=== PATIENT | female | born 1975 | race Caucasian/White ===

== ENCOUNTER 2017-12-28 16:10 | Emergency (ER) | payer SELFPAY ==
[~2017-12-28] VITALS: Ht 162.6 cm; Wt 77.1 kg
--- OUTSIDE RECORDS SUMMARY | 2017-12-28 16:19 | XMS REPORT ---
Author ROSIO Lagos Organization [employer] Address Unknown Phone Unavailable Care Team Providers Care Wood Heel Flap Inserter Name Role Phone ROSIO ANDERSEN CP Unavailable Allergies, Adverse Reactions, Alerts Substance Reaction Event Type Sulfamethoxazole-Trimethoprim Info Not Available Drug Allergy Problems Problem Type Condition Code Onset Dates Condition Status Assessment Infection of skin of finger L08.9 Active Medications Medication Code System Code Instructions Start Date End Date Status Dosage Estrace [facility] [address]-66 1 MG Orally Once a day 1 tablet Celexa [facility] [address]-16 10 mg Orally Once a day 1 tablet Oxybutynin Chloride [facility] [address]-69 5 mg Orally Once a day 2 tablet Vitamin B12 [facility] [address]-03 500 MCG Orally Once a day 1 tablet Vitamin D [facility] [address]-02 35115 U Orally Once a day 1 tablet Clindamycin HCl [facility] [address]-43 150 MG Orally every 8 hrs Aug 05, 2016 Aug 12, 2016 1 capsule Excedrin Migraine [facility] [address]-83 250-250-65 MG Orally every 6 hrs 2 tablets as needed Procedures Procedure Coding System Code Date Office Visit, Est Pt., Level 3 CPT-4 67066 Aug 05, 2016 Vital Signs Date/Time: Aug 05, 2016 Cardiac Monitoring Heart Rate 76 bpm Weight 199.7 lbs Height 64 in BMI 34.27 Index Blood Pressure Diastolic 84 mmHg Blood Pressure Systolic 120 mmHg Results No Known Results Summary Purpose [employer] Submission
--- OUTSIDE RECORDS SUMMARY | 2017-12-28 16:19 | XMS REPORT ---
Author Author DARIUS PATEL Organization [facility] Address [address] [place] [address] Care Team Providers Care Rn Orthopaedics Name Role Phone DARIUS PATEL Unavailable PROBLEMS Type Condition ICD9-CM Code OBM12-CN Code Onset Dates Condition Status SNOMED Code Problem Secondary cataract of both eyes, unspecified secondary cataract type H26.40 Active 47541800 Problem Moderate episode of recurrent major depressive disorder F33.1 Active 588574932 Problem Overactive bladder N32.81 Active 831787900 Problem Encounter for dental examination Z01.20 Active 469350203 Problem Major depressive disorder, single episode, unspecified F32.9 Active 44410433 Problem Migraine with aura and without status migrainosus, not intractable G43.109 Active 7864373 Problem Non morbid obesity due to excess calories E66.09 Active 005021595 Problem Anxiety disorder, unspecified F41.9 Active 638660016 Problem Morbid obesity due to excess calories E66.01 Active 318709970 ALLERGIES No Information SOCIAL HISTORY Never Assessed PLAN OF CARE VITAL SIGNS MEDICATIONS Medication Instructions Dosage Frequency Start Date End Date Duration Status Oxybutynin Chloride ER 10 mg Orally Once a day 1 tablet 24h Sep, Active Celexa 10 MG Orally Once a day 4 tablets 24h Active RESULTS No Results PROCEDURES No Known procedures IMMUNIZATIONS No Known Immunizations MEDICAL (GENERAL) HISTORY Type Description Date Medical History Depression Medical History Migraines Medical History Anxiety Surgical History total hysterectomy Surgical History cholecystectomy Surgical History Appendectomy Surgical History Tonsillectomy Surgical History cystoscopy Hospitalization History past surgery
--- OUTSIDE RECORDS SUMMARY | 2017-12-28 16:19 | XMS REPORT ---
Author Author DARIUS PATEL Organization [facility] Address [address] [place] [address] Care Team Providers Care Textile Supervisor Name Role Phone DARIUS PATEL Unavailable PROBLEMS Type Condition ICD9-CM Code SSX43-PK Code Onset Dates Condition Status SNOMED Code Problem Secondary cataract of both eyes, unspecified secondary cataract type H26.40 Active 83920704 Problem Moderate episode of recurrent major depressive disorder F33.1 Active 638950885 Problem Overactive bladder N32.81 Active 940510099 Problem Encounter for dental examination Z01.20 Active 084093041 Problem Major depressive disorder, single episode, unspecified F32.9 Active 44589911 Problem Migraine with aura and without status migrainosus, not intractable G43.109 Active 7278973 Problem Non morbid obesity due to excess calories E66.09 Active 770404110 Problem Anxiety disorder, unspecified F41.9 Active 392001448 Problem Morbid obesity due to excess calories E66.01 Active 787571112 ALLERGIES Substance Reaction Event Type Date Status Sulfamethoxazole-Trimethoprim Unknown Drug Allergy February, Active SOCIAL HISTORY Never Assessed PLAN OF CARE Activity Details Follow Up 4 Weeks with Stacey f/juanita Mood and anxiety Reason: VITAL SIGNS Height 64 in 2017-03-03 Weight 184.0 lbs 2017-03-03 Temperature 97.1 degrees Fahrenheit 2017-03-03 Heart Rate 72 bpm 2017-03-03 Respiratory Rate 18 2017-03-03 BMI 31.58 kg/m2 2017-03-03 Blood pressure systolic 126 mmHg 2017-03-03 Blood pressure diastolic 76 mmHg 2017-03-03 MEDICATIONS Medication Instructions Dosage Frequency Start Date End Date Duration Status Relpax 20 MG Orally Once a day 1 tablet as needed one time 24h Active Vitamin D 1000 UNIT Orally Once a day 5 tablet 24h Active Celexa 40 MG Orally Once a day 1 tablet 24h Active Pepcid 20 MG Orally Once a day 1 tablet at bedtime 24h Active Excedrin Migraine 250-250-65 MG Orally Once a day 2 tablets 24h Active [employer] Vitamin B-12 1500 MCG Active Topamax 25 MG Orally Twice a day 2 tablets 12h 16 Aug, 2016 Active Oxybutynin Chloride ER 10 mg Orally Once a day 1 tablet 24h Sep, Active Klonopin 1 MG Orally Twice a day PRN, do not take more then 2 tabs per day 1 tablet 18 Oct, 2016 30 days Active Feverfew 380 MG Orally Once a day 1 tablet 24h Active Premarin 0.625 MG/GM Vaginal once a day as directed 24h Sep, month Active RESULTS No Results PROCEDURES No Known procedures IMMUNIZATIONS No Known Immunizations MEDICAL (GENERAL) HISTORY Type Description Date Medical History Depression Medical History Migraines Medical History Anxiety Surgical History total hysterectomy Surgical History cholecystectomy Surgical History Appendectomy Surgical History Tonsillectomy Surgical History cystoscopy Hospitalization History past surgery
--- OUTSIDE RECORDS SUMMARY | 2017-12-28 16:19 | XMS REPORT ---
Author Author DARIUS PATEL Organization [facility] Address [address] [place] [address] Care Team Providers Care Business Analyst Project Manager Name Role Phone DARIUS PATEL Unavailable PROBLEMS Type Condition ICD9-CM Code QBC37-VF Code Onset Dates Condition Status SNOMED Code Problem Secondary cataract of both eyes, unspecified secondary cataract type H26.40 Active 49791290 Problem Moderate episode of recurrent major depressive disorder F33.1 Active 887569816 Problem Overactive bladder N32.81 Active 071939078 Problem Encounter for dental examination Z01.20 Active 499240029 Problem Major depressive disorder, single episode, unspecified F32.9 Active 46683687 Problem Migraine with aura and without status migrainosus, not intractable G43.109 Active 6594494 Problem Non morbid obesity due to excess calories E66.09 Active 901524620 Problem Anxiety disorder, unspecified F41.9 Active 076609512 Problem Morbid obesity due to excess calories E66.01 Active 370733700 ALLERGIES Substance Reaction Event Type Date Status Sulfamethoxazole-Trimethoprim Unknown Drug Allergy Oct, Active SOCIAL HISTORY No smoking Hx information available PLAN OF CARE Activity Details Follow Up 4 Weeks with Stacey for med f/u Reason: VITAL SIGNS Height 64 in 2016-10-28 Weight 191.2 lbs 2016-10-28 Temperature 97.7 degrees Fahrenheit 2016-10-28 Heart Rate 80 bpm 2016-10-28 Respiratory Rate 18 2016-10-28 BMI 32.82 kg/m2 2016-10-28 Blood pressure systolic 128 mmHg 2016-10-28 Blood pressure diastolic 84 mmHg 2016-10-28 MEDICATIONS Medication Instructions Dosage Frequency Start Date End Date Duration Status Vitamin D 1000 UNIT Orally Once a day 5 tablet 24h Active Topamax 50 mg Orally Twice a day 1 tablet 12h 16 Aug, 2016 90 days Active Feverfew 380 MG Orally Once a day 1 tablet 24h Active Klonopin 1 MG Orally Twice a day PRN, do not take more then 2 tabs per day 1 tablet 18 Jitendra, 2017 30 days Active Excedrin Migraine 250-250-65 MG Orally Once a day 2 tablets 24h Active Pepcid 20 MG Orally Once a day 1 tablet at bedtime 24h Active Relpax 20 MG Orally Once a day 1 tablet as needed one time 24h Active Premarin 0.625 MG/GM Vaginal once a day as directed 24h Sep, month Active [employer] Vitamin B-12 1500 MCG Active Oxybutynin Chloride ER 10 mg Orally Once a day 1 tablet 24h Sep, Active Celexa 40 MG Orally Once a day 1 tablet 24h 30 days Active RESULTS No Results PROCEDURES Procedure Date Ordered Related Diagnosis Body Site Office Visit, Est Pt., Level 4 Oct 28, 2016 IMMUNIZATIONS No Known Immunizations
--- OUTSIDE RECORDS SUMMARY | 2017-12-28 16:19 | XMS REPORT ---
Author Author DARIUS PATEL Organization [facility] Address [address] [place] [address] Care Team Providers Care Oil Driller Name Role Phone DARISU PATEL Unavailable PROBLEMS Type Condition ICD9-CM Code ELL47-WQ Code Onset Dates Condition Status SNOMED Code Problem Secondary cataract of both eyes, unspecified secondary cataract type H26.40 Active 47013157 Problem Non morbid obesity due to excess calories E66.09 Active 045966427 Problem Moderate episode of recurrent major depressive disorder F33.1 Active 282903567 Problem Encounter for dental examination Z01.20 Active 757635824 Problem Anxiety disorder, unspecified F41.9 Active 875214468 Problem Overactive bladder N32.81 Active 934850788 Problem Migraine with aura and without status migrainosus, not intractable G43.109 Active 3280607 Problem Major depressive disorder, single episode, unspecified F32.9 Active 10632530 Problem Morbid obesity due to excess calories E66.01 Active 608433904 ALLERGIES Substance Reaction Event Type Date Status Sulfamethoxazole-Trimethoprim Unknown Drug Allergy Sep, Active SOCIAL HISTORY No smoking Hx information available PLAN OF CARE Activity Details Follow Up 3 Months with Stacey f/u weight loss Reason: VITAL SIGNS Height 64 in 2016-09-24 Weight 190.0 lbs 2016-09-24 Temperature 97.3 degrees Fahrenheit 2016-09-24 BMI 32.61 kg/m2 2016-09-24 Blood pressure systolic 126 mmHg 2016-09-24 Blood pressure diastolic 70 mmHg 2016-09-24 MEDICATIONS Medication Instructions Dosage Frequency Start Date End Date Duration Status [employer] Vitamin B-12 1500 MCG Active Oxybutynin Chloride ER 10 mg Orally Once a day 1 tablet 24h Sep, Active Vitamin D 1000 UNIT Orally Once a day 5 tablet 24h Active Estrace 1 MG Orally Once a day 1 tablet 24h Active Topamax 50 mg Orally Twice a day 1 tablet 12h Aug, 90 days Active Excedrin Migraine 250-250-65 MG Orally Once a day 2 tablets 24h Active Premarin 0.625 MG/GM Vaginal once a day as directed 24h Sep, month Active Relpax 20 MG Orally Once a day 1 tablet as needed one time 24h Active Feverfew 380 MG Orally Once a day 1 tablet 24h Active Oxybutynin Chloride 10 mg Orally Once a day 1 tablet 24h Active Pepcid 20 MG Orally Once a day 1 tablet at bedtime 24h Active Celexa 20 mg Orally Once a day 1 tablet 24h 90 days Active RESULTS No Results PROCEDURES Procedure Date Ordered Related Diagnosis Body Site Office Visit, Est Pt., Level 3 Sep 24, 2016 IMMUNIZATIONS No Known Immunizations
--- OUTSIDE RECORDS SUMMARY | 2017-12-28 16:19 | XMS REPORT ---
Author DARIUS [facility] [employer] Address Unknown Phone Unavailable Care Team Providers Care Acid Tester Name Role Phone DARIUS PATEL CP Unavailable Allergies, Adverse Reactions, Alerts Substance Reaction Event Type Sulfamethoxazole-Trimethoprim Info Not Available Drug Allergy Problems Problem Type Condition Code Onset Dates Condition Status Assessment Moderate episode of recurrent major depressive disorder F33.1 Active Problem Migraine with aura and without status migrainosus, not intractable G43.109 Active Problem Non morbid obesity due to excess calories E66.09 Active Problem Overactive bladder N32.81 Active Assessment Migraine with aura and without status migrainosus, not intractable G43.109 Active Assessment Non morbid obesity due to excess calories E66.09 Active Problem Moderate episode of recurrent major depressive disorder F33.1 Active Assessment Overactive bladder N32.81 Active Medications Medication Code System Code Instructions Start Date End Date Status Dosage Estrace [facility] [address]-64 1 MG Orally Once a day 1 tablet [employer] Vitamin B-12 [facility] [address] 1500 MCG Orally not defined Relpax [facility] [address]-77 20 MG Orally Once a day 1 tablet as needed one time Vitamin D [facility] [address]-29 1000 UNIT Orally Once a day 5 tablet Excedrin Migraine [facility] [address]-77 250-250-65 MG Orally Once a day 2 tablets Topamax [facility] [address]-98 50 mg Orally Twice a day Aug 26, 2016 1 tablet Pepcid [facility] [address]-47 20 MG Orally Once a day 1 tablet at bedtime Feverfew [facility] [address] 380 MG Orally Once a day 1 tablet Oxybutynin Chloride [facility] [address]-78 5 mg Orally Once a day Nov 24, 2016 2 tablet Celexa [facility] [address]-10 20 mg Orally Once a day 1 tablet Procedures Procedure Coding System Code Date GLYCATED HEMOGLOBIN TEST CPT-4 75092 Aug 25, 2016 COMPLETE CBC W/AUTO DIFF WBC CPT-4 83628 Aug 25, 2016 ASSAY THYROID STIM HORMONE CPT-4 26085 Aug 25, 2016 COMPREHEN METABOLIC PANEL CPT-4 87122 Aug 25, 2016 LIPID PANEL CPT-4 13536 Aug 25, 2016 Office Visit, New Pt., Level 3 CPT-4 23996 Aug 25, 2016 VENIPUNCT, ROUTINE* CPT-4 05587 Aug 25, 2016 Vital Signs Date/Time: Aug 25, 2016 Cardiac Monitoring Heart Rate 72 bpm Weight 199.9 lbs Height 64 in BMI 34.31 Index Blood Pressure Diastolic 78 mmHg Blood Pressure Systolic 110 mmHg Results Name Result Date Reference Range Unit Abnormality Flag A1C ----Hemoglobin A1c 5.2 62470925 4.8-5.6 % CBC ----Basos 0 67533595 % ----MCV 94 91399637 79-97 fL ----Hematocrit 40.1 00389822 34.0-46.6 % ----Eos 2 40865833 % ----MCHC 33.9 51535678 31.5-35.7 g/dL ----Monocytes 7 42137473 % ----MCH 31.9 88683261 26.6-33.0 pg ----Lymphs 39 17135951 % ----Eos (Absolute) 0.1 95636305 0.0-0.4 x10E3/uL ----WBC 6.5 [id number] 3.4-10.8 x10E3/uL ----Monocytes(Absolute) 0.5 60450623 0.1-0.9 x10E3/uL ----Lymphs (Absolute) 2.5 02461598 0.7-3.1 x10E3/uL ----Hemoglobin 13.6 49079892 11.1-15.9 g/dL ----Neutrophils (Absolute) 3.4 01560559 1.4-7.0 x10E3/uL ----RBC 4.26 77042513 3.77-5.28 x10E6/uL ----Immature Grans (Abs) 0.0 68313437 0.0-0.1 x10E3/uL ----Immature Granulocytes 0 15149256 % ----Neutrophils 52 70375471 % ----Baso (Absolute) 0.0 40734373 0.0-0.2 x10E3/uL ----RDW 12.8 97661366 12.3-15.4 % ----Platelets 246 [id number] 150-379 x10E3/uL ROUTINE VENIPUNCTURE THYROID ANALYZER ----TSH 1.590 [id number] 0.450-4.500 uIU/mL LIPID PANEL ----LDL Cholesterol Calc 129 63764508 0-99 mg/dL H ----VLDL Cholesterol Ernie 77 53334801 5-40 mg/dL H ----HDL Cholesterol 37 33516366 >39 mg/dL L ----Triglycerides 386 00035550 0-149 mg/dL H ----Cholesterol, Total 243 89537240 100-199 mg/dL H CMP ----Creatinine, Serum 0.63 83097033 0.57-1.00 mg/dL ----BUN 16 22124899 6-24 mg/dL ----eGFR If Africn Am 130 14724584 >59 mL/min/1.73 ----eGFR If NonAfricn Am 113 59136282 >59 mL/min/1.73 ----Sodium, Serum 143 32348234 136-144 mmol/L ----BUN/Creatinine Ratio 25 26857234 9-23 H ----Chloride, Serum 103 92394775 97-106 mmol/L ----Potassium, Serum 3.8 02197713 3.5-5.2 mmol/L ----Carbon Dioxide, Total 24 02869406 18-29 mmol/L ----Protein, Total, Serum 7.2 10758547 6.0-8.5 g/dL ----Calcium, Serum 9.5 19802650 8.7-10.2 mg/dL ----Globulin, Total 2.8 19229097 1.5-4.5 g/dL ----Albumin, Serum 4.4 74623356 3.5-5.5 g/dL ----Bilirubin, Total <0.2 21580765 0.0-1.2 mg/dL ----Glucose, Serum 92 41613302 65-99 mg/dL ----A/G Ratio 1.6 29398179 1.1-2.5 ----ALT (SGPT) 13 20160825 0-32 IU/L ----Alkaline Phosphatase, S 68 20160825 39-117 IU/L ----AST (SGOT) 16 20160825 0-40 IU/L Summary Purpose [employer]Works Submission
--- OUTSIDE RECORDS SUMMARY | 2017-12-28 16:19 | XMS REPORT ---
Author Author DARIUS PATEL Organization [facility] Address [address] [place] [address] Care Team Providers Care Supervisor Liquid Yeast Name Role Phone DARIUS PATEL Unavailable PROBLEMS Type Condition ICD9-CM Code EWC15-KT Code Onset Dates Condition Status SNOMED Code Problem Secondary cataract of both eyes, unspecified secondary cataract type H26.40 Active 23671911 Problem Moderate episode of recurrent major depressive disorder F33.1 Active 236887505 Problem Overactive bladder N32.81 Active 274511753 Problem Encounter for dental examination Z01.20 Active 146669870 Problem Major depressive disorder, single episode, unspecified F32.9 Active 43138243 Problem Migraine with aura and without status migrainosus, not intractable G43.109 Active 4639813 Problem Non morbid obesity due to excess calories E66.09 Active 465527188 Problem Anxiety disorder, unspecified F41.9 Active 674211787 Problem Morbid obesity due to excess calories E66.01 Active 618550666 ALLERGIES No Information SOCIAL HISTORY Never Assessed PLAN OF CARE VITAL SIGNS MEDICATIONS Unknown Medications RESULTS No Results PROCEDURES No Known procedures IMMUNIZATIONS No Known Immunizations MEDICAL (GENERAL) HISTORY Type Description Date Medical History Depression Medical History Migraines Medical History Anxiety Surgical History total hysterectomy Surgical History cholecystectomy Surgical History Appendectomy Surgical History Tonsillectomy Surgical History cystoscopy Hospitalization History past surgery
--- NOTE | 2017-12-28 16:25 | ED Chest Pain ---
General Chief Complaint: Chest Pain Stated Complaint: CP Source: patient Exam Limitations: no limitations History of Present Illness Date Seen by Provider: Dec 28, 2017 Time Seen by Provider: 16:23 Initial Comments To ER accompanied by her son per private vehicle with reports of left-sided chest pain. This chest pain has been intermittent since Tuesday 12/26 but this particular episode has been constant all day. The pain is worsened by deep breathing and the left side of her chest and breast is tender to palpation. She has not noticed any redness or skin changes to her breasts or discharge from the nipple. She has not had a cough fevers or chills. Timing/Duration: intermittent Severity/Quality: moderate Location: central Activities at Onset: none ASA po SHEET METAL DUCT INSTALLER HELPER: No NTG SL SHEET METAL DUCT INSTALLER HELPER: No Associated Symptoms: nausea/vomiting Allergies and Home Medications Allergies Uncoded Allergies: SULFA (Allergy, Unknown, 12/28/17) Patient Home Medication List Home Medication List Reviewed: Yes Review of Systems Constitutional: see HPI, No chills, No fever EENTM: No Symptoms Reported Respiratory: No Symptoms Reported Cardiovascular: No Symptoms Reported Gastrointestinal: See HPI, Abdominal Pain Genitourinary: See HPI Musculoskeletal: no symptoms reported Skin: no symptoms reported Psychiatric/Neurological: No Symptoms Reported Endocrine: No Symptoms Reported Hematologic/Lymphatic: No Symptoms Reported Past Lffdjdo-Obrfqm-Wkrrdm Hx Patient Social History Recent Foreign Travel: No Contact w/Someone Who Travel: No Physical Exam Vital Signs Vital Signs - First Documented 12/28/17 16:25 Temp 97.4 Pulse 61 Resp 12 B/P (MAP) 140/90 (107) Pulse Ox 98 Capillary Refill : General Appearance: No Apparent Distress, WD/WN HEENT: PERRL/EOMI, TMs Normal Neck: Full Range of Motion, Normal Inspection Respiratory: No Accessory Muscle Use, No Respiratory Distress, Other (left chest tender to palp) Cardiovascular: Regular Rate, Rhythm, Normal Peripheral Pulses Gastrointestinal: Non Tender, Soft Extremity: Normal Capillary Refill, Normal Inspection Neurologic/Psychiatric: Alert, Oriented x3 Skin: Normal Color, Warm/Dry Progress/Results/Core Measures Results/Orders Lab Results Laboratory Tests Test 12/28/17 16:30 Range/Units White Blood Count 6.0 4.3-11.0 10^3/uL Red Blood Count 4.24 L 4.35-5.85 10^6/uL Hemoglobin 13.9 11.5-16.0 G/DL Hematocrit 39 35-52 % Mean Corpuscular Volume 92 80-99 FL Mean Corpuscular Hemoglobin 33 25-34 PG Mean Corpuscular Hemoglobin Concent 36 32-36 G/DL Red Cell Distribution Width 11.9 10.0-14.5 % Platelet Count 201 130-400 10^3/uL Mean Platelet Volume 10.9 H 7.4-10.4 FL Neutrophils (%) (Auto) 55 42-75 % Lymphocytes (%) (Auto) 34 12-44 % Monocytes (%) (Auto) 9 0-12 % Eosinophils (%) (Auto) 2 0-10 % Basophils (%) (Auto) 0 0-10 % Neutrophils # (Auto) 3.3 1.8-7.8 X 10^3 Lymphocytes # (Auto) 2.1 1.0-4.0 X 10^3 Monocytes # (Auto) 0.6 0.0-1.0 X 10^3 Eosinophils # (Auto) 0.1 0.0-0.3 10^3/uL Basophils # (Auto) 0.0 0.0-0.1 10^3/uL Prothrombin Time 12.9 12.2-14.7 SEC INR Comment 1.0 0.8-1.4 Activated Partial Thromboplast Time 33 24-35 SEC D-Dimer < 0.27 0.00-0.49 UG/ML Sodium Level 141 135-145 MMOL/L Potassium Level 3.4 L 3.6-5.0 MMOL/L Chloride Level 112 H 98-107 MMOL/L Carbon Dioxide Level 22 21-32 MMOL/L Anion Gap 7 5-14 MMOL/L Blood Urea Nitrogen 13 7-18 MG/DL Creatinine 0.77 0.60-1.30 MG/DL Estimat Glomerular Filtration Rate > 60 BUN/Creatinine Ratio 17 Glucose Level 77 70-105 MG/DL Calcium Level 9.2 8.5-10.1 MG/DL Magnesium Level 2.0 1.8-2.4 MG/DL Total Bilirubin 0.3 0.1-1.0 MG/DL Aspartate Amino Transf (AST/SGOT) 46 H 5-34 U/L Alanine Aminotransferase (ALT/SGPT) 175 H 0-55 U/L Alkaline Phosphatase 98 40-136 U/L Myoglobin 37.6 10.0-92.0 NG/ML Troponin I < 0.30 <0.30 NG/ML B-Type Natriuretic Peptide 182.0 H <100.0 PG/ML Total Protein 7.2 6.4-8.2 GM/DL Albumin 4.3 3.2-4.5 GM/DL Amylase Level 44 25-125 U/L Lipase 19 8-78 U/L My Orders Orders - FARIHA MOSES SUPERVISOR BILLPOSTING Cbc With Automated Diff (12/28/17 16:16) Magnesium (12/28/17 16:16) Chest 1 View, Ap/Pa Only (12/28/17 16:16) Ekg Tracing (12/28/17 16:16) Cardiac Profile 1 (12/28/17 16:16) Comprehensive Metabolic Panel (12/28/17 16:16) Myoglobin Serum (12/28/17 16:16) Protime With Inr (12/28/17 16:16) Partial Thromboplastin Time (12/28/17 16:16) O2 (12/28/17 16:16) Monitor-Rhythm Ecg Trace Only (12/28/17 16:16) Lipid Panel (12/29/17 06:00) Saline Lock/Iv-Start (12/28/17 16:16) Lipase (12/28/17 16:16) Amylase (12/28/17 16:16) BNP (12/28/17 16:16) Fibrin Degradation Products (12/28/17 16:16) Ketorolac Injection (Toradol Injection) (12/28/17 17:15) Medications Given in ED Current Medications Medications Dose Ordered Sig/Carlos Route Start Time Stop Time Status Last Admin Dose Admin Ketorolac Tromethamine 15 mg ONCE ONCE IVP 12/28/17 17:15 12/28/17 17:16 DC 12/28/17 17:35 15 MG Vital Signs/I&O Vital Sign - Last 12Hours 12/28/17 16:25 Temp 97.4 Pulse 61 Resp 12 B/P (MAP) 140/90 (107) Pulse Ox 98 Departure Impression Impression: Primary Impression: Chest pain Additional Impression: Elevated liver function tests Disposition: 01 HOME, SELF-CARE Condition: Stable Departure-Patient Inst. Decision time for Depature: 17:16 Referrals: DARIUS IBARRA MD (PCP/Family) Primary Care Physician Patient Instructions: Chest Pain That Is Not Caused by the Heart (DC) Add. Discharge Instructions: 1. Follow-up with Dr. Ibarra to further evaluate the slightly elevated liver enzymes 2. Return to ER for any concerns 3. Motrin for any pain or discomfort. Return to ER for any worsening chest pain , shortness of breath or other concerns. All discharge instructions reviewed with patient and/or family. Voiced understanding. Copy Copies To 1: DARIUS IBARRA MD, PETER J APRN Dec 28, 2017 16:25
[2017-12-28 16:43] LABS: BASOPHILS % (AUTO) 0 % (0-10); EOSINOPHILS # (AUTO) 0.1 10^3/uL (0.0-0.3); EOSINOPHILS % (AUTO) 2 % (0-10); HEMATOCRIT 39 % (35-52); HEMOGLOBIN 13.9 G/DL (11.5-16.0); LYMPHOCYTES # (AUTO) 2.1 X 10^3 (1.0-4.0); LYMPHOCYTES % (AUTO) 34 % (12-44); MEAN CORPUSCULAR HEMOGLOBIN 33 PG (25-34); MEAN CORPUSCULAR HGB CONC 36 G/DL (32-36); MEAN CORPUSCULAR VOLUME 92 FL (80-99); MEAN PLATELET VOLUME 10.9 FL (7.4-10.4); MONOCYTES # (AUTO) 0.6 X 10^3 (0.0-1.0); MONOCYTES % (AUTO) 9 % (0-12); NEUTROPHILS # (AUTO) 3.3 X 10^3 (1.8-7.8); NEUTROPHILS % (AUTO) 55 % (42-75); PLATELET COUNT 201 10^3/uL (130-400); RED BLOOD COUNT 4.24 10^6/uL (4.35-5.85); RED CELL DISTRIBUTION WIDTH 11.9 % (10.0-14.5)
[2017-12-28 17:02] LABS: PROTHROMBIN TIME PATIENT 12.9 SEC (12.2-14.7)
[2017-12-28 17:07] LABS: ALANINE AMINOTRANSFERASE 175 U/L (0-55); ALBUMIN 4.3 GM/DL (3.2-4.5); ALKALINE PHOSPHATASE 98 U/L (40-136); AMYLASE 44 U/L (25-125); BILIRUBIN,TOTAL 0.3 MG/DL (0.1-1.0); BUN/CREATININE RATIO 17; CALCIUM 9.2 MG/DL (8.5-10.1); CARBON DIOXIDE 22 MMOL/L (21-32); CHLORIDE 112 MMOL/L (98-107); CREATININE SERUM 0.77 MG/DL (0.60-1.30); GFR ESTIMATED > 60; GLUCOSE 77 MG/DL (70-105); LIPASE 19 U/L (8-78); POTASSIUM 3.4 MMOL/L (3.6-5.0); SODIUM 141 MMOL/L (135-145); TOTAL PROTEIN 7.2 GM/DL (6.4-8.2)
--- NOTE | 2017-12-28 17:08 | Diagnostic Imaging Report ---
INDICATION: Chest pain. TIME OF EXAM: 500 PM COMPARISON: No prior studies are available for comparison. FINDINGS: There is right convexity thoracic scoliotic curvature. The heart size is normal. The lungs are clear. No infiltrate is detected. There is no effusion or pneumothorax. IMPRESSION: No acute cardiopulmonary process is detected. Dictated by: Dictated on workstation # [id number]
[2017-12-28 17:13] LABS: MYOGLOBIN SERUM 37.6 NG/ML (10.0-92.0)
[2017-12-28] MEDS ORDERED: KETOROLAC 30 MG/ML VIAL IVP ONE (17:15)
[2017-12-28 17:51] VITALS: BP 112/61
== END 2017-12-28 17:49 | disposition home or self-care (01) ==
LOC: ER 16:13
DX: R07.89 Other chest pain (principal); R94.5 Abnormal results of liver function studies; Z88.2 Allergy status to sulfonamides
CPT/HCPCS: 36415; 71045; 80053; 82150; 83690; 83735; 83874; 83880; 84484; 85025; 85379; 85610; 85730; 93005; 93041; 96374

== ENCOUNTER → 2018-01-12 | Outpatient (CLI) | payer SELFPAY | LOC: CARD 14:06 | PROVIDERS: ATTEND Family Medicine | DX: R07.9 Chest pain, unspecified (principal) | CPT/HCPCS: 93017 ==

== ENCOUNTER → 2018-02-16 | Outpatient (CLI) | payer OTHER ==
[~2018-02-16] VITALS: Ht 162.6 cm; Wt 73.9 kg
[~2018-02-16] MED LIST: ASPI-789 PO; ASPI-983 PO; CATHETER FLUSH 10 ML SYR IV PRN; CHOL5000 PO; CITA40TA11 PO; CYAN50008 PO; FAMO20TA3 PO; FEVERFEW PO; OXYB10TA PO; REGADENOSON 0.4 MG/5 ML SYR (LEXISCAN) IV ONE; TOPI200T25 PO
[2018-02-16 13:25] VITALS: BP 125/68
[2018-02-16 13:31] VITALS: BP 175/129
--- NOTE | 2018-02-17 09:56 | STRESS TEST ---
DATE OF SERVICE: 02/16/2018 [facility] MY[facility]IEW STRESS TEST REPORT REFERRING PHYSICIAN: Dr. Kenyetta Ibarra. Baseline heart is 61, baseline blood pressure 125/68. Baseline EKG is sinus rhythm with no ischemic changes. In summary, the patient was injected with 9.98 mCi of technetium-99 Myoview and the resting images were obtained. Then, the patient received 0.4 mg of Lexiscan followed by 30.5 mCi of technetium-99 Myoview. Prior to the test, the patient was having nausea and vomiting, continued to have nausea and vomiting after the test. There was motion artifact affecting the quality of the images. EKG did not show any changes. On the SPECT images, there was reversible ischemia involving the whole and anterolateral wall. SSS is 9, SDS 3, TID value 1.66. On the gated images, the left ventricle appeared to be normal size with normal contractility. Calculated ejection fraction is 66%. CONCLUSION: 1. The patient had significant nausea and vomiting and motion artifact during test. 2. Due to the motion artifact, considered nondiagnostic test, but there is questionable ischemia involving the whole anterior wall and anterolateral wall. 3. TID value is significantly increased of 1.66 due to the motion artifacts. 4. Gated images are normal with calculated ejection fraction 66%. Job ID: [id number] DocumentID: [id number] Dictated Date: 02/17/2018 09:02:39 Director Wholesale Date: 02/17/2018 09:55:15 Dictated By: EVER STOVER MD
== END ==
LOC: CARD 12:32
PROVIDERS: ATTEND Family Medicine
DX: R07.9 Chest pain, unspecified (principal)
CPT/HCPCS: 78452; 93017

== ENCOUNTER 2018-02-23 10:28 | Day surgery (SDC) | payer OTHER ==
[2018-02-23] VITALS (10 sets, daily range): BP systolic 109–142; BP diastolic 69–82
[~2018-02-23] VITALS: Ht 162.6 cm; Wt 76.7 kg
--- OUTSIDE RECORDS SUMMARY | 2018-02-23 10:32 | XMS REPORT ---
Author Author DARIUS PATEL Organization [facility] Address [address] [place] [address] Care Team Providers Care Explosive Operator Supervisor Name Role Phone DARIUS PATEL Unavailable PROBLEMS Type Condition ICD9-CM Code [id number] Code Onset Dates Condition Status SNOMED Code Problem Overactive bladder N32.81 Active 969616739 Problem Secondary cataract of both eyes, unspecified secondary cataract type H26.40 Active 36662196 Problem Major depressive disorder, single episode, unspecified F32.9 Active 76194413 Problem Anxiety disorder, unspecified F41.9 Active 512440549 Problem Non morbid obesity due to excess calories E66.09 Active 627259865 Problem Moderate episode of recurrent major depressive disorder F33.1 Active 617045180 Problem Morbid obesity due to excess calories E66.01 Active 266477091 Problem Migraine with aura and without status migrainosus, not intractable G43.109 Active 1540044 ALLERGIES No Information ENCOUNTERS Encounter Location Date Diagnosis [place] [address] [address] February, [place] [address] [address]23[address]189 Dec, [place] [address] 80[address] 2609 Dec, Moderate episode of recurrent major depressive disorder F33.1 and Migraine with aura and without status migrainosus, not intractable G43.109 [place] [address] 23615- [address] Oct, Migraine with aura and without status migrainosus, not intractable G43.109 [place] [address] [place] [id number] [place] [address] 75934- 9393 Oct, Non morbid obesity due to excess calories E66.09 [place] [address] [address] Oct, Morbid obesity due to excess calories E66.01 [place] [address] [place] [id number] [place] [address] 27909- 1027 Oct, Non morbid obesity due to excess calories E66.09 ; Moderate episode of recurrent major depressive disorder F33.1 ; Migraine with aura and without status migrainosus, not intractable G43.109 and Morbid obesity due to excess calories E66.01 [facility] [address] [place] [id number] [place] [address]67 -5687 Sep, Viral gastroenteritis A08.4 and Chills R68.83 [place] [address] [place] [id number] [place] [address] 04092- 5300 Aug, Migraine with aura and without status migrainosus, not intractable G43.109 ; Moderate episode of recurrent major depressive disorder F33.1 ; Anxiety disorder, unspecified F41.9 and Morbid obesity due to excess calories E66.01 [place] [address] [place] [id number] [place] [address] 64300- 2606 Jun, Major depressive disorder, single episode, unspecified F32.9 [facility] [address] [place] [address] 06992 -8718 Jun, Other viral agents as the cause of diseases classified elsewhere B97.89 and Acute upper respiratory infection, unspecified J06.9 [facility] [address] [place] [address] 47474- 6094 May, Major depressive disorder, single episode, unspecified F32.9 [facility] [address] [id number] [place] [address] [id number] May, Dental examination Z01.20 [facility] [address] [place] [address] [id number] [place] [address] [id number] May, Dental examination Z01.20 [facility] [address] [place] [id number] [place] [address] [id number] Apr, Encounter for dental examination Z01.20 [place] [address] [place] [address] 65081- 8743 Apr, Anxiety disorder, unspecified F41.9 and Migraine with aura and without status migrainosus, not intractable G43.109 [place] [address] [place] [id number] [place] [address] 41408- 3287 Mar, Migraine with aura and without status migrainosus, not intractable G43.109 and Morbid obesity due to excess calories E66.01 [place] [address] [place] [id number] [place] [address] 92555- 6644 Mar, [place] [address] [place] [id number] [place] [address] 42807- 6801 February, Major depressive disorder, single episode, unspecified F32.9 [place] [address] [place] [id number] [place] [address] 39860- 7392 Jan, Migraine with aura and without status migrainosus, not intractable G43.109 [place] [address] [place] [id number] [place] [address] 32999- 6558 Nov, Major depressive disorder, single episode, unspecified F32.9 and Morbid obesity due to excess calories E66.01 [place] [address] [address] Nov, [place] [address] [place] [id number] [place] [address] 12617- 8546 Nov, Major depressive disorder, single episode, unspecified F32.9 and Migraine with aura and without status migrainosus, not intractable G43.109 [place] [address] [place] [id number] [place] [address] 31819- 5769 Oct, Major depressive disorder, single episode, unspecified F32.9 and Anxiety disorder, unspecified F41.9 [place] [address] [place] [address] 02715- 6663 Sep, Morbid obesity due to excess calories E66.01 and Urinary frequency R35.0 [facility] [address] [facility] [id number] [address] Aug, Overactive bladder N32.81 ; Migraine with aura and without status migrainosus, not intractable G43.109 ; Non morbid obesity due to excess calories E66.09 and Moderate episode of recurrent major depressive disorder F33.1 [place] [address] [facility] [id number] [address] Jul, Infection of skin of finger L08.9 IMMUNIZATIONS No Known Immunizations SOCIAL HISTORY Never Assessed REASON FOR VISIT Repository Medication PLAN OF CARE VITAL SIGNS MEDICATIONS Medication Instructions Dosage Frequency Start Date End Date Duration Status Topamax 25 MG Orally Twice a day 2 tablets 12h Aug, 90 days Active Oxybutynin Chloride ER 10 mg Orally Once a day 1 tablet 24h Sep, 90 days Active RESULTS No Results PROCEDURES No Known procedures INSTRUCTIONS MEDICATIONS ADMINISTERED No Known Medications MEDICAL (GENERAL) HISTORY Type Description Date Medical History Depression Medical History Migraines Medical History Anxiety Surgical History total hysterectomy Surgical History cholecystectomy Surgical History Appendectomy Surgical History Tonsillectomy Surgical History cystoscopy Hospitalization History past surgery
--- OUTSIDE RECORDS SUMMARY | 2018-02-23 10:32 | XMS REPORT ---
Author Author DARIUS PATEL Organization [facility] [place] Address [address] [place] [address] Care Team Providers Care Primer Inserting Machine Adjuster Name Role Phone DARIUS PATEL Unavailable PROBLEMS Type Condition ICD9-CM Code [id number] Code Onset Dates Condition Status SNOMED Code Problem Secondary cataract of both eyes, unspecified secondary cataract type H26.40 Active 06800536 Problem Moderate episode of recurrent major depressive disorder F33.1 Active 831182967 Problem Overactive bladder N32.81 Active 020844304 Problem Chest pain, unspecified type R07.9 Active 01900453 Problem Anxiety F41.9 Active 77931316 Problem Migraine with aura and without status migrainosus, not intractable G43.109 Active 3663151 Problem Non morbid obesity due to excess calories E66.09 Active 572152902 Problem Major depressive disorder, single episode, unspecified F32.9 Active 30407875 Problem Morbid obesity due to excess calories E66.01 Active 263707023 ALLERGIES No Information ENCOUNTERS Encounter Location Date Diagnosis [place] [address] [place] [id number] [place] [address]609[address]59 February, [place] [address] [place] [id number] [place] [address] 37566- 5079 February, [facility] [place] [address] [place] [address] [id number] [place] [address] 25207- 3589 February, [facility] [place] [address] [place] [id number] [place] [address] 07739- 2205 Jan, Chest pain, unspecified type R07.9 [facility] [place] [address] [id number] [place] [address] 94389- 2892 Dec, Chest pain, unspecified type R07.9 and Anxiety F41.9 [place] [address] [place] [address] Dec, Moderate episode of recurrent major depressive disorder F33.1 and Migraine with aura and without status migrainosus, not intractable G43.109 [place] [address] [place] [id number] [place] [address] 10925- 9985 Oct, Migraine with aura and without status migrainosus, not intractable G43.109 [place] [address] [address]- 9353 Oct, Non morbid obesity due to excess calories E66.09 [place] [address] [place] [id number] [place] [address] 00361- 7341 Oct, Morbid obesity due to excess calories E66.01 [place] [address] [place] [id number] [place] [address] 23035- 8782 Oct, Non morbid obesity due to excess calories E66.09 ; Moderate episode of recurrent major depressive disorder F33.1 ; Migraine with aura and without status migrainosus, not intractable G43.109 and Morbid obesity due to excess calories E66.01 [facility] [address] [place] [id number] [place] [address] 36511 -[address]39 Sep, Viral gastroenteritis A08.4 and Chills R68.83 [place] [address] [place] [id number] [place] [address] 17784- 5368 Aug, Migraine with aura and without status migrainosus, not intractable G43.109 ; Moderate episode of recurrent major depressive disorder F33.1 ; Anxiety disorder, unspecified F41.9 and Morbid obesity due to excess calories E66.01 [place] [address] [place] [address] 68745- 8795 Jun, Major depressive disorder, single episode, unspecified F32.9 [facility] [address] [place] [id number] [place] [address] 08934 -9059 Jun, Other viral agents as the cause of diseases classified elsewhere B97.89 and Acute upper respiratory infection, unspecified J06.9 [place] [address] [address] May, Major depressive disorder, single episode, unspecified F32.9 [facility] [address] [id number] [place] [address] [id number] May, Dental examination Z01.20 [facility] [address] [place] [address] [id number] May, Dental examination Z01.20 [facility] [address] [place] [id number] [place] [address] [id number] Apr, Encounter for dental examination Z01.20 [facility] [place] [address] [place] [id number] [place] [address] 380768- 6418 Apr, Anxiety disorder, unspecified F41.9 and Migraine with aura and without status migrainosus, not intractable G43.109 [facility] [place] [address] [place] [id number] [place] [address] 27272- 2484 Mar, Migraine with aura and without status migrainosus, not intractable G43.109 and Morbid obesity due to excess calories E66.01 [facility] [place] [address] [place] [id number] [place] [address] 67430- 8234 Mar, [facility] [place] [address] [place] [id number] [place] [address] 51867- 5281 February, Major depressive disorder, single episode, unspecified F32.9 [facility] [place] [address] [id number] [place] [address] 62949- 7869 Jan, Migraine with aura and without status migrainosus, not intractable G43.109 [facility] [place] [address] [id number] [place] [address] 91104- 4388 Nov, Major depressive disorder, single episode, unspecified F32.9 and Morbid obesity due to excess calories E66.01 [facility] [place] [address] [place] [id number] [place] [address] 14400- 3682 Nov, [facility] [place] [address] [place] [address] 08 Nov, 2016 Major depressive disorder, single episode, unspecified F32.9 and Migraine with aura and without status migrainosus, not intractable G43.109 [place] [address] [place] [address] 07284- 0326 18 Oct, 2016 Major depressive disorder, single episode, unspecified F32.9 and Anxiety disorder, unspecified F41.9 [place] [address] [place] [id number] [place] [address] 84259- 8908 Sep, Morbid obesity due to excess calories E66.01 and Urinary frequency R35.0 [place] [address] [place] [id number] [place] [address] 38841- 1943 Aug, Overactive bladder N32.81 ; Migraine with aura and without status migrainosus, not intractable G43.109 ; Non morbid obesity due to excess calories E66.09 and Moderate episode of recurrent major depressive disorder F33.1 [place] [address] [place] [address] 79570- 2536 Jul, Infection of skin of finger L08.9 IMMUNIZATIONS No Known Immunizations SOCIAL HISTORY Never Assessed REASON FOR VISIT Repository Medication PLAN OF CARE VITAL SIGNS MEDICATIONS Medication Instructions Dosage Frequency Start Date End Date Duration Status Celexa 20 MG Orally Once a day 2 tablet 24h Active RESULTS No Results PROCEDURES No Known procedures INSTRUCTIONS MEDICATIONS ADMINISTERED No Known Medications MEDICAL (GENERAL) HISTORY Type Description Date Medical History Depression Medical History Migraines Medical History Anxiety Surgical History total hysterectomy Surgical History cholecystectomy Surgical History Appendectomy Surgical History Tonsillectomy Surgical History cystoscopy Hospitalization History past surgery
--- OUTSIDE RECORDS SUMMARY | 2018-02-23 10:33 | XMS REPORT ---
Author Author DARIUS PATEL Organization [facility] Address [address] [place] [address] Care Team Providers Care Damage Prevention Coordinator Name Role Phone DARIUS PATEL Unavailable PROBLEMS Type Condition ICD9-CM Code [id number] Code Onset Dates Condition Status SNOMED Code Problem Secondary cataract of both eyes, unspecified secondary cataract type H26.40 Active 99537035 Problem Moderate episode of recurrent major depressive disorder F33.1 Active 517308408 Problem Overactive bladder N32.81 Active 353195398 Problem Chest pain, unspecified type R07.9 Active 28980774 Problem Anxiety F41.9 Active 02059276 Problem Migraine with aura and without status migrainosus, not intractable G43.109 Active 2959682 Problem Non morbid obesity due to excess calories E66.09 Active 716931515 Problem Major depressive disorder, single episode, unspecified F32.9 Active 90476328 Problem Morbid obesity due to excess calories E66.01 Active 988034328 ALLERGIES No Information ENCOUNTERS Encounter Location Date Diagnosis [place] [address] [place] [address] 65860- 7565 February, [place] [address] [place] [id number] [place] [address] 94307- 4649 February, [place] [address] [place] [id number] [place] [address] 02019- 1061 Jan, Chest pain, unspecified type R07.9 [place] [address] [place] [id number] [place] [address] 19124- 4307 Dec, Chest pain, unspecified type R07.9 and Anxiety F41.9 [place] [address] [place] [address] 09156- 0576 Dec, Moderate episode of recurrent major depressive disorder F33.1 and Migraine with aura and without status migrainosus, not intractable G43.109 [place] [address] [place] [id number] [place] [address] 49115- 6409 Oct, Migraine with aura and without status migrainosus, not intractable G43.109 [place] [address] [place] [id number] [place] [address] 88347- 9577 Oct, Non morbid obesity due to excess calories E66.09 [place] [address] [place] [id number] [place] [address] 23421- 2154 Oct, Morbid obesity due to excess calories E66.01 [place] [address] [address]00- 1574 Oct, Non morbid obesity due to excess calories E66.09 ; Moderate episode of recurrent major depressive disorder F33.1 ; Migraine with aura and without status migrainosus, not intractable G43.109 and Morbid obesity due to excess calories E66.01 [facility] [address] [place] [id number] [place] [address] 69498 -6809 Sep, Viral gastroenteritis A08.4 and Chills R68.[address] 287[address]- 6949 Aug, Migraine with aura and without status migrainosus, not intractable G43.109 ; Moderate episode of recurrent major depressive disorder F33.1 ; Anxiety disorder, unspecified F41.9 and Morbid obesity due to excess calories E66.01 [place] [address] [place] [address] 61187- 0889 Jun, Major depressive disorder, single episode, unspecified F32.9 [facility] [address] [place] [id number] [place] [address] 86249 -3108 Jun, Other viral agents as the cause of diseases classified elsewhere B97.89 and Acute upper respiratory infection, unspecified J06.9 [place] [id number] [place] [address] 64371- 8083 May, Major depressive disorder, single episode, unspecified F32.9 [facility] [address] [place] [id number] [id number] May, Dental examination Z01.20 [facility] [address] [id number] May, Dental examination Z01.20 [facility] [address] [place] [id number] [id number] Apr, Encounter for dental examination Z01.20 [facility] [address] [place] [id number] [place] [address] 21676- 8572 Apr, Anxiety disorder, unspecified F41.9 and Migraine with aura and without status migrainosus, not intractable G43.109 [facility] [address] [place] [id number] [place] [address] 99374- 4379 Mar, Migraine with aura and without status migrainosus, not intractable G43.109 and Morbid obesity due to excess calories E66.01 [facility] [address] [place] [id number] [place] [address] 49544- 5487 Mar, [facility] [address] [place] [id number] [place] [address] 58265- 3520 February, Major depressive disorder, single episode, unspecified F32.9 [facility] [address] [place] [id number] [place] [address] 82864- 8890 Jan, Migraine with aura and without status migrainosus, not intractable G43.109 [facility] [address] [id number] [place] [address] 49567- 8182 Nov, Major depressive disorder, single episode, unspecified F32.9 and Morbid obesity due to excess calories E66.01 [facility] [address] [address] [id number] [place] [address] 61774- 2973 Nov, [facility] [address] [address] [id number] [place] [address] 49147- 7420 Nov, Major depressive disorder, single episode, unspecified F32.9 and Migraine with aura and without status migrainosus, not intractable G43.109 [place] [address], [place] [address]- 9544 Oct, Major depressive disorder, single episode, unspecified F32.9 and Anxiety disorder, unspecified F41.9 [place] [address] [address]- [address]15 Sep, Morbid obesity due to excess calories E66.01 and Urinary frequency R35.0 [place] [address] [place] [address] 41356- 5674 Aug, Overactive bladder N32.81 ; Migraine with aura and without status migrainosus, not intractable G43.109 ; Non morbid obesity due to excess calories E66.09 and Moderate episode of recurrent major depressive disorder F33.1 [place] [address] [place] [address] 98327- 6082 Jul, Infection of skin of finger L08.9 IMMUNIZATIONS No Known Immunizations SOCIAL HISTORY Never Assessed REASON FOR VISIT Repository Medication PLAN OF CARE VITAL SIGNS MEDICATIONS Medication Instructions Dosage Frequency Start Date End Date Duration Status Oxybutynin Chloride 10 mg Orally Once a day 1 tablet 24h Active Klonopin 1 MG Orally Twice a day PRN, do not take more then 2 tabs per day 1 tablet Oct, 30 days Active Celexa 40 mg Orally Once a day 1 tablet 24h Active RESULTS No Results PROCEDURES No Known procedures INSTRUCTIONS MEDICATIONS ADMINISTERED No Known Medications MEDICAL (GENERAL) HISTORY Type Description Date Medical History Depression Medical History Migraines Medical History Anxiety Surgical History total hysterectomy Surgical History cholecystectomy Surgical History Appendectomy Surgical History Tonsillectomy Surgical History cystoscopy Hospitalization History past surgery
--- OUTSIDE RECORDS SUMMARY | 2018-02-23 10:33 | XMS REPORT ---
Author Author DARIUS PATEL Organization [facility] Address [address] [place] [address] Care Team Providers Care Recovery Assistant Name Role Phone DARIUS PATEL Unavailable PROBLEMS Type Condition ICD9-CM Code [id number] Code Onset Dates Condition Status SNOMED Code Problem Overactive bladder N32.81 Active 140157231 Problem Secondary cataract of both eyes, unspecified secondary cataract type H26.40 Active 61348492 Problem Major depressive disorder, single episode, unspecified F32.9 Active 03102439 Problem Anxiety disorder, unspecified F41.9 Active 464804001 Problem Non morbid obesity due to excess calories E66.09 Active 566684162 Problem Moderate episode of recurrent major depressive disorder F33.1 Active 150875644 Problem Morbid obesity due to excess calories E66.01 Active 898568625 Problem Migraine with aura and without status migrainosus, not intractable G43.109 Active 5940198 ALLERGIES No Information ENCOUNTERS Encounter Location Date Diagnosis [place] [address] [address] February, [place] [address] [address] 4724 Dec, [place] [address] [address] Dec, Moderate episode of recurrent major depressive disorder F33.1 and Migraine with aura and without status migrainosus, not intractable G43.109 [place] [address] [address] Oct, Migraine with aura and without status migrainosus, not intractable G43.109 [place] [address] [place] [id number] [place] [address] 33419- 5738 Oct, Non morbid obesity due to excess calories E66.09 [place] [address] [address] Oct, Morbid obesity due to excess calories E66.01 [place] [address] [place] [id number] [place] [address] 46474- 2965 Oct, Non morbid obesity due to excess calories E66.09 ; Moderate episode of recurrent major depressive disorder F33.1 ; Migraine with aura and without status migrainosus, not intractable G43.109 and Morbid obesity due to excess calories E66.01 [facility] [address] [id number] [place] [address]258 -3749 Sep, Viral gastroenteritis A08.4 and Chills R68.83 [place] [address] [place] [id number] [place] [address] 36193- 6655 Aug, Migraine with aura and without status migrainosus, not intractable G43.109 ; Moderate episode of recurrent major depressive disorder F33.1 ; Anxiety disorder, unspecified F41.9 and Morbid obesity due to excess calories E66.01 [place] [address] [place] [id number] [place] [address] 57441- 1808 Jun, Major depressive disorder, single episode, unspecified F32.9 [facility] [address] [place] [address] 63892 -8599 Jun, Other viral agents as the cause of diseases classified elsewhere B97.89 and Acute upper respiratory infection, unspecified J06.9 [facility] [address] [place] [address] 70251- 5569 May, Major depressive disorder, single episode, unspecified F32.9 [facility] [address] [place] [id number] [place] [id number] May, Dental examination Z01.20 [facility] [address] [address] [id number] [place] [address] [id number] May, Dental examination Z01.20 [facility] [address] [address] [id number] [place] [address] [id number] Apr, Encounter for dental examination Z01.20 [place] [address] [place] [address] 78659- 1544 Apr, Anxiety disorder, unspecified F41.9 and Migraine with aura and without status migrainosus, not intractable G43.109 [place] [address] [id number] [place] [address] 76093- 3655 Mar, Migraine with aura and without status migrainosus, not intractable G43.109 and Morbid obesity due to excess calories E66.01 [place] [address] [id number] [place] [address] 26823- 7405 Mar, [place] [address] [place] [id number] [place] [address] 83539- 1174 February, Major depressive disorder, single episode, unspecified F32.9 [place] [address] [place] [id number] [place] [address] 74860- 9444 Jan, Migraine with aura and without status migrainosus, not intractable G43.109 [place] [address] [place] [id number] [place] [address] 24607- 0427 Nov, Major depressive disorder, single episode, unspecified F32.9 and Morbid obesity due to excess calories E66.01 [place] [address] [address] Nov, [place] [address] [place] [id number] [place] [address] 43479- 3756 Nov, Major depressive disorder, single episode, unspecified F32.9 and Migraine with aura and without status migrainosus, not intractable G43.109 [place] [address] [place] [id number] [place] [address] 77967- 4156 Oct, Major depressive disorder, single episode, unspecified F32.9 and Anxiety disorder, unspecified F41.9 [place] [address] [place] [address] 40432- 1772 Sep, Morbid obesity due to excess calories E66.01 and Urinary frequency R35.0 [facility] [address] [facility] [id number] [id number] [address] Aug, Overactive bladder N32.81 ; Migraine with aura and without status migrainosus, not intractable G43.109 ; Non morbid obesity due to excess calories E66.09 and Moderate episode of recurrent major depressive disorder F33.1 [place] [address] [place] [id number] [address] Jul, Infection of skin of finger L08.9 IMMUNIZATIONS No Known Immunizations SOCIAL HISTORY Never Assessed REASON FOR VISIT Eye Exam PLAN OF CARE VITAL SIGNS MEDICATIONS Unknown Medications RESULTS No Results PROCEDURES No Known procedures INSTRUCTIONS MEDICATIONS ADMINISTERED No Known Medications MEDICAL (GENERAL) HISTORY Type Description Date Medical History Depression Medical History Migraines Medical History Anxiety Surgical History total hysterectomy Surgical History cholecystectomy Surgical History Appendectomy Surgical History Tonsillectomy Surgical History cystoscopy Hospitalization History past surgery
--- OUTSIDE RECORDS SUMMARY | 2018-02-23 10:33 | XMS REPORT ---
Author Author GEORGE COLBY Organization [facility] Address [address] [place] [address] Care Team Providers Care Post Framer Name Role Phone LASHA GEORGE Unavailable PROBLEMS Type Condition ICD9-CM Code [id number] Code Onset Dates Condition Status SNOMED Code Problem Secondary cataract of both eyes, unspecified secondary cataract type H26.40 Active 36139208 Problem Moderate episode of recurrent major depressive disorder F33.1 Active 621548556 Problem Overactive bladder N32.81 Active 363758177 Problem Chest pain, unspecified type R07.9 Active 76196766 Problem Anxiety F41.9 Active 45793810 Problem Migraine with aura and without status migrainosus, not intractable G43.109 Active 7168892 Problem Non morbid obesity due to excess calories E66.09 Active 881858606 Problem Major depressive disorder, single episode, unspecified F32.9 Active 08059337 Problem Morbid obesity due to excess calories E66.01 Active 893412382 ALLERGIES Substance Reaction Event Type Date Status Sulfamethoxazole-Trimethoprim Unknown Drug Allergy Jun, Active ENCOUNTERS Encounter Location Date Diagnosis [place] [address] [place] [id number] [place] [address] 55195- 7585 February, [place] [address] [place] [id number] [place] [address] 60921- 3588 February, [facility] [address] [place] [id number] [place] [address] 49827- 4267 Jan, Chest pain, unspecified type R07.9 [place] [address] [place] [id number] [place] [address] 00273- 6274 Dec, Chest pain, unspecified type R07.9 and Anxiety F41.9 [facility] [address] [place] [id number] [place] [address] 89425- 4582 Dec, Moderate episode of recurrent major depressive disorder F33.1 and Migraine with aura and without status migrainosus, not intractable G43.109 [place] [address] [place] [id number] [place] [address] 00170- 6928 Oct, Migraine with aura and without status migrainosus, not intractable G43.109 [place] [address] [place] [id number] [place] [address] 24406- 6791 Oct, Non morbid obesity due to excess calories E66.09 [place] [address] [place] [id number] [place] [address] 71747- 1737 Oct, Morbid obesity due to excess calories E66.01 [place] [address] [place] [id number] [place] [address] 77227- 8754 Oct, Non morbid obesity due to excess calories E66.09 ; Moderate episode of recurrent major depressive disorder F33.1 ; Migraine with aura and without status migrainosus, not intractable G43.109 and Morbid obesity due to excess calories E66.01 [facility] IN [facility] [address] [place] [id number] [place] [address] 03886 -6084 Sep, Viral gastroenteritis A08.4 and Chills R68.83 [place] [address] [place] [id number] [place] [address] 21026- 2269 Aug, Migraine with aura and without status migrainosus, not intractable G43.109 ; Moderate episode of recurrent major depressive disorder F33.1 ; Anxiety disorder, unspecified F41.9 and Morbid obesity due to excess calories E66.01 [place] [address] [place] [address] 61943- 6169 Jun, Major depressive disorder, single episode, unspecified F32.9 [facility] IN [facility] [address] [place] [id number] [place] [address] 03751 -9653 Jun, Other viral agents as the cause of diseases classified elsewhere B97.89 and Acute upper respiratory infection, unspecified J06.9 [place] [address] 72483- [address] May, Major depressive disorder, single episode, unspecified F32.9 [facility] [address] [place] [id number] [id number] May, Dental examination Z01.20 [facility] [address] [place] [id number] [id number] May, Dental examination Z01.20 [facility] [address] [id number] Apr, Encounter for dental examination Z01.20 [facility] [address] [place] [address] 17041- 0572 Apr, Anxiety disorder, unspecified F41.9 and Migraine with aura and without status migrainosus, not intractable G43.109 [facility] [address], [place] [address] 4[address] Mar, Migraine with aura and without status migrainosus, not intractable G43.109 and Morbid obesity due to excess calories E66.01 [facility] [address] [place] [address] 94447- 3180 Mar, [facility] [address] [place] [id number] [place] [address] 59697- 6007 February, Major depressive disorder, single episode, unspecified F32.9 [facility] [address], [place] [address]- 4861 Jan, Migraine with aura and without status migrainosus, not intractable G43.109 [facility] [address], [place] [address]- 9708 Nov, Major depressive disorder, single episode, unspecified F32.9 and Morbid obesity due to excess calories E66.01 [facility] [address] [address]- 9861 Nov, [facility] [address] [place] [address] 99377- 9788 Nov, Major depressive disorder, single episode, unspecified F32.9 and Migraine with aura and without status migrainosus, not intractable G43.109 [place] [address] [place] [address] 67811- 7251 Oct, Major depressive disorder, single episode, unspecified F32.9 and Anxiety disorder, unspecified F41.9 [place] [address] [place] [id number] [place] [address] 44972- 6473 Sep, Morbid obesity due to excess calories E66.01 and Urinary frequency R35.0 [place] [address] [place] [id number] [place] [address] 11404- 1642 Aug, Overactive bladder N32.81 ; Migraine with aura and without status migrainosus, not intractable G43.109 ; Non morbid obesity due to excess calories E66.09 and Moderate episode of recurrent major depressive disorder F33.1 [place] [id number] [place] [address] 46240- 7330 Jul, Infection of skin of finger L08.9 IMMUNIZATIONS Vaccine Route Administration Date Status SOLUMEDROL (UP TO 125 MG) IM Intramuscular Jun 30, 2017 Administered SOCIAL HISTORY Never Assessed REASON FOR VISIT congestion/Right ear pain, nausea, headache, sneezing, eye pain started a couple days ago JStrasserRN PLAN OF CARE VITAL SIGNS Height 64 in 2017-06-30 Weight 176 lbs 2017-06-30 Temperature 97.9 degrees Fahrenheit 2017-06-30 Heart Rate 84 bpm 2017-06-30 Respiratory Rate 2017-06-30 BMI 30.21 kg/m2 2017-06-30 Blood pressure systolic 124 mmHg 2017-06-30 Blood pressure diastolic 82 mmHg 2017-06-30 MEDICATIONS Medication Instructions Dosage Frequency Start Date End Date Duration Status Excedrin Migraine 250-250-65 MG Orally Once a day 2 tablets 24h Active Zofran ODT 4 MG Orally every 8 hrs 1 tablet on the tongue and allow to dissolve 8h Jun, Active Oxybutynin Chloride 10 mg Orally Once a day 1 tablet 24h Active Oxybutynin Chloride ER 10 mg Orally Once a day 1 tablet 24h Sep, 90 days Active Celexa 40 mg Orally Once a day 1 tablet 24h Active Topamax 100 MG Orally Twice a day 1 12h 16 Aug, 2016 Active V[employer] Vitamin B-12 1500 MCG Active Vitamin D 1000 UNIT Orally Once a day 5 tablet 24h Active Klonopin 1 MG Orally Twice a day PRN, do not take more then 2 tabs per day 1 tablet 18 Oct, 2016 30 days Active Pepcid 20 MG Orally Once a day 1 tablet at bedtime 24h Active Feverfew 380 MG Orally Once a day 1 tablet 24h Active RESULTS No Results PROCEDURES Procedure Date Ordered Result Body Site SOLUMEDROL (UP TO 125 MG) Jun 30, 2017 THER/PROPH/DIAG INJ, SC/IM Jun 30, 2017 INSTRUCTIONS MEDICATIONS ADMINISTERED No Known Medications MEDICAL (GENERAL) HISTORY Type Description Date Medical History Depression Medical History Migraines Medical History Anxiety Surgical History total hysterectomy Surgical History cholecystectomy Surgical History Appendectomy Surgical History Tonsillectomy Surgical History cystoscopy Hospitalization History past surgery
--- OUTSIDE RECORDS SUMMARY | 2018-02-23 10:33 | XMS REPORT ---
Author Author DARIUS PATEL Organization [facility] Address [address] [place] [address] Care Team Providers Care University Professor Name Role Phone DARIUS PATEL Unavailable PROBLEMS Type Condition ICD9-CM Code [id number] Code Onset Dates Condition Status SNOMED Code Problem Overactive bladder N32.81 Active 745583531 Problem Secondary cataract of both eyes, unspecified secondary cataract type H26.40 Active 43864709 Problem Anxiety F41.9 Active 31355006 Problem Major depressive disorder, single episode, unspecified F32.9 Active 34352454 Problem Non morbid obesity due to excess calories E66.09 Active 346211205 Problem Moderate episode of recurrent major depressive disorder F33.1 Active 140635891 Problem Morbid obesity due to excess calories E66.01 Active 834262700 Problem Migraine with aura and without status migrainosus, not intractable G43.109 Active 3649140 ALLERGIES Substance Reaction Event Type Date Status Sulfamethoxazole-Trimethoprim Unknown Drug Allergy Apr, Active ENCOUNTERS Encounter Location Date Diagnosis [facility] [address] [place] [address] 50369- 8546 February, [place] [address] [place] [address] 88670- 1044 February, [facility] [address] [place] [id number] [place] [address] 90977- 0594 Dec, Chest pain, unspecified type R07.9 and Anxiety F41.9 [facility] [address] [place] [id number] [place] [address] 63069- 8871 Dec, Moderate episode of recurrent major depressive disorder F33.1 and Migraine with aura and without status migrainosus, not intractable G43.109 [facility] [address] [place] [id number] [place] [address] 05326- 4774 Oct, Migraine with aura and without status migrainosus, not intractable G43.109 [place] [address] [place] [id number] [place] [address] 56221- 1597 Oct, Non morbid obesity due to excess calories E66.09 [place] [address] [place] [id number] [place] [address] 37090- 3856 Oct, Morbid obesity due to excess calories E66.01 [place] [address] [place] [id number] [place] [address] 21719- 5023 Oct, Non morbid obesity due to excess calories E66.09 ; Moderate episode of recurrent major depressive disorder F33.1 ; Migraine with aura and without status migrainosus, not intractable G43.109 and Morbid obesity due to excess calories E66.01 [facility] [place] [id number] [place] [address] 23501 -6464 Sep, Viral gastroenteritis A08.4 and Chills R68.83 [place] [address] [place] [id number] [place] [address] 92895- 7047 Aug, Migraine with aura and without status migrainosus, not intractable G43.109 ; Moderate episode of recurrent major depressive disorder F33.1 ; Anxiety disorder, unspecified F41.9 and Morbid obesity due to excess calories E66.01 [place] [address] [place] [id number] [place] [address] 09758- 7950 Jun, Major depressive disorder, single episode, unspecified F32.9 [facility] [place] [address] [place] [id number] [place] [address] 65205 -9112 Jun, Other viral agents as the cause of diseases classified elsewhere B97.89 and Acute upper respiratory infection, unspecified J06.9 [place] [address] [place] [id number] [place] [address] 41290- 8293 May, Major depressive disorder, single episode, unspecified F32.9 [facility] [address] [place] [id number] [place] [address] [id number] May, Dental examination Z01.20 [facility] [address] [place] [id number] [id number] May, Dental examination Z01.20 [facility] [address] [id number] Apr, Encounter for dental examination Z01.20 [facility] [address] [place] [id number] [address]- [address]056 Apr, Anxiety disorder, unspecified F41.9 and Migraine with aura and without status migrainosus, not intractable G43.109 [facility] [address] [place] [id number] [place] [address] 11280- 9099 Mar, Migraine with aura and without status migrainosus, not intractable G43.109 and Morbid obesity due to excess calories E66.01 [place] [address] [place] [id number] [place] [address] 56160- 3286 Mar, [facility] [address] [place] [id number] [place] [address] 03993- 1054 February, Major depressive disorder, single episode, unspecified F32.9 [facility] [address] [place] [id number] [place] [address] 28357- 9746 Jan, Migraine with aura and without status migrainosus, not intractable G43.109 [facility] [address], [place] [address]- 3204 Nov, Major depressive disorder, single episode, unspecified F32.9 and Morbid obesity due to excess calories E66.01 [facility] [address], [place] [address]- 6450 Nov, [facility] [address] [place] [id number] [place] [address] 59299- 5088 Nov, Major depressive disorder, single episode, unspecified F32.9 and Migraine with aura and without status migrainosus, not intractable G43.109 [facility] [address] [place] [id number] [place] [address] 85055- 7233 Oct, Major depressive disorder, single episode, unspecified F32.9 and Anxiety disorder, unspecified F41.9 [place] [address] [place] [id number] [address]- 9899 Sep, Morbid obesity due to excess calories E66.01 and Urinary frequency R35.0 [place] [address], [place] [address]- 3263 Aug, Overactive bladder N32.81 ; Migraine with aura and without status migrainosus, not intractable G43.109 ; Non morbid obesity due to excess calories E66.09 and Moderate episode of recurrent major depressive disorder F33.1 [place] [address], [place] [address]- 9540 Jul, Infection of skin of finger L08.9 IMMUNIZATIONS No Known Immunizations SOCIAL HISTORY Never Assessed REASON FOR VISIT Anxiety F/U, PT says she is still having some anxiety problems- Juliocesar MOCK PLAN OF CARE Activity Details Follow Up 3 Months with Stacey for anxiety and OHARA Reason: VITAL SIGNS Height 64 in 2017-05-04 Weight 179.9 lbs 2017-05-04 Temperature 98.3 degrees Fahrenheit 2017-05-04 Heart Rate 64 bpm 2017-05-04 Respiratory Rate 18 2017-05-04 BMI 30.88 kg/m2 2017-05-04 Blood pressure systolic 106 mmHg 2017-05-04 Blood pressure diastolic 68 mmHg 2017-05-04 MEDICATIONS Medication Instructions Dosage Frequency Start Date End Date Duration Status Celexa 40 MG Orally Once a day 1 tablet 24h Active Klonopin 1 MG Orally Twice a day PRN, do not take more then 2 tabs per day 1 tablet Oct, 30 days Active Feverfew 380 MG Orally Once a day 1 tablet 24h Active Topamax 100 MG Orally Twice a day 1 12h Aug, Active Pepcid 20 MG Orally Once a day 1 tablet at bedtime 24h Active Oxybutynin Chloride ER 10 mg Orally Once a day 1 tablet 24h Sep, 90 days Active Excedrin Migraine 250-250-65 MG Orally Once a day 2 tablets 24h Active V[employer] Vitamin B-12 1500 MCG Active Vitamin D 1000 UNIT Orally Once a day 5 tablet 24h Active RESULTS No Results PROCEDURES No Known procedures INSTRUCTIONS MEDICATIONS ADMINISTERED No Known Medications MEDICAL (GENERAL) HISTORY Type Description Date Medical History Depression Medical History Migraines Medical History Anxiety Surgical History total hysterectomy Surgical History cholecystectomy Surgical History Appendectomy Surgical History Tonsillectomy Surgical History cystoscopy Hospitalization History past surgery
[2018-02-23] MEDS ORDERED: NS IV 1000 ML 3,000 ML ONE (10:34)
--- OUTSIDE RECORDS SUMMARY | 2018-02-23 10:34 | XMS REPORT ---
Author Author DEANDRA LIND [facility] Address Unknown Care Team Providers Care Storage Engineer Name Role Phone DEANDRA LIND Unavailable PROBLEMS Type Condition ICD9-CM Code [id number] Code Onset Dates Condition Status SNOMED Code Problem Secondary cataract of both eyes, unspecified secondary cataract type H26.40 Active 48504472 Problem Moderate episode of recurrent major depressive disorder F33.1 Active 063934793 Problem Overactive bladder N32.81 Active 161998738 Problem Chest pain, unspecified type R07.9 Active 36995620 Problem Anxiety F41.9 Active 34324804 Problem Migraine with aura and without status migrainosus, not intractable G43.109 Active 5423529 Problem Non morbid obesity due to excess calories E66.09 Active 151533255 Problem Major depressive disorder, single episode, unspecified F32.9 Active 25169583 Problem Morbid obesity due to excess calories E66.01 Active 054934761 ALLERGIES Substance Reaction Event Type Date Status Sulfamethoxazole-Trimethoprim Unknown Drug Allergy May, Active ENCOUNTERS Encounter Location Date Diagnosis [place] [id number] [place] [address]56[address] 18[address] February, [place] [id number] [place] [address] 11776- 8058 February, [facility] [id number] [place] [address] 53373- 4326 Jan, Chest pain, unspecified type R07.9 [facility] [address] [address] Dec, Chest pain, unspecified type R07.9 and Anxiety F41.9 [facility] [id number] [place] [address] 04975- 5326 Dec, Moderate episode of recurrent major depressive disorder F33.1 and Migraine with aura and without status migrainosus, not intractable G43.109 [place] [id number] [place] [address] 21343- 5391 Oct, Migraine with aura and without status migrainosus, not intractable G43.109 [place] [id number] [place] [address] 31185- 8542 Oct, Non morbid obesity due to excess calories E66.09 [place] [address] [address] 4791 Oct, Morbid obesity due to excess calories E66.01 [place] [address] [address]25- 8782 Oct, Non morbid obesity due to excess calories E66.09 ; Moderate episode of recurrent major depressive disorder F33.1 ; Migraine with aura and without status migrainosus, not intractable G43.109 and Morbid obesity due to excess calories E66.01 [facility] [id number] [place] [address] Sep, Viral gastroenteritis A08.4 and Chills R68.83 [place] [id number] [place] [address] 45143- 2981 Aug, Migraine with aura and without status migrainosus, not intractable G43.109 ; Moderate episode of recurrent major depressive disorder F33.1 ; Anxiety disorder, unspecified F41.9 and Morbid obesity due to excess calories E66.01 [place] [id number] [place] [address] 17189- 1413 Jun, Major depressive disorder, single episode, unspecified F32.9 [facility] [id number] [place] [address] 61746 -8478 Jun, Other viral agents as the cause of diseases classified elsewhere B97.89 and Acute upper respiratory infection, unspecified J06.[address] [address]- [address] May, Major depressive disorder, single episode, unspecified F32.9 [facility] [address] [id number] May, Dental examination Z01.20 [facility] [address] [id number] May, Dental examination Z01.20 [facility] [address] [id number] Apr, Encounter for dental examination Z01.20 [facility] [id number] [place] [address] 81771- 2697 Apr, Anxiety disorder, unspecified F41.9 and Migraine with aura and without status migrainosus, not intractable G43.109 [facility] [id number] [place] [address] 53973- 4005 Mar, Migraine with aura and without status migrainosus, not intractable G43.109 and Morbid obesity due to excess calories E66.01 [facility] [id number] [place] [address] 41466- 8063 Mar, [facility] [id number] [place] [address] 51617- 0175 February, Major depressive disorder, single episode, unspecified F32.9 [facility] [id number] [place] [address] 99428- 1646 Jan, Migraine with aura and without status migrainosus, not intractable G43.109 [facility] [address] [place] [address] 67749- 7703 Nov, Major depressive disorder, single episode, unspecified F32.9 and Morbid obesity due to excess calories E66.01 [facility] [id number] [place] [address] 63109- 8252 Nov, [facility] [address] [place] [address] 50907- 7688 Nov, Major depressive disorder, single episode, unspecified F32.9 and Migraine with aura and without status migrainosus, not intractable G43.109 [place] [address], [place] [address] Oct, Major depressive disorder, single episode, unspecified F32.9 and Anxiety disorder, unspecified F41.9 [place] [address], [place] [address] Sep, Morbid obesity due to excess calories E66.01 and Urinary frequency R35.0 [place] [address] [place] [address] 79533- 0388 Aug, Overactive bladder N32.81 ; Migraine with aura and without status migrainosus, not intractable G43.109 ; Non morbid obesity due to excess calories E66.09 and Moderate episode of recurrent major depressive disorder F33.1 [place] [address] [place] [address] 82469- 6932 Jul, Infection of skin of finger L08.9 IMMUNIZATIONS No Known Immunizations SOCIAL HISTORY Never Assessed REASON FOR VISIT denis PLAN OF CARE Activity Details Follow Up prn Reason:SRP fillings VITAL SIGNS MEDICATIONS Medication Instructions Dosage Frequency Start Date End Date Duration Status Pepcid 20 MG Orally Once a day 1 tablet at bedtime 24h Active [employer] Vitamin B-12 1500 MCG Active Vitamin D 1000 UNIT Orally Once a day 5 tablet 24h Active Klonopin 1 MG Orally Twice a day PRN, do not take more then 2 tabs per day 1 tablet Oct, 30 days Active Oxybutynin Chloride 10 mg Orally Once a day 1 tablet 24h Active Topamax 100 MG Orally Twice a day 1 12h 16 Aug, 2016 Active Oxybutynin Chloride ER 10 mg Orally Once a day 1 tablet 24h Sep, 90 days Active Excedrin Migraine 250-250-65 MG Orally Once a day 2 tablets 24h Active Celexa 40 MG Orally Once a day 1 tablet 24h Active Feverfew 380 MG Orally Once a day 1 tablet 24h Active RESULTS No Results PROCEDURES Procedure Date Ordered Result Body Site COMP ORAL EVALUATION - NEW/EST PT May 25, 2017 INSTRUCTIONS MEDICATIONS ADMINISTERED No Known Medications MEDICAL (GENERAL) HISTORY Type Description Date Medical History Depression Medical History Migraines Medical History Anxiety Surgical History total hysterectomy Surgical History cholecystectomy Surgical History Appendectomy Surgical History Tonsillectomy Surgical History cystoscopy Hospitalization History past surgery
--- OUTSIDE RECORDS SUMMARY | 2018-02-23 10:34 | XMS REPORT ---
Author Author MALIK DUENAS Organization [facility] Address [address] [place] [address] Care Team Providers Care Preschool Lead Teacher Name Role Phone HENRIQUEROMEOA Unavailable PROBLEMS Type Condition ICD9-CM Code [id number] Code Onset Dates Condition Status SNOMED Code Problem Overactive bladder N32.81 Active 861973043 Problem Secondary cataract of both eyes, unspecified secondary cataract type H26.40 Active 19273103 Problem Anxiety F41.9 Active 99718259 Problem Major depressive disorder, single episode, unspecified F32.9 Active 85466076 Problem Non morbid obesity due to excess calories E66.09 Active 259429795 Problem Moderate episode of recurrent major depressive disorder F33.1 Active 166516552 Problem Morbid obesity due to excess calories E66.01 Active 120340588 Problem Migraine with aura and without status migrainosus, not intractable G43.109 Active 8020317 ALLERGIES Substance Reaction Event Type Date Status Sulfamethoxazole-Trimethoprim Unknown Drug Allergy Apr, Active ENCOUNTERS Encounter Location Date Diagnosis [place] [address] [place] [address] 55864- 3837 February, [place] [address] [place] [address] [id number] [place] [address] 81648- 3438 February, [facility] [id number] [place] [address] 16287- 3164 Dec, Chest pain, unspecified type R07.9 and Anxiety F41.9 [facility] [id number] [place] [address] 42398- 9143 Dec, Moderate episode of recurrent major depressive disorder F33.1 and Migraine with aura and without status migrainosus, not intractable G43.109 [facility] [id number] [place] [address] 50287- 3291 Oct, Migraine with aura and without status migrainosus, not intractable G43.109 [place] [id number] [place] [address] 25450- 8897 Oct, Non morbid obesity due to excess calories E66.09 [place] [id number] [place] [address] 23367- 8650 Oct, Morbid obesity due to excess calories E66.01 [place] [address] [address]- 4440 Oct, Non morbid obesity due to excess calories E66.09 ; Moderate episode of recurrent major depressive disorder F33.1 ; Migraine with aura and without status migrainosus, not intractable G43.109 and Morbid obesity due to excess calories E66.[address] [facility] [place] [id number] [place] [address] 15148 -4608 Sep, Viral gastroenteritis A08.4 and Chills R68.83 [place] [id number] [place] [address] 73956- 2200 Aug, Migraine with aura and without status migrainosus, not intractable G43.109 ; Moderate episode of recurrent major depressive disorder F33.1 ; Anxiety disorder, unspecified F41.9 and Morbid obesity due to excess calories E66.01 [place] [id number] [place] [address] 81500- 6147 Jun, Major depressive disorder, single episode, unspecified F32.[address] [facility] [place] [id number] [place] [address] 91810 -3746 Jun, Other viral agents as the cause of diseases classified elsewhere B97.89 and Acute upper respiratory infection, unspecified J06.9 [place] [id number] [place] [address] 83506- 2997 May, Major depressive disorder, single episode, unspecified F32.9 [facility] [id number] [place] [id number] May, Dental examination Z01.20 [facility] [id number] [id number] May, Dental examination Z01.20 [facility] [address] [id number] Apr, Encounter for dental examination Z01.20 [facility] [address] [place] [address] 70494- 1983 Apr, Anxiety disorder, unspecified F41.9 and Migraine with aura and without status migrainosus, not intractable G43.109 [facility] [id number] [place] [address] 87281- 7051 Mar, Migraine with aura and without status migrainosus, not intractable G43.109 and Morbid obesity due to excess calories E66.01 [facility] [id number] [place] [address] 60599- 4500 Mar, [facility] [id number] [place] [address] 49822- 2934 February, Major depressive disorder, single episode, unspecified F32.9 [facility] [id number] [place] [address] 72857- 0561 Jan, Migraine with aura and without status migrainosus, not intractable G43.109 [facility] [address], [place] [address] Nov, Major depressive disorder, single episode, unspecified F32.9 and Morbid obesity due to excess calories E66.01 [facility] [address] [place] [address] 95897- 6532 Nov, [facility] [id number] [place] [address] 62789- 5841 08 Nov, 2016 Major depressive disorder, single episode, unspecified F32.9 and Migraine with aura and without status migrainosus, not intractable G43.109 [facility] [id number] [place] [address] 80942- 1807 Oct, Major depressive disorder, single episode, unspecified F32.9 and Anxiety disorder, unspecified F41.9 [place] [id number] [address] Sep, Morbid obesity due to excess calories E66.01 and Urinary frequency R35.0 [address] [place] [address] Aug, Overactive bladder N32.81 ; Migraine with aura and without status migrainosus, not intractable G43.109 ; Non morbid obesity due to excess calories E66.09 and Moderate episode of recurrent major depressive disorder F33.1 [address], [place] [address] Jul, Infection of skin of finger L08.9 IMMUNIZATIONS No Known Immunizations SOCIAL HISTORY Never Assessed REASON FOR VISIT PROPHY/SERGEI PLAN OF CARE Activity Details Follow Up First Available Reason:SERGEI/SRP VITAL SIGNS Heart Rate 56 bpm 2017-05-06 Blood pressure systolic 109 mmHg 2017-05-06 Blood pressure diastolic 64 mmHg 2017-05-06 MEDICATIONS Medication Instructions Dosage Frequency Start Date End Date Duration Status Feverfew 380 MG Orally Once a day 1 tablet 24h Active Vitamin D 1000 UNIT Orally Once a day 5 tablet 24h Active [employer] Vitamin B-12 1500 MCG Active Klonopin 1 MG Orally Twice a day PRN, do not take more then 2 tabs per day 1 tablet Oct, 30 days Active Excedrin Migraine 250-250-65 MG Orally Once a day 2 tablets 24h Active Pepcid 20 MG Orally Once a day 1 tablet at bedtime 24h Active Topamax 100 MG Orally Twice a day 1 12h 16 Aug, 2016 Active Oxybutynin Chloride 10 mg Orally Once a day 1 tablet 24h Active Oxybutynin Chloride ER 10 mg Orally Once a day 1 tablet 24h Sep, 90 days Active Celexa 40 MG Orally Once a day 1 tablet 24h Active RESULTS No Results PROCEDURES Procedure Date Ordered Result Body Site INTRAORL-PERIAPICAL 1 FILM 62054 May 06, 2017 INTRAORL-PERIAPICAL EA ADD FILM May 06, 2017 INTRAORL-PERIAPICAL EA ADD FILM May 06, 2017 INTRAORL-PERIAPICAL EA ADD FILM May 06, 2017 PANORAMIC FILM SEE ALSO CODE 69333 May 06, 2017 BITEWINGS - FOUR FILMS May 06, 2017 INSTRUCTIONS MEDICATIONS ADMINISTERED No Known Medications MEDICAL (GENERAL) HISTORY Type Description Date Medical History Depression Medical History Migraines Medical History Anxiety Surgical History total hysterectomy Surgical History cholecystectomy Surgical History Appendectomy Surgical History Tonsillectomy Surgical History cystoscopy Hospitalization History past surgery
[2018-02-23] MEDS ORDERED: NS IV 1000 ML 1,000 ML IV SCH ×2 (10:45→13:36)
[2018-02-23 11:04] LABS: MEAN PLATELET VOLUME 10.8 FL (7.4-10.4); RED BLOOD COUNT 4.35 10^6/uL (4.35-5.85); RED CELL DISTRIBUTION WIDTH 12.4 % (10.0-14.5); WHITE BLOOD COUNT 6.3 10^3/uL (4.3-11.0)
[2018-02-23 11:04] LABS: BILIRUBIN,URINE NEGATIVE (NEGATIVE); CLARITY,URINE CLEAR; COLOR,URINE YELLOW; GLUCOSE, URINE (UA) NEGATIVE (NEGATIVE); KETONES,URINE NEGATIVE (NEGATIVE); LEUKOCYTE ESTERASE ,URINE 3+ (NEGATIVE); NITRITE,URINE NEGATIVE (NEGATIVE); PH,URINE 5 (5-9); PROTEIN,URINE NEGATIVE (NEGATIVE); UROBILINOGEN,URINE NORMAL (NORMAL)
--- NOTE | 2018-02-23 11:15 | Diagnostic Imaging Report ---
INDICATION: Coronary artery disease Frontal chest obtained at 1035 AM and compared with 12/28/2017. Heart and mediastinal silhouette are normal in appearance. The lungs are clear. There is no pneumothorax or pleural fluid. IMPRESSION: Negative chest. Dictated by: Dictated on workstation # [id number]
[2018-02-23] MEDS ORDERED: CHOL5000 PO (11:18)
[2018-02-23] MEDS ORDERED: FEVERFEW PO (11:18)
[2018-02-23] MEDS ORDERED: TOPI200T25 PO ×2 (11:18)
[2018-02-23] MEDS ORDERED: ASPI-789 PO (11:18)
[2018-02-23] MEDS ORDERED: CYAN50008 PO (11:18)
[2018-02-23] MEDS ORDERED: FAMO20TA3 PO (11:18)
[2018-02-23] MEDS ORDERED: CITA40TA11 PO (11:18)
[2018-02-23] MEDS ORDERED: OXYB10TA PO (11:18)
[2018-02-23] MEDS ORDERED: ASPI-983 PO (11:18)
[2018-02-23 11:21] LABS: BACTERIA,URINE NEGATIVE /HPF; HYALINE CASTS, URINE RARE /LPF; RBC,URINE 0-2 /HPF; SQUAMOUS EPITHELIAL CELL,UR 0-2 /HPF
[2018-02-23 11:27] LABS: ALANINE AMINOTRANSFERASE 22 U/L (0-55); ALBUMIN 4.4 GM/DL (3.2-4.5); ALKALINE PHOSPHATASE 78 U/L (40-136); BILIRUBIN,TOTAL 0.4 MG/DL (0.1-1.0); BUN/CREATININE RATIO 23; CALCIUM 9.4 MG/DL (8.5-10.1); CARBON DIOXIDE 21 MMOL/L (21-32); CHLORIDE 111 MMOL/L (98-107); CHOLESTEROL 243 MG/DL (< 200); GFR ESTIMATED > 60; GLUCOSE 85 MG/DL (70-105); HDL CHOLESTEROL 51 MG/DL (40-60); POTASSIUM 3.9 MMOL/L (3.6-5.0); SODIUM 141 MMOL/L (135-145); TOTAL PROTEIN 7.5 GM/DL (6.4-8.2); TRIGLYCERIDES 121 MG/DL (<150); VLDL CHOLESTEROL 24 MG/DL (5-40)
[2018-02-23] MEDS ORDERED: HEParin 1000 UNIT/ML (10ML VIAL) FOR BOLUS ONE (12:00)
[2018-02-23] MEDS ORDERED: LIDOCAINE 1% INJ 20 ML 20 ML VIAL ONE (12:00)
[2018-02-23] MEDS ORDERED: VERAPAMIL 5 MG/2 ML (CALAN) VIAL IV ONE (12:42)
[2018-02-23] MEDS ORDERED: fentaNYL INJECTION 100 MCG/2 ML AMP ONE (12:42)
[2018-02-23] MEDS ORDERED: MIDAZOLAM 2 MG/2 ML (VERSED) VIAL ONE (12:42)
[2018-02-23] MEDS ORDERED: NITRO DRIP 25000 MCG/D5W 250 ML IV ONE (12:42)
--- NOTE | 2018-02-23 12:46 | Cardiac Procedure Note-CS/ASA ---
Pre-Procedure Note Pre-Op Procedure Note H&P Reviewed The H&P was reviewed, patient examined and no changes noted. Date H&P Reviewed: February 23, 2018 Time H&P Reviewed: 12:46 Conscious Sedation Pre-Proced Time Reviewed: 12:46 ASA Class: 3 Airway Mallampati Classification: (igiugig appropriate class) I. II. III, IV Lungs Heart ASA score ASA 1: a normal healthy patient ASA 2: a patient with a mild systemic disease (mid diabetes, controlled hypertension, obesity x ASA 3: a patient with a severe systemic disease that limits activity (angina , COPD, prior Myocardial infarction) ASA 4: a patient with an incapacitating disease that is a constant threat to life (CHF, renal failure) ASA 5: a moribund patient not expected to survive 24 hrs. (ruptured aneurysm) ASA 6: a declared brain patient whose organs are being harvested. For emergent operations, add the letter E after the classification Grade 3 Sedation Plan: Analgesia, Amnesia, Plan communicated to team members, Discussed options with patient/fam, Discussed risks with patient/fam Note The patient is an appropriate candidate to undergo the planned procedure, sedation, and anesthesia. The patient immediately re-assessed prior to indication. EVER STOVER MD February 23, 2018 12:46
[2018-02-23] MEDS ORDERED: MIDAZOLAM 5 MG/5 ML (VERSED) VIAL ONE (13:28)
--- NOTE | 2018-02-23 13:41 | Cardiac Cath Report ---
Cardiac Cath Report Physician (s)/Block Inspector (s) Physician EVER STOVER MD Pre-Procedure Diagnosis Pre-Procedure Diagnosis: Chest pain, abnormal stress test Post-Procedure Note Procedure Start Date: February 23, 2018 Name of Procedure: Coronary angiogram Findings/Procedure Note PROCEDURE NOTE: After explaining the procedure to the patient, all pros and cons were explained , all questions were answered. The patient signed the consent and then she was placed on the cardiac catheterization laboratory. Groin was prepped SL fashion local anesthesia was used. Sheath placed in the right radial artery. I had difficulties advancing the J-wire, did angiogram to the radial artery then advanced a store catheter without difficulties after reaching to the coronaries manipulating the catheter was causing some discomfort in her arm I did not cross the aortic valve used [place] catheter to evaluate the coronaries then the catheter was removed At the end of the procedure the sheath was removed. 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 No significant artery disease DISCUSSION AND RECOMMENDATION: Chest pain is unlikely cardiac, conservative management Anesthesia Type: Conscious Sedation Estimated blood loss (mL): 5 ml Contrast Amount: 31 ml Total Radiation Dose: 244 mGy Post-Procedure Diagnosis Post-operative diagnosis: Chest pain nonspecific etiology Coronary artery disease Hypertension Anxiety EVRE STOVER MD February 23, 2018 13:40
--- NOTE | 2018-02-23 13:42 | Discharge Inst-Post CATH ---
Discharge Inst-CATH Post Cardiac Cath D/C Inst Follow Up/Plan Appointment with Dr. Ivan's office in 2-4 weeks CARDIAC CATH DISCHARGE INSTRUCTIONS *Hold Metformin for 48 hours post heart cath. ACTIVITY * Go Home directly and rest. * Limit activity of the leg (or wrist if it was used) for 7 days including aerobics, swimming, jogging, bicycling, etc. * Restrict stair-climbing for 7 days if possible, if not, climb up with your non -cath leg, then bring together on the same step. * Avoid lifting, pushing, pulling or excessive movement of the affected extremity for 7 days. * Customary sexual activity may be resumed after 2 days-use caution not to use a position that strains or causes pain to the affected extremity. * No driving for 24 hours. * NO SMOKING. * Avoid straining for bowel movements for 7 days. * Gentle walking on level ground is allowed. * Returning to work will depend on the type of procedure and the results. Your doctor will discuss this with you. CALL YOUR DOCTOR FOR ANY OF THE FOLLOWING: *If bleeding from the puncture site occurs- Apply gentle pressure to site with clean cloth and call your doctor or EMS. * If a knot or lump forms under the skin, increases in size, or causes pain. * If bruising appears to be worsening or moving further down your leg instead of disappearing. * Temperature above 101 F. CARE OF YOUR GROIN INCISION; * Bruising or purple discoloration of the skin near the puncture site is common. * You may shower only, no bathtub bathing for 5 days. Be careful to avoid slipping as your leg may feel stiff. * If a closure device was used on your femoral artery, please see the attached guide regarding care of the device and your leg. * REMOVE the dressing from your groin the next day after your procedure in the shower. CARE OF YOUR WRIST INCISION; * Bruising or purple discoloration of the skin near the puncture site is common. * You may shower. * DO NOT submerge wrist. * Remove dressing in 24 hours. EVER IVAN MD February 23, 2018 13:42
== END 2018-02-23 16:55 | disposition home or self-care (01) ==
LOC: CATH 10:28 → SURG 13:54 → CATH 16:55
PROVIDERS: ATTEND Internal Medicine Cardiovascular Disease
DX: R07.9 Chest pain, unspecified (principal); I25.10 Atherosclerotic heart disease of native coronary artery without angina pectoris; I10 Essential (primary) hypertension; F41.9 Anxiety disorder, unspecified; K21.9 Gastro-esophageal reflux disease without esophagitis; Z82.49 Family history of ischemic heart disease and other diseases of the circulatory system; R00.2 Palpitations; Z88.2 Allergy status to sulfonamides; Z11.2 Encounter for screening for other bacterial diseases; R82.90 Unspecified abnormal findings in urine
CPT/HCPCS: 36415; 71045; 80053; 80061; 81000; 85027; 85610; 85730; 87081; 87088; 93454

== ENCOUNTER → 2018-03-01 | Outpatient (CLI) | payer OTHER ==
[~2018-03-01] MED LIST changes: -CATHETER FLUSH 10 ML SYR IV PRN; -REGADENOSON 0.4 MG/5 ML SYR (LEXISCAN) IV ONE
== END ==
LOC: CARD 08:32
PROVIDERS: ATTEND Internal Medicine Cardiovascular Disease
DX: I25.10 Atherosclerotic heart disease of native coronary artery without angina pectoris (principal); R94.39 Abnormal result of other cardiovascular function study; R07.89 Other chest pain; Z82.49 Family history of ischemic heart disease and other diseases of the circulatory system
CPT/HCPCS: 93225; 93226

== ENCOUNTER 2018-04-19 21:11 | Outpatient (CLI) | payer OTHER | END 2018-04-20 06:58 | disposition home or self-care (01) | LOC: SLEEP 21:11 | PROVIDERS: ATTEND Internal Medicine Cardiovascular Disease | DX: G47.33 Obstructive sleep apnea (adult) (pediatric) (principal) | CPT/HCPCS: 95810 ==

== ENCOUNTER 2018-08-19 19:36 | Emergency (ER) | payer SELFPAY ==
[~2018-08-19] VITALS: Ht 165.1 cm; Wt 75.7 kg
--- OUTSIDE RECORDS SUMMARY | 2018-08-19 19:39 | XMS REPORT ---
Author Author DARIUS PATEL Organization [facility] Address [address] [place] [address] Care Team Providers Care Senior Case Manager Name Role Phone DARIUS PATEL Unavailable PROBLEMS Type Condition ICD9-CM Code [id number] Code Onset Dates Condition Status SNOMED Code Problem Overactive bladder N32.81 Active 168445248 Problem Morbid obesity due to excess calories E66.01 Active 082045505 Problem Migraine with aura and without status migrainosus, not intractable G43.109 Active 0355067 Problem Secondary cataract of both eyes, unspecified secondary cataract type H26.40 Active 48750578 Problem Abnormal LFTs R94.5 Active 382968210 Problem Non morbid obesity due to excess calories E66.09 Active 575611402 Problem Moderate episode of recurrent major depressive disorder F33.1 Active 577160753 Problem Dyspareunia in female N94.10 Active 16051453 Problem Gastroesophageal reflux disease, esophagitis presence not specified K21.9 Active 286887214 Problem Abnormal stress test R94.39 Active 704926377 Problem Major depressive disorder, single episode, unspecified F32.9 Active 52406571 Problem Chest pain, unspecified type R07.9 Active 78310261 Problem Anxiety F41.9 Active 39769598 ALLERGIES No Information ENCOUNTERS Encounter Location Date Diagnosis [facility] [id number] [address] Aug, [facility] [address] [facility] [id number], [place] [address] Jul, Abnormal LFTs R94.5 [facility] [address], [place] [address] Jul, [facility] [address] [id number], [place] [address] Jul, [facility] [id number] [place] [address] 23379- 2307 Jul, Gastroesophageal reflux disease, esophagitis presence not specified K21.9 [place] [id number] [place] [address] 41022- 4636 Jul, Abnormal LFTs R94.5 [place] [address] [address] Jul, Abnormal LFTs R94.5 [place] [address] [address]- [address] Jul, [place] [address] [address] Jul, Urinary frequency R35.0 ; Screening for breast cancer Z12.31 ; Screening examination for sexually transmitted disease Z11.3 ; Dyspareunia in female N94.10 ; Mastalgia N64.4 and Elevated LFTs R94.5 [place] [id number] [place] [address] 48745- 6511 Jul, Gastroesophageal reflux disease, esophagitis presence not specified K21.9 [place] [address] [address]- [address] Jun, Abnormal stress test R94.39 and Chest pain, unspecified type R07.9 [place] [id number] [place] [address] 20813- 5543 May, Gastroesophageal reflux disease, esophagitis presence not specified K21.9 and Overactive bladder N32.81 [facility] [id number] [place] [address] 10185- 0501 May, Urinary urgency R39.15 and Overactive bladder N32.81 [facility] [id number] [place] [address]367 -1793 May, Urinary urgency R39.15 and Dyspareunia in female N94.10 [facility] [address] [address]- [address] May, [facility] [id number] [place] [address] 82199- 7092 Mar, Gastroesophageal reflux disease, esophagitis presence not specified K21.9 [place] [id number] [place] [address] 20398- 5619 February, Gastroesophageal reflux disease, esophagitis presence not specified K21.9 and Atypical chest pain R07.89 [place] [address] [address]- 79[address] February, Anxiety F41.9 and Abnormal stress test R94.39 [place] [address] [address]- 8433 February, [place] [address] [address]347- 7777 Jan, Chest pain, unspecified type R07.9 [place] [address] [address]60- 4988 Dec, Chest pain, unspecified type R07.9 and Anxiety F41.9 [place] [id number] [place] [address] 91553- 4790 Dec, Moderate episode of recurrent major depressive disorder F33.1 and Migraine with aura and without status migrainosus, not intractable G43.109 [facility] [id number] [place] [address] 06882- 9351 Oct, Migraine with aura and without status migrainosus, not intractable G43.109 [facility] [id number] [place] [address] 61388- 1134 Oct, Non morbid obesity due to excess calories E66.09 [facility] [facility] [id number] [place] [address] 38793- 6160 Oct, Morbid obesity due to excess calories E66.01 [place] [id number] [place] [address] 54553- 9348 Oct, Non morbid obesity due to excess calories E66.09 ; Moderate episode of recurrent major depressive disorder F33.1 ; Migraine with aura and without status migrainosus, not intractable G43.109 and Morbid obesity due to excess calories E66.01 [facility] IN [facility] [id number] [place] [address] Sep, Viral gastroenteritis A08.4 and Chills R68.83 [place] [address] [address]84- 7948 Aug, Migraine with aura and without status migrainosus, not intractable G43.109 ; Moderate episode of recurrent major depressive disorder F33.1 ; Anxiety disorder, unspecified F41.9 and Morbid obesity due to excess calories E66.01 [place] [address] 85756- [address] Jun, Major depressive disorder, single episode, unspecified F32.9 [facility] [address] [address] Jun, Other viral agents as the cause of diseases classified elsewhere B97.89 and Acute upper respiratory infection, unspecified J06.9 [place] [address] [address]31- [address]298 May, Major depressive disorder, single episode, unspecified F32.9 [facility] [id number] [place] [id number] May, Dental examination Z01.20 [facility] [address] [id number] May, Dental examination Z01.20 [facility] [address] [id number] Apr, Encounter for dental examination Z01.20 [facility] [address] [address] Apr, Anxiety disorder, unspecified F41.9 and Migraine with aura and without status migrainosus, not intractable G43.109 [place] [address], [place] [address] Mar, Migraine with aura and without status migrainosus, not intractable G43.109 and Morbid obesity due to excess calories E66.01 [place] [id number] [place] [address] 92460- 1372 14 Mar, 2017 [place] [id number] [place] [address] 40487- 8149 February, Major depressive disorder, single episode, unspecified F32.9 [facility] [id number] [place] [address] 13336- 2681 Jan, Migraine with aura and without status migrainosus, not intractable G43.109 [facility] [id number] [place] [address] 96580- 4181 27 Nov, 2016 Major depressive disorder, single episode, unspecified F32.9 and Morbid obesity due to excess calories E66.01 [place] [id number] [place] [address] 69291- 9559 14 Nov, 2016 [place] [id number] [place] [address] 99861- 7355 08 Nov, 2016 Major depressive disorder, single episode, unspecified F32.9 and Migraine with aura and without status migrainosus, not intractable G43.109 [facility] [id number] [place] [address] 75451- 1305 Oct, Major depressive disorder, single episode, unspecified F32.9 and Anxiety disorder, unspecified F41.9 [place] [id number] [place] [address] 98299- 5971 Sep, Morbid obesity due to excess calories E66.01 and Urinary frequency R35.0 [place] [address] [place] [address] 38427- 1167 15 Aug, 2016 Overactive bladder N32.81 ; Migraine with aura and without status migrainosus, not intractable G43.109 ; Non morbid obesity due to excess calories E66.09 and Moderate episode of recurrent major depressive disorder F33.1 [facility] [address] [facility] [id number] [place] [address] Jul, Infection of skin of finger L08.9 IMMUNIZATIONS No Known Immunizations SOCIAL HISTORY Never Assessed REASON FOR VISIT Rosemarie iglesias PLAN OF CARE VITAL SIGNS MEDICATIONS Unknown Medications RESULTS No Results PROCEDURES No Known procedures INSTRUCTIONS MEDICATIONS ADMINISTERED No Known Medications MEDICAL (GENERAL) HISTORY Type Description Date Medical History Depression Medical History Migraines Medical History Anxiety Surgical History total hysterectomy Surgical History cholecystectomy Surgical History Appendectomy Surgical History Tonsillectomy Surgical History cystoscopy Hospitalization History past surgery
--- OUTSIDE RECORDS SUMMARY | 2018-08-19 19:40 | XMS REPORT ---
Author Author DARIUS PATEL Organization [facility] [place] Address [address] [place] [address] Care Team Providers Care Shaper Machine Hand Name Role Phone DARIUS PATEL Unavailable PROBLEMS Type Condition ICD9-CM Code RSO66-LR Code Onset Dates Condition Status SNOMED Code Problem Overactive bladder N32.81 Active 940900566 Problem Morbid obesity due to excess calories E66.01 Active 420634929 Problem Migraine with aura and without status migrainosus, not intractable G43.109 Active 8809018 Problem Secondary cataract of both eyes, unspecified secondary cataract type H26.40 Active 95884256 Problem Abnormal LFTs R94.5 Active 845265861 Problem Non morbid obesity due to excess calories E66.09 Active 302167108 Problem Moderate episode of recurrent major depressive disorder F33.1 Active 893057940 Problem Dyspareunia in female N94.10 Active 52175046 Problem Gastroesophageal reflux disease, esophagitis presence not specified K21.9 Active 791432055 Problem Abnormal stress test R94.39 Active 866756831 Problem Major depressive disorder, single episode, unspecified F32.9 Active 48477776 Problem Chest pain, unspecified type R07.9 Active 92722445 Problem Anxiety F41.9 Active 21057984 ALLERGIES No Information ENCOUNTERS Encounter Location Date Diagnosis [facility] [place] [id number] [place] [address] Aug, [facility] [place] [address] [id number] [address] Jul, [facility] [place] [address] [place] [address] 10112- 1000 Jul, Gastroesophageal reflux disease, esophagitis presence not specified K21.9 [facility] [place] [id number] [place] [address] 04931- 5605 Jul, Abnormal LFTs R94.5 [facility] [place] [id number] [place] [address] 23800- 6490 Jul, Abnormal LFTs R94.5 [facility] [place] [id number] [place] [address] 66451- 9545 Jul, [facility] [place] [id number] [place] [address] 53899- 6794 Jul, Urinary frequency R35.0 ; Screening for breast cancer Z12.31 ; Screening examination for sexually transmitted disease Z11.3 ; Dyspareunia in female N94.10 ; Mastalgia N64.4 and Elevated LFTs R94.5 [place] [id number] [place] [address] 76793- 4436 Jul, Gastroesophageal reflux disease, esophagitis presence not specified K21.9 [facility] [id number] [place] [address] 91663- 4623 Jun, Abnormal stress test R94.39 and Chest pain, unspecified type R07.9 [facility] [id number] [place] [address] 51950- 4944 May, Gastroesophageal reflux disease, esophagitis presence not specified K21.9 and Overactive bladder N32.81 [place] [id number] [place] [address] 19290- 8073 May, Urinary urgency R39.15 and Overactive bladder N32.81 [facility] [id number] [place] [address] 37250 -4691 May, Urinary urgency R39.15 and Dyspareunia in female N94.10 [facility] [place] [address] [address]- [address] May, [facility] [place] [id number] [place] [address] 08666- 4201 Mar, Gastroesophageal reflux disease, esophagitis presence not specified K21.9 [place] [address] [place] [address]- 4350 February, Gastroesophageal reflux disease, esophagitis presence not specified K21.9 and Atypical chest pain R07.89 [place] [address] 88563- 4184 February, Anxiety F41.9 and Abnormal stress test R94.39 [place] [address] 82893- 3399 February, [place] [address] 78752- 5396 Jan, Chest pain, unspecified type R07.9 [place] [address] 30150- 6089 Dec, Chest pain, unspecified type R07.9 and Anxiety F41.9 [place] [address] 11439- 5684 Dec, Moderate episode of recurrent major depressive disorder F33.1 and Migraine with aura and without status migrainosus, not intractable G43.109 [place] [address] 25759- 4307 Oct, Migraine with aura and without status migrainosus, not intractable G43.109 [place] [address] 05668- 8065 Oct, Non morbid obesity due to excess calories E66.09 [place] [address] 05551- 1813 Oct, Morbid obesity due to excess calories E66.01 [place] [address] 90276- 6343 Oct, Non morbid obesity due to excess calories E66.09 ; Moderate episode of recurrent major depressive disorder F33.1 ; Migraine with aura and without status migrainosus, not intractable G43.109 and Morbid obesity due to excess calories E66.01 [facility] [address] [place] [address] Sep, Viral gastroenteritis A08.4 and Chills R68.83 [place] [id number] [place] [address] 90999- 7844 Aug, Migraine with aura and without status migrainosus, not intractable G43.109 ; Moderate episode of recurrent major depressive disorder F33.1 ; Anxiety disorder, unspecified F41.9 and Morbid obesity due to excess calories E66.01 [facility] [place] [id number] [place] [address] 19709- 4292 Jun, Major depressive disorder, single episode, unspecified F32.9 [facility] [address] [place] [id number] [place] [address] Jun, Other viral agents as the cause of diseases classified elsewhere B97.89 and Acute upper respiratory infection, unspecified J06.9 [id number] [place] [address] 66001- 6893 May, Major depressive disorder, single episode, unspecified F32.9 [facility] [id number] [place] [address] [id number] May, Dental examination Z01.20 [facility] [address] [id number] May, Dental examination Z01.20 [facility] [id number] [place] [address] [id number] Apr, Encounter for dental examination Z01.20 [facility] [place] [id number] [place] [address] 92180- 7795 Apr, Anxiety disorder, unspecified F41.9 and Migraine with aura and without status migrainosus, not intractable G43.109 [facility] [id number] [place] [address] 29591- 4773 Mar, Migraine with aura and without status migrainosus, not intractable G43.109 and Morbid obesity due to excess calories E66.01 [place] [address] [id number] [address] 14 Mar, 2017 [place] [id number] [place] [address] 67783- 3286 February, Major depressive disorder, single episode, unspecified F32.9 [place] [address] [place] [address] 83468- 4619 Jan, Migraine with aura and without status migrainosus, not intractable G43.109 [facility] [id number] [place] [address] 83456- 2579 27 Nov, 2016 Major depressive disorder, single episode, unspecified F32.9 and Morbid obesity due to excess calories E66.01 [facility] [id number] [place] [address] 18362- 5702 14 Nov, 2016 [place] [id number] [place] [address] 77739- 0772 08 Nov, 2016 Major depressive disorder, single episode, unspecified F32.9 and Migraine with aura and without status migrainosus, not intractable G43.109 [facility] [id number] [place] [address] 58078- 1740 Oct, Major depressive disorder, single episode, unspecified F32.9 and Anxiety disorder, unspecified F41.9 [place] [address] [place] [address] 77617- 6869 Sep, Morbid obesity due to excess calories E66.01 and Urinary frequency R35.0 [place] [address] [place] [address] 95025- 4888 15 Aug, 2016 Overactive bladder N32.81 ; Migraine with aura and without status migrainosus, not intractable G43.109 ; Non morbid obesity due to excess calories E66.09 and Moderate episode of recurrent major depressive disorder F33.1 [place] [address] [place] [address] 17664- 4669 Jul, Infection of skin of finger L08.9 IMMUNIZATIONS No Known Immunizations SOCIAL HISTORY Never Assessed REASON FOR VISIT New Refill Request PLAN OF CARE VITAL SIGNS MEDICATIONS Medication Instructions Dosage Frequency Start Date End Date Duration Status Topamax 100 mg 2 tablets every am and 1 tablet in the pm Aug, 30 days Active RESULTS No Results PROCEDURES No Known procedures INSTRUCTIONS MEDICATIONS ADMINISTERED No Known Medications MEDICAL (GENERAL) HISTORY Type Description Date Medical History Depression Medical History Migraines Medical History Anxiety Surgical History total hysterectomy Surgical History cholecystectomy Surgical History Appendectomy Surgical History Tonsillectomy Surgical History cystoscopy Hospitalization History past surgery
--- OUTSIDE RECORDS SUMMARY | 2018-08-19 19:40 | XMS REPORT ---
Author Author DALLIN OLIVA [facility] Address [address] [place] [address] Care Team Providers Care Stencil Sprayer Name Role Phone ADLLIN OLIVA Unavailable PROBLEMS Type Condition ICD9-CM Code [id number] Code Onset Dates Condition Status SNOMED Code Problem Overactive bladder N32.81 Active 943692880 Problem Morbid obesity due to excess calories E66.01 Active 819004645 Problem Migraine with aura and without status migrainosus, not intractable G43.109 Active 3094331 Problem Secondary cataract of both eyes, unspecified secondary cataract type H26.40 Active 24480700 Problem Abnormal LFTs R94.5 Active 979374790 Problem Non morbid obesity due to excess calories E66.09 Active 142694686 Problem Moderate episode of recurrent major depressive disorder F33.1 Active 517920769 Problem Dyspareunia in female N94.10 Active 89647855 Problem Gastroesophageal reflux disease, esophagitis presence not specified K21.9 Active 065428544 Problem Abnormal stress test R94.39 Active 034834049 Problem Major depressive disorder, single episode, unspecified F32.9 Active 69398610 Problem Chest pain, unspecified type R07.9 Active 68479930 Problem Anxiety F41.9 Active 15989661 ALLERGIES Substance Reaction Event Type Date Status Sulfamethoxazole-Trimethoprim Unknown Drug Allergy Jul, Active ENCOUNTERS Encounter Location Date Diagnosis [facility] [address] [facility] [id number] [address] Aug, [facility] [address] [address] Jul, Abnormal LFTs R94.5 [facility] [address] [place] [id number] [address] Jul, Abnormal LFTs R94.5 [facility] [id number] [place] [address] Jul, [facility] [address] [address] Jul, Urinary frequency R35.0 ; Screening for breast cancer Z12.31 ; Screening examination for sexually transmitted disease Z11.3 ; Dyspareunia in female N94.10 ; Mastalgia N64.4 and Elevated LFTs R94.5 [place] [address] [address] Jul, Gastroesophageal reflux disease, esophagitis presence not specified K21.9 [place] [address] [address] Jun, Abnormal stress test R94.39 and Chest pain, unspecified type R07.9 [place] [address] [address] May, Gastroesophageal reflux disease, esophagitis presence not specified K21.9 and Overactive bladder N32.81 [place] [address] [address] May, Urinary urgency R39.15 and Overactive bladder N32.81 [facility] [id number] [place] [address] May, Urinary urgency R39.15 and Dyspareunia in female N94.10 [place] [address] [place] [address] [id number] [place] [address]207 May, [place] [address] [place] [address] [id number] [place] [address] 65184[address] 0604 Mar, Gastroesophageal reflux disease, esophagitis presence not specified K21.9 [place] [address] [address] February, Gastroesophageal reflux disease, esophagitis presence not specified K21.9 and Atypical chest pain R07.89 [place] [address] [place] [id number] [place] [address] February, Anxiety F41.9 and Abnormal stress test R94.39 [place] [address] [address] February, [place] [address] [address] Jan, Chest pain, unspecified type R07.9 [place] [address] [address] Dec, Chest pain, unspecified type R07.9 and Anxiety F41.9 [place] [address] [address] Dec, Moderate episode of recurrent major depressive disorder F33.1 and Migraine with aura and without status migrainosus, not intractable G43.109 [place] [address] [address] Oct, Migraine with aura and without status migrainosus, not intractable G43.109 [place] [address] [address] Oct, Non morbid obesity due to excess calories E66.09 [place] [address] [address] Oct, Morbid obesity due to excess calories E66.01 [place] [address] [address] Oct, Non morbid obesity due to excess calories E66.09 ; Moderate episode of recurrent major depressive disorder F33.1 ; Migraine with aura and without status migrainosus, not intractable G43.109 and Morbid obesity due to excess calories E66.01 [facility] [place] [address] [address] Sep, Viral gastroenteritis A08.4 and Chills R68.83 [place] [address] [address] Aug, Migraine with aura and without status migrainosus, not intractable G43.109 ; Moderate episode of recurrent major depressive disorder F33.1 ; Anxiety disorder, unspecified F41.9 and Morbid obesity due to excess calories E66.01 [facility] [address], [place] [address] Jun, Major depressive disorder, single episode, unspecified F32.9 [facility] [address] [place] [address] Jun, Other viral agents as the cause of diseases classified elsewhere B97.89 and Acute upper respiratory infection, unspecified J06.9 [facility] [id number] [place] [address] May, Major depressive disorder, single episode, unspecified F32.9 [facility] [address] [id number] [place] [id number] May, Dental examination Z01.20 [facility] [address] [place] [address] [id number] [place] [id number] May, Dental examination Z01.20 [facility] [address] [place] [address] [id number] [place] [id number] Apr, Encounter for dental examination Z01.20 [facility] [address] [place] [address] Apr, Anxiety disorder, unspecified F41.9 and Migraine with aura and without status migrainosus, not intractable G43.109 [facility] [address] [address] Mar, Migraine with aura and without status migrainosus, not intractable G43.109 and Morbid obesity due to excess calories E66.01 [facility] [address], [place] [address] Mar, [facility] [address] [id number] [place] [address] 6[address] February, Major depressive disorder, single episode, unspecified F32.9 [place] [address] [place] [address] [id number] [place] [address]98 Jan, Migraine with aura and without status migrainosus, not intractable G43.109 [place] [address] [place] [id number] [place] [address]84- 8[address] Nov, Major depressive disorder, single episode, unspecified F32.9 and Morbid obesity due to excess calories E66.01 [place] [address] [place] [address] [id number] [place] [address]164- 6[address] Nov, [place] [address] [address] Nov, Major depressive disorder, single episode, unspecified F32.9 and Migraine with aura and without status migrainosus, not intractable G43.109 [place] [address] [address] Oct, Major depressive disorder, single episode, unspecified F32.9 and Anxiety disorder, unspecified F41.9 [place] [address] [place] [id number] [place] [address]24- [address] Sep, Morbid obesity due to excess calories E66.01 and Urinary frequency R35.0 [place] [address] [place] [id number] [place] [address] Aug, Overactive bladder N32.81 ; Migraine with aura and without status migrainosus, not intractable G43.109 ; Non morbid obesity due to excess calories E66.09 and Moderate episode of recurrent major depressive disorder F33.1 [place] [address] [place] [id number] [place] [address] Jul, Infection of skin of finger L08.9 IMMUNIZATIONS No Known Immunizations SOCIAL HISTORY Never Assessed REASON FOR VISIT Well Woman Exam- NISH Victoria PLAN OF CARE Activity Details Follow Up prn with PCP Reason: Pending Test GC/CHLAM PROBE (STATE) Pending Test PAP AND HPV Pending Test CULTURE, GENITAL Pending Test SUREPATH PAP Pending Test Mammogram Dx, Bilateral VITAL SIGNS Height 64 in 2018-08-02 Weight 167.9 lbs 2018-08-02 Temperature 97.0 degrees Fahrenheit 2018-08-02 Heart Rate 72 bpm 2018-08-02 Respiratory Rate 16 2018-08-02 BMI 28.82 kg/m2 2018-08-02 Blood pressure systolic 96 mmHg 2018-08-02 Blood pressure diastolic 58 mmHg 2018-08-02 MEDICATIONS Medication Instructions Dosage Frequency Start Date End Date Duration Status Zofran ODT 4 MG Orally every 8 hrs 1 tablet on the tongue and allow to dissolve 8h 20 Jun, 2017 Active [employer] Vitamin B-12 1500 MCG Active Feverfew 380 MG Orally Once a day 1 tablet 24h Active Klonopin 1 MG Orally Twice a day PRN, do not take more then 2 tabs per day 1 tablet Oct, 30 days Active Topamax 100 mg 2 tablets every am and 1 tablet in the pm Aug, 30 days Active Vitamin D 1000 UNIT Orally Once a day 5 tablet 24h Active Lipitor 20 mg Orally Once a day 1 tablet 24h Active Oxybutynin Chloride ER 15 mg Orally Once a day 1 tablet 24h Sep, 90 days Active Celexa 40 mg Orally Once a day 1 tablet 24h 30 days Active Aspirin 81 MG Orally Once a day 1 tablet 24h Dec, 30 day(s) Active Esomeprazole Magnesium 20 mg Orally Once a day 1 capsule 24h February, 90 days Active RESULTS No Results PROCEDURES Procedure Date Ordered Result Body Site URINALYSIS, AUTO W/SCOPE Aug 02, 2018 No Charge Aug 02, 2018 VENIPUNCT, ROUTINE* Aug 02, 2018 COMPREHEN METABOLIC PANEL Aug 02, 2018 Bacterial Vaginosis In House Aug 02, 2018 TRICHOMONAS ASSAY W/OPTIC Aug 02, 2018 CULTURE, BACTERIA, OTHER Aug 02, 2018 SPECIMEN HANDLING Aug 02, 2018 INSTRUCTIONS MEDICATIONS ADMINISTERED No Known Medications MEDICAL (GENERAL) HISTORY Type Description Date Medical History Depression Medical History Migraines Medical History Anxiety Surgical History total hysterectomy Surgical History cholecystectomy Surgical History Appendectomy Surgical History Tonsillectomy Surgical History cystoscopy Hospitalization History past surgery
--- OUTSIDE RECORDS SUMMARY | 2018-08-19 19:40 | XMS REPORT ---
Author Author DARIUS PATEL Organization [facility] Address [address] [place] [address] Care Team Providers Care Head Field Hockey Coach Name Role Phone DARIUS PATEL Unavailable PROBLEMS Type Condition ICD9-CM Code [id number] Code Onset Dates Condition Status SNOMED Code Problem Overactive bladder N32.81 Active 124419630 Problem Morbid obesity due to excess calories E66.01 Active 213207817 Problem Migraine with aura and without status migrainosus, not intractable G43.109 Active 6862969 Problem Secondary cataract of both eyes, unspecified secondary cataract type H26.40 Active 95931652 Problem Abnormal LFTs R94.5 Active 360322697 Problem Non morbid obesity due to excess calories E66.09 Active 624880146 Problem Moderate episode of recurrent major depressive disorder F33.1 Active 157209763 Problem Dyspareunia in female N94.10 Active 08985754 Problem Gastroesophageal reflux disease, esophagitis presence not specified K21.9 Active 732029124 Problem Abnormal stress test R94.39 Active 141965231 Problem Major depressive disorder, single episode, unspecified F32.9 Active 36034050 Problem Chest pain, unspecified type R07.9 Active 58841548 Problem Anxiety F41.9 Active 03687125 ALLERGIES No Information ENCOUNTERS Encounter Location Date Diagnosis [facility] [id number] [place] [address] Aug, [facility] [id number], [place] [address] Jul, [facility] [address] [place] [address]- [address] Jul, Gastroesophageal reflux disease, esophagitis presence not specified K21.9 [facility] [address] [place] [address] [id number] [place] [address] 56949- 6563 Jul, Abnormal LFTs R94.5 [facility] [address] [place] [address] [id number] [place] [address] 18356- 8154 Jul, Abnormal LFTs R94.5 [facility] [address] [place] [address] [id number] [place] [address] 27622- [address] Jul, [facility] [address] [place] [address] [id number] [place] [address] 58150- 0915 Jul, Urinary frequency R35.0 ; Screening for breast cancer Z12.31 ; Screening examination for sexually transmitted disease Z11.3 ; Dyspareunia in female N94.10 ; Mastalgia N64.4 and Elevated LFTs R94.5 [place] [address] [place] [address] [id number] [place] [address] 28455- 3953 Jul, Gastroesophageal reflux disease, esophagitis presence not specified K21.9 [place] [address] [place] [address] [id number] [place] [address] 31251- 3171 Jun, Abnormal stress test R94.39 and Chest pain, unspecified type R07.9 [place] [address] [place] [id number] [place] [address] 89858- 4238 May, Gastroesophageal reflux disease, esophagitis presence not specified K21.9 and Overactive bladder N32.81 [place] [address] [place] [id number] [place] [address] 94667- 6376 May, Urinary urgency R39.15 and Overactive bladder N32.81 [facility] [address] [id number] [place] [address]31 -[address]004 May, Urinary urgency R39.15 and Dyspareunia in female N94.10 [facility] [address] [address]- [address] May, [facility] [address] [place] [address] [id number] [place] [address] 32711- 7041 Mar, Gastroesophageal reflux disease, esophagitis presence not specified K21.9 [place] [address] [place] [address]- [address] February, Gastroesophageal reflux disease, esophagitis presence not specified K21.9 and Atypical chest pain R07.89 [place] [address] 6[address]- [address]18 February, Anxiety F41.9 and Abnormal stress test R94.39 [place] [address] 02656- 59[address] February, [place] [address] [address]- 0839 Jan, Chest pain, unspecified type R07.9 [place] [address] 25266- 3279 Dec, Chest pain, unspecified type R07.9 and Anxiety F41.9 [place] [address] 52348- 4290 Dec, Moderate episode of recurrent major depressive disorder F33.1 and Migraine with aura and without status migrainosus, not intractable G43.109 [place] [address] [address]- 28[address] Oct, Migraine with aura and without status migrainosus, not intractable G43.109 [place] [address] 26898- 9906 Oct, Non morbid obesity due to excess calories E66.09 [place] [address] 67625- 6823 Oct, Morbid obesity due to excess calories E66.01 [place] [address] 10355- 5430 Oct, Non morbid obesity due to excess calories E66.09 ; Moderate episode of recurrent major depressive disorder F33.1 ; Migraine with aura and without status migrainosus, not intractable G43.109 and Morbid obesity due to excess calories E66.01 [facility] [address] [place] [address] Sep, Viral gastroenteritis A08.4 and Chills R68.83 [place] [address] [place] [id number] [place] [address] 06868- 2916 Aug, Migraine with aura and without status migrainosus, not intractable G43.109 ; Moderate episode of recurrent major depressive disorder F33.1 ; Anxiety disorder, unspecified F41.9 and Morbid obesity due to excess calories E66.01 [facility] [address] [place] [id number] [place] [address] 71126- 4914 Jun, Major depressive disorder, single episode, unspecified F32.9 [facility] [address] [place], [place] [id number] [place] [address] 74020 -[address]678 Jun, Other viral agents as the cause of diseases classified elsewhere B97.89 and Acute upper respiratory infection, unspecified J06.9 [place] [id number] [place] [address] 09276- 3909 May, Major depressive disorder, single episode, unspecified F32.9 [facility] [address] [id number] [place] [id number] May, Dental examination Z01.20 [facility] [address] [id number] May, Dental examination Z01.20 [facility] [address] [place] [id number] [place] [id number] Apr, Encounter for dental examination Z01.20 [facility] [address] [place] [address] [id number] [place] [address] 38796- 9314 Apr, Anxiety disorder, unspecified F41.9 and Migraine with aura and without status migrainosus, not intractable G43.109 [place] [address] [place] [id number] [place] [address] 47844- 0518 Mar, Migraine with aura and without status migrainosus, not intractable G43.109 and Morbid obesity due to excess calories E66.01 [place] [address] [id number] [address] 14 Mar, 2017 [place] [address] [place] [id number] [place] [address] 11002- 2995 February, Major depressive disorder, single episode, unspecified F32.9 [place] [address] [place] [address] 53900- 4215 Jan, Migraine with aura and without status migrainosus, not intractable G43.109 [place] [address] [place] [id number] [place] [address] 85525- 3935 27 Nov, 2016 Major depressive disorder, single episode, unspecified F32.9 and Morbid obesity due to excess calories E66.01 [place] [address] [place] [id number] [place] [address] 39451- 7273 14 Nov, 2016 [place] [address] [place] [id number] [place] [address] 58086- 8169 08 Nov, 2016 Major depressive disorder, single episode, unspecified F32.9 and Migraine with aura and without status migrainosus, not intractable G43.109 [place] [address] [place] [id number] [place] [address] 48606- 2576 Oct, Major depressive disorder, single episode, unspecified F32.9 and Anxiety disorder, unspecified F41.9 [place] [address] [place] [address] 54114- 5749 Sep, Morbid obesity due to excess calories E66.01 and Urinary frequency R35.0 [place] [address] [place] [address] 30986- 2766 15 Aug, 2016 Overactive bladder N32.81 ; Migraine with aura and without status migrainosus, not intractable G43.109 ; Non morbid obesity due to excess calories E66.09 and Moderate episode of recurrent major depressive disorder F33.1 [place] [address] [place] [address] 57597- 7482 Jul, Infection of skin of finger L08.9 IMMUNIZATIONS No Known Immunizations SOCIAL HISTORY Never Assessed REASON FOR VISIT New Rx from lab PLAN OF CARE VITAL SIGNS MEDICATIONS Medication Instructions Dosage Frequency Start Date End Date Duration Status Doxycycline Hyclate 100 MG Orally 2 times a day 1 tablet 12h 29 Jul, 2018 Aug, 10 day(s) Active RESULTS No Results PROCEDURES No Known procedures INSTRUCTIONS MEDICATIONS ADMINISTERED No Known Medications MEDICAL (GENERAL) HISTORY Type Description Date Medical History Depression Medical History Migraines Medical History Anxiety Surgical History total hysterectomy Surgical History cholecystectomy Surgical History Appendectomy Surgical History Tonsillectomy Surgical History cystoscopy Hospitalization History past surgery
--- OUTSIDE RECORDS SUMMARY | 2018-08-19 19:40 | XMS REPORT ---
Author Author DARIUS PATEL Organization [facility] Address [address] [place] [address] Care Team Providers Care Yield Clerk Name Role Phone DARIUS PATEL Unavailable PROBLEMS Type Condition ICD9-CM Code HDR08-BA Code Onset Dates Condition Status SNOMED Code Problem Overactive bladder N32.81 Active 799644983 Problem Morbid obesity due to excess calories E66.01 Active 522434021 Problem Migraine with aura and without status migrainosus, not intractable G43.109 Active 6987986 Problem Secondary cataract of both eyes, unspecified secondary cataract type H26.40 Active 34405939 Problem Abnormal LFTs R94.5 Active 534186175 Problem Non morbid obesity due to excess calories E66.09 Active 307059713 Problem Moderate episode of recurrent major depressive disorder F33.1 Active 780152514 Problem Dyspareunia in female N94.10 Active 20145467 Problem Gastroesophageal reflux disease, esophagitis presence not specified K21.9 Active 183723407 Problem Abnormal stress test R94.39 Active 380361241 Problem Major depressive disorder, single episode, unspecified F32.9 Active 12630121 Problem Chest pain, unspecified type R07.9 Active 55839541 Problem Anxiety F41.9 Active 81716303 ALLERGIES No Information ENCOUNTERS Encounter Location Date Diagnosis [facility] [id number] [address] Aug, [facility] [id number], [place] [address] Jul, Abnormal LFTs R94.5 [facility] [address], [place] [address] Jul, Abnormal LFTs R94.5 [facility] [id number] [address] Jul, [facility] [id number] [place] [address] Jul, Urinary frequency R35.0 ; Screening for breast cancer Z12.31 ; Screening examination for sexually transmitted disease Z11.3 ; Dyspareunia in female N94.10 ; Mastalgia N64.4 and Elevated LFTs R94.5 [place] [address] [address] [address] Jul, Gastroesophageal reflux disease, esophagitis presence not specified K21.9 [place] [address] [address] Jun, Abnormal stress test R94.39 and Chest pain, unspecified type R07.9 [place] [id number] [place] [address] May, Gastroesophageal reflux disease, esophagitis presence not specified K21.9 and Overactive bladder N32.81 [place] [address] [address] May, Urinary urgency R39.15 and Overactive bladder N32.81 [facility] [address] [address] May, Urinary urgency R39.15 and Dyspareunia in female N94.10 [place] [id number] [place] [address]40[address] May, [facility] [address] [address] Mar, Gastroesophageal reflux disease, esophagitis presence not specified K21.9 [place] [address] [address] February, Gastroesophageal reflux disease, esophagitis presence not specified K21.9 and Atypical chest pain R07.89 [facility] [id number] [place] [address]14- 9461 February, Anxiety F41.9 and Abnormal stress test R94.39 [place] [id number] [place] [address]99- 1443 February, [place] [address] [id number] Jan, Chest pain, unspecified type R07.9 [place] [id number] [place] [address]82- 0[address] Dec, Chest pain, unspecified type R07.9 and Anxiety F41.9 [place] [address] [address] Dec, Moderate episode of recurrent major depressive disorder F33.1 and Migraine with aura and without status migrainosus, not intractable G43.109 [place] [id number] [place] [address]- 57[address] Oct, Migraine with aura and without status migrainosus, not intractable G43.109 [place] [address] [address]- [address] Oct, Non morbid obesity due to excess calories E66.09 [place] [address] [address] Oct, Morbid obesity due to excess calories E66.01 [place] [id number] [place] [address] 0[address]31- [address]60 Oct, Non morbid obesity due to excess calories E66.09 ; Moderate episode of recurrent major depressive disorder F33.1 ; Migraine with aura and without status migrainosus, not intractable G43.109 and Morbid obesity due to excess calories E66.01 [facility] [address] [address] Sep, Viral gastroenteritis A08.4 and Chills R68.83 [place] [id number] [place] [address] 0[address]24- [address] Aug, Migraine with aura and without status migrainosus, not intractable G43.109 ; Moderate episode of recurrent major depressive disorder F33.1 ; Anxiety disorder, unspecified F41.9 and Morbid obesity due to excess calories E66.01 [facility] [address] [place] [address]- [address] 29 Jun, 2017 Major depressive disorder, single episode, unspecified F32.9 [facility] [id number] [place] [address] Jun, Other viral agents as the cause of diseases classified elsewhere B97.89 and Acute upper respiratory infection, unspecified J06.9 [facility] [id number] [place] [address] 04523- 5820 May, Major depressive disorder, single episode, unspecified F32.9 [facility] [id number] [place] [id number] May, Dental examination Z01.20 [facility] [address] [id number] May, Dental examination Z01.20 [facility] [id number] [place] [id number] Apr, Encounter for dental examination Z01.20 [facility] [id number] [place] [address] Apr, Anxiety disorder, unspecified F41.9 and Migraine with aura and without status migrainosus, not intractable G43.109 [facility] [id number] [place] [address]69- [address] Mar, Migraine with aura and without status migrainosus, not intractable G43.109 and Morbid obesity due to excess calories E66.01 [facility] [id number] [place] [address] 7[address]24- 80[address] Mar, [place] [id number] [place] [address] 49[address]- [address]67 February, Major depressive disorder, single episode, unspecified F32.9 [facility] [id number] [place] [address] 10778- 2380 Jan, Migraine with aura and without status migrainosus, not intractable G43.109 [place] [id number] [place] [address]007- [address] 27 Nov, 2016 Major depressive disorder, single episode, unspecified F32.9 and Morbid obesity due to excess calories E66.01 [place] [id number] [place] [address] 23615- 5263 14 Nov, 2016 [place] [id number] [place] [address] 5[address]25- 3[address] 08 Nov, 2016 Major depressive disorder, single episode, unspecified F32.9 and Migraine with aura and without status migrainosus, not intractable G43.109 [place] [id number] [place] [address] 13612- 8153 Oct, Major depressive disorder, single episode, unspecified F32.9 and Anxiety disorder, unspecified F41.9 [place] [id number] [place] [address] 36[address]- 7869 Sep, Morbid obesity due to excess calories E66.01 and Urinary frequency R35.0 [place] [id number] [place] [address] 6[address]34- 1412 Aug, Overactive bladder N32.81 ; Migraine with aura and without status migrainosus, not intractable G43.109 ; Non morbid obesity due to excess calories E66.09 and Moderate episode of recurrent major depressive disorder F33.1 [place] [id number] [place] [address] 6[address]- 0643 Jul, Infection of skin of finger L08.9 IMMUNIZATIONS No Known Immunizations SOCIAL HISTORY Never Assessed REASON FOR VISIT Lab (walk-in) PLAN OF CARE Activity Details Pending Test HEPATITIS PROFILE Pending Test CBC VITAL SIGNS MEDICATIONS Unknown Medications RESULTS No Results PROCEDURES Procedure Date Ordered Result Body Site ACUTE HEPATITIS PANEL Aug 05, 2018 COMPLETE CBC W/AUTO DIFF WBC Aug 05, 2018 INSTRUCTIONS MEDICATIONS ADMINISTERED No Known Medications MEDICAL (GENERAL) HISTORY Type Description Date Medical History Depression Medical History Migraines Medical History Anxiety Surgical History total hysterectomy Surgical History cholecystectomy Surgical History Appendectomy Surgical History Tonsillectomy Surgical History cystoscopy Hospitalization History past surgery
--- OUTSIDE RECORDS SUMMARY | 2018-08-19 19:40 | XMS REPORT ---
Author Author DARIUS PATEL Organization [facility] [place] Address [address] [place] [address] Care Team Providers Care Steffen House Supervisor Name Role Phone DARIUS PATEL Unavailable PROBLEMS Type Condition ICD9-CM Code STT53-QG Code Onset Dates Condition Status SNOMED Code Problem Overactive bladder N32.81 Active 149568028 Problem Morbid obesity due to excess calories E66.01 Active 624290409 Problem Migraine with aura and without status migrainosus, not intractable G43.109 Active 6701875 Problem Secondary cataract of both eyes, unspecified secondary cataract type H26.40 Active 30289853 Problem Abnormal LFTs R94.5 Active 151606146 Problem Non morbid obesity due to excess calories E66.09 Active 108457486 Problem Moderate episode of recurrent major depressive disorder F33.1 Active 960259785 Problem Dyspareunia in female N94.10 Active 08876098 Problem Gastroesophageal reflux disease, esophagitis presence not specified K21.9 Active 690605099 Problem Abnormal stress test R94.39 Active 911662055 Problem Major depressive disorder, single episode, unspecified F32.9 Active 80081894 Problem Chest pain, unspecified type R07.9 Active 54116649 Problem Anxiety F41.9 Active 47269268 ALLERGIES No Information ENCOUNTERS Encounter Location Date Diagnosis [facility] [place] [id number] [address] Aug, [facility] [place] [id number] [address] Jul, [facility] [place] [address] [address] Jul, [facility] [place] [id number] [address] Jul, [facility] [id number] [place] [address]- [address]147 Jul, Gastroesophageal reflux disease, esophagitis presence not specified K21.9 [place] [address] [address]- [address] Jul, Abnormal LFTs R94.5 [place] [address] [address]- 2846 Jul, Abnormal LFTs R94.5 [place] [address] [address]- [address]19 Jul, [place] [address] [address]- [address] Jul, Urinary frequency R35.0 ; Screening for breast cancer Z12.31 ; Screening examination for sexually transmitted disease Z11.3 ; Dyspareunia in female N94.10 ; Mastalgia N64.4 and Elevated LFTs R94.5 [place] [address] [address]- [address] Jul, Gastroesophageal reflux disease, esophagitis presence not specified K21.9 [place] [address] [address]- [address] Jun, Abnormal stress test R94.39 and Chest pain, unspecified type R07.9 [place] [id number] [place] [address] 74265- 7989 May, Gastroesophageal reflux disease, esophagitis presence not specified K21.9 and Overactive bladder N32.81 [facility] [place] [id number] [place] [address] 48573- 3299 May, Urinary urgency R39.15 and Overactive bladder N32.81 [facility] [address] [address] May, Urinary urgency R39.15 and Dyspareunia in female N94.10 [place] [address] 46679- 8[address] May, [place] [id number] [place] [address] 29075- 3552 Mar, Gastroesophageal reflux disease, esophagitis presence not specified K21.9 [place] [id number] [place] [address] 86379- 9991 February, Gastroesophageal reflux disease, esophagitis presence not specified K21.9 and Atypical chest pain R07.89 [place] [address] [address]- [address]169 February, Anxiety F41.9 and Abnormal stress test R94.39 [place] [address] [address]11- 1305 February, [place] [address] [address]58- [address] Jan, Chest pain, unspecified type R07.9 [place] [address] 6[address]99- 5734 Dec, Chest pain, unspecified type R07.9 and Anxiety F41.9 [place] [address] 54590- 3336 Dec, Moderate episode of recurrent major depressive disorder F33.1 and Migraine with aura and without status migrainosus, not intractable G43.109 [place] [id number] [place] [address] 37754- 3177 Oct, Migraine with aura and without status migrainosus, not intractable G43.109 [place] [id number] [place] [address] 09321- 8029 Oct, Non morbid obesity due to excess calories E66.09 [place] [address] [address]- 8732 Oct, Morbid obesity due to excess calories E66.01 [place] [id number] [place] [address] 30597- 1601 Oct, Non morbid obesity due to excess calories E66.09 ; Moderate episode of recurrent major depressive disorder F33.1 ; Migraine with aura and without status migrainosus, not intractable G43.109 and Morbid obesity due to excess calories E66.01 [facility] [address] [address] Sep, Viral gastroenteritis A08.4 and Chills R68.[address] [address]- [address] Aug, Migraine with aura and without status migrainosus, not intractable G43.109 ; Moderate episode of recurrent major depressive disorder F33.1 ; Anxiety disorder, unspecified F41.9 and Morbid obesity due to excess calories E66.01 [place] [address] 42294- 3933 Jun, Major depressive disorder, single episode, unspecified F32.9 [facility] [address] [address] Jun, Other viral agents as the cause of diseases classified elsewhere B97.89 and Acute upper respiratory infection, unspecified J06.[address] [address]- [address] May, Major depressive disorder, single episode, unspecified F32.9 [facility] [address] [id number] May, Dental examination Z01.20 [facility] [address] [id number] May, Dental examination Z01.20 [facility] [address] [id number] Apr, Encounter for dental examination Z01.20 [place] [address] [address]85- 1768 Apr, Anxiety disorder, unspecified F41.9 and Migraine with aura and without status migrainosus, not intractable G43.109 [place] [address] [address] Mar, Migraine with aura and without status migrainosus, not intractable G43.109 and Morbid obesity due to excess calories E66.01 [place] [id number] [place] [address] 07184- 4165 14 Mar, 2017 [place] [id number] [place] [address] 96562- 7741 February, Major depressive disorder, single episode, unspecified F32.9 [place] [id number] [place] [address] 80919- 7694 Jan, Migraine with aura and without status migrainosus, not intractable G43.109 [place] [id number] [place] [address] 75208- 1978 27 Nov, 2016 Major depressive disorder, single episode, unspecified F32.9 and Morbid obesity due to excess calories E66.01 [place] [id number] [place] [address] 21941- 3987 Nov, [place] [id number] [place] [address] 61351- 5554 08 Nov, 2016 Major depressive disorder, single episode, unspecified F32.9 and Migraine with aura and without status migrainosus, not intractable G43.109 [place] [id number] [place] [address] 36008- 8212 Oct, Major depressive disorder, single episode, unspecified F32.9 and Anxiety disorder, unspecified F41.9 [place] [id number] [place] [address]87- 1981 Sep, Morbid obesity due to excess calories E66.01 and Urinary frequency R35.0 [place] [id number] [place] [address] 47491- 3818 15 Aug, 2016 Overactive bladder N32.81 ; Migraine with aura and without status migrainosus, not intractable G43.109 ; Non morbid obesity due to excess calories E66.09 and Moderate episode of recurrent major depressive disorder F33.1 [facility] [place] [address] [facility] [id number] [address] Jul, Infection of skin of finger L08.9 [...]
--- OUTSIDE RECORDS SUMMARY | 2018-08-19 19:41 | XMS REPORT ---
Author Author DARIUS PATEL Organization [facility] Address [address] [place] [address] Care Team Providers Care Pomologist Name Role Phone DARIUS PATEL Unavailable PROBLEMS Type Condition ICD9-CM Code [id number] Code Onset Dates Condition Status SNOMED Code Problem Non morbid obesity due to excess calories E66.09 Active 321822340 Problem Migraine with aura and without status migrainosus, not intractable G43.109 Active 0277256 Problem Overactive bladder N32.81 Active 185105302 Problem Secondary cataract of both eyes, unspecified secondary cataract type H26.40 Active 29980754 Problem Moderate episode of recurrent major depressive disorder F33.1 Active 894647198 Problem Gastroesophageal reflux disease, esophagitis presence not specified K21.9 Active 962529636 Problem Chest pain, unspecified type R07.9 Active 46547152 Problem Major depressive disorder, single episode, unspecified F32.9 Active 67468921 Problem Morbid obesity due to excess calories E66.01 Active 096043007 Problem Anxiety F41.9 Active 97797533 Problem Abnormal stress test R94.39 Active 505482551 ALLERGIES Substance Reaction Event Type Date Status Sulfamethoxazole-Trimethoprim Unknown Drug Allergy Dec, Active ENCOUNTERS Encounter Location Date Diagnosis [facility] [id number] [place] [address] 81372- 2470 Mar, Gastroesophageal reflux disease, esophagitis presence not specified K21.9 [facility] [address] [address] February, Gastroesophageal reflux disease, esophagitis presence not specified K21.9 and Atypical chest pain R07.89 [facility] [id number] [place] [address] 82098- 1544 February, Anxiety F41.9 and Abnormal stress test R94.39 [place] [id number] [place] [address] 28215- 6580 February, [place] [id number] [place] [address] 70852- 8175 Jan, Chest pain, unspecified type R07.9 [place] [id number] [place] [address] 51332- 3093 Dec, Chest pain, unspecified type R07.9 and Anxiety F41.9 [place] [id number] [place] [address] 30102- 4031 Dec, Moderate episode of recurrent major depressive disorder F33.1 and Migraine with aura and without status migrainosus, not intractable G43.109 [place] [id number] [place] [address] 73065- 4181 Oct, Migraine with aura and without status migrainosus, not intractable G43.109 [place] [address] [address]- 5863 Oct, Non morbid obesity due to excess calories E66.09 [place] [id number] [place] [address] 11967- 4931 Oct, Morbid obesity due to excess calories E66.01 [place] [id number] [place] [address] 52014- 3221 Oct, Non morbid obesity due to excess calories E66.09 ; Moderate episode of recurrent major depressive disorder F33.1 ; Migraine with aura and without status migrainosus, not intractable G43.109 and Morbid obesity due to excess calories E66.01 [facility] [id number] [place] [address] 98349 -7174 Sep, Viral gastroenteritis A08.4 and Chills R68.83 [place] [id number] [place] [address] 35989- 1723 Aug, Migraine with aura and without status migrainosus, not intractable G43.109 ; Moderate episode of recurrent major depressive disorder F33.1 ; Anxiety disorder, unspecified F41.9 and Morbid obesity due to excess calories E66.01 [facility] [address] [place] [address] 93588- 0480 Jun, Major depressive disorder, single episode, unspecified F32.9 [facility] [address] [place] [address] 35540 -7056 Jun, Other viral agents as the cause of diseases classified elsewhere B97.89 and Acute upper respiratory infection, unspecified J06.9 [facility] [address] [place] [address] 72595- 3041 May, Major depressive disorder, single episode, unspecified F32.9 [facility] [id number] [place] [address] [id number] May, Dental examination Z01.20 [facility] [id number] [place] [address] [id number] May, Dental examination Z01.20 [facility] [id number] [place] [address] [id number] Apr, Encounter for dental examination Z01.20 [facility] [id number] [place] [address] 62218- 6950 Apr, Anxiety disorder, unspecified F41.9 and Migraine with aura and without status migrainosus, not intractable G43.109 [facility] [id number] [place] [address] 73234- 2324 Mar, Migraine with aura and without status migrainosus, not intractable G43.109 and Morbid obesity due to excess calories E66.01 [facility] [id number] [place] [address] 75784- 6427 Mar, [facility] [id number] [place] [address] 25895- 5015 February, Major depressive disorder, single episode, unspecified F32.9 [facility] [id number] [place] [address] 31799- 5461 Jan, Migraine with aura and without status migrainosus, not intractable G43.109 [place] [id number] [place] [address] 72810- 1555 Nov, Major depressive disorder, single episode, unspecified F32.9 and Morbid obesity due to excess calories E66.01 [place] [id number] [place] [address] 82842- 3918 Nov, [place] [id number] [place] [address] Nov, Major depressive disorder, single episode, unspecified F32.9 and Migraine with aura and without status migrainosus, not intractable G43.109 [place] [id number] [place] [address] 62822- 8790 Oct, Major depressive disorder, single episode, unspecified F32.9 and Anxiety disorder, unspecified F41.9 [place] [id number] [place] [address] 57795- 8241 Sep, Morbid obesity due to excess calories E66.01 and Urinary frequency R35.0 [place] [id number] [place] [address] 06538- 7094 Aug, Overactive bladder N32.81 ; Migraine with aura and without status migrainosus, not intractable G43.109 ; Non morbid obesity due to excess calories E66.09 and Moderate episode of recurrent major depressive disorder F33.1 [place] [id number] [place] [address] 21783- 6373 Jul, Infection of skin of finger L08.9 IMMUNIZATIONS No Known Immunizations SOCIAL HISTORY Never Assessed REASON FOR VISIT ER VC/f/u, patient states she is feeling a little better -- lew butterfield PLAN OF CARE Activity Details Follow Up Will get your scheduled with cardiology Reason: VITAL SIGNS Height 64 in 2018-01-04 Weight 167.0 lbs 2018-01-04 Temperature 97.8 degrees Fahrenheit 2018-01-04 Heart Rate 72 bpm 2018-01-04 Respiratory Rate 20 2018-01-04 BMI 28.66 kg/m2 2018-01-04 Blood pressure systolic 122 mmHg 2018-01-04 Blood pressure diastolic 78 mmHg 2018-01-04 MEDICATIONS Medication Instructions Dosage Frequency Start Date End Date Duration Status Klonopin 1 MG Orally Twice a day PRN, do not take more then 2 tabs per day 1 tablet 18 Oct, 2016 30 days Active Zofran ODT 4 MG Orally every 8 hrs 1 tablet on the tongue and allow to dissolve 8h 20 Jun, 2017 Active Feverfew 380 MG Orally Once a day 1 tablet 24h Active Aspirin 81 MG Orally Once a day 1 tablet 24h Dec, 30 day(s) Active [employer] Vitamin B-12 1500 MCG Active Excedrin Migraine 250-250-65 MG Orally Once a day 2 tablets 24h Active Pepcid 20 mg Orally Once a day 1 tablet at bedtime 24h 30 days Active Oxybutynin Chloride ER 10 mg Orally Once a day 1 tablet 24h 15 Sep, 2016 30 days Active Vitamin D 1000 UNIT Orally Once a day 5 tablet 24h Active Celexa 40 mg Orally Once a day 1 tablet 24h 90 days Active Topamax 200 mg Orally Twice a day 1 tablet every am and 1/2 tablet in the pm to equal 300mg daily 12h 16 Aug, 2016 90 days Active RESULTS Name Result Date Reference Range Exercise Treadmill Stress Test (TMST) 2018-01-12 PROCEDURES No Known procedures INSTRUCTIONS MEDICATIONS ADMINISTERED No Known Medications MEDICAL (GENERAL) HISTORY Type Description Date Medical History Depression Medical History Migraines Medical History Anxiety Surgical History total hysterectomy Surgical History cholecystectomy Surgical History Appendectomy Surgical History Tonsillectomy Surgical History cystoscopy Hospitalization History past surgery
--- OUTSIDE RECORDS SUMMARY | 2018-08-19 19:41 | XMS REPORT ---
Author Author DALLIN OLIVA [facility] Address [address] [place] [address] Care Team Providers Care [employer] Information [employer] Officer Name Role Phone DALLIN OLIVA Unavailable PROBLEMS Type Condition ICD9-CM Code PJP18-ZD Code Onset Dates Condition Status SNOMED Code Problem Overactive bladder N32.81 Active 009501843 Problem Morbid obesity due to excess calories E66.01 Active 287397689 Problem Migraine with aura and without status migrainosus, not intractable G43.109 Active 7310359 Problem Secondary cataract of both eyes, unspecified secondary cataract type H26.40 Active 55149354 Problem Abnormal LFTs R94.5 Active 637762088 Problem Non morbid obesity due to excess calories E66.09 Active 348519797 Problem Moderate episode of recurrent major depressive disorder F33.1 Active 025691991 Problem Dyspareunia in female N94.10 Active 78798865 Problem Gastroesophageal reflux disease, esophagitis presence not specified K21.9 Active 171990716 Problem Abnormal stress test R94.39 Active 586694082 Problem Major depressive disorder, single episode, unspecified F32.9 Active 87857626 Problem Chest pain, unspecified type R07.9 Active 87629794 Problem Anxiety F41.9 Active 52524116 ALLERGIES No Information ENCOUNTERS Encounter Location Date Diagnosis [facility] [id number] [address] Aug, [facility] [address] [address] Jul, Abnormal LFTs R94.5 [facility] [address] [address] 3007 Jul, Abnormal LFTs R94.5 [facility] [address] [address] 3[address] Jul, [facility] [id number] [place] [address] 44518- 5967 Jul, Urinary frequency R35.0 ; Screening for breast cancer Z12.31 ; Screening examination for sexually transmitted disease Z11.3 ; Dyspareunia in female N94.10 ; Mastalgia N64.4 and Elevated LFTs R94.5 [place] [address] [address]- 6269 Jul, Gastroesophageal reflux disease, esophagitis presence not specified K21.9 [place] [address] 86193- 8725 Jun, Abnormal stress test R94.39 and Chest pain, unspecified type R07.9 [place] [id number] [place] [address] 89904- 9029 May, Gastroesophageal reflux disease, esophagitis presence not specified K21.9 and Overactive bladder N32.81 [place] [id number] [place] [address] 21693- 6546 May, Urinary urgency R39.15 and Overactive bladder N32.81 [facility] [id number] [place] [address] 41986 -6882 May, Urinary urgency R39.15 and Dyspareunia in female N94.10 [place] [id number] [place] [address] 49532- 6550 May, [facility] [id number] [place] [address] 50521- 4363 Mar, Gastroesophageal reflux disease, esophagitis presence not specified K21.9 [place] [address] 84680- 4692 February, Gastroesophageal reflux disease, esophagitis presence not specified K21.9 and Atypical chest pain R07.89 [facility] [id number] [place] [address] 53881- 4934 February, Anxiety F41.9 and Abnormal stress test R94.39 [place] [id number] [place] [address] 60674- 1252 February, [place] [address] 984972- 735 Jan, Chest pain, unspecified type R07.9 [place] [address] 76162- 9448 Dec, Chest pain, unspecified type R07.9 and Anxiety F41.9 [place] [id number] [place] [address] 40124- 0650 Dec, Moderate episode of recurrent major depressive disorder F33.1 and Migraine with aura and without status migrainosus, not intractable G43.109 [place] [id number] [place] [address] 74689- 1606 Oct, Migraine with aura and without status migrainosus, not intractable G43.109 [place] [id number] [place] [address] 39050- 1470 Oct, Non morbid obesity due to excess calories E66.09 [place] [address] 65243- 6331 Oct, Morbid obesity due to excess calories E66.01 [place] [id number] [place] [address] 92938- 8715 Oct, Non morbid obesity due to excess calories E66.09 ; Moderate episode of recurrent major depressive disorder F33.1 ; Migraine with aura and without status migrainosus, not intractable G43.109 and Morbid obesity due to excess calories E66.01 [facility] [place] [id number] [place] [address] 70057 -4261 Sep, Viral gastroenteritis A08.4 and Chills R68.83 [place] [id number] [place] [address] 30992- 0334 Aug, Migraine with aura and without status migrainosus, not intractable G43.109 ; Moderate episode of recurrent major depressive disorder F33.1 ; Anxiety disorder, unspecified F41.9 and Morbid obesity due to excess calories E66.01 [facility] [id number] [place] [address] 18909- 5787 Jun, Major depressive disorder, single episode, unspecified F32.9 [facility]ALK IN [facility] [id number] [place] [address] 69016 -5477 Jun, Other viral agents as the cause of diseases classified elsewhere B97.89 and Acute upper respiratory infection, unspecified J06.9 [facility] [id number] [place] [address] 58403- 0126 May, Major depressive disorder, single episode, unspecified F32.9 [facility] [address] [id number] May, Dental examination Z01.20 [facility] [address] [id number] May, Dental examination Z01.20 [facility] [address] [id number] Apr, Encounter for dental examination Z01.20 [facility] [id number] [place] [address] 57473- 7868 Apr, Anxiety disorder, unspecified F41.9 and Migraine with aura and without status migrainosus, not intractable G43.109 [facility] [id number] [place] [address] 37827- 5036 Mar, Migraine with aura and without status migrainosus, not intractable G43.109 and Morbid obesity due to excess calories E66.01 [facility] [id number] [place] [address] 35230- 6890 Mar, [place] [id number] [place] [address] 43409- 5028 February, Major depressive disorder, single episode, unspecified F32.9 [place] [address], [place] [address]- 5553 Jan, Migraine with aura and without status migrainosus, not intractable G43.109 [place] [id number] [place] [address] 27 Nov, 2016 Major depressive disorder, single episode, unspecified F32.9 and Morbid obesity due to excess calories E66.01 [place] [id number] [place] [address] 84690- 4611 14 Nov, 2016 [place] [id number] [place] [address] 45780- 0321 Nov, Major depressive disorder, single episode, unspecified F32.9 and Migraine with aura and without status migrainosus, not intractable G43.109 [place] [id number] [place] [address] 07763- 4581 Oct, Major depressive disorder, single episode, unspecified F32.9 and Anxiety disorder, unspecified F41.9 [place] [id number] [place] [address] 93346- 1599 Sep, Morbid obesity due to excess calories E66.01 and Urinary frequency R35.0 [place] [id number] [place] [address] 12100- 6069 Aug, Overactive bladder N32.81 ; Migraine with aura and without status migrainosus, not intractable G43.109 ; Non morbid obesity due to excess calories E66.09 and Moderate episode of recurrent major depressive disorder F33.1 [place] [address] [place] [address] 42410- 4763 Jul, Infection of skin of finger L08.9 IMMUNIZATIONS No Known Immunizations SOCIAL HISTORY Never Assessed REASON FOR VISIT Deferred Labs PLAN OF CARE VITAL SIGNS MEDICATIONS Unknown Medications RESULTS No Results PROCEDURES No Known procedures INSTRUCTIONS MEDICATIONS ADMINISTERED No Known Medications MEDICAL (GENERAL) HISTORY Type Description Date Medical History Depression Medical History Migraines Medical History Anxiety Surgical History total hysterectomy Surgical History cholecystectomy Surgical History Appendectomy Surgical History Tonsillectomy Surgical History cystoscopy Hospitalization History past surgery
--- OUTSIDE RECORDS SUMMARY | 2018-08-19 19:41 | XMS REPORT ---
Author Author DALLIN OLIVA [facility] Address [address] [place] [address] Care Team Providers Care Chemical Production Technician Name Role Phone DALLIN OLIVA Unavailable PROBLEMS Type Condition ICD9-CM Code IPI28-NI Code Onset Dates Condition Status SNOMED Code Problem Overactive bladder N32.81 Active 251407389 Problem Morbid obesity due to excess calories E66.01 Active 633468750 Problem Migraine with aura and without status migrainosus, not intractable G43.109 Active 1860054 Problem Secondary cataract of both eyes, unspecified secondary cataract type H26.40 Active 26517490 Problem Abnormal LFTs R94.5 Active 364810957 Problem Non morbid obesity due to excess calories E66.09 Active 432983506 Problem Moderate episode of recurrent major depressive disorder F33.1 Active 583336377 Problem Dyspareunia in female N94.10 Active 13834634 Problem Gastroesophageal reflux disease, esophagitis presence not specified K21.9 Active 907300577 Problem Abnormal stress test R94.39 Active 860228778 Problem Major depressive disorder, single episode, unspecified F32.9 Active 71670360 Problem Chest pain, unspecified type R07.9 Active 41880102 Problem Anxiety F41.9 Active 10885394 ALLERGIES No Information ENCOUNTERS Encounter Location Date Diagnosis [facility] [id number] [address] Aug, [facility] [address] [address] Jul, Abnormal LFTs R94.5 [facility] [address] [address] Jul, Abnormal LFTs R94.5 [facility] [address] [address] Jul, [facility] [id number] [place] [address] Jul, Urinary frequency R35.0 ; Screening for breast cancer Z12.31 ; Screening examination for sexually transmitted disease Z11.3 ; Dyspareunia in female N94.10 ; Mastalgia N64.4 and Elevated LFTs R94.5 [place] [address] [address] Jul, Gastroesophageal reflux disease, esophagitis presence not specified K21.9 [place] [address] [address] Jun, Abnormal stress test R94.39 and Chest pain, unspecified type R07.9 [place] [id number] [place] [address] 17201- 1839 May, Gastroesophageal reflux disease, esophagitis presence not specified K21.9 and Overactive bladder N32.81 [place] [id number] [place] [address] 81228- 48[address] May, Urinary urgency R39.15 and Overactive bladder N32.81 [facility] [id number] [place] [address]10 [address] May, Urinary urgency R39.15 and Dyspareunia in female N94.10 [place] [id number] [place] [address] 37925- 0797 May, [facility] [id number] [place] [address] 65461- 8627 Mar, Gastroesophageal reflux disease, esophagitis presence not specified K21.9 [place] [address] [address] February, Gastroesophageal reflux disease, esophagitis presence not specified K21.9 and Atypical chest pain R07.89 [facility] [id number] [place] [address]97- 75[address] February, Anxiety F41.9 and Abnormal stress test R94.39 [place] [id number] [place] [address] 08480- 9938 February, [place] [address] 094501- [address] Jan, Chest pain, unspecified type R07.9 [place] [address] [address] Dec, Chest pain, unspecified type R07.9 and Anxiety F41.9 [place] [id number] [place] [address] 47021- 8712 Dec, Moderate episode of recurrent major depressive disorder F33.1 and Migraine with aura and without status migrainosus, not intractable G43.109 [place] [id number] [place] [address] 80820- 9995 Oct, Migraine with aura and without status migrainosus, not intractable G43.109 [place] [id number] [place] [address] 14517- 4462 Oct, Non morbid obesity due to excess calories E66.09 [place] [address] [address] Oct, Morbid obesity due to excess calories E66.01 [place] [id number] [place] [address] 03058- 8959 Oct, Non morbid obesity due to excess calories E66.09 ; Moderate episode of recurrent major depressive disorder F33.1 ; Migraine with aura and without status migrainosus, not intractable G43.109 and Morbid obesity due to excess calories E66.01 [facility] [place] [id number] [place] [address] Sep, Viral gastroenteritis A08.4 and Chills R68.83 [place] [id number] [place] [address] 99880- 2802 Aug, Migraine with aura and without status migrainosus, not intractable G43.109 ; Moderate episode of recurrent major depressive disorder F33.1 ; Anxiety disorder, unspecified F41.9 and Morbid obesity due to excess calories E66.01 [facility] [id number] [place] [address] 13928- 9652 Jun, Major depressive disorder, single episode, unspecified F32.9 [facility] [id number] [place] [address] 98040 [address] Jun, Other viral agents as the cause of diseases classified elsewhere B97.89 and Acute upper respiratory infection, unspecified J06.9 [facility] [id number] [place] [address] 73539- 3093 May, Major depressive disorder, single episode, unspecified F32.9 [facility] [address] [id number] May, Dental examination Z01.20 [facility] [address] [id number] May, Dental examination Z01.20 [facility] [address] [id number] Apr, Encounter for dental examination Z01.20 [facility] [id number] [place] [address] 33702- 8882 Apr, Anxiety disorder, unspecified F41.9 and Migraine with aura and without status migrainosus, not intractable G43.109 [facility] [id number] [place] [address] 61677- 2818 Mar, Migraine with aura and without status migrainosus, not intractable G43.109 and Morbid obesity due to excess calories E66.01 [facility] [id number] [place] [address] 94932- 4174 Mar, [place] [id number] [place] [address] 74276- 1426 February, Major depressive disorder, single episode, unspecified F32.9 [place] [address], [place] [address] Jan, Migraine with aura and without status migrainosus, not intractable G43.109 [place] [id number] [place] [address] 27 Nov, 2016 Major depressive disorder, single episode, unspecified F32.9 and Morbid obesity due to excess calories E66.01 [place] [id number] [place] [address] 55124- 9050 14 Nov, 2016 [place] [id number] [place] [address] 57982- 6139 Nov, Major depressive disorder, single episode, unspecified F32.9 and Migraine with aura and without status migrainosus, not intractable G43.109 [place] [id number] [place] [address] 03278- 1681 Oct, Major depressive disorder, single episode, unspecified F32.9 and Anxiety disorder, unspecified F41.9 [place] [id number] [place] [address] 67914- 0794 Sep, Morbid obesity due to excess calories E66.01 and Urinary frequency R35.0 [place] [id number] [place] [address] 12614- 49[address] Aug, Overactive bladder N32.81 ; Migraine with aura and without status migrainosus, not intractable G43.109 ; Non morbid obesity due to excess calories E66.09 and Moderate episode of recurrent major depressive disorder F33.1 [place] [address] [place] [address] 6[address]21- 8716 Jul, Infection of skin of finger L08.9 IMMUNIZATIONS No Known Immunizations SOCIAL HISTORY Never Assessed REASON FOR VISIT Requests return call PLAN OF CARE VITAL SIGNS MEDICATIONS Unknown Medications RESULTS No Results PROCEDURES No Known procedures INSTRUCTIONS MEDICATIONS ADMINISTERED No Known Medications MEDICAL (GENERAL) HISTORY Type Description Date Medical History Depression Medical History Migraines Medical History Anxiety Surgical History total hysterectomy Surgical History cholecystectomy Surgical History Appendectomy Surgical History Tonsillectomy Surgical History cystoscopy Hospitalization History past surgery
--- OUTSIDE RECORDS SUMMARY | 2018-08-19 19:42 | XMS REPORT ---
Author Author ELAYNE FORD [facility] Address [address] [place] [address] Care Team Providers Care Cell Support Operator Name Role Phone ELAYNE FORD Unavailable PROBLEMS Type Condition ICD9-CM Code [id number] Code Onset Dates Condition Status SNOMED Code Problem Non morbid obesity due to excess calories E66.09 Active 375433545 Problem Migraine with aura and without status migrainosus, not intractable G43.109 Active 0401584 Problem Overactive bladder N32.81 Active 672971450 Problem Secondary cataract of both eyes, unspecified secondary cataract type H26.40 Active 66197884 Problem Moderate episode of recurrent major depressive disorder F33.1 Active 552835938 Problem Gastroesophageal reflux disease, esophagitis presence not specified K21.9 Active 865664770 Problem Chest pain, unspecified type R07.9 Active 43498291 Problem Major depressive disorder, single episode, unspecified F32.9 Active 37161306 Problem Morbid obesity due to excess calories E66.01 Active 078365916 Problem Anxiety F41.9 Active 53050908 Problem Abnormal stress test R94.39 Active 995197418 ALLERGIES Substance Reaction Event Type Date Status Sulfamethoxazole-Trimethoprim Unknown Drug Allergy Sep, Active ENCOUNTERS Encounter Location Date Diagnosis [facility] [address] [place] [address]65[address] February, Gastroesophageal reflux disease, esophagitis presence not specified K21.9 and Atypical chest pain R07.89 [facility] [address] [place] [address] 35806- 5563 February, Anxiety F41.9 and Abnormal stress test R94.39 [facility] [address] [place] [address] 81695- 7245 February, [facility] [id number] [place] [address] 55940- 5368 Jan, Chest pain, unspecified type R07.9 [place] [id number] [place] [address] 25727- 0056 Dec, Chest pain, unspecified type R07.9 and Anxiety F41.9 [place] [address] [address]- [address]649 Dec, Moderate episode of recurrent major depressive disorder F33.1 and Migraine with aura and without status migrainosus, not intractable G43.109 [place] [id number] [place] [address] 31564- 6733 Oct, Migraine with aura and without status migrainosus, not intractable G43.109 [place] [address] 27637- 7151 Oct, Non morbid obesity due to excess calories E66.09 [place] [address] 99814- 6695 Oct, Morbid obesity due to excess calories E66.01 [place] [address] 154[address]- 6991 Oct, Non morbid obesity due to excess calories E66.09 ; Moderate episode of recurrent major depressive disorder F33.1 ; Migraine with aura and without status migrainosus, not intractable G43.109 and Morbid obesity due to excess calories E66.01 [facility] [id number] [place] [address] 89640 -2397 Sep, Viral gastroenteritis A08.4 and Chills R68.83 [place] [address] [address]- [address] Aug, Migraine with aura and without status migrainosus, not intractable G43.109 ; Moderate episode of recurrent major depressive disorder F33.1 ; Anxiety disorder, unspecified F41.9 and Morbid obesity due to excess calories E66.01 [place] [address] [address]- [address] Jun, Major depressive disorder, single episode, unspecified F32.9 [facility] [address] [place] [address] 89814 -9504 Jun, Other viral agents as the cause of diseases classified elsewhere B97.89 and Acute upper respiratory infection, unspecified J06.9 [facility] [address] [place] [address] 72691- 6722 May, Major depressive disorder, single episode, unspecified F32.9 [facility] [id number] [place] [id number] May, Dental examination Z01.20 [facility] [address] [id number] May, Dental examination Z01.20 [facility] [id number] [place] [address] [id number] Apr, Encounter for dental examination Z01.20 [facility] [id number] [place] [address] 76780- 4694 Apr, Anxiety disorder, unspecified F41.9 and Migraine with aura and without status migrainosus, not intractable G43.109 [facility] [id number] [place] [address] 93242- 5684 Mar, Migraine with aura and without status migrainosus, not intractable G43.109 and Morbid obesity due to excess calories E66.01 [facility] [id number] [place] [address] 25206- 2981 Mar, [facility] [id number] [place] [address] 64238- 3392 February, Major depressive disorder, single episode, unspecified F32.9 [facility] [id number] [place] [address] 60506- 0358 Jan, Migraine with aura and without status migrainosus, not intractable G43.109 [facility] [id number] [place] [address] 32429- 1681 27 Nov, 2016 Major depressive disorder, single episode, unspecified F32.9 and Morbid obesity due to excess calories E66.01 [place] [address] [place] [address] 09433- 4078 14 Nov, 2016 [place] [id number] [place] [address] 19730- 3419 08 Nov, 2016 Major depressive disorder, single episode, unspecified F32.9 and Migraine with aura and without status migrainosus, not intractable G43.109 [place] [id number] [place] [address] 66276- 7644 18 Oct, 2016 Major depressive disorder, single episode, unspecified F32.9 and Anxiety disorder, unspecified F41.9 [place] [id number] [place] [address] 08049- 8765 Sep, Morbid obesity due to excess calories E66.01 and Urinary frequency R35.0 [place] [id number] [place] [address] 52152- 8295 15 Aug, 2016 Overactive bladder N32.81 ; Migraine with aura and without status migrainosus, not intractable G43.109 ; Non morbid obesity due to excess calories E66.09 and Moderate episode of recurrent major depressive disorder F33.1 [place] [id number] [place] [address] 22407- 6928 Jul, Infection of skin of finger L08.9 IMMUNIZATIONS No Known Immunizations SOCIAL HISTORY Never Assessed REASON FOR VISIT vomiting/diarrhea chills, back pain and dizziness started Sun JStrasserRN PLAN OF CARE Activity Details Follow Up prn Reason: VITAL SIGNS Height 64 in 2017-10-05 Weight 169.6 lbs 2017-10-05 Temperature 97.3 degrees Fahrenheit 2017-10-05 Heart Rate 64 bpm 2017-10-05 Respiratory Rate 18 2017-10-05 BMI 29.11 kg/m2 2017-10-05 Blood pressure systolic 110 mmHg 2017-10-05 Blood pressure diastolic 72 mmHg 2017-10-05 MEDICATIONS Medication Instructions Dosage Frequency Start Date End Date Duration Status [employer] Vitamin B-12 1500 MCG Active Celexa 40 mg Orally Once a day 1 tablet 24h Active Excedrin Migraine 250-250-65 MG Orally Once a day 2 tablets 24h Active Vitamin D 1000 UNIT Orally Once a day 5 tablet 24h Active Pepcid 20 mg Orally Once a day 1 tablet at bedtime 24h 30 days Active Oxybutynin Chloride 10 mg Orally Once a day 1 tablet 24h Not- Taking Relpax 20 MG Orally Once a day 1 tablet as needed one time 24h Not -Taking Topamax 200 MG Orally Twice a day 1/2 tablet 12h 16 Aug, 2016 Active Oxybutynin Chloride ER 10 mg Orally Once a day 1 tablet 24h Sep, 90 days Active Klonopin 1 MG Orally Twice a day PRN, do not take more then 2 tabs per day 1 tablet Oct, 30 days Active Promethazine HCl 12.5 MG Orally every 6 hrs 1 tablet as needed 6h Sep, Sep, 3 days Active Zofran ODT 4 MG Orally every 8 hrs 1 tablet on the tongue and allow to dissolve 8h Jun, Active Feverfew 380 MG Orally Once a day 1 tablet 24h Active Premarin 0.625 MG/GM Vaginal once a day as directed 24h Sep, month Not-Taking Estrace 1 MG Orally Once a day 1 tablet 24h Not-Taking RESULTS Name Result Date Reference Range INFLUENZA A & B (IN HOUSE) 2017-10-05 INFLUENZA A negative INFLUENZA B negative Control + Lot # [id number] Exp date 2020-01-08 PROCEDURES Procedure Date Ordered Result Body Site INFLUENZA ASSAY W/OPTIC Oct 05, 2017 INSTRUCTIONS MEDICATIONS ADMINISTERED No Known Medications MEDICAL (GENERAL) HISTORY Type Description Date Medical History Depression Medical History Migraines Medical History Anxiety Surgical History total hysterectomy Surgical History cholecystectomy Surgical History Appendectomy Surgical History Tonsillectomy Surgical History cystoscopy Hospitalization History past surgery
--- OUTSIDE RECORDS SUMMARY | 2018-08-19 19:42 | XMS REPORT ---
Author Author DARIUS PATEL Organization [facility] Address [address] [place] [address] Care Team Providers Care Information Technology Intern Name Role Phone DARIUS PATEL Unavailable PROBLEMS Type Condition ICD9-CM Code [id number] Code Onset Dates Condition Status SNOMED Code Problem Non morbid obesity due to excess calories E66.09 Active 885636138 Problem Migraine with aura and without status migrainosus, not intractable G43.109 Active 1275237 Problem Overactive bladder N32.81 Active 333422793 Problem Secondary cataract of both eyes, unspecified secondary cataract type H26.40 Active 02044079 Problem Moderate episode of recurrent major depressive disorder F33.1 Active 746860149 Problem Gastroesophageal reflux disease, esophagitis presence not specified K21.9 Active 772289483 Problem Chest pain, unspecified type R07.9 Active 65962006 Problem Major depressive disorder, single episode, unspecified F32.9 Active 47598297 Problem Morbid obesity due to excess calories E66.01 Active 989299371 Problem Anxiety F41.9 Active 25463746 Problem Abnormal stress test R94.39 Active 072534889 ALLERGIES No Information ENCOUNTERS Encounter Location Date Diagnosis [facility] [id number] [place] [address] 12116- 3219 Mar, Gastroesophageal reflux disease, esophagitis presence not specified K21.9 [facility] [address] [place] [address] 10805- 0382 February, Gastroesophageal reflux disease, esophagitis presence not specified K21.9 and Atypical chest pain R07.89 [facility] [address] [place] [address] 50125- 4736 February, Anxiety F41.9 and Abnormal stress test R94.39 [facility] [address] [place] [address] 10345- 4855 February, [place] [id number] [place] [address] 93281- 2907 Jan, Chest pain, unspecified type R07.9 [place] [address] 6[address]24- 6695 Dec, Chest pain, unspecified type R07.9 and Anxiety F41.9 [place] [address] 89001- 5984 Dec, Moderate episode of recurrent major depressive disorder F33.1 and Migraine with aura and without status migrainosus, not intractable G43.109 [place] [address] 6[address]00- 2059 Oct, Migraine with aura and without status migrainosus, not intractable G43.[address] [address]33- 2060 Oct, Non morbid obesity due to excess calories E66.09 [place] [address] 74876- 1227 Oct, Morbid obesity due to excess calories E66.01 [place] [id number] [place] [address] 72029- 3639 Oct, Non morbid obesity due to excess calories E66.09 ; Moderate episode of recurrent major depressive disorder F33.1 ; Migraine with aura and without status migrainosus, not intractable G43.109 and Morbid obesity due to excess calories E66.01 [facility] [address] [place] [address] 08342 -2145 Sep, Viral gastroenteritis A08.4 and Chills R68.[address] 76225- 1257 Aug, Migraine with aura and without status migrainosus, not intractable G43.109 ; Moderate episode of recurrent major depressive disorder F33.1 ; Anxiety disorder, unspecified F41.9 and Morbid obesity due to excess calories E66.01 [facility] [address] [address] 29 Jun, 2017 Major depressive disorder, single episode, unspecified F32.9 [facility] [address] [address] Jun, Other viral agents as the cause of diseases classified elsewhere B97.89 and Acute upper respiratory infection, unspecified J06.9 [facility] [address] [place] [address] 24175- 1498 May, Major depressive disorder, single episode, unspecified F32.9 [facility] [id number] [place] [address] [id number] May, Dental examination Z01.20 [facility] [id number] [place] [address] [id number] May, Dental examination Z01.20 [facility] [id number] [place] [address] [id number] Apr, Encounter for dental examination Z01.20 [facility] [id number] [place] [address] 76095- 4281 Apr, Anxiety disorder, unspecified F41.9 and Migraine with aura and without status migrainosus, not intractable G43.109 [facility] [address] [address] Mar, Migraine with aura and without status migrainosus, not intractable G43.109 and Morbid obesity due to excess calories E66.01 [facility] [address] [address] Mar, [facility] [id number] [place] [address] 56437- 4271 February, Major depressive disorder, single episode, unspecified F32.9 [facility] [address] [address] Jan, Migraine with aura and without status migrainosus, not intractable G43.109 [place] [address] [place] [address] 18023- 3694 27 Nov, 2016 Major depressive disorder, single episode, unspecified F32.9 and Morbid obesity due to excess calories E66.01 [place] [address] [place] [address] 17366- 0982 14 Nov, 2016 [place] [id number] [place] [address] 08 Nov, 2016 Major depressive disorder, single episode, unspecified F32.9 and Migraine with aura and without status migrainosus, not intractable G43.109 [place] [id number] [place] [address] 18761- 4062 Oct, Major depressive disorder, single episode, unspecified F32.9 and Anxiety disorder, unspecified F41.9 [place] [id number] [place] [address] 30852- 4799 Sep, Morbid obesity due to excess calories E66.01 and Urinary frequency R35.0 [place] [id number] [place] [address] 05150- 9018 Aug, Overactive bladder N32.81 ; Migraine with aura and without status migrainosus, not intractable G43.109 ; Non morbid obesity due to excess calories E66.09 and Moderate episode of recurrent major depressive disorder F33.1 [place] [id number] [place] [address] 41964- 7541 Jul, Infection of skin of finger L08.9 IMMUNIZATIONS No Known Immunizations SOCIAL HISTORY Never Assessed REASON FOR VISIT Lab (walk-in)--[facility] PLAN OF CARE VITAL SIGNS MEDICATIONS Unknown Medications RESULTS No Results PROCEDURES Procedure Date Ordered Result Body Site LIPID PANEL Nov 09, 2017 COMPREHEN METABOLIC PANEL Nov 09, 2017 VENIPUNCT, ROUTINE* Nov 09, 2017 INSTRUCTIONS MEDICATIONS ADMINISTERED No Known Medications MEDICAL (GENERAL) HISTORY Type Description Date Medical History Depression Medical History Migraines Medical History Anxiety Surgical History total hysterectomy Surgical History cholecystectomy Surgical History Appendectomy Surgical History Tonsillectomy Surgical History cystoscopy Hospitalization History past surgery
--- OUTSIDE RECORDS SUMMARY | 2018-08-19 19:42 | XMS REPORT ---
Author Author DARIUS PATEL Organization [facility] Address [address] [place] [address] Care Team Providers Care Software Firmware Engineer Name Role Phone DARIUS PATEL Unavailable PROBLEMS Type Condition ICD9-CM Code NRA45-EK Code Onset Dates Condition Status SNOMED Code Problem Non morbid obesity due to excess calories E66.09 Active 210091007 Problem Migraine with aura and without status migrainosus, not intractable G43.109 Active 2437934 Problem Overactive bladder N32.81 Active 808038687 Problem Secondary cataract of both eyes, unspecified secondary cataract type H26.40 Active 69356103 Problem Moderate episode of recurrent major depressive disorder F33.1 Active 402971126 Problem Gastroesophageal reflux disease, esophagitis presence not specified K21.9 Active 260810819 Problem Chest pain, unspecified type R07.9 Active 52306740 Problem Major depressive disorder, single episode, unspecified F32.9 Active 76871103 Problem Morbid obesity due to excess calories E66.01 Active 447179809 Problem Anxiety F41.9 Active 04206975 Problem Abnormal stress test R94.39 Active 298626173 ALLERGIES No Information ENCOUNTERS Encounter Location Date Diagnosis [facility] [id number] [place] [address] 15125- 1691 February, Gastroesophageal reflux disease, esophagitis presence not specified K21.9 and Atypical chest pain R07.89 [facility] [id number] [address] 6[address] February, Anxiety F41.9 and Abnormal stress test R94.39 [facility] [address] [place] [address] 29725- 2561 February, [facility] [id number] [address] Jan, Chest pain, unspecified type R07.9 [place] [id number] [place] [address] 97175- 5582 Dec, Chest pain, unspecified type R07.9 and Anxiety F41.9 [place] [id number] [place] [address] 36043- 1727 Dec, Moderate episode of recurrent major depressive disorder F33.1 and Migraine with aura and without status migrainosus, not intractable G43.109 [place] [id number] [place] [address] 08491- 2326 Oct, Migraine with aura and without status migrainosus, not intractable G43.109 [place] [address] 555564- 5531 Oct, Non morbid obesity due to excess calories E66.09 [place] [id number] [place] [address] 34644- 7363 Oct, Morbid obesity due to excess calories E66.01 [place] [address] 87483- 5177 Oct, Non morbid obesity due to excess calories E66.09 ; Moderate episode of recurrent major depressive disorder F33.1 ; Migraine with aura and without status migrainosus, not intractable G43.109 and Morbid obesity due to excess calories E66.01 [facility] [address] [place] [address] 96726 -4010 Sep, Viral gastroenteritis A08.4 and Chills R68.83 [place] [id number] [place] [address] 94372- 7730 Aug, Migraine with aura and without status migrainosus, not intractable G43.109 ; Moderate episode of recurrent major depressive disorder F33.1 ; Anxiety disorder, unspecified F41.9 and Morbid obesity due to excess calories E66.01 [place] [address] [place] [address] 81996- 0906 Jun, Major depressive disorder, single episode, unspecified F32.9 [facility] [address] [place] [address] 19338 -2331 Jun, Other viral agents as the cause of diseases classified elsewhere B97.89 and Acute upper respiratory infection, unspecified J06.9 [facility] [address] [place] [address] 387675- 7226 May, Major depressive disorder, single episode, unspecified F32.9 [facility] [id number] [place] [address] [id number] May, Dental examination Z01.20 [facility] [id number] [place] [address] [id number] May, Dental examination Z01.20 [facility] [id number] [place] [address] [id number] Apr, Encounter for dental examination Z01.20 [facility] [id number] [place] [address] 40608- 5646 Apr, Anxiety disorder, unspecified F41.9 and Migraine with aura and without status migrainosus, not intractable G43.109 [facility] [id number] [place] [address] 29068- 8179 Mar, Migraine with aura and without status migrainosus, not intractable G43.109 and Morbid obesity due to excess calories E66.01 [facility] [id number] [place] [address] 85011- 5189 Mar, [facility] [id number] [place] [address] 97342- 4724 February, Major depressive disorder, single episode, unspecified F32.9 [facility] [id number] [place] [address] 46823- 8479 Jan, Migraine with aura and without status migrainosus, not intractable G43.109 [facility] [id number] [place] [address] 35652- 6339 Nov, Major depressive disorder, single episode, unspecified F32.9 and Morbid obesity due to excess calories E66.01 [place] [address] [address]- [address]30 14 Nov, 2016 [place] [address] [place] [address] 08 Nov, 2016 Major depressive disorder, single episode, unspecified F32.9 and Migraine with aura and without status migrainosus, not intractable G43.109 [place] [address] [place] [address] 36846- 7352 18 Oct, 2016 Major depressive disorder, single episode, unspecified F32.9 and Anxiety disorder, unspecified F41.9 [place] [address] [place] [address] 14058- 7814 15 Sep, 2016 Morbid obesity due to excess calories E66.01 and Urinary frequency R35.0 [place] [id number] [place] [address] 71855- 0456 Aug, Overactive bladder N32.81 ; Migraine with aura and without status migrainosus, not intractable G43.109 ; Non morbid obesity due to excess calories E66.09 and Moderate episode of recurrent major depressive disorder F33.1 [place] [address] [place] [address] 24936- 0503 26 Jul, 2016 Infection of skin of finger L08.9 IMMUNIZATIONS No Known Immunizations SOCIAL HISTORY Never Assessed REASON FOR VISIT med refill PLAN OF CARE VITAL SIGNS MEDICATIONS Medication Instructions Dosage Frequency Start Date End Date Duration Status Celexa 40 mg Orally Once a day 1 tablet 24h 30 days Active Oxybutynin Chloride ER 10 mg Orally Once a day 1 tablet 24h 15 Sep, 2016 30 days Active Topamax 200 mg Orally Twice a day 1/2 tablet 12h 16 Aug, 2016 30 days Active RESULTS No Results PROCEDURES No Known procedures INSTRUCTIONS MEDICATIONS ADMINISTERED No Known Medications MEDICAL (GENERAL) HISTORY Type Description Date Medical History Depression Medical History Migraines Medical History Anxiety Surgical History total hysterectomy Surgical History cholecystectomy Surgical History Appendectomy Surgical History Tonsillectomy Surgical History cystoscopy Hospitalization History past surgery
--- OUTSIDE RECORDS SUMMARY | 2018-08-19 19:42 | XMS REPORT ---
Author Author DARIUS PATEL Organization [facility] Address [address] [place] [address] Care Team Providers Care Quality Control Head Name Role Phone DARIUS PATEL Unavailable PROBLEMS Type Condition ICD9-CM Code HUS90-IC Code Onset Dates Condition Status SNOMED Code Problem Non morbid obesity due to excess calories E66.09 Active 533541456 Problem Migraine with aura and without status migrainosus, not intractable G43.109 Active 4850306 Problem Overactive bladder N32.81 Active 494711980 Problem Secondary cataract of both eyes, unspecified secondary cataract type H26.40 Active 81271614 Problem Moderate episode of recurrent major depressive disorder F33.1 Active 357317255 Problem Gastroesophageal reflux disease, esophagitis presence not specified K21.9 Active 569044228 Problem Chest pain, unspecified type R07.9 Active 78764650 Problem Major depressive disorder, single episode, unspecified F32.9 Active 17748539 Problem Morbid obesity due to excess calories E66.01 Active 283652641 Problem Anxiety F41.9 Active 34546109 Problem Abnormal stress test R94.39 Active 965346700 ALLERGIES No Information ENCOUNTERS Encounter Location Date Diagnosis [facility] [address] [place] [address] 14114- 9200 Mar, Gastroesophageal reflux disease, esophagitis presence not specified K21.9 [facility] [address] [place] [address] 37943- 6028 February, Gastroesophageal reflux disease, esophagitis presence not specified K21.9 and Atypical chest pain R07.89 [facility] [address] [place] [address] 20490- 1125 February, Anxiety F41.9 and Abnormal stress test R94.39 [facility] [address] [place] [address] 52825- 9940 February, [place] [id number] [place] [address] 60086- 4090 Jan, Chest pain, unspecified type R07.9 [place] [address] 83643- 6765 Dec, Chest pain, unspecified type R07.9 and Anxiety F41.9 [place] [address] 33476- 8679 Dec, Moderate episode of recurrent major depressive disorder F33.1 and Migraine with aura and without status migrainosus, not intractable G43.109 [place] [address] 17772- 9715 Oct, Migraine with aura and without status migrainosus, not intractable G43.[address] 74902- 5301 Oct, Non morbid obesity due to excess calories E66.09 [place] [address] 56744- 5739 Oct, Morbid obesity due to excess calories E66.01 [place] [id number] [place] [address] 96475- 6444 Oct, Non morbid obesity due to excess calories E66.09 ; Moderate episode of recurrent major depressive disorder F33.1 ; Migraine with aura and without status migrainosus, not intractable G43.109 and Morbid obesity due to excess calories E66.01 [facility] [address] [place] [address] 18706 -0750 Sep, Viral gastroenteritis A08.4 and Chills R68.[address] 56395- 6230 Aug, Migraine with aura and without status migrainosus, not intractable G43.109 ; Moderate episode of recurrent major depressive disorder F33.1 ; Anxiety disorder, unspecified F41.9 and Morbid obesity due to excess calories E66.01 [facility] [address] [address]- 5261 29 Jun, 2017 Major depressive disorder, single episode, unspecified F32.9 [facility] [address] [address] Jun, Other viral agents as the cause of diseases classified elsewhere B97.89 and Acute upper respiratory infection, unspecified J06.9 [facility] [address] [place] [address] 15540- 1013 May, Major depressive disorder, single episode, unspecified F32.[address] [facility] [id number] [place] [address] [id number] May, Dental examination Z01.[address] [facility] [id number] [place] [address] [id number] May, Dental examination Z01.[address] [facility] [id number] [place] [address] [id number] Apr, Encounter for dental examination Z01.20 [facility] [id number] [place] [address] 66319- 0922 Apr, Anxiety disorder, unspecified F41.9 and Migraine with aura and without status migrainosus, not intractable G43.109 [facility] [address] [address]- 7494 Mar, Migraine with aura and without status migrainosus, not intractable G43.109 and Morbid obesity due to excess calories E66.01 [facility] [address] [address]- 3985 Mar, [facility] [id number] [place] [address] 35990- 3006 February, Major depressive disorder, single episode, unspecified F32.9 [facility] [address] [address]- 8583 Jan, Migraine with aura and without status migrainosus, not intractable G43.109 [place] [address] [place] [address] 19800- 6769 27 Nov, 2016 Major depressive disorder, single episode, unspecified F32.9 and Morbid obesity due to excess calories E66.01 [place] [address] [place] [address] 09628- 2513 14 Nov, 2016 [place] [id number] [place] [address]35 Nov, Major depressive disorder, single episode, unspecified F32.9 and Migraine with aura and without status migrainosus, not intractable G43.109 [place] [id number] [place] [address] 63823- 4102 Oct, Major depressive disorder, single episode, unspecified F32.9 and Anxiety disorder, unspecified F41.9 [place] [id number] [place] [address] 61407- 1693 Sep, Morbid obesity due to excess calories E66.01 and Urinary frequency R35.0 [place] [id number] [place] [address] 28395- 7159 Aug, Overactive bladder N32.81 ; Migraine with aura and without status migrainosus, not intractable G43.109 ; Non morbid obesity due to excess calories E66.09 and Moderate episode of recurrent major depressive disorder F33.1 [place] [id number] [place] [address] 68749- 4221 Jul, Infection of skin of finger L08.9 IMMUNIZATIONS No Known Immunizations SOCIAL HISTORY Never Assessed REASON FOR VISIT Requests return call PLAN OF CARE VITAL SIGNS MEDICATIONS Medication Instructions Dosage Frequency Start Date End Date Duration Status Oxybutynin Chloride ER 10 mg Orally Once a day 1 tablet 24h Sep, 30 days Active RESULTS No Results PROCEDURES No Known procedures INSTRUCTIONS MEDICATIONS ADMINISTERED No Known Medications MEDICAL (GENERAL) HISTORY Type Description Date Medical History Depression Medical History Migraines Medical History Anxiety Surgical History total hysterectomy Surgical History cholecystectomy Surgical History Appendectomy Surgical History Tonsillectomy Surgical History cystoscopy Hospitalization History past surgery
--- OUTSIDE RECORDS SUMMARY | 2018-08-19 19:43 | XMS REPORT ---
Author Author DARIUS PATEL Organization [facility] Address [address] [place] [address] Care Team Providers Care Concaver Name Role Phone DARIUS PATEL Unavailable PROBLEMS Type Condition ICD9-CM Code [id number] Code Onset Dates Condition Status SNOMED Code Problem Overactive bladder N32.81 Active 886277089 Problem Morbid obesity due to excess calories E66.01 Active 639874698 Problem Migraine with aura and without status migrainosus, not intractable G43.109 Active 4818093 Problem Secondary cataract of both eyes, unspecified secondary cataract type H26.40 Active 91137267 Problem Moderate episode of recurrent major depressive disorder F33.1 Active 726305277 Problem Non morbid obesity due to excess calories E66.09 Active 935614152 Problem Dyspareunia in female N94.10 Active 64983552 Problem Gastroesophageal reflux disease, esophagitis presence not specified K21.9 Active 221571978 Problem Abnormal stress test R94.39 Active 082206562 Problem Major depressive disorder, single episode, unspecified F32.9 Active 05084348 Problem Chest pain, unspecified type R07.9 Active 81224710 Problem Anxiety F41.9 Active 60351802 ALLERGIES Substance Reaction Event Type Date Status Sulfamethoxazole-Trimethoprim Unknown Drug Allergy Jun, Active ENCOUNTERS Encounter Location Date Diagnosis [facility] [address] [facility] [id number] [address] Jul, [facility] [address] [id number] [address] Jun, Abnormal stress test R94.39 and Chest pain, unspecified type R07.9 [facility] [address] [facility] [id number], [place] [address] May, Gastroesophageal reflux disease, esophagitis presence not specified K21.9 and Overactive bladder N32.81 [facility] [address] [id number] [place] [address] May, Urinary urgency R39.15 and Overactive bladder N32.81 [facility] [id number] [place] [address] May, Urinary urgency R39.15 and Dyspareunia in female N94.10 [place] [address] [address] May, [place] [address] [address] Mar, Gastroesophageal reflux disease, esophagitis presence not specified K21.9 [place] [address] [place] [address] February, Gastroesophageal reflux disease, esophagitis presence not specified K21.9 and Atypical chest pain R07.89 [place] [address] [address] February, Anxiety F41.9 and Abnormal stress test R94.39 [place] [address] [address] February, [place] [address] [address] Jan, Chest pain, unspecified type R07.9 [place] [address] [address] Dec, Chest pain, unspecified type R07.9 and Anxiety F41.9 [place] [address] [address] Dec, Moderate episode of recurrent major depressive disorder F33.1 and Migraine with aura and without status migrainosus, not intractable G43.109 [place] [address] [id number] [place] [address] Oct, Migraine with aura and without status migrainosus, not intractable G43.109 [place] [address] [id number] [place] [address] Oct, Non morbid obesity due to excess calories E66.09 [place] [address] [id number] [place] [address] Oct, Morbid obesity due to excess calories E66.01 [place] [address] [address] Oct, Non morbid obesity due to excess calories E66.09 ; Moderate episode of recurrent major depressive disorder F33.1 ; Migraine with aura and without status migrainosus, not intractable G43.109 and Morbid obesity due to excess calories E66.[address] [facility] [address] [address] Sep, Viral gastroenteritis A08.4 and Chills R68.[address] [address] Aug, Migraine with aura and without status migrainosus, not intractable G43.109 ; Moderate episode of recurrent major depressive disorder F33.1 ; Anxiety disorder, unspecified F41.9 and Morbid obesity due to excess calories E66.01 [place] [address] [id number] [place] [address] Jun, Major depressive disorder, single episode, unspecified F32.[address] [facility] [place] [id number] [place] [address] Jun, Other viral agents as the cause of diseases classified elsewhere B97.89 and Acute upper respiratory infection, unspecified J06.[address] [address] May, Major depressive disorder, single episode, unspecified F32.9 [facility] [address] [id number] May, Dental examination Z01.20 [facility] [address] [place] [id number] May, Dental examination Z01.20 [facility] [address] [id number] Apr, Encounter for dental examination Z01.20 [facility] [address] [address] Apr, Anxiety disorder, unspecified F41.9 and Migraine with aura and without status migrainosus, not intractable G43.109 [facility] [id number] [place] [address] Mar, Migraine with aura and without status migrainosus, not intractable G43.109 and Morbid obesity due to excess calories E66.01 [facility] [address] [address] Mar, [facility] [id number] [place] [address] February, Major depressive disorder, single episode, unspecified F32.9 [facility] [address] [address] Jan, Migraine with aura and without status migrainosus, not intractable G43.109 [facility] [address] [address] Nov, Major depressive disorder, single episode, unspecified F32.9 and Morbid obesity due to excess calories E66.01 [facility] [address] [address] Nov, [facility] [address], [place] [address] Nov, Major depressive disorder, single episode, unspecified F32.9 and Migraine with aura and without status migrainosus, not intractable G43.109 [facility] [address] [address] Oct, Major depressive disorder, single episode, unspecified F32.9 and Anxiety disorder, unspecified F41.9 [place] [address] [facility] [id number], [place] [address] Sep, Morbid obesity due to excess calories E66.01 and Urinary frequency R35.0 [place] [address] [facility] [id number] [address] Aug, Overactive bladder N32.81 ; Migraine with aura and without status migrainosus, not intractable G43.109 ; Non morbid obesity due to excess calories E66.09 and Moderate episode of recurrent major depressive disorder F33.1 [place] [address] [facility] [id number] [address] Jul, Infection of skin of finger L08.9 IMMUNIZATIONS No Known Immunizations SOCIAL HISTORY Never Assessed REASON FOR VISIT headaches/Anxiety fu -- lew butterfield, patient is needing some labs order by dr. Ivan PLAN OF CARE Activity Details Follow Up 3 Months with Stacey William Reason: VITAL SIGNS Height 64 in 2018-06-15 Weight 166.0 lbs 2018-06-15 Temperature 98.5 degrees Fahrenheit 2018-06-15 BMI 28.49 kg/m2 2018-06-15 Blood pressure systolic 122 mmHg 2018-06-15 Blood pressure diastolic 72 mmHg 2018-06-15 MEDICATIONS Medication Instructions Dosage Frequency Start Date End Date Duration Status Lipitor 20 mg Orally Once a day 1 tablet 24h Active Klonopin 1 MG Orally Twice a day PRN, do not take more then 2 tabs per day 1 tablet Oct, 30 days Active Pepcid 20 mg Orally Once a day 1 tablet at bedtime 24h 30 days Active Esomeprazole Magnesium 20 mg Orally Once a day 1 capsule 24h February, 90 days Active Feverfew 380 MG Orally Once a day 1 tablet 24h Active Vitamin D 1000 UNIT Orally Once a day 5 tablet 24h Active Oxybutynin Chloride ER 15 mg Orally Once a day 1 tablet 24h Sep, 90 days Active Pyridium 200 MG Orally Three times a day 1 tablet after meals 8h 2 day(s) Active Celexa 40 mg Orally Once a day 1 tablet 24h 30 days Active Zofran ODT 4 MG Orally every 8 hrs 1 tablet on the tongue and allow to dissolve 8h 20 Jun, 2017 Active Aspirin 81 MG Orally Once a day 1 tablet 24h Dec, 30 day(s) Active Topamax 100 mg 2 tablets every am and 1 tablet in the pm Aug, 30 days Active Vita[employer]ts [employer] Vitamin B-12 1500 MCG Active RESULTS No Results PROCEDURES Procedure Date Ordered Result Body Site VENIPUNCT, ROUTINE* Jun 15, 2018 COMPREHEN METABOLIC PANEL Jun 15, 2018 LIPID PANEL Jun 15, 2018 INSTRUCTIONS MEDICATIONS ADMINISTERED No Known Medications MEDICAL (GENERAL) HISTORY Type Description Date Medical History Depression Medical History Migraines Medical History Anxiety Surgical History total hysterectomy Surgical History cholecystectomy Surgical History Appendectomy Surgical History Tonsillectomy Surgical History cystoscopy Hospitalization History past surgery
--- OUTSIDE RECORDS SUMMARY | 2018-08-19 19:43 | XMS REPORT ---
Author Author DARIUS PATEL Organization [facility] Address [address] [place] [address] Care Team Providers Care Hand Rounder Name Role Phone DARIUS PATEL Unavailable PROBLEMS Type Condition ICD9-CM Code [id number] Code Onset Dates Condition Status SNOMED Code Problem Moderate episode of recurrent major depressive disorder F33.1 Active 915345690 Problem Overactive bladder N32.81 Active 663810469 Problem Non morbid obesity due to excess calories E66.09 Active 112483717 Problem Secondary cataract of both eyes, unspecified secondary cataract type H26.40 Active 10122002 Problem Chest pain, unspecified type R07.9 Active 03095519 Problem Anxiety F41.9 Active 57811443 Problem Morbid obesity due to excess calories E66.01 Active 736840637 Problem Migraine with aura and without status migrainosus, not intractable G43.109 Active 5664040 Problem Abnormal stress test R94.39 Active 931708558 Problem Major depressive disorder, single episode, unspecified F32.9 Active 66186314 ALLERGIES Substance Reaction Event Type Date Status Sulfamethoxazole-Trimethoprim Unknown Drug Allergy Aug, Active ENCOUNTERS Encounter Location Date Diagnosis [facility] [id number] [place] [address] February, [facility] [address] [place] [address] February, Anxiety F41.9 and Abnormal stress test R94.39 [facility] [address] [id number] [place] [address] February, [facility] [id number] [place] [address] Jan, Chest pain, unspecified type R07.9 [facility] [id number] [place] [address] Dec, Chest pain, unspecified type R07.9 and Anxiety F41.9 [place] [address] [address] Dec, Moderate episode of recurrent major depressive disorder F33.1 and Migraine with aura and without status migrainosus, not intractable G43.109 [place] [address] [address] Oct, Migraine with aura and without status migrainosus, not intractable G43.109 [place] [address] [address] Oct, Non morbid obesity due to excess calories E66.09 [place] [address] [address] Oct, Morbid obesity due to excess calories E66.01 [place] [address] [address] Oct, Non morbid obesity due to excess calories E66.09 ; Moderate episode of recurrent major depressive disorder F33.1 ; Migraine with aura and without status migrainosus, not intractable G43.109 and Morbid obesity due to excess calories E66.01 [facility] [place] [address] [id number] [place] [address] Sep, Viral gastroenteritis A08.4 and Chills R68.83 [place] [address] [address] Aug, Migraine with aura and without status migrainosus, not intractable G43.109 ; Moderate episode of recurrent major depressive disorder F33.1 ; Anxiety disorder, unspecified F41.9 and Morbid obesity due to excess calories E66.01 [place] [address] [place] [address] [id number] [place] [address] Jun, Major depressive disorder, single episode, unspecified F32.9 [facility] [address] [address] Jun, Other viral agents as the cause of diseases classified elsewhere B97.89 and Acute upper respiratory infection, unspecified J06.9 [facility] [address] [id number] [place] [address] May, Major depressive disorder, single episode, unspecified F32.9 [facility] [address] [place] [id number] May, Dental examination Z01.20 [facility] [address] [place] [id number] [place] [id number] May, Dental examination Z01.20 [facility] [address] [id number] [place] [id number] Apr, Encounter for dental examination Z01.20 [facility] [id number] [place] [address] Apr, Anxiety disorder, unspecified F41.9 and Migraine with aura and without status migrainosus, not intractable G43.109 [facility] [id number] [place] [address] Mar, Migraine with aura and without status migrainosus, not intractable G43.109 and Morbid obesity due to excess calories E66.01 [place] [address] [place] [id number] [place] [address] Mar, [facility] [address] [place] [address] [id number] [place] [address] February, Major depressive disorder, single episode, unspecified F32.9 [facility] [address] [place] [id number] [place] [address]- [address] Jan, Migraine with aura and without status migrainosus, not intractable G43.109 [facility] [address] [place] [id number] [place] [address]- [address] Nov, Major depressive disorder, single episode, unspecified F32.9 and Morbid obesity due to excess calories E66.01 [place] [address] [place] [address]- [address] 14 Nov, 2016 [place] [address] [place] [id number] [place] [id number] Nov, 2016 Major depressive disorder, single episode, unspecified F32.9 and Migraine with aura and without status migrainosus, not intractable G43.109 [place] [address] [address] 18 Oct, 2016 Major depressive disorder, single episode, unspecified F32.9 and Anxiety disorder, unspecified F41.[address] [address] Sep, Morbid obesity due to excess calories E66.01 and Urinary frequency R35.[address] [address] Aug, Overactive bladder N32.81 ; Migraine with aura and without status migrainosus, not intractable G43.109 ; Non morbid obesity due to excess calories E66.09 and Moderate episode of recurrent major depressive disorder F33.1 [place] [id number] [place] [address] Jul, Infection of skin of finger L08.9 IMMUNIZATIONS No Known Immunizations SOCIAL HISTORY Never Assessed REASON FOR VISIT anxiety--tcuppeChristine, -Requesting refills on all medications PLAN OF CARE Activity Details Follow Up 3 Months with Gault f/u Anxiety Reason: VITAL SIGNS Height 64 in 2017-08-11 Weight 178.0 lbs 2017-08-11 Temperature 98.2 degrees Fahrenheit 2017-08-11 Heart Rate 84 bpm 2017-08-11 Respiratory Rate 18 2017-08-11 BMI 30.55 kg/m2 2017-08-11 Blood pressure systolic 110 mmHg 2017-08-11 Blood pressure diastolic 78 mmHg 2017-08-11 MEDICATIONS Medication Instructions Dosage Frequency Start Date End Date Duration Status Pepcid 20 mg Orally Once a day 1 tablet at bedtime 24h 30 days Active Topamax 200 MG Orally Twice a day 1/2 tablet 12h 16 Aug, 2016 Active Excedrin Migraine 250-250-65 MG Orally Once a day 2 tablets 24h Active Feverfew 380 MG Orally Once a day 1 tablet 24h Active Celexa 40 mg Orally Once a day 1 tablet 24h Active Oxybutynin Chloride ER 10 mg Orally Once a day 1 tablet 24h 15 Sep, 2016 90 days Active Klonopin 1 MG Orally Twice a day PRN, do not take more then 2 tabs per day 1 tablet Oct, 30 days Active Zofran ODT 4 MG Orally every 8 hrs 1 tablet on the tongue and allow to dissolve 8h Jun, Active [employer] Vitamin B-12 1500 MCG [...]
--- OUTSIDE RECORDS SUMMARY | 2018-08-19 19:44 | XMS REPORT ---
Author Author DARIUS PATEL Organization [facility], [place] Address [address] [place] [address] Care Team Providers Care Coverstitch Binder Name Role Phone DARIUS PATEL Unavailable PROBLEMS Type Condition ICD9-CM Code QOU55-UR Code Onset Dates Condition Status SNOMED Code Problem Overactive bladder N32.81 Active 712257473 Problem Morbid obesity due to excess calories E66.01 Active 251904265 Problem Migraine with aura and without status migrainosus, not intractable G43.109 Active 6200026 Problem Secondary cataract of both eyes, unspecified secondary cataract type H26.40 Active 02244378 Problem Moderate episode of recurrent major depressive disorder F33.1 Active 570091017 Problem Non morbid obesity due to excess calories E66.09 Active 246859529 Problem Dyspareunia in female N94.10 Active 23419877 Problem Gastroesophageal reflux disease, esophagitis presence not specified K21.9 Active 336587141 Problem Abnormal stress test R94.39 Active 263002881 Problem Major depressive disorder, single episode, unspecified F32.9 Active 78472054 Problem Chest pain, unspecified type R07.9 Active 95327876 Problem Anxiety F41.9 Active 08538765 ALLERGIES No Information ENCOUNTERS Encounter Location Date Diagnosis [facility] [place] [id number], [place] [address] Jul, [facility] [place] [id number] [place] [address] 05 Jun, 2018 Abnormal stress test R94.39 and Chest pain, unspecified type R07.9 [facility] [place] [id number] [place] [address]21[address] May, Gastroesophageal reflux disease, esophagitis presence not specified K21.9 and Overactive bladder N32.81 [facility] [place] [id number] [place] [address] 48459- 3059 May, Urinary urgency R39.15 and Overactive bladder N32.81 [facility] [id number] [place] [address]65[address] May, Urinary urgency R39.15 and Dyspareunia in female N94.10 [facility] [place] [address] [address] May, [facility] [place] [address] [address] Mar, Gastroesophageal reflux disease, esophagitis presence not specified K21.9 [place] [address] [address] February, Gastroesophageal reflux disease, esophagitis presence not specified K21.9 and Atypical chest pain R07.89 [place] [address] [address] February, Anxiety F41.9 and Abnormal stress test R94.39 [place] [address] [address] February, [place] [address] [address] Jan, Chest pain, unspecified type R07.9 [place] [id number] [place] [address] 96369- 37[address] Dec, Chest pain, unspecified type R07.9 and Anxiety F41.9 [place] [id number] [place] [address] 61511- 7693 Dec, Moderate episode of recurrent major depressive disorder F33.1 and Migraine with aura and without status migrainosus, not intractable G43.109 [facility] [place] [id number] [place] [address] 80806- 9943 Oct, Migraine with aura and without status migrainosus, not intractable G43.109 [place] [address] [place] [address] Oct, Non morbid obesity due to excess calories E66.09 [place] [address] [address] Oct, Morbid obesity due to excess calories E66.01 [place] [id number] [place] [address] 48508- 2964 Oct, Non morbid obesity due to excess calories E66.09 ; Moderate episode of recurrent major depressive disorder F33.1 ; Migraine with aura and without status migrainosus, not intractable G43.109 and Morbid obesity due to excess calories E66.01 [facility] [address] [address] Sep, Viral gastroenteritis A08.4 and Chills R68.[address] [address] Aug, Migraine with aura and without status migrainosus, not intractable G43.109 ; Moderate episode of recurrent major depressive disorder F33.1 ; Anxiety disorder, unspecified F41.9 and Morbid obesity due to excess calories E66.01 [place] [id number] [place] [address] 46857- 5296 Jun, Major depressive disorder, single episode, unspecified F32.9 [facility] [place] [id number] [place] [address] 82364 -[address]291 Jun, Other viral agents as the cause of diseases classified elsewhere B97.89 and Acute upper respiratory infection, unspecified J06.9 [place] [id number] [place] [address] 96490- 9484 May, Major depressive disorder, single episode, unspecified F32.9 [facility] [id number] [place] [id number] May, Dental examination Z01.20 [facility] [id number] [place] [id number] May, Dental examination Z01.20 [facility] [address] [id number] [id number] Apr, Encounter for dental examination Z01.20 [facility] [place] [id number] [place] [address] 88750- 17[address] Apr, Anxiety disorder, unspecified F41.9 and Migraine with aura and without status migrainosus, not intractable G43.109 [facility] [place] [id number] [place] [address] 03532- 6[address] Mar, Migraine with aura and without status migrainosus, not intractable G43.109 and Morbid obesity due to excess calories E66.01 [facility] [place] [id number] [place] [address] 20804- 6244 Mar, [place] [id number] [place] [address] 81713- 1410 February, Major depressive disorder, single episode, unspecified F32.9 [facility] [place] [id number] [place] [address] 34349- 4262 Jan, Migraine with aura and without status migrainosus, not intractable G43.109 [facility] [place] [id number] [place] [address] 42459- 5657 Nov, Major depressive disorder, single episode, unspecified F32.9 and Morbid obesity due to excess calories E66.01 [facility] [place] [address] [place] [address] 63506- 3618 Nov, [facility] [place] [address] [place] [address] 90041- 0052 Nov, Major depressive disorder, single episode, unspecified F32.9 and Migraine with aura and without status migrainosus, not intractable G43.109 [facility] [place] [address] [address] Oct, Major depressive disorder, single episode, unspecified F32.9 and Anxiety disorder, unspecified F41.9 [place] [address] [facility] [id number] [place] [address] Sep, Morbid obesity due to excess calories E66.01 and Urinary frequency R35.0 [place] [address] [facility] [id number] [address] Aug, Overactive bladder N32.81 ; Migraine with aura and without status migrainosus, not intractable G43.109 ; Non morbid obesity due to excess calories E66.09 and Moderate episode of recurrent major depressive disorder F33.1 [place] [address] [facility] [id number] [address] Jul, Infection of skin of finger L08.9 IMMUNIZATIONS No Known Immunizations SOCIAL HISTORY Never Assessed REASON FOR VISIT Repository Medication PLAN OF CARE VITAL SIGNS MEDICATIONS Medication Instructions Dosage Frequency Start Date End Date Duration Status Esomeprazole Magnesium 20 mg Orally Once a day 1 capsule 24h February, 90 days Active Lipitor 20 mg Orally Once a day 1 tablet 24h Active Oxybutynin Chloride ER 15 mg Orally Once a day 1 tablet 24h Sep, 90 days Active Celexa 40 mg Orally Once a day 1 tablet 24h 30 days Active Topamax 100 mg 2 [...]
--- OUTSIDE RECORDS SUMMARY | 2018-08-19 19:44 | XMS REPORT ---
Author Author DARIUS PATEL Organization [facility] Address [address] [place] [address] Care Team Providers Care Looper Fixer Name Role Phone DARIUS PATEL Unavailable PROBLEMS Type Condition ICD9-CM Code RGP88-CS Code Onset Dates Condition Status SNOMED Code Problem Overactive bladder N32.81 Active 823721747 Problem Morbid obesity due to excess calories E66.01 Active 192318062 Problem Migraine with aura and without status migrainosus, not intractable G43.109 Active 7850683 Problem Secondary cataract of both eyes, unspecified secondary cataract type H26.40 Active 17228593 Problem Moderate episode of recurrent major depressive disorder F33.1 Active 231463164 Problem Non morbid obesity due to excess calories E66.09 Active 366020430 Problem Dyspareunia in female N94.10 Active 25133639 Problem Gastroesophageal reflux disease, esophagitis presence not specified K21.9 Active 263621668 Problem Abnormal stress test R94.39 Active 509315819 Problem Major depressive disorder, single episode, unspecified F32.9 Active 51892108 Problem Chest pain, unspecified type R07.9 Active 13155434 Problem Anxiety F41.9 Active 28161466 ALLERGIES No Information ENCOUNTERS Encounter Location Date Diagnosis [facility] [address] [place] [address] Jun, [facility] [id number] [place] [address] 18016- 3584 May, Urinary urgency R39.15 and Overactive bladder N32.81 [facility] [address] [place] [address]18 [address] May, Urinary urgency R39.15 and Dyspareunia in female N94.10 [facility] [address] [place] [address] 54562- 5487 May, [place] [address] [place] [address] 74841- 9470 Mar, Gastroesophageal reflux disease, esophagitis presence not specified K21.9 [place] [id number] [place] [address] 25432- 9654 February, Gastroesophageal reflux disease, esophagitis presence not specified K21.9 and Atypical chest pain R07.89 [place] [id number] [place] [address] 77833- 6284 February, Anxiety F41.9 and Abnormal stress test R94.39 [place] [address] [address]- [address] February, [place] [id number] [place] [address] 36345- 8822 Jan, Chest pain, unspecified type R07.9 [place] [id number] [place] [address] 37489- 3827 Dec, Chest pain, unspecified type R07.9 and Anxiety F41.9 [place] [id number] [place] [address] 24647- 4163 Dec, Moderate episode of recurrent major depressive disorder F33.1 and Migraine with aura and without status migrainosus, not intractable G43.109 [place] [id number] [place] [address] 29727- 7791 Oct, Migraine with aura and without status migrainosus, not intractable G43.109 [place] [id number] [place] [address] 38504- 0087 Oct, Non morbid obesity due to excess calories E66.09 [place] [id number] [place] [address] 0[address]01- 7849 Oct, Morbid obesity due to excess calories E66.01 [place] [id number] [place] [address] 95696- 9687 Oct, Non morbid obesity due to excess calories E66.09 ; Moderate episode of recurrent major depressive disorder F33.1 ; Migraine with aura and without status migrainosus, not intractable G43.109 and Morbid obesity due to excess calories E66.01 [facility] [id number] [place] [address]98 -[address]76 Sep, Viral gastroenteritis A08.4 and Chills R68.83 [place] [address] [address]- [address] Aug, Migraine with aura and without status migrainosus, not intractable G43.109 ; Moderate episode of recurrent major depressive disorder F33.1 ; Anxiety disorder, unspecified F41.9 and Morbid obesity due to excess calories E66.01 [place] [address] [address]- [address] Jun, Major depressive disorder, single episode, unspecified F32.9 [facility] [address] [address] Jun, Other viral agents as the cause of diseases classified elsewhere B97.89 and Acute upper respiratory infection, unspecified J06.9 [place] [address] 7[address]- 1813 May, Major depressive disorder, single episode, unspecified F32.9 [facility] [address] [id number] May, Dental examination Z01.20 [facility] [address] [id number] May, Dental examination Z01.20 [facility] [address] [id number] Apr, Encounter for dental examination Z01.20 [facility] [address] [address] Apr, Anxiety disorder, unspecified F41.9 and Migraine with aura and without status migrainosus, not intractable G43.109 [place] [address] [address] 23 Mar, 2017 Migraine with aura and without status migrainosus, not intractable G43.109 and Morbid obesity due to excess calories E66.01 [place] [address] [address] 14 Mar, 2017 [place] [id number] [place] [address] 22171- 8556 February, Major depressive disorder, single episode, unspecified F32.9 [place] [id number] [place] [address] 94909- 9504 Jan, Migraine with aura and without status migrainosus, not intractable G43.109 [place] [address] [place] [address] 23253- 8224 27 Nov, 2016 Major depressive disorder, single episode, unspecified F32.9 and Morbid obesity due to excess calories E66.01 [place] [address] [address] 14 Nov, 2016 [place] [id number] [place] [address] 24388- 7458 08 Nov, 2016 Major depressive disorder, single episode, unspecified F32.9 and Migraine with aura and without status migrainosus, not intractable G43.109 [place] [address] [address] 0[address] Oct, Major depressive disorder, single episode, unspecified F32.9 and Anxiety disorder, unspecified F41.9 [place] [address] [address] Sep, Morbid obesity due to excess calories E66.01 and Urinary frequency R35.0 [place] [address] [address] 15 Aug, 2016 Overactive bladder N32.81 ; Migraine with aura and without status migrainosus, not intractable G43.109 ; Non morbid obesity due to excess calories E66.09 and Moderate episode of recurrent major depressive disorder F33.1 [facility] [address] [facility] [id number] [place] [address] Jul, Infection of skin of finger L08.9 IMMUNIZATIONS No Known Immunizations SOCIAL HISTORY Never Assessed REASON FOR VISIT Refill request PLAN OF CARE VITAL SIGNS MEDICATIONS Medication Instructions Dosage Frequency Start Date End Date Duration Status Topamax 100 mg Orally as directed 2 tablets every am and 1 tablet in the pm Aug, 90 days Active Esomeprazole Magnesium 20 mg Orally [...]
--- OUTSIDE RECORDS SUMMARY | 2018-08-19 19:44 | XMS REPORT ---
Author Author NACHO QUINN [facility] Address [address] [place] [address] Care Team Providers Care Physician Allergist Immunologist Name Role Phone NACHO QUINN Unavailable PROBLEMS Type Condition ICD9-CM Code [id number] Code Onset Dates Condition Status SNOMED Code Problem Overactive bladder N32.81 Active 307958394 Problem Morbid obesity due to excess calories E66.01 Active 540197777 Problem Migraine with aura and without status migrainosus, not intractable G43.109 Active 7735268 Problem Secondary cataract of both eyes, unspecified secondary cataract type H26.40 Active 27197633 Problem Moderate episode of recurrent major depressive disorder F33.1 Active 564376267 Problem Non morbid obesity due to excess calories E66.09 Active 447339451 Problem Dyspareunia in female N94.10 Active 32300601 Problem Gastroesophageal reflux disease, esophagitis presence not specified K21.9 Active 086490819 Problem Abnormal stress test R94.39 Active 204258731 Problem Major depressive disorder, single episode, unspecified F32.9 Active 24434710 Problem Chest pain, unspecified type R07.9 Active 58662948 Problem Anxiety F41.9 Active 30367556 ALLERGIES Substance Reaction Event Type Date Status Sulfamethoxazole-Trimethoprim Unknown Drug Allergy May, Active ENCOUNTERS Encounter Location Date Diagnosis [facility] [id number], [place] [address] Jul, [facility] [id number] [place] [address] Jun, Abnormal stress test R94.39 and Chest pain, unspecified type R07.9 [facility] [id number], [place] [address] May, Gastroesophageal reflux disease, esophagitis presence not specified K21.9 and Overactive bladder N32.81 [facility] [id number] [place] [address] May, Urinary urgency R39.15 and Overactive bladder N32.81 [facility] [id number] [place] [address] May, Urinary urgency R39.15 and Dyspareunia in female N94.10 [facility] [address] [address] May, [facility] [address] 2[address] Mar, Gastroesophageal reflux disease, esophagitis presence not specified K21.9 [place] [address] [address] February, Gastroesophageal reflux disease, esophagitis presence not specified K21.9 and Atypical chest pain R07.89 [place] [address] [address] February, Anxiety F41.9 and Abnormal stress test R94.39 [place] [address] [address] February, [place] [address] [address] Jan, Chest pain, unspecified type R07.9 [place] [address] [address] Dec, Chest pain, unspecified type R07.9 and Anxiety F41.9 [place] [address] [address] Dec, Moderate episode of recurrent major depressive disorder F33.1 and Migraine with aura and without status migrainosus, not intractable G43.109 [place] [address] [address] Oct, Migraine with aura and without status migrainosus, not intractable G43.109 [place] [id number] [place] [address]- [address] Oct, Non morbid obesity due to excess calories E66.09 [place] [id number] [place] [address] 3[address] Oct, Morbid obesity due to excess calories E66.01 [place] [address] [address] Oct, Non morbid obesity due to excess calories E66.09 ; Moderate episode of recurrent major depressive disorder F33.1 ; Migraine with aura and without status migrainosus, not intractable G43.109 and Morbid obesity due to excess calories E66.01 [facility] [id number] [place] [address] Sep, Viral gastroenteritis A08.4 and Chills R68[address] [address] Aug, Migraine with aura and without status migrainosus, not intractable G43.109 ; Moderate episode of recurrent major depressive disorder F33.1 ; Anxiety disorder, unspecified F41.9 and Morbid obesity due to excess calories E66.01 [id number] [place] [address] Jun, Major depressive disorder, single episode, unspecified F32.9 [facility] [id number] [place] [address] Jun, Other viral agents as the cause of diseases classified elsewhere B97.89 and Acute upper respiratory infection, unspecified J06.[address] [address] May, Major depressive disorder, single episode, unspecified F32.9 [facility] [id number] [place] [id number] May, Dental examination Z01.20 [facility] [id number] [id number] May, Dental examination Z01.20 [facility] [address] [place] [id number] Apr, Encounter for dental examination Z01.20 [facility] [address] [place] [address] Apr, Anxiety disorder, unspecified F41.9 and Migraine with aura and without status migrainosus, not intractable G43.109 [facility] [address] [place] [address] Mar, Migraine with aura and without status migrainosus, not intractable G43.109 and Morbid obesity due to excess calories E66.01 [place] [address] [place] [address] Mar, [facility] [id number] [place] [address]- [address] February, Major depressive disorder, single episode, unspecified F32.9 [facility] [id number] [place] [address]- [address] Jan, Migraine with aura and without status migrainosus, not intractable G43.109 [facility] [address] [place] [address] Nov, Major depressive disorder, single episode, unspecified F32.9 and Morbid obesity due to excess calories E66.01 [facility] [address] [address] Nov, [facility] [id number] [place] [address] 6[address]- [address] Nov, Major depressive disorder, single episode, unspecified F32.9 and Migraine with aura and without status migrainosus, not intractable G43.109 [facility] [address] [place] [address]- [address] Oct, Major depressive disorder, single episode, unspecified F32.9 and Anxiety disorder, unspecified F41.9 [place] [id number], [place] [address] Sep, Morbid obesity due to excess calories E66.01 and Urinary frequency R35.0 [place] [address], [place] [address] Aug, Overactive bladder N32.81 ; Migraine with aura and without status migrainosus, not intractable G43.109 ; Non morbid obesity due to excess calories E66.09 and Moderate episode of recurrent major depressive disorder F33.1 [place] [address], [place] [address] Jul, Infection of skin of finger L08.9 IMMUNIZATIONS No Known Immunizations SOCIAL HISTORY Never Assessed REASON FOR VISIT Urinary urgency x2-3 weeks on and off again JStrasserRN PLAN OF CARE Activity Details Follow Up keep appt scheduled for 05-13-18 Reason: VITAL SIGNS Height 64 in 2018-05-11 Weight 166.4 lbs 2018-05-11 Temperature 97.8 degrees Fahrenheit 2018-05-11 Heart Rate 60 bpm 2018-05-11 Respiratory Rate 18 2018-05-11 BMI 28.56 kg/m2 2018-05-11 Blood pressure systolic 112 mmHg 2018-05-11 Blood pressure diastolic 70 mmHg 2018-05-11 MEDICATIONS Medication Instructions Dosage Frequency Start Date End Date Duration Status Zofran ODT 4 MG Orally every 8 hrs 1 tablet on the tongue and allow to dissolve 8h Jun, Active [employer] Vitamin B-12 1500 MCG Active Pyridium 200 MG Orally Three times a day 1 tablet after meals 8h 2 day(s) Active Feverfew 380 MG Orally Once a day 1 tablet 24h Active Lipitor 20 mg Orally Once a day 1 tablet 24h Active Oxybutynin Chloride ER 10 mg Orally Once a day 1 tablet 24h Sep, Active Klonopin 1 MG Orally Twice a day PRN, do not take more then 2 tabs per day 1 tablet 18 Oct, 2016 30 days Active Aspirin 81 MG Orally Once a day 1 tablet 24h Dec, 30 day(s) Active Pepcid 20 mg Orally Once a day 1 tablet at bedtime 24h 30 days Active Esomeprazole Magnesium 20 mg Orally Once a day 1 capsule 24h February, 90 days Active Vitamin D 1000 UNIT Orally Once a day 5 tablet 24h Active Celexa 40 mg Orally Once a day 1 tablet 24h 90 days Active Topamax 100 mg Orally as directed 2 tablets every am and 1 tablet in the pm Aug, 90 days Active RESULTS Name Result Date Reference Range UA LONG DIP (IN HOUSE) 2018-05-11 Lot # [id number] Exp date 09-09-2018 Clarity clear Color dark yellow Odor none GLU negative HARSHAD 1+ KET negative SG >=1.030 BLO negative pH 5.5 Protein trace URO 0.2 NIT negative DION negative Lot # [id number] Exp date Sep 2018 PROCEDURES Procedure Date Ordered Result Body Site URINALYSIS, AUTO, W/O SCOPE May 11, 2018 INSTRUCTIONS MEDICATIONS ADMINISTERED No Known Medications MEDICAL (GENERAL) HISTORY Type Description Date Medical History Depression Medical History Migraines Medical History Anxiety Surgical History total hysterectomy Surgical History cholecystectomy Surgical History Appendectomy Surgical History Tonsillectomy Surgical History cystoscopy Hospitalization History past surgery
--- OUTSIDE RECORDS SUMMARY | 2018-08-19 19:44 | XMS REPORT ---
Author Author DARIUS PATEL Organization [facility] Address [address] [place] [address] Care Team Providers Care Broadloom Weaver Name Role Phone DARIUS PATEL Unavailable PROBLEMS Type Condition ICD9-CM Code ZUT99-QU Code Onset Dates Condition Status SNOMED Code Problem Overactive bladder N32.81 Active 569648655 Problem Morbid obesity due to excess calories E66.01 Active 219055915 Problem Migraine with aura and without status migrainosus, not intractable G43.109 Active 3318505 Problem Secondary cataract of both eyes, unspecified secondary cataract type H26.40 Active 00987056 Problem Moderate episode of recurrent major depressive disorder F33.1 Active 257082960 Problem Non morbid obesity due to excess calories E66.09 Active 274787011 Problem Dyspareunia in female N94.10 Active 87434710 Problem Gastroesophageal reflux disease, esophagitis presence not specified K21.9 Active 399142890 Problem Abnormal stress test R94.39 Active 163736992 Problem Major depressive disorder, single episode, unspecified F32.9 Active 70196005 Problem Chest pain, unspecified type R07.9 Active 64728457 Problem Anxiety F41.9 Active 39864169 ALLERGIES No Information ENCOUNTERS Encounter Location Date Diagnosis [facility] [id number] [address] Jul, [facility] [id number] [place] [address]- [address] Jun, 2018 Abnormal stress test R94.39 and Chest pain, unspecified type R07.9 [facility] [id number] [place] [address]83- [address] May, Gastroesophageal reflux disease, esophagitis presence not specified K21.9 and Overactive bladder N32.81 [facility] [id number] [place] [address] 88468- [address]84 May, Urinary urgency R39.15 and Overactive bladder N32.81 [facility] [id number] [place] [address]50 -[address] May, Urinary urgency R39.15 and Dyspareunia in female N94.10 [facility] [address] [address] May, [facility] [address] [address] Mar, Gastroesophageal reflux disease, esophagitis presence not specified K21.9 [place] [address] [address]- [address] February, Gastroesophageal reflux disease, esophagitis presence not specified K21.9 and Atypical chest pain R07.89 [place] [address] [address] February, Anxiety F41.9 and Abnormal stress test R94.39 [place] [address] [address] February, [place] [address] [address] Jan, Chest pain, unspecified type R07.9 [place] [id number] [place] [address]49- [address]78 Dec, Chest pain, unspecified type R07.9 and Anxiety F41.9 [place] [id number] [place] [address]771- 9[address] Dec, Moderate episode of recurrent major depressive disorder F33.1 and Migraine with aura and without status migrainosus, not intractable G43.109 [facility] [id number] [place] [address]807- [address]2 Oct, Migraine with aura and without status migrainosus, not intractable G43.109 [place] [address] [place] [address]- 269[address] Oct, Non morbid obesity due to excess calories E66.09 [place] [address] [address] Oct, Morbid obesity due to excess calories E66.01 [place] [id number] [place] [address]- 4[address] Oct, Non morbid obesity due to excess calories E66.09 ; Moderate episode of recurrent major depressive disorder F33.1 ; Migraine with aura and without status migrainosus, not intractable G43.109 and Morbid obesity due to excess calories E66.01 [facility] [address] [address] Sep, Viral gastroenteritis A08.4 and Chills R68.[address] [address]- [address] Aug, Migraine with aura and without status migrainosus, not intractable G43.109 ; Moderate episode of recurrent major depressive disorder F33.1 ; Anxiety disorder, unspecified F41.9 and Morbid obesity due to excess calories E66.01 [place] [id number] [place] [address]607- 79[address] Jun, Major depressive disorder, single episode, unspecified F32.9 [facility] [place] [id number] [place] [address]43 [address] Jun, Other viral agents as the cause of diseases classified elsewhere B97.89 and Acute upper respiratory infection, unspecified J06.9 [place] [id number] [place] [address] 08227- 0481 May, Major depressive disorder, single episode, unspecified F32.9 [facility] [id number] [place] [id number] May, Dental examination Z01.20 [facility] [id number] [place] [address] [id number] May, Dental examination Z01.20 [facility] [address] [id number] [id number] Apr, Encounter for dental examination Z01.20 [facility] [id number] [place] [address] 14340- 5549 Apr, Anxiety disorder, unspecified F41.9 and Migraine with aura and without status migrainosus, not intractable G43.109 [facility] [id number] [place] [address] 48912- 8787 Mar, Migraine with aura and without status migrainosus, not intractable G43.109 and Morbid obesity due to excess calories E66.01 [facility] [id number] [place] [address] 11394- 8483 Mar, [place] [id number] [place] [address] 18813- 6420 February, Major depressive disorder, single episode, unspecified F32.9 [facility] [id number] [place] [address] 69843- 2467 Jan, Migraine with aura and without status migrainosus, not intractable G43.109 [facility] [id number] [place] [address] 65748- 5421 Nov, Major depressive disorder, single episode, unspecified F32.9 and Morbid obesity due to excess calories E66.01 [facility] [address] [place] [address] 46115- 5063 Nov, [facility] [address] [place] [address] 75746- 3985 Nov, Major depressive disorder, single episode, unspecified F32.9 and Migraine with aura and without status migrainosus, not intractable G43.109 [facility] [address] [address] Oct, Major depressive disorder, single episode, unspecified F32.9 and Anxiety disorder, unspecified F41.9 [place] [address] [facility] [id number] [address] Sep, Morbid obesity due to excess calories E66.01 and Urinary frequency R35.0 [place] [address] [facility] [id number] [address] Aug, Overactive bladder N32.81 ; Migraine with aura and without status migrainosus, not intractable G43.109 ; Non morbid obesity due to excess calories E66.09 and Moderate episode of recurrent major depressive disorder F33.[address] [id number] [address] Jul, Infection of skin of finger L08.9 [...]
--- OUTSIDE RECORDS SUMMARY | 2018-08-19 19:44 | XMS REPORT ---
Author Author VITALY SAEZ [facility] Address [address] [place] [address] Care Team Providers Care Ventilator Specialist Name Role Phone BENJAMÍN SAEZTA Unavailable PROBLEMS Type Condition ICD9-CM Code [id number] Code Onset Dates Condition Status SNOMED Code Problem Overactive bladder N32.81 Active 055423813 Problem Morbid obesity due to excess calories E66.01 Active 856163049 Problem Migraine with aura and without status migrainosus, not intractable G43.109 Active 3881386 Problem Secondary cataract of both eyes, unspecified secondary cataract type H26.40 Active 84299102 Problem Moderate episode of recurrent major depressive disorder F33.1 Active 365629818 Problem Non morbid obesity due to excess calories E66.09 Active 552847029 Problem Dyspareunia in female N94.10 Active 12965965 Problem Gastroesophageal reflux disease, esophagitis presence not specified K21.9 Active 929732534 Problem Abnormal stress test R94.39 Active 325306671 Problem Major depressive disorder, single episode, unspecified F32.9 Active 06131584 Problem Chest pain, unspecified type R07.9 Active 68537129 Problem Anxiety F41.9 Active 85080742 ALLERGIES Substance Reaction Event Type Date Status Sulfamethoxazole-Trimethoprim Unknown Drug Allergy May, Active ENCOUNTERS Encounter Location Date Diagnosis [facility] [id number] [address] Jul, [facility] [address] [place] [address]27- 4327 Jun, Abnormal stress test R94.39 and Chest pain, unspecified type R07.9 [facility] [id number] [address] May, Gastroesophageal reflux disease, esophagitis presence not specified K21.9 and Overactive bladder N32.81 [facility] [id number] [place] [address] 18619- 0232 May, Urinary urgency R39.15 and Overactive bladder N32.81 [facility] [id number] [address]99 [address] May, Urinary urgency R39.15 and Dyspareunia in female N94.10 [place] [address] [address] May, [place] [address] [address] Mar, Gastroesophageal reflux disease, esophagitis presence not specified K21.9 [place] [address] [place] [address]340- [address] February, Gastroesophageal reflux disease, esophagitis presence not specified K21.9 and Atypical chest pain R07.89 [place] [address] [address] February, Anxiety F41.9 and Abnormal stress test R94.39 [place] [address] [address]- [address] February, [place] [id number] [address] 92533- 9228 Jan, Chest pain, unspecified type R07.9 [place] [id number] [place] [address] 28627- 9452 Dec, Chest pain, unspecified type R07.9 and Anxiety F41.9 [place] [id number] [place] [address] 60219- 0142 Dec, Moderate episode of recurrent major depressive disorder F33.1 and Migraine with aura and without status migrainosus, not intractable G43.109 [place] [id number] [address] 68241- 5237 Oct, Migraine with aura and without status migrainosus, not intractable G43.109 [place] [id number] [place] [address] 10418- 3226 Oct, Non morbid obesity due to excess calories E66.09 [place] [id number] [place] [address] 59[address]- 8210 Oct, Morbid obesity due to excess calories E66.01 [place] [address] [address]- 2366 Oct, Non morbid obesity due to excess calories E66.09 ; Moderate episode of recurrent major depressive disorder F33.1 ; Migraine with aura and without status migrainosus, not intractable G43.109 and Morbid obesity due to excess calories E66.01 [facility] [place] [id number] [place] [address]33 [address]337 Sep, Viral gastroenteritis A08.4 and Chills R68.[address] [address]- [address] Aug, Migraine with aura and without status migrainosus, not intractable G43.109 ; Moderate episode of recurrent major depressive disorder F33.1 ; Anxiety disorder, unspecified F41.9 and Morbid obesity due to excess calories E66.01 [place] [id number] [place] [address] 01552- 7872 Jun, Major depressive disorder, single episode, unspecified F32.9 [facility] [place] [id number] [place] [address]18 -4107 Jun, Other viral agents as the cause of diseases classified elsewhere B97.89 and Acute upper respiratory infection, unspecified J06.[address] [address] May, Major depressive disorder, single episode, unspecified F32.9 [facility] [address] [id number] May, Dental examination Z01.20 [facility] [address] [id number] May, Dental examination Z01.20 [facility] [id number] [id number] Apr, Encounter for dental examination Z01.20 [facility] [address] [address] Apr, Anxiety disorder, unspecified F41.9 and Migraine with aura and without status migrainosus, not intractable G43.109 [facility] [address] [address] Mar, Migraine with aura and without status migrainosus, not intractable G43.109 and Morbid obesity due to excess calories E66.01 [facility] [address] [address] Mar, [facility] [id number] [place] [address] 77156- 8290 February, Major depressive disorder, single episode, unspecified F32.9 [facility] [address] [address] Jan, Migraine with aura and without status migrainosus, not intractable G43.109 [facility] [address] [address] Nov, Major depressive disorder, single episode, unspecified F32.9 and Morbid obesity due to excess calories E66.01 [facility] [address] [address] Nov, [facility] [address] [address] Nov, Major depressive disorder, single episode, unspecified F32.9 and Migraine with aura and without status migrainosus, not intractable G43.109 [facility] [id number] [address] Oct, Major depressive disorder, single episode, unspecified F32.9 and Anxiety disorder, unspecified F41.9 [place] [address] [facility] [id number] [place] [address] Sep, Morbid obesity due to excess calories E66.01 and Urinary frequency R35.0 [place] [address] [facility] [id number] [address] Aug, Overactive bladder N32.81 ; Migraine with aura and without status migrainosus, not intractable G43.109 ; Non morbid obesity due to excess calories E66.09 and Moderate episode of recurrent major depressive disorder F33.1 [place] [address] [facility] [id number] [address] Jul, Infection of skin of finger L08.9 IMMUNIZATIONS No Known Immunizations SOCIAL HISTORY Never Assessed REASON FOR VISIT urinary frequency, pain and pressure since wednesday -- lew butterfield, patient stastes she drink 1 -2 bottle water a day PLAN OF CARE Activity Details Follow Up 1 Week Reason:WWE VITAL SIGNS Height 64 in 2018-05-13 Weight 168.0 lbs 2018-05-13 Temperature 98.0 degrees Fahrenheit 2018-05-13 Heart Rate 70 bpm 2018-05-13 Respiratory Rate 18 2018-05-13 BMI 28.83 kg/m2 2018-05-13 Blood pressure systolic 120 mmHg 2018-05-13 Blood pressure diastolic 78 mmHg 2018-05-13 MEDICATIONS Medication Instructions Dosage Frequency Start Date End Date Duration Status Pepcid 20 mg Orally Once a day 1 tablet at bedtime 24h 30 days Active [employer] Vitamin B-12 1500 MCG Active Celexa 40 mg Orally Once a day 1 tablet 24h 90 days Active Klonopin 1 MG Orally Twice a day PRN, do not take more then 2 tabs per day 1 tablet Oct, 30 days Active Esomeprazole Magnesium 20 mg Orally Once a day 1 capsule 24h February, 90 days Active Aspirin 81 MG Orally Once a day 1 tablet 24h Dec, 30 day(s) Active Zofran ODT 4 MG Orally every 8 hrs 1 tablet on the tongue and allow to dissolve 8h 20 Jun, 2017 Active Vitamin D 1000 UNIT Orally Once a day 5 tablet 24h Active Feverfew 380 MG Orally Once a day 1 tablet 24h Active Oxybutynin Chloride ER 15 MG Orally Once a day 1 tablet 24h Sep, 2 Jun, 2018 30 days Active Lipitor 20 mg Orally Once a day 1 tablet 24h Active Topamax 100 mg Orally as directed 2 tablets every am and 1 tablet in the pm Aug, 90 days Active Pyridium 200 MG Orally Three times a day 1 tablet after meals 8h 2 day(s) Active RESULTS No Results PROCEDURES Procedure Date Ordered Result Body Site URINALYSIS, AUTO, W/O SCOPE May 13, 2018 URINE CULTURE/COLONY COUNT May 13, 2018 INSTRUCTIONS MEDICATIONS ADMINISTERED No Known Medications MEDICAL (GENERAL) HISTORY Type Description Date Medical History Depression Medical History Migraines Medical History Anxiety Surgical History total hysterectomy Surgical History cholecystectomy Surgical History Appendectomy Surgical History Tonsillectomy Surgical History cystoscopy Hospitalization History past surgery
--- OUTSIDE RECORDS SUMMARY | 2018-08-19 19:45 | XMS REPORT ---
Author Author DARIUS PATEL Organization [facility] Address [address] [place] [address] Care Team Providers Care Air And Water Filler Name Role Phone DARIUS PATEL Unavailable PROBLEMS Type Condition ICD9-CM Code ZSU52-TA Code Onset Dates Condition Status SNOMED Code Problem Overactive bladder N32.81 Active 615457559 Problem Morbid obesity due to excess calories E66.01 Active 036266494 Problem Migraine with aura and without status migrainosus, not intractable G43.109 Active 7077990 Problem Secondary cataract of both eyes, unspecified secondary cataract type H26.40 Active 46440370 Problem Moderate episode of recurrent major depressive disorder F33.1 Active 853609076 Problem Non morbid obesity due to excess calories E66.09 Active 309232046 Problem Dyspareunia in female N94.10 Active 90584298 Problem Gastroesophageal reflux disease, esophagitis presence not specified K21.9 Active 962759312 Problem Abnormal stress test R94.39 Active 789954156 Problem Major depressive disorder, single episode, unspecified F32.9 Active 38264743 Problem Chest pain, unspecified type R07.9 Active 46852612 Problem Anxiety F41.9 Active 68173322 ALLERGIES No Information ENCOUNTERS Encounter Location Date Diagnosis [facility] [address] [place] [address]16- [address] Jun, [facility] [address] [place] [address] 79107- 0773 May, [facility] [id number] [place] [address] 89580- 9491 May, Urinary urgency R39.15 and Overactive bladder N32.81 [facility] [id number] [place] [address]855 -2583 May, Urinary urgency R39.15 and Dyspareunia in female N94.10 [place] [id number] [place] [address] 21984- 4179 May, [place] [id number] [place] [address] Mar, Gastroesophageal reflux disease, esophagitis presence not specified K21.9 [place] [id number] [place] [address]22- 3638 February, Gastroesophageal reflux disease, esophagitis presence not specified K21.9 and Atypical chest pain R07.89 [place] [address] [address]- [address] February, Anxiety F41.9 and Abnormal stress test R94.39 [place] [address] [address]- [address] February, [place] [address] 30361- [address] Jan, Chest pain, unspecified type R07.9 [place] [id number] [place] [address] 72201- 4317 Dec, Chest pain, unspecified type R07.9 and Anxiety F41.9 [place] [id number] [place] [address] 83466- 0091 Dec, Moderate episode of recurrent major depressive disorder F33.1 and Migraine with aura and without status migrainosus, not intractable G43.109 [place] [id number] [place] [address] 23723- 6900 Oct, Migraine with aura and without status migrainosus, not intractable G43.109 [place] [address] 33261- 5342 Oct, Non morbid obesity due to excess calories E66.09 [place] [id number] [place] [address] 17516- 7659 Oct, Morbid obesity due to excess calories E66.01 [facility] [address] [place] [address] 35844- 9696 Oct, Non morbid obesity due to excess calories E66.09 ; Moderate episode of recurrent major depressive disorder F33.1 ; Migraine with aura and without status migrainosus, not intractable G43.109 and Morbid obesity due to excess calories E66.01 [facility] [id number] [place] [address]90 -5931 Sep, Viral gastroenteritis A08.4 and Chills R68.83 [place] [id number] [place] [address] 24050- 8591 Aug, Migraine with aura and without status migrainosus, not intractable G43.109 ; Moderate episode of recurrent major depressive disorder F33.1 ; Anxiety disorder, unspecified F41.9 and Morbid obesity due to excess calories E66.01 [facility] [id number] [place] [address] 12279- 3466 Jun, Major depressive disorder, single episode, unspecified F32.9 [facility] [id number] [place] [address] 84185 -9635 Jun, Other viral agents as the cause of diseases classified elsewhere B97.89 and Acute upper respiratory infection, unspecified J06.9 [facility] [id number] [place] [address] 74843- 1669 May, Major depressive disorder, single episode, unspecified F32.9 [facility] [id number] [place] [address] [id number] May, Dental examination Z01.20 [facility] [id number] [place] [address] [id number] May, Dental examination Z01.20 [facility] [id number] [place] [address] [id number] Apr, Encounter for dental examination Z01.20 [facility] [id number] [place] [address] 38114- 0926 Apr, Anxiety disorder, unspecified F41.9 and Migraine with aura and without status migrainosus, not intractable G43.109 [place] [id number] [place] [address] 17162- 2046 Mar, Migraine with aura and without status migrainosus, not intractable G43.109 and Morbid obesity due to excess calories E66.01 [place] [id number] [place] [address] 67559- 8495 Mar, [place] [address] [address]85- 75[address] February, Major depressive disorder, single episode, unspecified F32.9 [place] [id number] [place] [address] 51469- 7821 Jan, Migraine with aura and without status migrainosus, not intractable G43.109 [place] [id number] [place] [address]180- 1989 Nov, Major depressive disorder, single episode, unspecified F32.9 and Morbid obesity due to excess calories E66.01 [place] [id number] [place] [address] 57755- 2481 Nov, [place] [id number] [place] [address] 35143- 1608 Nov, Major depressive disorder, single episode, unspecified F32.9 and Migraine with aura and without status migrainosus, not intractable G43.109 [place] [id number] [place] [address] 64060- 2345 Oct, Major depressive disorder, single episode, unspecified F32.9 and Anxiety disorder, unspecified F41.9 [place] [id number] [place] [address] 98910- 2662 Sep, Morbid obesity due to excess calories E66.01 and Urinary frequency R35.0 [place] [id number] [place] [address] 27381- 0850 Aug, Overactive bladder N32.81 ; Migraine with aura and without status migrainosus, not intractable G43.109 ; Non morbid obesity due to excess calories E66.09 and Moderate episode of recurrent major depressive disorder F33.1 [facility] [address] [facility] [id number] [place] [address] Jul, Infection of skin of finger L08.9 IMMUNIZATIONS No Known Immunizations SOCIAL HISTORY Never Assessed REASON FOR VISIT Order PLAN OF CARE VITAL SIGNS MEDICATIONS Unknown Medications RESULTS Name Result Date Reference Range Lexiscan Stress Nuclear Test 2018-02-16 PROCEDURES No Known procedures INSTRUCTIONS MEDICATIONS ADMINISTERED No Known Medications MEDICAL (GENERAL) HISTORY Type Description Date Medical History Depression Medical History Migraines Medical History Anxiety Surgical History total hysterectomy Surgical History cholecystectomy Surgical History Appendectomy Surgical History Tonsillectomy Surgical History cystoscopy Hospitalization History past surgery
--- OUTSIDE RECORDS SUMMARY | 2018-08-19 19:45 | XMS REPORT ---
Author Author DARIUS PATEL Organization [facility] Address [address] [place] [address] Care Team Providers Care Carbon Rod Inserter Name Role Phone DARIUS PATEL Unavailable PROBLEMS Type Condition ICD9-CM Code WII10-XD Code Onset Dates Condition Status SNOMED Code Problem Overactive bladder N32.81 Active 031634774 Problem Morbid obesity due to excess calories E66.01 Active 124320315 Problem Migraine with aura and without status migrainosus, not intractable G43.109 Active 7915751 Problem Secondary cataract of both eyes, unspecified secondary cataract type H26.40 Active 23566256 Problem Moderate episode of recurrent major depressive disorder F33.1 Active 911462015 Problem Non morbid obesity due to excess calories E66.09 Active 651280252 Problem Dyspareunia in female N94.10 Active 26769737 Problem Gastroesophageal reflux disease, esophagitis presence not specified K21.9 Active 730222395 Problem Abnormal stress test R94.39 Active 633022611 Problem Major depressive disorder, single episode, unspecified F32.9 Active 10404037 Problem Chest pain, unspecified type R07.9 Active 07267596 Problem Anxiety F41.9 Active 75967132 ALLERGIES Substance Reaction Event Type Date Status Sulfamethoxazole-Trimethoprim Unknown Drug Allergy February, Active ENCOUNTERS Encounter Location Date Diagnosis [facility] [id number], [place] [address] Jun, [facility] [id number] [place] [address] May, Urinary urgency R39.15 and Overactive bladder N32.81 [facility] [address], [place] [address] May, Urinary urgency R39.15 and Dyspareunia in female N94.10 [facility] [id number] [place] [address]87[address] May, [place] [address] [address] Mar, Gastroesophageal reflux disease, esophagitis presence not specified K21.9 [place] [id number] [place] [address]90- [address] February, Gastroesophageal reflux disease, esophagitis presence not specified K21.9 and Atypical chest pain R07.89 [place] [id number] [place] [address] 0[address]80[address] February, Anxiety F41.9 and Abnormal stress test R94.39 [place] [address] [address] February, [place] [address] [address] Jan, Chest pain, unspecified type R07.9 [place] [id number] [place] [address] 8[address]40- [address] Dec, Chest pain, unspecified type R07.9 and Anxiety F41.9 [place] [id number] [place] [address]42- 6[address] Dec, Moderate episode of recurrent major depressive disorder F33.1 and Migraine with aura and without status migrainosus, not intractable G43.109 [place] [id number] [place] [address] 85680- [address]898 Oct, Migraine with aura and without status migrainosus, not intractable G43.109 [place] [address] [address] Oct, Non morbid obesity due to excess calories E66.09 [place] [id number] [place] [address]89- [address] Oct, Morbid obesity due to excess calories E66.01 [place] [address] [address] Oct, Non morbid obesity due to excess calories E66.09 ; Moderate episode of recurrent major depressive disorder F33.1 ; Migraine with aura and without status migrainosus, not intractable G43.109 and Morbid obesity due to excess calories E66.01 [facility] IN [facility] [address] [place] [address] Sep, Viral gastroenteritis A08.4 and Chills R68.83 [facility] [id number] [place] [address] 5[address]72- [address] Aug, Migraine with aura and without status migrainosus, not intractable G43.109 ; Moderate episode of recurrent major depressive disorder F33.1 ; Anxiety disorder, unspecified F41.9 and Morbid obesity due to excess calories E66.01 [facility] [id number] [place] [address] 05912- 8519 Jun, Major depressive disorder, single episode, unspecified F32.9 [facility] IN [facility] [id number] [place] [address] Jun, Other viral agents as the cause of diseases classified elsewhere B97.89 and Acute upper respiratory infection, unspecified J06.9 [facility] [address] [place] [address]34[address] May, Major depressive disorder, single episode, unspecified F32.9 [facility] [id number] [place] [address] [id number] May, Dental examination Z01.20 [facility] [id number] [place] [address] [id number] May, Dental examination Z01.20 [facility] [id number] [place] [address] [id number] Apr, Encounter for dental examination Z01.20 [facility] [id number] [place] [address] 26233- [address] Apr, Anxiety disorder, unspecified F41.9 and Migraine with aura and without status migrainosus, not intractable G43.109 [facility] [address], [place] [address] Mar, Migraine with aura and without status migrainosus, not intractable G43.109 and Morbid obesity due to excess calories E66.01 [facility] [address], [place] [address] Mar, [facility] [id number] [place] [address] 95459- 1499 February, Major depressive disorder, single episode, unspecified F32.9 [place] [id number] [place] [address] 843003- [address]83 Jan, Migraine with aura and without status migrainosus, not intractable G43.109 [place] [id number] [place] [address] 78733- 4702 Nov, Major depressive disorder, single episode, unspecified F32.9 and Morbid obesity due to excess calories E66.01 [place] [address] [address] 14 Nov, 2016 [place] [id number] [place] [address] 81209- [address] 08 Nov, 2016 Major depressive disorder, single episode, unspecified F32.9 and Migraine with aura and without status migrainosus, not intractable G43.109 [place] [id number] [place] [address] 75747- 1399 Oct, Major depressive disorder, single episode, unspecified F32.9 and Anxiety disorder, unspecified F41.9 [facility] [id number] [place] [address] 73454- 1657 Sep, Morbid obesity due to excess calories E66.01 and Urinary frequency R35.0 [facility] [id number] [place] [address] 49080- 287[address] Aug, Overactive bladder N32.81 ; Migraine with aura and without status migrainosus, not intractable G43.109 ; Non morbid obesity due to excess calories E66.09 and Moderate episode of recurrent major depressive disorder F33.1 [facility] [address] [facility] [id number] [place] [address] Jul, Infection of skin of finger L08.9 IMMUNIZATIONS No Known Immunizations SOCIAL HISTORY Never Assessed REASON FOR VISIT Heart cath f/u. Pt reports no concerns. Results in chart. renard PLAN OF CARE Activity Details Follow Up 3 Months with Stacey fRodolfou Chest pain and anxiety Reason: VITAL SIGNS Height 64 in 2018-03-08 Weight 168.1 lbs 2018-03-08 Temperature 97.6 degrees Fahrenheit 2018-03-08 Heart Rate 68 bpm 2018-03-08 Respiratory Rate 12 2018-03-08 BMI 28.85 kg/m2 2018-03-08 Blood pressure systolic 110 mmHg 2018-03-08 Blood pressure diastolic 78 mmHg 2018-03-08 MEDICATIONS Medication Instructions Dosage Frequency Start Date End Date Duration Status Oxybutynin Chloride ER 10 mg Orally Once a day 1 tablet 24h Sep, Active Zofran ODT 4 MG Orally every 8 hrs 1 tablet on the tongue and allow to dissolve 8h 20 Jun, 2017 Active Celexa 40 mg Orally Once a day 1 tablet 24h 90 days Active Vitamin D 1000 UNIT Orally Once a day 5 tablet 24h Active Aspirin 81 MG Orally Once a day 1 tablet 24h Dec, 30 day(s) Active VitaMelts Energy Vitamin B-12 1500 MCG Active Klonopin 1 MG Orally Twice a day PRN, do not take more then 2 tabs per day 1 tablet Oct, 30 days Active Feverfew 380 MG Orally Once a day 1 tablet 24h Active Pepcid 20 mg Orally Once a day 1 tablet at bedtime 24h 30 days Active Esomeprazole Magnesium 20 mg Orally Once a day 1 capsule 24h February, 30 day(s) Active Lipitor 20 mg Orally Once a day 1 tablet 24h Active Topamax 100 mg 2 tablets every am and 1 tablet in the pm Aug, Active RESULTS No Results PROCEDURES No Known procedures INSTRUCTIONS MEDICATIONS ADMINISTERED No Known Medications MEDICAL (GENERAL) HISTORY Type Description Date Medical History Depression Medical History Migraines Medical History Anxiety Surgical History total hysterectomy Surgical History cholecystectomy Surgical History Appendectomy Surgical History Tonsillectomy Surgical History cystoscopy Hospitalization History past surgery
--- OUTSIDE RECORDS SUMMARY | 2018-08-19 19:45 | XMS REPORT ---
Author Author DARIUS PAETL Organization [facility] Address [address] [place] [address] Care Team Providers Care Dean Of Graduate Studies Name Role Phone DARIUS PATEL Unavailable PROBLEMS Type Condition ICD9-CM Code GXF34-DT Code Onset Dates Condition Status SNOMED Code Problem Overactive bladder N32.81 Active 449134744 Problem Morbid obesity due to excess calories E66.01 Active 592379465 Problem Migraine with aura and without status migrainosus, not intractable G43.109 Active 4088247 Problem Secondary cataract of both eyes, unspecified secondary cataract type H26.40 Active 17384933 Problem Moderate episode of recurrent major depressive disorder F33.1 Active 172560445 Problem Non morbid obesity due to excess calories E66.09 Active 055917310 Problem Dyspareunia in female N94.10 Active 47481672 Problem Gastroesophageal reflux disease, esophagitis presence not specified K21.9 Active 171147448 Problem Abnormal stress test R94.39 Active 130887829 Problem Major depressive disorder, single episode, unspecified F32.9 Active 84320986 Problem Chest pain, unspecified type R07.9 Active 10367187 Problem Anxiety F41.9 Active 71154376 ALLERGIES Substance Reaction Event Type Date Status Sulfamethoxazole-Trimethoprim Unknown Drug Allergy February, Active ENCOUNTERS Encounter Location Date Diagnosis [facility] [id number] [address] Jun, [facility] [address] [address] May, [facility] [id number] [address] May, Urinary urgency R39.15 and Overactive bladder N32.81 [facility] [id number] [address] May, Urinary urgency R39.15 and Dyspareunia in female N94.10 [place] [address] [address] May, [place] [address] [address] Mar, Gastroesophageal reflux disease, esophagitis presence not specified K21.9 [place] [address] [address]- [address] February, Gastroesophageal reflux disease, esophagitis presence not specified K21.9 and Atypical chest pain R07.89 [place] [address] [address] February, Anxiety F41.9 and Abnormal stress test R94.39 [place] [address] [address] February, [place] [address] [address] Jan, Chest pain, unspecified type R07.9 [place] [address] [address]- [address] Dec, Chest pain, unspecified type R07.9 and Anxiety F41.9 [place] [address] [address]- [address] Dec, Moderate episode of recurrent major depressive disorder F33.1 and Migraine with aura and without status migrainosus, not intractable G43.109 [place] [address] [address] Oct, Migraine with aura and without status migrainosus, not intractable G43.109 [place] [address] [address]- [address] Oct, Non morbid obesity due to excess calories E66.09 [place] [address] [address]- [address] Oct, Morbid obesity due to excess calories E66.01 [facility] [id number] [place] [address]- 30[address] Oct, Non morbid obesity due to excess calories E66.09 ; Moderate episode of recurrent major depressive disorder F33.1 ; Migraine with aura and without status migrainosus, not intractable G43.109 and Morbid obesity due to excess calories E66.01 [facility] [id number] [place] [address] Sep, Viral gastroenteritis A08.4 and Chills R68.[address] [address] Aug, Migraine with aura and without status migrainosus, not intractable G43.109 ; Moderate episode of recurrent major depressive disorder F33.1 ; Anxiety disorder, unspecified F41.9 and Morbid obesity due to excess calories E66.01 [place] [address] [address] Jun, Major depressive disorder, single episode, unspecified F32.9 [facility] [id number] [place] [address] Jun, Other viral agents as the cause of diseases classified elsewhere B97.89 and Acute upper respiratory infection, unspecified J06.9 [place] [id number] [place] [address]- [address] May, Major depressive disorder, single episode, unspecified F32.9 [facility] [id number] [place] [address] [id number] May, Dental examination Z01.20 [facility] [address] [id number] May, Dental examination Z01.20 [facility] [id number] [place] [address] [id number] Apr, Encounter for dental examination Z01.20 [facility] [address] [place] [address] Apr, Anxiety disorder, unspecified F41.9 and Migraine with aura and without status migrainosus, not intractable G43.109 [place] [address] [place] [address]- [address] Mar, Migraine with aura and without status migrainosus, not intractable G43.109 and Morbid obesity due to excess calories E66.01 [place] [id number] [place] [address]14- [address] Mar, [place] [id number] [place] [address] 622[address]- [address] February, Major depressive disorder, single episode, unspecified F32.9 [place] [id number] [place] [address]- [address] Jan, Migraine with aura and without status migrainosus, not intractable G43.109 [place] [id number] [place] [address] 16436- 28[address] Nov, Major depressive disorder, single episode, unspecified F32.9 and Morbid obesity due to excess calories E66.01 [place] [address] [place] [address] 10400- 7296 14 Nov, 2016 [place] [address] [place] [address] 98085- [address]18 08 Nov, 2016 Major depressive disorder, single episode, unspecified F32.9 and Migraine with aura and without status migrainosus, not intractable G43.109 [place] [address] [place] [address] 86824- 3515 Oct, Major depressive disorder, single episode, unspecified F32.9 and Anxiety disorder, unspecified F41.9 [place] [address] [place] [address] 69362- 3306 Sep, Morbid obesity due to excess calories E66.01 and Urinary frequency R35.0 [place] [id number] [address] Aug, Overactive bladder N32.81 ; Migraine with aura and without status migrainosus, not intractable G43.109 ; Non morbid obesity due to excess calories E66.09 and Moderate episode of recurrent major depressive disorder F33.1 [facility] [address] [facility] [id number] [place] [address] Jul, Infection of skin of finger L08.9 IMMUNIZATIONS No Known Immunizations SOCIAL HISTORY Never Assessed REASON FOR VISIT Anxiety fu --lew [facility]field PLAN OF CARE Activity Details Follow Up 2 Weeks with Stacey west anxiety/cardiology Reason: VITAL SIGNS Height 64 in 2018-02-22 Weight 168.0 lbs 2018-02-22 Temperature 97.3 degrees Fahrenheit 2018-02-22 BMI 28.83 kg/m2 2018-02-22 Blood pressure systolic 126 mmHg 2018-02-22 Blood pressure diastolic 70 mmHg 2018-02-22 MEDICATIONS Medication Instructions Dosage Frequency Start Date End Date Duration Status Feverfew 380 MG Orally Once a day 1 tablet 24h Active Vitamin D 1000 UNIT Orally Once a day 5 tablet 24h Active VitaMelts Energy Vitamin B-12 1500 MCG Active Celexa 40 mg Orally Once a day 1 tablet 24h 90 days Active Excedrin Migraine 250-250-65 MG Orally Once a day 2 tablets 24h Active Zofran ODT 4 MG Orally every 8 hrs 1 tablet on the tongue and allow to dissolve 8h 20 Jun, 2017 Active Pepcid 20 mg Orally Once a day 1 tablet at bedtime 24h 30 days Active Topamax 200 mg Orally Twice a day 1 tablet every am and 1/2 tablet in the pm to equal 300mg daily 12h 16 Aug, 2016 90 days Active Klonopin 1 MG Orally Twice a day PRN, do not take more then 2 tabs per day 1 tablet Oct, 30 days Active Aspirin 81 MG Orally Once a day 1 tablet 24h Dec, 30 day(s) Active Oxybutynin Chloride ER 10 mg Orally [...]
--- OUTSIDE RECORDS SUMMARY | 2018-08-19 19:45 | XMS REPORT ---
Author Author DARIUS PATEL Organization [facility] Address [address] [place] [address] Care Team Providers Care Electrical Technology Instructor Name Role Phone DARIUS PATEL Unavailable PROBLEMS Type Condition ICD9-CM Code AAS07-DD Code Onset Dates Condition Status SNOMED Code Problem Overactive bladder N32.81 Active 871624947 Problem Morbid obesity due to excess calories E66.01 Active 809042855 Problem Migraine with aura and without status migrainosus, not intractable G43.109 Active 8369143 Problem Secondary cataract of both eyes, unspecified secondary cataract type H26.40 Active 89271543 Problem Moderate episode of recurrent major depressive disorder F33.1 Active 754729088 Problem Non morbid obesity due to excess calories E66.09 Active 687229691 Problem Dyspareunia in female N94.10 Active 68248420 Problem Gastroesophageal reflux disease, esophagitis presence not specified K21.9 Active 879324511 Problem Abnormal stress test R94.39 Active 024396732 Problem Major depressive disorder, single episode, unspecified F32.9 Active 42847020 Problem Chest pain, unspecified type R07.9 Active 73563305 Problem Anxiety F41.9 Active 92343372 ALLERGIES No Information ENCOUNTERS Encounter Location Date Diagnosis [facility] [id number] [place] [phone] Jun, [facility] [id number] [place] [address] 70934- 3054 May, [facility] [id number] [place] [address] 73406- 6229 May, Urinary urgency R39.15 and Overactive bladder N32.81 [facility] [id number] [place] [address] 85137 -1273 May, Urinary urgency R39.15 and Dyspareunia in female N94.10 [facility] [id number] [place] [address] 12935- 2187 May, [facility] [id number] [place], [place] [id number] Mar, Gastroesophageal reflux disease, esophagitis presence not specified K21.9 [facility] [id number] [place] [address] 20268- 4357 February, Gastroesophageal reflux disease, esophagitis presence not specified K21.9 and Atypical chest pain R07.89 [place] [facility] [address] [address]- [address] February, Anxiety F41.9 and Abnormal stress test R94.39 [place] [facility] [address] 35960- [address] February, [facility] [address] 93814- 7686 Jan, Chest pain, unspecified type R07.9 [facility] [id number] [place] [address] 86773- 1398 Dec, Chest pain, unspecified type R07.9 and Anxiety F41.9 [facility] [id number] [place] [address] 44376- 7452 Dec, Moderate episode of recurrent major depressive disorder F33.1 and Migraine with aura and without status migrainosus, not intractable G43.109 [facility] [id number] [place] [address] 78958- 2498 Oct, Migraine with aura and without status migrainosus, not intractable G43.109 [facility] [facility] [address] 71774- 0[address] Oct, Non morbid obesity due to excess calories E66.09 [facility] [id number] [place] [address] 04577- 5431 Oct, Morbid obesity due to excess calories E66.01 [facility] [address] [place] [address] 06852- 1798 Oct, Non morbid obesity due to excess calories E66.09 ; Moderate episode of recurrent major depressive disorder F33.1 ; Migraine with aura and without status migrainosus, not intractable G43.109 and Morbid obesity due to excess calories E66.01 [facility] [id number] [place] [address] 40767 -2599 Sep, Viral gastroenteritis A08.4 and Chills R68.83 [facility] [id number] [place] [address] 82564- 2915 Aug, Migraine with aura and without status migrainosus, not intractable G43.109 ; Moderate episode of recurrent major depressive disorder F33.1 ; Anxiety disorder, unspecified F41.9 and Morbid obesity due to excess calories E66.01 [facility] [id number] [place] [address] 38452- 6373 Jun, Major depressive disorder, single episode, unspecified F32.9 [facility] [id number] [place] [address] 87197 -1445 Jun, Other viral agents as the cause of diseases classified elsewhere B97.89 and Acute upper respiratory infection, unspecified J06.9 [facility] [id number] [place] [address] 65462- 6825 May, Major depressive disorder, single episode, unspecified F32.9 [facility] [id number] [place] [address] [id number] May, Dental examination Z01.20 [facility] [id number] [place] [address] [id number] May, Dental examination Z01.20 [facility] [id number] [place] [address] [phone] Apr, Encounter for dental examination Z01.20 [facility] [id number] [place] [address] 56755- 0339 Apr, Anxiety disorder, unspecified F41.9 and Migraine with aura and without status migrainosus, not intractable G43.109 [facility] [id number] [place] [address] 78198- 8319 Mar, Migraine with aura and without status migrainosus, not intractable G43.109 and Morbid obesity due to excess calories E66.01 [facility] [id number] [place] [address] 66063- 4822 Mar, [place] [facility] [address] 45972- [address]995 February, Major depressive disorder, single episode, unspecified F32.9 [facility] [id number] [place] [address] 06983- 2316 Jan, Migraine with aura and without status migrainosus, not intractable G43.109 [facility] [id number] [place] [address] 81581- 4778 Nov, Major depressive disorder, single episode, unspecified F32.9 and Morbid obesity due to excess calories E66.01 [facility] [id number] [place] [address] 65366- 4199 Nov, [facility] [id number] [place] [address] 11357- 6161 Nov, Major depressive disorder, single episode, unspecified F32.9 and Migraine with aura and without status migrainosus, not intractable G43.109 [facility] [id number] [place] [address] 65031- 0387 Oct, Major depressive disorder, single episode, unspecified F32.9 and Anxiety disorder, unspecified F41.9 [facility] [id number] [place] [address] 49429- 2518 Sep, Morbid obesity due to excess calories E66.01 and Urinary frequency R35.0 [facility] [id number] [place] [address] 92879- 4097 Aug, Overactive bladder N32.81 ; Migraine with aura and without status migrainosus, not intractable G43.109 ; Non morbid obesity due to excess calories E66.09 and Moderate episode of recurrent major depressive disorder F33.1 [facility] [address] [facility] [id number] [place] [address] Jul, Infection of skin of finger L08.9 [...]
[2018-08-19 20:06] LABS: BILIRUBIN,URINE NEGATIVE (NEGATIVE); CLARITY,URINE CLEAR; COLOR,URINE YELLOW; GLUCOSE, URINE (UA) NEGATIVE (NEGATIVE); KETONES,URINE NEGATIVE (NEGATIVE); LEUKOCYTE ESTERASE ,URINE 3+ (NEGATIVE); NITRITE,URINE NEGATIVE (NEGATIVE); PH,URINE 6 (5-9); PROTEIN,URINE 2+ (NEGATIVE); UROBILINOGEN,URINE 1 MG/DL (NORMAL)
[2018-08-19 20:13] LABS: BACTERIA,URINE FEW /HPF; SQUAMOUS EPITHELIAL CELL,UR 0-2 /HPF
[2018-08-19] MEDS ORDERED: NS IV 1000 ML 1,000 ML IV ONE (22:41)
[2018-08-19] MEDS ORDERED: KETOROLAC 30 MG/ML VIAL IVP STA (22:41)
[2018-08-19] MEDS ORDERED: ONDANSETRON 4 MG/2 ML (SDV) Z0FRAN IVP ONE (22:45)
[2018-08-19 23:07] LABS: BASOPHILS % (AUTO) 1 % (0-10); EOSINOPHILS # (AUTO) 0.1 10^3/uL (0.0-0.3); EOSINOPHILS % (AUTO) 2 % (0-10); HEMATOCRIT 35 % (35-52); HEMOGLOBIN 12.1 G/DL (11.5-16.0); LYMPHOCYTES # (AUTO) 2.6 X 10^3 (1.0-4.0); LYMPHOCYTES % (AUTO) 48 % (12-44); MEAN CORPUSCULAR HEMOGLOBIN 32 PG (25-34); MEAN CORPUSCULAR HGB CONC 35 G/DL (32-36); MEAN CORPUSCULAR VOLUME 92 FL (80-99); MEAN PLATELET VOLUME 11.3 FL (7.4-10.4); MONOCYTES # (AUTO) 0.4 X 10^3 (0.0-1.0); MONOCYTES % (AUTO) 7 % (0-12); NEUTROPHILS # (AUTO) 2.3 X 10^3 (1.8-7.8); NEUTROPHILS % (AUTO) 42 % (42-75); PLATELET COUNT 142 10^3/uL (130-400); RED BLOOD COUNT 3.78 10^6/uL (4.35-5.85); WHITE BLOOD COUNT 5.4 10^3/uL (4.3-11.0)
[2018-08-19 23:24] LABS: ALANINE AMINOTRANSFERASE 25 U/L (0-55); ALBUMIN 4.1 GM/DL (3.2-4.5); ALKALINE PHOSPHATASE 80 U/L (40-136); BILIRUBIN,TOTAL 0.2 MG/DL (0.1-1.0); BUN/CREATININE RATIO 23; CALCIUM 9.3 MG/DL (8.5-10.1); CARBON DIOXIDE 21 MMOL/L (21-32); CHLORIDE 112 MMOL/L (98-107); CREATININE SERUM 0.81 MG/DL (0.60-1.30); GFR ESTIMATED > 60; GLUCOSE 90 MG/DL (70-105); LIPASE 40 U/L (8-78); POTASSIUM 3.4 MMOL/L (3.6-5.0); SODIUM 142 MMOL/L (135-145); TOTAL PROTEIN 6.5 GM/DL (6.4-8.2)
[2018-08-19] MEDS ORDERED: RECEIVED CONTRAST (Hold Metformin) IV SCH (23:30)
[2018-08-19] MEDS ORDERED: NS 250 ML (IVPB) BAG IV ONE (23:30)
[2018-08-19] MEDS ORDERED: IOHEXOL 350 MG/ML 100 ML (OMNIPAQUE 350) VIAL IV ONE (23:30)
[2018-08-20] MEDS ORDERED: RX-CEPHALEXIN (KEFLEX) 250 MG CAP PPK#4 PO STA (00:07)
[2018-08-20] MEDS ORDERED: morphine INJ 10 MG/ML 1ML (SYR OR VIAL) IVP STA (00:07)
[2018-08-20] MEDS ORDERED: NAPR-915 PO ×2 (00:13→00:32)
[2018-08-20] MEDS ORDERED: PHEN-639 PO ×2 (00:13→00:32)
[2018-08-20] MEDS ORDERED: CEPH-507 PO ×2 (00:13→00:32)
--- NOTE | 2018-08-20 00:14 | ED GU-Female ---
General Chief Complaint: Abdominal/GI Problems Stated Complaint: R SIDE PAIN Nursing Triage Note: AMBULATORY TO ED WITH RLQ PAIN STARTED 2 WEEKS AGO THAT COMES AND GOES AND SOMETIMES HAS NAUSEA WITH PAIN. DENIES VOMITING/DIARRHEA. HAS SEEN PCP SINCE PAIN STARTED, BUT DID NOT TELL HER ABOUT ABD PAIN. HAS HX OF VITA AND APPENDECTOMY. Nursing Sepsis Screen: No Definite Risk Source: patient Exam Limitations: no limitations History of Present Illness Date Seen by Provider: Aug 19, 2018 Allergies and Home Medications Allergies Uncoded Allergies: SULFA (Allergy, Unknown, 12/28/17) Home Medications Aspirin 81 Mg Tablet.dr, 81 MG PO DAILY, (Reported) Aspirin/Acetaminophen/Caffeine 1 Each Tablet, 2 TAB PO DAILY, (Reported) Cephalexin 500 Mg Capsule, 500 MG PO QID Prescribed by: EDWARD RAYMOND on 08/20/1812 Cholecalciferol (Vitamin D3) 5,000 Unit Capsule, 5,000 UNIT PO DAILY, (Reported) Citalopram Hydrobromide 40 Mg Tablet, 40 MG PO DAILY, (Reported) Cyanocobalamin (Vitamin B-12) 5,000 Mcg Tab.rapdis, 1,500 MCG PO DAILY, ( Reported) Famotidine 20 Mg Tablet, 20 MG PO DAILY, (Reported) Naproxen 500 Mg Tablet, 500 MG PO BID PRN for pain Prescribed by: EDWARD RAYMOND on 08/20/1812 Oxybutynin Chloride 10 Mg Tab.er.24, 10 MG PO DAILY, (Reported) Phenazopyridine HCl 100 Mg Tablet, 100 MG PO Q8H PRN for pain Prescribed by: EDWARD RAYMOND on 08/20/1812 Topiramate 200 Mg Tablet, 200 MG PO DAILY, (Reported) Topiramate 200 Mg Tablet, 100 MG PO HS, (Reported) TAKES 1/2 (200MG) TABLET [Feverfew] , 1 CAP PO DAILY, (Reported) Past Xotuhfo-Gxdehn-Gjdltl Hx Patient Social History Alcohol Use: Denies Use Recreational Drug Use: No Type Used: Cigarettes Former Smoker, Quit: February 23, 2007 Recent Foreign Travel: No Contact w/Someone Who Travel: No Recent Infectious Disease Expo: No Recent Hopitalizations: No Immunizations Up To Date Tetanus Booster (TDap): Unknown Seasonal Allergies Seasonal Allergies: No Past Medical History Surgeries: Yes Appendectomy, Gallbladder, Hysterectomy, Tonsillectomy Respiratory: No Cardiac: Yes (HX HEART CATH NO STENT) 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 0oz. 75.303382mb; 29.0 BMI Method:Stated Progress/Results/Core Measures Suspected Sepsis Recent Fever Within 48 Hours: No Infection Criteria Present: None New/Unexplained Altered Menta: No Sepsis Screen: No Definite Risk SIRS Temperature:97.8 Pulse: 56 Respiratory Rate: 19 Laboratory Tests 08/19/18 22:58: White Blood Count 5.4 Blood Pressure 98 /45 Mean: 62 Laboratory Tests 08/19/18 22:58: Creatinine 0.81, Platelet Count 142, Total Bilirubin 0.2 Results/Orders Lab Results Laboratory Tests Test 08/19/18 20:00 08/19/18 22:58 Range/Units Urine Color YELLOW Urine Clarity CLEAR Urine pH 6 5-9 Urine Specific Henefer 1.025 H 1.016-1.022 Urine Protein 2+ H NEGATIVE Urine Glucose (UA) NEGATIVE NEGATIVE Urine Ketones NEGATIVE NEGATIVE Urine Nitrite NEGATIVE NEGATIVE Urine Bilirubin NEGATIVE NEGATIVE Urine Urobilinogen 1 NORMAL MG/DL Urine Leukocyte Esterase 3+ H NEGATIVE Urine RBC (Auto) 1+ H NEGATIVE Urine RBC NONE /HPF Urine WBC 10-25 H /HPF Urine Squamous Epithelial Cells 0-2 /HPF Urine Crystals NONE /LPF Urine Bacteria FEW H /HPF Urine Casts NONE /LPF Urine Mucus NEGATIVE /LPF Urine Culture Indicated YES White Blood Count 5.4 4.3-11.0 10^3/uL Red Blood Count 3.78 L 4.35-5.85 10^6/uL Hemoglobin 12.1 11.5-16.0 G/DL Hematocrit 35 35-52 % Mean Corpuscular Volume 92 80-99 FL Mean Corpuscular Hemoglobin 32 25-34 PG Mean Corpuscular Hemoglobin Concent 35 32-36 G/DL Red Cell Distribution Width 12.0 10.0-14.5 % Platelet Count 142 130-400 10^3/uL Mean Platelet Volume 11.3 H 7.4-10.4 FL Neutrophils (%) (Auto) 42 42-75 % Lymphocytes (%) (Auto) 48 H 12-44 % Monocytes (%) (Auto) 7 0-12 % Eosinophils (%) (Auto) 2 0-10 % Basophils (%) (Auto) 1 0-10 % Neutrophils # (Auto) 2.3 1.8-7.8 X 10^3 Lymphocytes # (Auto) 2.6 1.0-4.0 X 10^3 Monocytes # (Auto) 0.4 0.0-1.0 X 10^3 Eosinophils # (Auto) 0.1 0.0-0.3 10^3/uL Basophils # (Auto) 0.0 0.0-0.1 10^3/uL Sodium Level 142 135-145 MMOL/L Potassium Level 3.4 L 3.6-5.0 MMOL/L Chloride Level 112 H 98-107 MMOL/L Carbon Dioxide Level 21 21-32 MMOL/L Anion Gap 9 5-14 MMOL/L Blood Urea Nitrogen 19 H 7-18 MG/DL Creatinine 0.81 0.60-1.30 MG/DL Estimat Glomerular Filtration Rate > 60 BUN/Creatinine Ratio 23 Glucose Level 90 70-105 MG/DL Calcium Level 9.3 8.5-10.1 MG/DL Corrected Calcium 9.2 8.5-10.1 MG/DL Total Bilirubin 0.2 0.1-1.0 MG/DL Aspartate Amino Transf (AST/SGOT) 17 5-34 U/L Alanine Aminotransferase (ALT/SGPT) 25 0-55 U/L Alkaline Phosphatase 80 40-136 U/L Total Protein 6.5 6.4-8.2 GM/DL Albumin 4.1 3.2-4.5 GM/DL Lipase 40 8-78 U/L My Orders Orders - EDWARD RAYMOND Ct Abdomen/Pelvis W (08/19/18 22:41) Cbc With Automated Diff (08/19/18 22:41) Comprehensive Metabolic Panel (08/19/18 22:41) Lipase (08/19/18 22:41) Saline Lock/Iv-Start (08/19/18 22:41) Ketorolac Injection (Toradol Injection) (08/19/18 22:41) Ondansetron Injection (Zofran Injectio (08/19/18 22:45) Saline Lock/Iv-Start (08/19/18 22:41) Ns Iv 1000 Ml (Sodium Chloride 0.9%) (08/19/18 22:41) Iohexol Injection (Omnipaque 350 Mg/Ml 1 (08/19/18 23:30) Contrast Received (Contrast Received) (08/19/18 23:30) Ns (Ivpb) (Sodium Chloride 0.9%) (08/19/18 23:30) Morphine Injection (Morphine Injection (08/20/18 00:07) Rx-Cephalexin Capsule (Rx-Keflex Capsule (08/20/18 00:07) Medications Given in ED Current Medications Medications Dose Ordered Sig/Carlos Route Start Time Stop Time Status Last Admin Dose Admin Iohexol 100 ml ONCE ONCE IV 08/19/18 23:30 08/19/18 23:32 DC 08/19/18 23:32 100 ML Ondansetron HCl 4 mg ONCE ONCE IVP 08/19/18 22:45 08/19/18 22:46 DC 08/19/18 22:57 4 MG Sodium Chloride 250 ml ONCE ONCE IV 08/19/18 23:30 08/19/18 23:32 DC 08/19/18 23:32 80 ML Sodium Chloride 1,000 ml @ 0 mls/hr Q0M ONCE IV 08/19/18 22:41 08/19/18 22:42 DC 08/19/18 22:57 999 MLS/HR Vital Signs/I&O 08/19/18 20:18 Temp 97.8 Pulse 56 Resp 19 B/P (MAP) 98/45 (62) Capillary Refill : Less Than 3 Seconds Blood Pressure Mean: 62 Departure Impression Primary Impression: Urinary tract infection Additional Impression: Abdominal pain, RLQ (right lower quadrant) Disposition: 01 HOME, SELF-CARE Condition: Improved Departure-Patient Inst. Decision time for Depature: 00:11 Referrals: DARIUS PATEL MD (PCP/Family) Primary Care Physician Patient Instructions: Acute Abdomen (Belly Pain), Adult (DC), Urinary Tract Infection, Adult (DC) Add. Discharge Instructions: All discharge instructions reviewed with patient and/or family. Voiced understanding. Medications as instructed. Tylenol extra strength over-the- counter as directed for pain. Follow-up with [facility] this week for recheck. 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 Call for appointment time Wednesday. Return in the emergency department for worsened symptoms or any other concerns. Scripts Phenazopyridine HCl (Pyridium) 100 Mg Tablet 100 MG PO Q8H PRN for pain, #14 TAB 1 Refill Prov: EDWARD RAYMOND 08/20/18 Naproxen (Naproxen) 500 Mg Tablet 500 MG PO BID PRN for pain, #20 TAB 0 Refills Prov: EDWARD RAYMOND 08/20/18 Cephalexin (Keflex) 500 Mg Capsule 500 MG PO QID, #21 CAP 0 Refills Prov: EDWARD RAYMOND 08/20/18 Work/School Note: Work Release Form Date Seen in the Emergency Department: Aug 20, 2018 Return to Work: Aug 21, 2018 EDWARD RAYMOND Aug 20, 2018 00:14
[2018-08-20] MEDS ORDERED: ONDA4TAB11 PO (00:32)
[2018-08-20 00:42] VITALS: BP 108/50
--- NOTE | 2018-08-20 07:41 | Diagnostic Imaging Report ---
PROCEDURE: CT abdomen and pelvis with contrast. TECHNIQUE: Multiple contiguous axial images were obtained through the abdomen and pelvis after administration of intravenous contrast. INDICATION: Right-sided abdominal pain intermittently x2 weeks. CORRELATION STUDY: None. FINDINGS: LOWER THORAX: Clear. LIVER: Unremarkable. GALLBLADDER: Cholecystectomy. Common bile duct appearing normal. SPLEEN: Unremarkable. PANCREAS: Unremarkable. ADRENAL GLANDS: Unremarkable. KIDNEYS: Normal configuration. No calcification or obstruction. ABDOMINAL AORTA: Unremarkable, nonaneurysmal. GASTROINTESTINAL TRACT: No obstruction or inflammation. Apparent prior appendectomy clips adjacent to cecum. No significant abdominal ascites or free air. URINARY BLADDER: Decompressed. REPRODUCTIVE: Hysterectomy changes. OSSEOUS STRUCTURES: No acute abnormality. OTHER: None. IMPRESSION: 1. Negative for acute abnormality of the abdomen or pelvis. A preliminary report was provided by [employer]. Dictated by: Dictated on workstation # [id number]
== END 2018-08-20 00:45 | disposition home or self-care (01) ==
LOC: ER 19:36 → EDUNIT# 19:36 → ER 08-20 00:25
DX: N39.0 Urinary tract infection, site not specified (principal); G43.909 Migraine, unspecified, not intractable, without status migrainosus; F41.9 Anxiety disorder, unspecified; F32.9 Major depressive disorder, single episode, unspecified; Z87.19 Personal history of other diseases of the digestive system; Z88.2 Allergy status to sulfonamides; Z79.82 Long term (current) use of aspirin; Z90.49 Acquired absence of other specified parts of digestive tract; Z90.89 Acquired absence of other organs; Z87.891 Personal history of nicotine dependence; Z90.710 Acquired absence of both cervix and uterus
CPT/HCPCS: 36415; 74177; 80053; 81000; 83690; 85025; 87088

== ENCOUNTER 2019-10-05 21:39 | Emergency (ER) | payer OTHER, BC ==
[~2019-10-05] VITALS: Ht 162.6 cm; Wt 81.7 kg
[~2019-10-05 21:39] MED LIST changes: +CEPH-507 PO; +NAPR-915 PO; +ONDA4TAB11 PO; +PHEN-639 PO
--- NOTE | 2019-10-05 22:23 | ED Psychosocial ---
General Chief Complaint: Psych/Social Disorder Stated Complaint: PSYCH EVAL Nursing Triage Note: PT AMBULATE TO ROOM FS04 WITH C/O THOUGHTS OF SUICIDE. PT REPORTS TAKING CLONIPIN FOR THE LAST 3 DAYS IN AN ATTEMPT TO COMMIT SUICIDE. PT STATES SHE RAN OFF THE ROAD TODAY AND THEN WISHED SHE HAD JUST CRASHED AND . Source: patient (TED CHRISTIE MD) History of Present Illness Date Seen by Provider: Oct 05, 2019 Time Seen by Provider: 21:58 Initial Comments 44-year-old female presenting with thoughts of suicide. She has a history of depression and prior suicide attempts. She states the last time she was admitted for suicidal thoughts and July to [facility] in [place]. She states that they helped a little but didn't feel like she got very much of that admission. She recently was started on Lamictal last week and has 1 more week before it is due to be increased. She states that she accidentally sore throat today and then corrected herself but then wished that she had just crashed and . She denies having any active plan for hurting herself or committing suicide that she would state to me. She would not make eye contact with me. She had told the nurse that she took 2 Klonopin each night for the last 3 nights in an attempt to go to sleep and not wake up. She denies doing anything to harm herself today. When asked if there was anything that had tipped her over the edge today or over the last few days to cause her to have thoughts of suicide she just shrugged her shoulders and would not answer. (TED CHRISTIE MD) Allergies and Home Medications Allergies Uncoded Allergies: SULFA (Allergy, Unknown, 12/28/17) Home Medications Aspirin 81 Mg Tablet.dr, 81 MG PO DAILY, (Reported) Aspirin/Acetaminophen/Caffeine 1 Each Tablet, 2 TAB PO DAILY, (Reported) Cephalexin 500 Mg Capsule, 500 MG PO QID Prescribed by: EDWARD RAYMOND on 08/20/18 003 Cholecalciferol (Vitamin D3) 5,000 Unit Capsule, 5,000 UNIT PO DAILY, (Reported) Citalopram Hydrobromide 40 Mg Tablet, 40 MG PO DAILY, (Reported) Cyanocobalamin (Vitamin B-12) 5,000 Mcg Tab.rapdis, 1,500 MCG PO DAILY, (Reported) Famotidine 20 Mg Tablet, 20 MG PO DAILY, (Reported) Naproxen 500 Mg Tablet, 500 MG PO BID PRN for pain Prescribed by: EDWARD RAYMOND on 08/20/1831 Ondansetron 4 Mg Tab.rapdis, 4 MG PO Q4H PRN for NAUSEA/VOMITING Prescribed by: EDWARD RAYMOND on 08/20/1831 Oxybutynin Chloride 10 Mg Tab.er.24, 10 MG PO DAILY, (Reported) Phenazopyridine HCl 100 Mg Tablet, 100 MG PO Q8H PRN for pain Prescribed by: EDWARD RAYMOND on 08/20/1831 Topiramate 200 Mg Tablet, 200 MG PO DAILY, (Reported) Topiramate 200 Mg Tablet, 100 MG PO HS, (Reported) TAKES 1/2 (200MG) TABLET [Feverfew] , 1 CAP PO DAILY, (Reported) Patient Home Medication List Home Medication List Reviewed: Yes (TED CHRISTIE MD) Review of Systems Constitutional: No chills, No fever EENTM: no symptoms reported Respiratory: no symptoms reported Cardiovascular: no symptoms reported Gastrointestinal: no symptoms reported Genitourinary: no symptoms reported Musculoskeletal: other (chronic generalized pain) Skin: no symptoms reported Psychiatric/Neurological: See HPI, Depressed (TED CHRISTIE MD) Past Jayuebc-Tkkoaz-Uzreqj Hx Past Med/Social Hx: Reviewed Nursing Past Med/Soc Hx (TED CHRISTIE MD) Patient Social History Alcohol Use: Denies Use Recreational Drug Use: No Smoking Status: Former Smoker Type Used: Cigarettes Former Smoker, Quit: February 23, 2007 2nd Hand Smoke Exposure: No Recent Foreign Travel: No Contact w/Someone Who Travel: No Recent Infectious Disease Expo: No Recent Hopitalizations: No Physical Abuse: No Sexual Abuse: No Mistreated: No Fear: No (TED CHRISTIE MD) Immunizations Up To Date Tetanus Booster (TDap): Unknown (TED CHRISTIE MD) Seasonal Allergies Seasonal Allergies: No (TED CHRISTIE MD) Past Medical History Surgeries: Yes Appendectomy, Gallbladder, Hysterectomy, Tonsillectomy Respiratory: No Cardiac: Yes (HX HEART CATH NO STENT) High Cholesterol 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 Integumentary: No Blood Disorders: No Adverse Reaction/Blood Tranf: No (TED CHRISTIE MD) Family Medical History No Pertinent Family Hx (TED CHRISTIE MD) Physical Exam Vital Signs - First Documented 10/05/19 10/06/19 21:54 08:57 Temp 36.5 Pulse 56 Resp 16 B/P (MAP) 141/87 (105) Pulse Ox 99 O2 Delivery Room Air (SILVIA CHOPRA MD) Capillary Refill : Less Than 3 Seconds (TED CHRISTIE MD) Height, Weight, BMI Height: 5'5.00" Weight: 167lbs. 0oz. 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, alert, oriented x 3, depressed affect Appearance/Memory: neat Behavior/Eye Contact: cooperative, avoids eye contact Thoughts/Hallucinations: no apparent hallucination Skin: normal color, warm/dry (TED CHRISTIE MD) Progress/Results/Core Measures Results/Orders Lab Results Laboratory Tests Test 10/05/19 22:21 10/05/19 22:33 Range/Units Urine Color YELLOW Urine Clarity CLEAR Urine pH 6.0 5-9 Urine Specific [place] 1.010 L 1.016-1.022 Urine Protein NEGATIVE NEGATIVE Urine Glucose (UA) NEGATIVE NEGATIVE Urine Ketones NEGATIVE NEGATIVE Urine Nitrite NEGATIVE NEGATIVE Urine Bilirubin NEGATIVE NEGATIVE Urine Urobilinogen 0.2 < = 1.0 MG/DL Urine Leukocyte Esterase TRACE NEGATIVE Urine RBC (Auto) NEGATIVE NEGATIVE Urine RBC NONE /HPF Urine WBC 2-5 /HPF Urine Crystals NONE /LPF Urine Bacteria NEGATIVE /HPF Urine Casts NONE /LPF Urine Mucus NEGATIVE /LPF Urine Culture Indicated YES Urine Opiates Screen NEGATIVE NEGATIVE Urine Oxycodone Screen NEGATIVE NEGATIVE Urine Methadone Screen NEGATIVE NEGATIVE Urine Propoxyphene Screen NEGATIVE NEGATIVE Urine Barbiturates Screen NEGATIVE NEGATIVE Ur Tricyclic Antidepressants Screen NEGATIVE NEGATIVE Urine Phencyclidine Screen NEGATIVE NEGATIVE Urine Amphetamines Screen NEGATIVE NEGATIVE Urine Methamphetamines Screen NEGATIVE NEGATIVE Urine Benzodiazepines Screen POSITIVE H NEGATIVE Urine Cocaine Screen NEGATIVE NEGATIVE Urine Cannabinoids Screen NEGATIVE NEGATIVE White Blood Count 5.1 4.3-11.0 10^3/uL Red Blood Count 4.24 L 4.35-5.85 10^6/uL Hemoglobin 13.9 11.5-16.0 G/DL Hematocrit 40 35-52 % Mean Corpuscular Volume 94 80-99 FL Mean Corpuscular Hemoglobin 33 25-34 PG Mean Corpuscular Hemoglobin Concent 35 32-36 G/DL Red Cell Distribution Width 11.7 10.0-14.5 % Platelet Count 209 130-400 10^3/uL Mean Platelet Volume 10.7 H 7.4-10.4 FL Neutrophils (%) (Auto) 53 42-75 % Lymphocytes (%) (Auto) 35 12-44 % Monocytes (%) (Auto) 9 0-12 % Eosinophils (%) (Auto) 2 0-10 % Basophils (%) (Auto) 1 0-10 % Neutrophils # (Auto) 2.7 1.8-7.8 X 10^3 Lymphocytes # (Auto) 1.8 1.0-4.0 X 10^3 Monocytes # (Auto) 0.4 0.0-1.0 X 10^3 Eosinophils # (Auto) 0.1 0.0-0.3 10^3/uL Basophils # (Auto) 0.0 0.0-0.1 10^3/uL Sodium Level 142 135-145 MMOL/L Potassium Level 3.7 3.6-5.0 MMOL/L Chloride Level 106 98-107 MMOL/L Carbon Dioxide Level 23 21-32 MMOL/L Anion Gap 13 5-14 MMOL/L Blood Urea Nitrogen 17 7-18 MG/DL Creatinine 0.87 0.60-1.30 MG/DL Estimat Glomerular Filtration Rate > 60 BUN/Creatinine Ratio 20 Glucose Level 93 70-105 MG/DL Calcium Level 9.3 8.5-10.1 MG/DL Corrected Calcium 8.5-10.1 MG/DL Total Bilirubin 0.2 0.1-1.0 MG/DL Aspartate Amino Transf (AST/SGOT) 133 H 5-34 U/L Alanine Aminotransferase (ALT/SGPT) 317 H 0-55 U/L Alkaline Phosphatase 157 H 40-136 U/L Total Protein 7.7 6.4-8.2 GM/DL Albumin 4.6 H 3.2-4.5 GM/DL Salicylates Level 0.4 L 5.0-20.0 MG/DL Acetaminophen Level < 10 L 10-30 UG/ML Serum Alcohol < 10 <10 MG/DL (SILVIA CHOPRA MD) Vital Signs/I&O 10/05/19 10/06/19 21:54 08:57 Temp 36.5 36.6 Pulse 56 52 Resp 16 16 B/P (MAP) 141/87 (105) 102/56 (71) Pulse Ox 99 O2 Delivery Room Air (SILVIA CHOPRA MD) Blood Pressure Mean: 105 Progress Progress Note #1: Progress Note obtain labs and urine as well as ECG to medically screen patient for clearance to perform psych screening Progress Note #2: Time: 23:11 Progress Note Labs appear stable for her with no acute significant abnormality on her CBC or UA. She does have Benzodiazepines show up on her UDS. Since she takes aspirin daily she has a 0.4 mg/dL level for her salicylate level. Her ETOH and Acetaminophen level are zero. She has normal electrolytes and renal function. Her Liver enzymes show mild elevation of the ALT to 317 and the AST to 133. This appears to be a chronic issue for her as she has had elevated LFTs in the past. Overall she is medically stable for evaluation and disposition per mental health. Progress Note #3: Time: 01:20 Progress Note Mental health screener recommended inpatient psychiatric treatment. Will call back when placement is found for her. Progress Note #4: Time: 02:37 Progress Note Pt reported to nurse that she has hx of migraines and she usually takes Topamax for them. She has a headache now and would like something for it. Will give Toradol 60 mg IM with Benadryl 50 mg IM. Progress Note #5: Time: 06:00 Progress Note Overnight [place] [facility] facilities had been contacted by Mental health screeners and advised that they had no bed availability currently. Continue to wait on bed placement for patient. Transfer of care to Dr. Chopra at shift change pending Psychiatric placement. (TED CHRISTIE MD) Progress Note #1: Time: 06:30 Progress Note 0630: I have seen the patient and check out pending transfer. [facility] is now looking at the patient's paperwork. Monitor patient. Progress Note #2: Time: 09:10 Progress Note Patient has been accepted at [facility], Dr. Watt has accepted. We are pending transport. Transfer paperwork signed. Patient has tolerated meal without difficulty. No change in status and no acute distress. (SILVIA CHOPRA MD) Initial ECG Impression Date: Oct 05, 2019 Initial ECG Impression Time: 22:13 Initial ECG Rate: 49 Initial ECG Rhythm: S.Matthew Initial ECG Comparisson: Unchanged Comment Sinus bradycardia with heart rate of 49 bpm. MA interval of 165 ms. QT interval 459 ms and a QT corrected interval 415 ms. There is no acute ST elevation. This appears similar to prior tracings in the system. (TED CHRISTIE MD) Transfer of Care Time: 06:00 Care transferred to: Dr. Chopra (TED CHRISTIE MD) Departure Impression Primary Impression: Depression with suicidal ideation Disposition: 02 XFER SHT-TRM HOSP Condition: Stable Transfer Transfer Reason: Exceeds level of care (Needs Inpatient Psychiatric Care) (TED CHRISTIE MD) Transfer Reason: Exceeds level of care (Needs Inpatient Psychiatric Care) Time Spoke to Accepting Phy: 09:10 Transfer Progress Notes [facility] [place], Dr. Hahn accepting Transfer Facility: [facility] [place], Dr. Hahn accepting Method of Transfer: [facility] (SILVIA CHOPRA MD) Departure-Patient Inst. Referrals: DARIUS PATEL MD (PCP/Family) Primary Care Physician TED CHRISTIE MD Oct 05, 2019 22:23 SILVIA CHOPRA MD Oct 06, 2019 09:14
[2019-10-05 22:31] LABS: BACTERIA,URINE NEGATIVE /HPF; BILIRUBIN,URINE NEGATIVE (NEGATIVE); CLARITY,URINE CLEAR; COLOR,URINE YELLOW; GLUCOSE, URINE (UA) NEGATIVE (NEGATIVE); KETONES,URINE NEGATIVE (NEGATIVE); LEUKOCYTE ESTERASE ,URINE TRACE (NEGATIVE); NITRITE,URINE NEGATIVE (NEGATIVE); PROTEIN,URINE NEGATIVE (NEGATIVE)
[2019-10-05 22:39] LABS: AMPHETAMINE SCREEN, URINE NEGATIVE (NEGATIVE); BARBITURATE SCREEN URINE NEGATIVE (NEGATIVE); BENZODIAZEPINES SCREEN URINE POSITIVE (NEGATIVE); CANNABINOID SCREEN, URINE NEGATIVE (NEGATIVE); COCAINE SCREEN URINE NEGATIVE (NEGATIVE); METHADONE STAT NEGATIVE (NEGATIVE); METHAMPHETAMINE SCREEN URINE S NEGATIVE (NEGATIVE); OPIATE SCREEN URINE NEGATIVE (NEGATIVE); OXYCODONE STAT NEGATIVE (NEGATIVE); PROPOXYPHENE STAT NEGATIVE (NEGATIVE); TRICYCLIC ANTIDEPRESSANTS SCRE NEGATIVE (NEGATIVE)
[2019-10-05 22:40] LABS: BASOPHILS % (AUTO) 1 % (0-10); EOSINOPHILS # (AUTO) 0.1 10^3/uL (0.0-0.3); EOSINOPHILS % (AUTO) 2 % (0-10); HEMATOCRIT 40 % (35-52); HEMOGLOBIN 13.9 G/DL (11.5-16.0); LYMPHOCYTES # (AUTO) 1.8 X 10^3 (1.0-4.0); LYMPHOCYTES % (AUTO) 35 % (12-44); MEAN CORPUSCULAR HEMOGLOBIN 33 PG (25-34); MEAN CORPUSCULAR HGB CONC 35 G/DL (32-36); MEAN CORPUSCULAR VOLUME 94 FL (80-99); MEAN PLATELET VOLUME 10.7 FL (7.4-10.4); MONOCYTES # (AUTO) 0.4 X 10^3 (0.0-1.0); MONOCYTES % (AUTO) 9 % (0-12); NEUTROPHILS # (AUTO) 2.7 X 10^3 (1.8-7.8); NEUTROPHILS % (AUTO) 53 % (42-75); PLATELET COUNT 209 10^3/uL (130-400); RED CELL DISTRIBUTION WIDTH 11.7 % (10.0-14.5); WHITE BLOOD COUNT 5.1 10^3/uL (4.3-11.0)
[2019-10-05 23:09] LABS: ALKALINE PHOSPHATASE 157 U/L (40-136); BILIRUBIN,TOTAL 0.2 MG/DL (0.1-1.0); BUN/CREATININE RATIO 20; CALCIUM 9.3 MG/DL (8.5-10.1); CARBON DIOXIDE 23 MMOL/L (21-32); CHLORIDE 106 MMOL/L (98-107); CREATININE SERUM 0.87 MG/DL (0.60-1.30); GFR ESTIMATED > 60; GLUCOSE 93 MG/DL (70-105); POTASSIUM 3.7 MMOL/L (3.6-5.0); SODIUM 142 MMOL/L (135-145)
[2019-10-05 23:10] LABS: ACETAMINOPHEN < 10 UG/ML (10-30); ALANINE AMINOTRANSFERASE 317 U/L (0-55); ALBUMIN 4.6 GM/DL (3.2-4.5); SALICYLATE 0.4 MG/DL (5.0-20.0); TOTAL PROTEIN 7.7 GM/DL (6.4-8.2)
--- NOTE | 2019-10-05 23:11 | NUR ---
PT RESTING IN BED WITH THE LIGHTS ON AND IN DIRECT VIEW. PT INFORMED OF THE PROGRESS OF TREATMENT AND THE TIME FRAME. PT STATES UNDERSTANDING AND THAT THERE IS NOTHING SHE NEEDS AT THIS TIME.
--- NOTE | 2019-10-06 00:25 | NUR ---
SCREENER FROM [facility] CALLED AND VIDEO CONFERENCE WAS INITIATED. COMPUTER TAKEN INTO PT ROOM AND SCREENER BEGAN CONVERSATION WITH PT.
--- NOTE | 2019-10-06 01:15 | NUR ---
PT FINISHED WITH FATIMAH. THIS RN SPOKE WITH FATIMAH AND WAS INFORMED THAT THE PT IS REQUESTING INPATIENT CARE AND THAT THE SCREENER IS AGREEABLE TO THIS. CORNELIOER STATES THAT SHE WILL CALL AROUND AND TRY TO FIND AN ACCEPTING FACILITY AND WILL CALL BACK WHEN SHE FINDS PLACEMENT.
--- NOTE | 2019-10-06 01:21 | NUR ---
PT REQUESTED AND, PER PROVIDER, THE PT AND SON WERE ALLOWED INTO THE PT ROOM.
--- NOTE | 2019-10-06 01:24 | NUR ---
PT ASKED IF THE SCREENER HAS CALLED BACK YET. PT INFORMED THAT THE SCREENER HAS NOT CALLED AND INFORMED THAT IT IS NOT POSSIBLE AT THIS TIME TO GIVE HER AN ESTIMATE TO WHEN THE SCREENER WILL CALL BACK. PT INFORMED THAT IT CAN BE A LENGTHY PROCESS TO FIND PLACEMENT. PT REQUESTED THAT THIS RN CALL HER WORK AND INFORM THEM THAT SHE IS IN THIS ED AND WILL NOT BE TO WORK IN THE MORNING. PT INFORMEND THAT THIS IS NOT THE RESPONSIBILITY OF THE THE ED STAFF AND THAT SHE IS ABLE CALL HER WORK TO INFORM THEM OF THIS. PT INFORMED THAT SHE CAN BE GIVEN A WORK NOTE STATING THAT SHE WAS IN THIS ED IF ONE IS REQUIRED. PT STATED AN UNDERSTANDING OF THIS AND STATED THAT THERE IS NOTHING ELSE SHE NEEDS AT THIS TIME.
[2019-10-06] MEDS ORDERED: diphenhydrAMINE 50 MG/ML INJ (BENADRYL) IM STA (02:40)
[2019-10-06] MEDS ORDERED: KETOROLAC 60 MG/2 ML VIAL IM STA (02:40)
--- NOTE | 2019-10-06 05:32 | NUR ---
RODRIGUEZ SHERIDAN CALLED AND SAID THAT SHE HAS CALLS OUT TO SEVERAL FACILITIES AND THAT THEY WILL BE GETTING BACK WITH HER IN THE AM AND THAT THEY WILL CALL THIS ED SOON THEY HAVE ANY NEW INFORMATION.
--- NOTE | 2019-10-06 05:33 | NUR ---
PT CONTINUES TO REST IN BED. PT IS EASILY AWAKENED AND STATES THAT THERE IS NOTHING SHE NEEDS AT THIS TIME. PT BROUGHT IN SOME CLOTHING FOR PT AND STATED THAT HE WOULD BE GOING HOME TO SLEEP AND REQUESTED THAT THE PT CALL HIM WHEN SHE IS BEING DISCHARGED TO ANOTHER FACILITY.
--- NOTE | 2019-10-06 05:45 | NUR ---
IDALIA VÁSQUEZ CALLED REQUESTING CURRENT VITAL SIGNS AND FOR LAB RESULTS. INFORMATION WAS FAXED.
--- NOTE | 2019-10-06 06:31 | NUR ---
IDALIA VÁSQUEZ CALLED REQUESTING TO SPEAK WITH PT. CALL WAS TRANSFERRED TO A PORTABLE PHONE AND TAKEN TO PT.
--- NOTE | 2019-10-06 06:57 | NUR ---
[facility] SCREENER WAS ON ANOTHER CALL AND WILL RETURN CALL WHEN SHE IS AVAILABLE.
--- NOTE | 2019-10-06 07:08 | NUR ---
1ST ATTEMPT TO CALL FOR PT REPORT TO IDALIA VÁSQUEZ. THIS RN WAS INFORMED THAT THEY WERE IN THE MIDDLE OF SHIFT CHANGE AND THAT THEY WOULD RETURN CALL IN APPROX 30MINS.
--- NOTE | 2019-10-06 08:30 | NUR ---
Called [facility] to check on status of transportation for the patient to [facility]. Amy at [facility] stated that they did not have any confirmation that the patient had been accepted and would have to verify before they could arrange transportation. [facility] will call back.
--- NOTE | 2019-10-06 08:56 | NUR ---
Received call from [facility] stating that the patient has been accepted at [facility] and that Daisy Villela with [facility] will be arranging transportation for the patient.
[2019-10-06 08:57] VITALS: BP 102/56
--- NOTE | 2019-10-06 09:01 | NUR ---
TYLER called at this time. Zo will be transferring patient, but has patients until 10. She will be here around [id number] to merchandise pickup/receiving associate the patient.
[2019-10-06 11:03] VITALS: BP 107/61
== END 2019-10-06 11:02 | disposition short-term general hospital (02) ==
LOC: EDUNIT# 21:39 → ER FS 21:42
DX: R45.851 Suicidal ideations (principal); F32.9 Major depressive disorder, single episode, unspecified; E78.00 Pure hypercholesterolemia, unspecified; G43.909 Migraine, unspecified, not intractable, without status migrainosus; F41.9 Anxiety disorder, unspecified; Z88.2 Allergy status to sulfonamides; Z79.82 Long term (current) use of aspirin; Z87.891 Personal history of nicotine dependence; Z90.89 Acquired absence of other organs; Z90.49 Acquired absence of other specified parts of digestive tract; Z90.710 Acquired absence of both cervix and uterus
CPT/HCPCS: 36415; 80053; 80306; 80320; 80329; 81000; 85025; 87088; 93005; 96372

== ENCOUNTER → 2020-03-18 | Outpatient (CLI) | payer OTHER, BC ==
[~2020-03-18] MED LIST changes: -OXYB10TA PO; +OXYB10TA29 PO
[2020-03-22 17:29] LABS: HEMOCHROMATOSIS (HFE) INTERP SEE FOOTNOTE
== END ==
LOC: LAB 10:51
PROVIDERS: ATTEND Pediatrics
DX: E83.110 Hereditary hemochromatosis (principal)
CPT/HCPCS: 36415

== ENCOUNTER 2020-04-24 09:53 | Emergency (ER) | payer OTHER, BC ==
[~2020-04-24] VITALS: Ht 162.5 cm; Wt 80.0 kg
[2020-04-24 10:18] LABS: BASOPHILS % (AUTO) 0 % (0-10); EOSINOPHILS # (AUTO) 0.2 10^3/uL (0.0-0.3); EOSINOPHILS % (AUTO) 2 % (0-10); HEMATOCRIT 37 % (35-52); LYMPHOCYTES # (AUTO) 1.8 X 10^3 (1.0-4.0); LYMPHOCYTES % (AUTO) 25 % (12-44); MEAN CORPUSCULAR HEMOGLOBIN 32 PG (25-34); MEAN CORPUSCULAR HGB CONC 36 G/DL (32-36); MEAN CORPUSCULAR VOLUME 91 FL (80-99); MEAN PLATELET VOLUME 10.4 FL (7.4-10.4); MONOCYTES # (AUTO) 0.4 X 10^3 (0.0-1.0); MONOCYTES % (AUTO) 6 % (0-12); NEUTROPHILS % (AUTO) 67 % (42-75); PLATELET COUNT 212 10^3/uL (130-400); RED CELL DISTRIBUTION WIDTH 12.3 % (10.0-14.5); WHITE BLOOD COUNT 7.4 10^3/uL (4.3-11.0)
--- NOTE | 2020-04-24 10:25 | NUR ---
Dr. Vazquez on the phone with posion control at this time.
[2020-04-24 10:28] LABS: BILIRUBIN,URINE NEGATIVE (NEGATIVE); CLARITY,URINE CLEAR; COLOR,URINE YELLOW; GLUCOSE, URINE (UA) NEGATIVE (NEGATIVE); KETONES,URINE NEGATIVE (NEGATIVE); LEUKOCYTE ESTERASE ,URINE 1+ (NEGATIVE); NITRITE,URINE NEGATIVE (NEGATIVE); PROTEIN,URINE NEGATIVE (NEGATIVE)
--- OUTSIDE RECORDS SUMMARY | 2020-04-24 10:32 | XMS REPORT | Continuity of Care Document ---
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 in VLDL measurement (mass/ volume) 24 mg/dL 5-40 Methicillin resistant Staphylococcus aur eus (MRSA) screening culture - 02/23/18 10:55 Methicillin resistant Staphylococcus aureus (MRSA) scr eening culture NEG NRG CULTURE, URINE - 05/13/18 16:08 CULTURE, URINE, ROUTINE SEE NOTE NRG CMP - 06/15/18 16:38 GLUCOSE 83 mg/dL 65-99 UREA NITROGEN (BUN) 16 mg/dL 7-25 CREATININE 0.77 mg/dL 0.50-1.10 eGFR NON-AFR. FILIPINO 96 mL/min/1.73m2 > OR = 60 eGFR 111 mL/min/1.73m2 > OR = 60 BUN/CREATININE RATIO NOT APPLICABLE (calc) 6-22 SODIUM 143 mmol/L 135-146 POTASSIUM 3.8 mmol/L 3.5-5.3 CHLORIDE 112 mmol/L 98-110 CARBON DIOXIDE 24 mmol/L 20-32 CALCIUM 9.2 mg/dL 8.6-10.2 PROTEIN, TOTAL 7.1 g/dL 6.1-8.1 ALBUMIN 4.5 g/dL 3.6-5.1 GLOBULIN 2.6 g/dL (calc) 1.9-3.7 ALBUMIN/GLOBULIN RATIO 1.7 (calc) 1.0-2. 5 BILIRUBIN, TOTAL 0.2 mg/dL 0.2-1.2 ALKALINE PHOSPHATASE 100 U/L 33-115 AST 33 U/L 10-30 ALT 152 U/L 6-29 CULTURE, GENITAL - 08/02/18 11:18 CULTURE, GENITAL SEE NOTE [facility] SUREPATH PAP - 08/02/18 11:18 CLINICAL INFORMATION: NRG LMP: NRG PREV. PAP: NORMAL NRG PREV. BX: NRG SOURCE: Vagina NR STATEMENT OF ADEQUACY: NR INTERPRETATION/RESULT: [facility] FORESTRY TECHNICAL OFFICER: NR COMMENT [facility] HEPATITIS PROFILE - 08/05/18 13:28 HEPATITIS A IGM NON-REACTIVE NON-REACTI VE HEPATITIS B SURFACE ANTIGEN NON-REACTIVE NON-REACTIVE HEPATITIS B CORE ANTIBODY (IGM) NON-REACTIVE NON-REACTIVE HEPATITIS C ANTIBODY NON-REACTIVE NON-R EACTIVE SIGNAL TO CUT-OFF 0.01 <1.00 Complete urinalysis with reflex to cultu re - 08/19/18 20:00 Urine color determination YELLOW NRG Urine clarity determination CLEAR NR G Urine pH measurement by test strip 6 5-9 Specific gravity of urine by test strip 1.025 1.016-1.022 Urine protein assay by test strip, semi-quantitative 2+ NEGATIVE Urine glucose detection by automated test strip NE GATIVE NEGATIVE Erythrocytes detection in urine sediment by light micr oscopy 1+ NEGATIVE Urine ketones detection by automated test strip NE GATIVE NEGATIVE Urine nitrite detection by test strip NEGATIVE NEGATIVE Urine total bilirubin detection by test strip NEGA TIVE NEGATIVE Urine urobilinogen measurement by automated test strip (mass/volume) 1 mg/dL NORMAL Urine leukocyte esterase detection by dipstick 3+ NEGATIVE Automated urine sediment erythrocyte cou nt by microscopy (number/high power field) NONE NRG Automated urine sediment leukocyte count by microscopy (number/high power field) [HPF] NRG Bacteria detection in urine sediment by light microsco py FEW NRG Squamous epithelial cells detection in u rine sediment by light microscopy 0-2 NRG Crystals detection in urine sediment by light microsco py NONE NRG Casts detection in urine sediment by light microscopy NONE NRG Mucus detection in urine sediment by light microscopy NEGATIVE NRG Complete urinalysis with reflex to culture YES NRG Bacterial urine culture - 08/19/18 20:00 Bacterial urine culture SEE COMMEN NRG COLONY COUNT . NRG Complete blood count (CBC) with automate d white blood cell (WBC) differential - 08/19/18 22:58 Blood leukocytes automated count (number/volume) 5.4 10*3/uL 4.3-11.0 Blood erythrocytes automated count (number/volume) 3.78 10*6/uL 4.35-5.85 Venous blood hemoglobin measurement (mass/volume) 12.1 g/dL 11.5-16.0 Blood hematocrit (volume fraction) 35 % 35-52 Automated erythrocyte mean corpuscular volume 92 [ foz_us] 80-99 Automated erythrocyte mean corpuscular h emoglobin (mass per erythrocyte) 32 pg 25-34 Automated erythrocyte mean corpuscular h emoglobin concentration measurement (mass/volume) 35 g/dL 32-36 Automated erythrocyte distribution width ratio 12. 0 % 10.0- 14.5 Automated blood platelet count (count/volume) 142 10*3/uL 130-400 Automated blood platelet mean volume measurement 11.3 [foz_us] 7.4-10.4 Automated blood neutrophils/100 leukocytes 42 % 42-75 Automated blood lymphocytes/100 leukocytes 48 % 12-44 Blood monocytes/100 leukocytes 7 % 0-12 Automated blood eosinophils/100 leukocytes 2 % 0-10 Automated blood basophils/100 leukocytes 1 % 0-10 Blood neutrophils automated count (number/volume) 2.3 10*3 1.8-7.8 Blood lymphocytes automated count (number/volume) 2.6 10*3 1.0-4.0 Blood monocytes automated count (number/volume) 0. 4 10*3 0.0-1.0 Automated eosinophil count 0.1 10*3/uL 0 .0-0.3 Automated blood basophil count (count/volume) 0.0 10*3/uL 0.0-0.1 Comprehensive metabolic panel - 08/19/18 22:58 Serum or plasma sodium measurement (moles/volume) 142 mmol/L 135-145 Serum or plasma potassium measurement (moles/volume) 3.4 mmol/L 3.6-5.0 Serum or plasma chloride measurement (moles/volume) 112 mmol/L 98-107 Carbon dioxide 21 mmol/L 21-32 Serum or plasma anion gap determination (moles/volume) 9 mmol/L 5-14 Serum or plasma urea nitrogen measurement (mass/volume ) 19 mg/dL 7-18 Serum or plasma creatinine measurement (mass/volume) 0.81 mg/dL 0.60-1.30 Serum or plasma urea nitrogen/creatinine mass ratio 23 NRG Serum or plasma creatinine measurement w ith calculation of estimated glomerular filtration rate > NRG Serum or plasma glucose measurement (mass/volume) 90 mg/dL 70-105 Serum or plasma calcium measurement (mass/volume) 9.3 mg/dL 8.5-10.1 Serum or plasma total bilirubin measurement (mass/volu me) 0.2 mg/dL 0.1-1.0 Serum or plasma alkaline phosphatase garo surement (enzymatic activity/volume) 80 U/L 40-136 Serum or plasma aspartate aminotransfera se measurement (enzymatic activity/volume) 17 U/L 5-34 Serum or plasma alanine aminotransferase measurement (enzymatic activity/volume) 25 U/L 0-55 Serum or plasma protein measurement (mass/volume) 6.5 g/dL 6.4-8.2 Serum or plasma albumin measurement (mass/volume) 4.1 g/dL 3.2-4.5 CALCIUM CORRECTED 9.2 mg/dL 8.5-10.1 Lipase - 08/19/18 22:58 Lipase 40 U/L 8-78 CMP - 09/06/18 16:39 GLUCOSE 81 mg/dL 65-99 UREA NITROGEN (BUN) 13 mg/dL 7-25 CREATININE 0.74 mg/dL 0.50-1.10 eGFR NON-AFR. FILIPINO 100 mL/min/1.73m2 > OR = 60 eGFR 116 mL/min/1.73m2 > OR = 60 BUN/CREATININE RATIO NOT APPLICABLE (calc) 6-22 SODIUM 140 mmol/L 135-146 POTASSIUM 3.7 mmol/L 3.5-5.3 CHLORIDE 108 mmol/L 98-110 CARBON DIOXIDE 26 mmol/L 20-32 CALCIUM 9.5 mg/dL 8.6-10.2 PROTEIN, TOTAL 6.9 g/dL 6.1-8.1 ALBUMIN 4.6 g/dL 3.6-5.1 GLOBULIN 2.3 g/dL (calc) 1.9-3.7 ALBUMIN/GLOBULIN RATIO 2.0 (calc) 1.0-2. 5 BILIRUBIN, TOTAL 0.5 mg/dL 0.2-1.2 ALKALINE PHOSPHATASE 105 U/L 33-115 AST 21 U/L 10-30 ALT 73 U/L 04-08 CMP - 02/20/19 17:25 GLUCOSE 80 mg/dL 65-99 UREA NITROGEN (BUN) 14 mg/dL 7-25 CREATININE 0.67 mg/dL 0.50-1.10 eGFR NON-AFR. FILIPINO 108 mL/min/1.73m2 > OR = 60 eGFR 126 mL/min/1.73m2 > OR = 60 BUN/CREATININE RATIO NOT APPLICABLE (calc) 6-22 SODIUM 143 mmol/L 135-146 POTASSIUM 3.7 mmol/L 3.5-5.3 CHLORIDE 107 mmol/L 98-110 CARBON DIOXIDE 28 mmol/L 20-32 CALCIUM 9.9 mg/dL 8.6-10.2 PROTEIN, TOTAL 6.9 g/dL 6.1-8.1 ALBUMIN 4.5 g/dL 3.6-5.1 GLOBULIN 2.4 g/dL (calc) 1.9-3.7 ALBUMIN/GLOBULIN RATIO 1.9 (calc) 1.0-2. 5 BILIRUBIN, TOTAL 0.4 mg/dL 0.2-1.2 ALKALINE PHOSPHATASE 103 U/L 33-115 AST 65 U/L 10-30 ALT 208 U/L 04-08 CBC - 02/20/19 17:25 WHITE BLOOD CELL COUNT 6.4 Thousand/uL 3 .8-10.8 RED BLOOD CELL COUNT 4.18 Million/uL 3.8 0-5.10 HEMOGLOBIN 13.2 g/dL 11.7-15.5 HEMATOCRIT 39.0 % 35.0-45.0 MCV 93.3 fL 80.0-100.0 MCH 31.6 pg 27.0-33.0 MCHC 33.8 g/dL 32.0-36.0 RDW 12.2 % 11.0-15.0 PLATELET COUNT 184 Thousand/uL 140-400 MPV 11.5 fL 7.5-12.5 ABSOLUTE NEUTROPHILS 4314 cells/uL 1500- 7800 ABSOLUTE LYMPHOCYTES 1549 cells/uL 850-3 900 ABSOLUTE MONOCYTES 416 cells/uL 200-950 ABSOLUTE EOSINOPHILS 90 cells/uL 15-500 ABSOLUTE BASOPHILS 32 cells/uL 0-200 NEUTROPHILS 67.4 % NRG LYMPHOCYTES 24.2 % NRG MONOCYTES 6.5 % NRG EOSINOPHILS 1.4 % NRG BASOPHILS 0.5 % NRG TSH - 02/20/19 17:25 TSH 1.21 mIU/L NRG CRP - 08/15/19 15:05 C-REACTIVE PROTEIN 2.1 mg/L <8.0 MITOCHONDRIAL (M2) ANTIBODY - 08/15/19 1 5:05 MITOCHONDRIAL AB SCREEN Negative Negati ve OBDULIA ANALYZER - 08/15/19 15:05 OBDULIA SCREEN, IFA POSITIVE NEGATIVE FERRITIN, SERUM - 08/15/19 15:05 FERRITIN 237 ng/mL 16-232 ANTINUCLEAR ANTIBODIES TITER AND PATTE RN - 08/15/19 15:05 OBDULIA PATTERN Nuclear, Dense Fine Speckled NRG OBDULIA TITER 1:80 titer NRG ANEMIA PANEL - 09/19/19 16:36 IRON, TOTAL 182 mcg/dL 40-190 FERRITIN 228 ng/mL 16-232 IRON BINDING CAPACITY 273 mcg/dL (calc) 250-450 % SATURATION 67 % (calc) 16-45 CMP - 09/19/19 16:36 GLUCOSE 78 mg/dL 65-139 UREA NITROGEN (BUN) 17 mg/dL 7-25 CREATININE 1.12 mg/dL 0.50-1.10 eGFR NON-AFR. FILIPINO 60 mL/min/1.73m2 > OR = 60 eGFR 70 mL/min/1.73m2 > OR = 60 BUN/CREATININE RATIO 15 (calc) 6-22 SODIUM 142 mmol/L 135-146 POTASSIUM 3.8 mmol/L 3.5-5.3 CHLORIDE 110 mmol/L 98-110 CARBON DIOXIDE 24 mmol/L 20-32 CALCIUM 9.2 mg/dL 8.6-10.2 PROTEIN, TOTAL 6.7 g/dL 6.1-8.1 ALBUMIN 4.3 g/dL 3.6-5.1 GLOBULIN 2.4 g/dL (calc) 1.9-3.7 ALBUMIN/GLOBULIN RATIO 1.8 (calc) 1.0-2. 5 BILIRUBIN, TOTAL 0.2 mg/dL 0.2-1.2 ALKALINE PHOSPHATASE 121 U/L 33-115 AST 18 U/L 10-30 ALT 91 U/L 6-29 Complete urinalysis with reflex to cultu re - 10/05/19 22:21 Urine color determination YELLOW NRG Urine clarity determination CLEAR NR G Urine pH measurement by test strip 6.0 5-9 Specific gravity of urine by test strip 1.010 1.016-1.022 Urine protein assay by test strip, semi-quantitative NEGATIVE NEGATIVE Urine glucose detection by automated test strip NE GATIVE NEGATIVE Erythrocytes detection in urine sediment by light micr oscopy NEGATIVE NEGATIVE Urine ketones detection by automated test strip NE GATIVE NEGATIVE Urine nitrite detection by test strip NEGATIVE NEGATIVE Urine total bilirubin detection by test strip NEGA TIVE NEGATIVE Urine urobilinogen measurement by automated test strip (mass/volume) 0.2 mg/dL < = 1.0 Urine leukocyte esterase detection by dipstick TRA CE NEGATIVE Automated urine sediment erythrocyte cou nt by microscopy (number/high power field) NONE NRG Automated urine sediment leukocyte count by microscopy (number/high power field) [HPF] NRG Bacteria detection in urine sediment by light microsco py NEGATIVE NRG Crystals detection in urine sediment by light microsco py NONE NRG Casts detection in urine sediment by light microscopy NONE NRG Mucus detection in urine sediment by light microscopy NEGATIVE NRG Complete urinalysis with reflex to culture YES NRG Urine drug screening test - 10/05/19 22: 21 Urine phencyclidine detection by screening method NEGATIVE NEGATIVE Urine benzodiazepines detection by screening method POSITIVE NEGATIVE Urine cocaine detection NEGATIVE NEGATI VE Urine amphetamines detection by screening method N EGATIVE NEGATIVE Urine methamphetamine detection by screening method NEGATIVE NEGATIVE Urine cannabinoids detection by screening method N EGATIVE NEGATIVE Urine opiates detection by screening method NEGATI VE NEGATIVE Urine barbiturates detection NEGATIVE N EGATIVE Screening urine tricyclic antidepressants detection NEGATIVE NEGATIVE Urine methadone detection by screening method NEGA TIVE NEGATIVE Urine oxycodone detection NEGATIVE NEGA TIVE Urine propoxyphene detection NEGATIVE N EGATIVE Bacterial urine culture - 10/05/19 22:21 Bacterial urine culture 3 OR MORE NRG COLONY COUNT 30,000 CFU/ML NRG FTX;REPORTABLE (GRAM POSITIVE) SUGGESTING PROBABLE NRG FREE TEXT ENTRY 2 COLLECTION CONTAMINATION WITH SK IN NRG FREE TEXT ENTRY 3 ABIMBOLA. NO SUSCEPTIBILITY PERFOR MED NRG Complete blood count (CBC) with automate d white blood cell (WBC) differential - 10/05/19 22:33 Blood leukocytes automated count (number/volume) 5.1 10*3/uL 4.3-11.0 Blood erythrocytes automated count (number/volume) 4.24 10*6/uL 4.35-5.85 Venous blood hemoglobin measurement (mass/volume) 13.9 g/dL 11.5-16.0 Blood hematocrit (volume fraction) 40 % 35-52 Automated erythrocyte mean corpuscular volume 94 [ foz_us] 80-99 Automated erythrocyte mean corpuscular h emoglobin (mass per erythrocyte) 33 pg 25-34 Automated erythrocyte mean corpuscular h emoglobin concentration measurement (mass/volume) 35 g/dL 32-36 Automated erythrocyte distribution width ratio 11. 7 % 10.0- 14.5 Automated blood platelet count (count/volume) 209 10*3/uL 130-400 Automated blood platelet mean volume measurement 10.7 [foz_us] 7.4-10.4 Automated blood neutrophils/100 leukocytes 53 % 42-75 Automated blood lymphocytes/100 leukocytes 35 % 12-44 Blood monocytes/100 leukocytes 9 % 0-12 Automated blood eosinophils/100 leukocytes 2 % 0-10 Automated blood basophils/100 leukocytes 1 % 0-10 Blood neutrophils automated count (number/volume) 2.7 10*3 1.8-7.8 Blood lymphocytes automated count (number/volume) 1.8 10*3 1.0-4.0 Blood monocytes automated count (number/volume) 0. 4 10*3 0.0-1.0 Automated eosinophil count 0.1 10*3/uL 0 .0-0.3 Automated blood basophil count (count/volume) 0.0 10*3/uL 0.0-0.1 Comprehensive metabolic panel - 10/05/19 22:33 Serum or plasma sodium measurement (moles/volume) 142 mmol/L 135-145 Serum or plasma potassium measurement (moles/volume) 3.7 mmol/L 3.6-5.0 Serum or plasma chloride measurement (moles/volume) 106 mmol/L 98-107 Carbon dioxide 23 mmol/L 21-32 Serum or plasma anion gap determination (moles/volume) 13 mmol/L 5-14 Serum or plasma urea nitrogen measurement (mass/volume ) 17 mg/dL 7-18 Serum or plasma creatinine measurement (mass/volume) 0.87 mg/dL 0.60-1.30 Serum or plasma urea nitrogen/creatinine mass ratio 20 NRG Serum or plasma creatinine measurement w ith calculation of estimated glomerular filtration rate > NRG Serum or plasma glucose measurement (mass/volume) 93 mg/dL 70-105 Serum or plasma calcium measurement (mass/volume) 9.3 mg/dL 8.5-10.1 Serum or plasma total bilirubin measurement (mass/volu me) 0.2 mg/dL 0.1-1.0 Serum or plasma alkaline phosphatase garo surement (enzymatic activity/volume) 157 U/L 40-136 Serum or plasma aspartate aminotransfera se measurement (enzymatic activity/volume) 133 U/L 5-34 Serum or plasma alanine aminotransferase measurement (enzymatic activity/volume) 317 U/L 0-55 Serum or plasma protein measurement (mass/volume) 7.7 g/dL 6.4-8.2 Serum or plasma albumin measurement (mass/volume) 4.6 g/dL 3.2-4.5 Serum or plasma salicylates measurement (mass/volume) - 10/05/19 22:33 Serum or plasma salicylates measurement (mass/volume) 0.4 mg/dL 5.0-20.0 Serum or plasma acetaminophen measuremen t (mass/volume) - 10/05/19 22:33 Serum or plasma acetaminophen measurement (mass/volume ) < ug/mL 10-30 Serum or plasma ethanol measurement (mas s/volume) - 10/05/19 22:33 Serum or plasma ethanol measurement (mass/volume) < mg/dL <10 HEPATIC FUNCTION PANEL - 10/07/19 05:27 ALBUMIN 4.0 g/dL 3.4-4.8 ALKALINE PHOSPHATASE 131 U/L 29-122 ALT 206 U/L 10-46 AST 50 U/L 16-37 BILIRUBIN DIRECT < mg/dL <=0.3 BILIRUBIN,TOTAL < mg/dL 0.0-1.2 PROTEIN TOTAL 6.0 g/dL 5.7-8.2 GGT - 12/19/19 09:02 GGT 194 U/L 3-55 Blood or tissue HFE gene mutations found identification by molecular genetics method nominal - 03/18/20 11:06 [id number] SEE FOOTNOTE NRG H63D hemochromatosis mutation detection Negative NRG C282Y hemochromatosis mutation detection Homozygou s NRG Blood or tissue HFE gene mutations found identification by molecular genetics method nominal Negative NRG Encounters ACCT No. Visit Date/Time Discharge Status Pt. Type Provider Facility Loc./Unit Complaint [id number] 10/06/2019 13:15:00 9 14:32:00 DIS Inpatient BRITNI MULLER [facility] [id number] 08/26/2016 13:05:00 Document Registration [id number] 12/27/2019 16:00:00 12/27/2019 23:59: 59 CLS Outpatient ROSETTEDARIUS AWAN [facility] [id number] 12/19/2019 08:45:00 Document Registration [id number] 09/19/2019 15:00:00 Document Registration [id number] 08/15/2019 14:00:00 Document Registration [id number] 02/20/2019 14:40:00 Document Registration [id number] 09/06/2018 15:20:00 Document Registration [id number] 08/05/2018 13:20:00 Document Registration [id number] 08/02/2018 10:20:00 Document Registration [id number] 06/15/2018 16:00:00 Document Registration [id number] 05/13/2018 15:40:00 Document Registration [id number] 11/09/2017 12:00:00 Document Registration [id number] 03/18/2020 10:51:00 020 23:59:59 CLS Outpatient CHAUNCEY MAYBERRY MD [facility] LAB E83.110 [id number] 10/05/2019 21:42:00 019 11:02:00 DIS Emergency SILVIA CHOPRA MD [facility] ER FS PSYCH EVAL [id number] 08/19/2018 19:36:00 018 00:45:00 DIS Emergency EDWARD MACIEL [facility] ER R SIDE PAIN [id number] 04/19/2018 21:11:00 018 06:58:00 DIS Outpatient EVER STOVER MD [facility] SLEEP OBSTRUCTIVE SLEEP APNEA [id number] 03/01/2018 08:32:00 018 23:59:59 CLS Outpatient EVER STOVER MD [facility] CARD R94.39 ABN STRESS TEST [id number] 02/23/2018 10:28:00 018 16:55:00 DIS Outpatient EVER STOVER MD [facility] CATH CP,ABN STRESS TEST [id number] 02/16/2018 12:32:00 018 23:59:59 CLS Outpatient DARIUS PATEL MD [facility] CARD R07.9 CHEST PAIN [id number] 02/15/2018 12:15:00 018 23:59:59 CLS Preadmit DARIUS PATEL MD, [facility] CARD R07.9 CHEST PAIN [id number] 01/12/2018 14:06:00 018 23:59:59 CLS Outpatient DARIUS PATEL MD [facility] CARD CHEST PAIN [id number] 12/28/2017 16:13:00 018 17:49:00 DIS Emergency FARIHA MOSES APRN [facility] ER CP [id number] 04/24/2020 09:54:[address] Emergency LUISITO YATES, EFRAÍN Rubio [facility] ER SUICIDAL;OVERDOSE
[2020-04-24 10:35] LABS: ALBUMIN 4.3 GM/DL (3.2-4.5); CHLORIDE 113 MMOL/L (98-107); POTASSIUM 3.4 MMOL/L (3.6-5.0); SODIUM 143 MMOL/L (135-145)
[2020-04-24 10:36] LABS: CALCIUM 9.1 MG/DL (8.5-10.1)
[2020-04-24 10:37] LABS: GLUCOSE 86 MG/DL (70-105)
[2020-04-24 10:37] LABS: BACTERIA,URINE NEGATIVE /HPF
[2020-04-24 10:38] LABS: CARBON DIOXIDE 22 MMOL/L (21-32)
[2020-04-24 10:39] LABS: BILIRUBIN,TOTAL 0.3 MG/DL (0.1-1.0)
[2020-04-24 10:41] LABS: ALKALINE PHOSPHATASE 97 U/L (40-136); CREATININE SERUM 0.93 MG/DL (0.60-1.30); GFR ESTIMATED > 60
[2020-04-24 10:43] LABS: BUN/CREATININE RATIO 16
[2020-04-24 10:43] LABS: AMPHETAMINE SCREEN, URINE NEGATIVE (NEGATIVE); BARBITURATE SCREEN URINE NEGATIVE (NEGATIVE); BENZODIAZEPINES SCREEN URINE NEGATIVE (NEGATIVE); CANNABINOID SCREEN, URINE NEGATIVE (NEGATIVE); COCAINE SCREEN URINE NEGATIVE (NEGATIVE); METHADONE STAT NEGATIVE (NEGATIVE); METHAMPHETAMINE SCREEN URINE S NEGATIVE (NEGATIVE); OPIATE SCREEN URINE NEGATIVE (NEGATIVE); OXYCODONE STAT NEGATIVE (NEGATIVE); PROPOXYPHENE STAT NEGATIVE (NEGATIVE); TRICYCLIC ANTIDEPRESSANTS SCRE NEGATIVE (NEGATIVE)
[2020-04-24 10:44] LABS: ALANINE AMINOTRANSFERASE 58 U/L (0-55); SALICYLATE < 5.0 MG/DL (5.0-20.0)
[2020-04-24 10:46] LABS: ACETAMINOPHEN < 10 UG/ML (10-30)
--- NOTE | 2020-04-24 11:00 | NUR ---
Recieved report from JUAN JOSE Maya to assume care of pt at this time.
--- NOTE | 2020-04-24 11:11 | ED Psychosocial ---
General Chief Complaint: Psych/Social Disorder Stated Complaint: SUICIDAL;OVERDOSE Nursing Triage Note: Pt brought to ED by sameer. Pt reports feeling suicidal. Pt reports taking an unknown amount of Klonipin with ETOH on Wednesday. Pt reports then taking 5 Klonipin 1 mg in the middle of the night last night. Pt reports feeling suicidal over pt's children not wanting pt to see grandchildren. Pt states, "I don't want to live." Boss reports pt wasn't "acting right" at work and called pt into office. Boss reports pt stated same things. Sameer called Barrett Etienne, pt's therapist, with the pt and therapist recommended coming to the ED. Source: patient, old records Exam Limitations: no limitations (EFRAÍN JORGE MD) History of Present Illness Date Seen by Provider: Apr 24, 2020 Time Seen by Provider: 10:00 Initial Comments This patient presents to the ER with complaint of suicidal ideation with intent to harm herself by taking 6 Klonopin 1 mg tablets at 0100. She sees a therapist and a behavioral health provider at [facility]. She had another episode requiring psyciatric hospitalization last year. She drank alcohol last night but none today. Poison control was notified. (EFRAÍN JORGE MD) Allergies and Home Medications Allergies Uncoded Allergies: SULFA (Allergy, Unknown, 12/28/17) Home Medications Aspirin 81 Mg Tablet.dr, 81 MG PO DAILY, (Reported) Aspirin/Acetaminophen/Caffeine 1 Each Tablet, 2 TAB PO DAILY, (Reported) Cephalexin 500 Mg Capsule, 500 MG PO QID Prescribed by: EDWARD RAYMOND on 08/20/1831 Cholecalciferol (Vitamin D3) 5,000 Unit Capsule, 5,000 UNIT PO DAILY, (Reported) Citalopram Hydrobromide 40 Mg Tablet, 40 MG PO DAILY, (Reported) Cyanocobalamin (Vitamin B-12) 5,000 Mcg Tab.rapdis, 1,500 MCG PO DAILY, (Reported) Famotidine 20 Mg Tablet, 20 MG PO DAILY, (Reported) Naproxen 500 Mg Tablet, 500 MG PO BID PRN for pain Prescribed by: EDWARD RAYMOND on 08/20/1831 Ondansetron 4 Mg Tab.rapdis, 4 MG PO Q4H PRN for NAUSEA/VOMITING Prescribed by: EDWARD RAYMOND on 08/20/1831 Oxybutynin Chloride 10 Mg Tab.er.24, 10 MG PO DAILY, (Reported) Phenazopyridine HCl 100 Mg Tablet, 100 MG PO Q8H PRN for pain Prescribed by: EDWARD RAYMOND on 08/20/1831 Topiramate 200 Mg Tablet, 200 MG PO DAILY, (Reported) Topiramate 200 Mg Tablet, 100 MG PO HS, (Reported) TAKES 1/2 (200MG) TABLET [Feverfew] , 1 CAP PO DAILY, (Reported) Patient Home Medication List Home Medication List Reviewed: Yes (EFRAÍN JORGE MD) Review of Systems Constitutional: see HPI EENTM: no symptoms reported Respiratory: no symptoms reported Cardiovascular: no symptoms reported Gastrointestinal: no symptoms reported Genitourinary: no symptoms reported : No Musculoskeletal: no symptoms reported Skin: no symptoms reported Psychiatric/Neurological: See HPI (EFRAÍN JORGE MD) Past Kungmyt-Lsniik-Ngtudj Hx Past Med/Social Hx: Reviewed Nursing Past Med/Soc Hx (EFRAÍN JORGE MD) Patient Social History Alcohol Use: Rarely Uses Recreational Drug Use: No Smoking Status: Former Smoker Type Used: Cigarettes Former Smoker, Quit: February 23, 2007 2nd Hand Smoke Exposure: No Recent Foreign Travel: No Contact w/Someone Who Travel: No Recent Infectious Disease Expo: No Recent Hopitalizations: No Physical Abuse: No Sexual Abuse: No Mistreated: No Fear: No (EFRAÍN JORGE MD) Immunizations Up To Date Tetanus Booster (TDap): Unknown (EFRAÍN JORGE MD) Seasonal Allergies Seasonal Allergies: No (EFRAÍN JORGE MD) Past Medical History Surgeries: Yes Appendectomy, Gallbladder, Hysterectomy, Tonsillectomy Respiratory: No Cardiac: Yes (HX HEART CATH NO STENT) High Cholesterol Neurological: Yes 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 /Migraines 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 Genitourinary: No Gastrointestinal: Yes (HEMACHROMATOSIS) Gastrointestinal Bleed Musculoskeletal: No Endocrine: No HEENT: No Cancer: No Psychosocial: Yes Anxiety, Suicide Attempts, Depression Integumentary: No Blood Disorders: No Adverse Reaction/Blood Tranf: No (EFRAÍN JORGE MD) Family Medical History No Pertinent Family Hx (EFRAÍN JORGE MD) Physical Exam Vital Signs - First Documented 04/24/20 10:00 Temp 36.3 Pulse 65 Resp 30 B/P (MAP) 123/65 (84) Pulse Ox 96 O2 Delivery Room Air (FARIHA MOSES APRN) Capillary Refill : Less Than 3 Seconds (EFRAÍN JORGE MD) Height, Weight, BMI Height: 5'5.00" Weight: 167lbs. 0oz. 75.625696tu; 30.00 BMI Method:Stated General Appearance: WD/WN, no apparent distress, other (somnolent) HEENT: PERRL/EOMI, normal ENT inspection, pharynx normal Neck: normal inspection Respiratory: lungs clear, normal breath sounds, no respiratory distress, no accessory muscle use Cardiovascular: regular rate, rhythm, no edema, no murmur Peripheral Pulses: 0 Carotid (R), 0 Carotid (L), 0 Femoral (R), 0 Femoral (L), 0 Dorsalis Pedis (R), 0 Left Dors-Pedis (L), 0 Radial Pulses (R), 0 Radial Pulses (L) Gastrointestinal: normal bowel sounds, non tender, soft Extremities: normal inspection, no pedal edema Neurologic/Psychiatric: accordion repairer II-XII nml as tested, no motor/sensory deficits, alert, depressed affect, other (aler to person, place and month. Disoriented to year) Behavior/Eye Contact: cooperative, good eye contact, normal speech Thoughts/Hallucinations: no apparent hallucination Skin: normal color, warm/dry (EFRAÍN JORGE MD) Progress/Results/Core Measures Results/Orders Lab Results Laboratory Tests Test 04/24/20 10:10 04/24/20 10:23 Range/Units White Blood Count 7.4 4.3-11.0 10^3/uL Red Blood Count 4.01 L 4.35-5.85 10^6/uL Hemoglobin 13.0 11.5-16.0 G/DL Hematocrit 37 35-52 % Mean Corpuscular Volume 91 80-99 FL Mean Corpuscular Hemoglobin 32 25-34 PG Mean Corpuscular Hemoglobin Concent 36 32-36 G/DL Red Cell Distribution Width 12.3 10.0-14.5 % Platelet Count 212 130-400 10^3/uL Mean Platelet Volume 10.4 7.4-10.4 FL Neutrophils (%) (Auto) 67 42-75 % Lymphocytes (%) (Auto) 25 12-44 % Monocytes (%) (Auto) 6 0-12 % Eosinophils (%) (Auto) 2 0-10 % Basophils (%) (Auto) 0 0-10 % Neutrophils # (Auto) 5.0 1.8-7.8 X 10^3 Lymphocytes # (Auto) 1.8 1.0-4.0 X 10^3 Monocytes # (Auto) 0.4 0.0-1.0 X 10^3 Eosinophils # (Auto) 0.2 0.0-0.3 10^3/uL Basophils # (Auto) 0.0 0.0-0.1 10^3/uL Sodium Level 143 135-145 MMOL/L Potassium Level 3.4 L 3.6-5.0 MMOL/L Chloride Level 113 H 98-107 MMOL/L Carbon Dioxide Level 22 21-32 MMOL/L Anion Gap 8 5-14 MMOL/L Blood Urea Nitrogen 15 7-18 MG/DL Creatinine 0.93 0.60-1.30 MG/DL Estimat Glomerular Filtration Rate > 60 BUN/Creatinine Ratio 16 Glucose Level 86 70-105 MG/DL Calcium Level 9.1 8.5-10.1 MG/DL Corrected Calcium 8.9 8.5-10.1 MG/DL Total Bilirubin 0.3 0.1-1.0 MG/DL Aspartate Amino Transf (AST/SGOT) 22 5-34 U/L Alanine Aminotransferase (ALT/SGPT) 58 H 0-55 U/L Alkaline Phosphatase 97 40-136 U/L Total Protein 7.0 6.4-8.2 GM/DL Albumin 4.3 3.2-4.5 GM/DL TSH [place] Testing 1.10 0.35-4.94 UIU/ML Salicylates Level < 5.0 L 5.0-20.0 MG/DL Acetaminophen Level < 10 L 10-30 UG/ML Serum Alcohol < 10 <10 MG/DL Urine Color YELLOW Urine Clarity CLEAR Urine pH 6.0 5-9 Urine Specific [place] <=1.005 1.016-1.022 Urine Protein NEGATIVE NEGATIVE Urine Glucose (UA) NEGATIVE NEGATIVE Urine Ketones NEGATIVE NEGATIVE Urine Nitrite NEGATIVE NEGATIVE Urine Bilirubin NEGATIVE NEGATIVE Urine Urobilinogen 0.2 < = 1.0 MG/DL Urine Leukocyte Esterase 1+ H NEGATIVE Urine RBC (Auto) NEGATIVE NEGATIVE Urine RBC NONE /HPF Urine WBC 2-5 /HPF Urine Squamous Epithelial Cells 2-5 /HPF Urine Crystals NONE /LPF Urine Bacteria NEGATIVE /HPF Urine Casts NONE /LPF Urine Mucus NEGATIVE /LPF Urine Culture Indicated NO Urine Opiates Screen NEGATIVE NEGATIVE Urine Oxycodone Screen NEGATIVE NEGATIVE Urine Methadone Screen NEGATIVE NEGATIVE Urine Propoxyphene Screen NEGATIVE NEGATIVE Urine Barbiturates Screen NEGATIVE NEGATIVE Ur Tricyclic Antidepressants Screen NEGATIVE NEGATIVE Urine Phencyclidine Screen NEGATIVE NEGATIVE Urine Amphetamines Screen NEGATIVE NEGATIVE Urine Methamphetamines Screen NEGATIVE NEGATIVE Urine Benzodiazepines Screen NEGATIVE NEGATIVE Urine Cocaine Screen NEGATIVE NEGATIVE Urine Cannabinoids Screen NEGATIVE NEGATIVE (FARIHA MOSES APRN) Vital Signs/I&O 04/24/20 10:00 Temp 36.3 Pulse 65 Resp 30 B/P (MAP) 123/65 (84) Pulse Ox 96 O2 Delivery Room Air (FARIHA MOSES APRN) Blood Pressure Mean: 84 Departure Communication (Admissions) 1219-still lethargic, arousable to verbal stimuli but does fall asleep during conversation. Vitals are stable. Currently 104/57 heart rate 51, spoke with Dr. Mchugh at [facility] who agrees to accept the patient. (FARIHA MOSES APRN) Impression Primary Impression: Depression Qualified Codes: F32.2 - Major depressive disorder, single episode, severe without psychotic features Additional Impression: Suicidal intent Disposition: 65 XFER TO PSYCH HOSP/UNIT Condition: Stable Departure-Patient Inst. Referrals: DARIUS PATEL MD (PCP/Family) Primary Care Physician EFRAÍN JORGE MD Apr 24, 2020 11:11 FARIHA MOSES APRN Apr 24, 2020 11:34
--- NOTE | 2020-04-24 12:27 | NUR ---
Pt signed consent for transfer to [facility]. Pt voices no questions or concerns regarding transfer.
--- NOTE | 2020-04-24 12:51 | NUR ---
Contacted Viktoriya Stevens for request pt transfer to [facility]. Viktoriya accepts transfer et reports he will arrival at this ED in approx 30 minutes.
[2020-04-24 13:30] VITALS: BP 97/44
== END 2020-04-24 13:30 ==
LOC: EDUNIT# 09:53 → ER 09:54
DX: F32.9 Major depressive disorder, single episode, unspecified (principal); R45.851 Suicidal ideations; F41.9 Anxiety disorder, unspecified; G43.909 Migraine, unspecified, not intractable, without status migrainosus; Z88.2 Allergy status to sulfonamides; Z79.82 Long term (current) use of aspirin; Z87.891 Personal history of nicotine dependence; Z95.9 Presence of cardiac and vascular implant and graft, unspecified; Z91.5 Personal history of self-harm
CPT/HCPCS: 80053; 80306; 81000; 84443; 85025; 93005; 93041; 99285; G0480 ×3; 36415; 80320; 80329

== ENCOUNTER 2020-05-20 16:51 | Emergency (ER) | payer OTHER, BC ==
[~2020-05-20] VITALS: Ht 162 cm; Wt 83.9 kg
[2020-05-20 17:01] VITALS: BP 105/34
--- NOTE | 2020-05-20 17:08 | ED Lower Extremity ---
General Chief Complaint: Lower Extremity Stated Complaint: OBJECT FELL ON TOE Source: patient Exam Limitations: no limitations History of Present Illness Date Seen by Provider: May 20, 2020 Time Seen by Provider: 16:58 Initial Comments The patient is a pleasant 44-year-old female who presents for evaluation of a left great toe injury. She states that she actually dropped a briefcase onto her toe. There is a small superficial abrasion/laceration to the top of the toe and she states that she is not up-to-date with tetanus so that will be given today. She says that she was able to walk and bear weight but has some discomfort when doing so. She denies any other complaints or injuries. She is alert and oriented 4, calm, and appears to be in no distress at this time. Onset: just prior to arrival Severity: moderate Pain/Injury Location: left 1st toe Method of Injury: direct blow Modifying Factors: Improves With Movement (makes it worse), Improves With Rest (makes it better) Allergies and Home Medications Allergies Coded Allergies: Sulfa (Sulfonamide Antibiotics) (Verified Allergy, Unknown, 05/20/20) Home Medications Aspirin 81 Mg Tablet.dr, 81 MG PO DAILY, (Reported) Aspirin/Acetaminophen/Caffeine 1 Each Tablet, 2 TAB PO DAILY, (Reported) Cephalexin 500 Mg Capsule, 500 MG PO QID Prescribed by: EDWARD RAYMOND on 08/20/1831 Cholecalciferol (Vitamin D3) 5,000 Unit Capsule, 5,000 UNIT PO DAILY, (Reported) Citalopram Hydrobromide 40 Mg Tablet, 40 MG PO DAILY, (Reported) Cyanocobalamin (Vitamin B-12) 5,000 Mcg Tab.rapdis, 1,500 MCG PO DAILY, (Reported) Famotidine 20 Mg Tablet, 20 MG PO DAILY, (Reported) Naproxen 500 Mg Tablet, 500 MG PO BID PRN for pain Prescribed by: EDWARD RAYMOND on 08/20/1831 Ondansetron 4 Mg Tab.rapdis, 4 MG PO Q4H PRN for NAUSEA/VOMITING Prescribed by: EDWARD RAYMOND on 08/20/1831 Oxybutynin Chloride 10 Mg Tab.er.24, 10 MG PO DAILY, (Reported) Phenazopyridine HCl 100 Mg Tablet, 100 MG PO Q8H PRN for pain Prescribed by: EDWARD RAYMOND on 08/20/182 Topiramate 200 Mg Tablet, 200 MG PO DAILY, (Reported) Topiramate 200 Mg Tablet, 100 MG PO HS, (Reported) TAKES 1/2 (200MG) TABLET [Feverfew] , 1 CAP PO DAILY, (Reported) Patient Home Medication List Home Medication List Reviewed: Yes Review of Systems Constitutional: no symptoms reported EENTM: no symptoms reported Respiratory: no symptoms reported Cardiovascular: no symptoms reported Gastrointestinal: no symptoms reported Genitourinary: no symptoms reported Musculoskeletal: other (left great toe injury with abrasion) Skin: no symptoms reported Psychiatric/Neurological: No Symptoms Reported All Other Systems Reviewed Negative Unless Noted: Yes Past Bmfgkce-Taiimh-Wpuehq Hx Past Med/Social Hx: Reviewed Nursing Past Med/Soc Hx Patient Social History Alcohol Use: Denies Use Recreational Drug Use: No Smoking Status: Former Smoker Type Used: Cigarettes Former Smoker, Quit: February 23, 2007 2nd Hand Smoke Exposure: No Recent Foreign Travel: No Contact w/Someone Who Travel: No Recent Hopitalizations: No Physical Abuse: No Sexual Abuse: No Mistreated: No Fear: No Immunizations Up To Date Tetanus Booster (TDap): Unknown Seasonal Allergies Seasonal Allergies: No Past Medical History Surgeries: Yes Appendectomy, Gallbladder, Hysterectomy, Tonsillectomy Respiratory: No Cardiac: Yes (HX HEART CATH NO STENT) High Cholesterol 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 0oz. 75.299409mf; 30.00 BMI Method:Stated General Appearance: WD/WN, no apparent distress HEENT: PERRL/EOMI, pharynx normal Neck: non-tender, full range of motion, supple Cardiovascular: regular rate, rhythm, no edema, no JVD Respiratory: lungs clear, no respiratory distress, no accessory muscle use Hips: bilateral hip non-tender, bilateral hip normal inspection, bilateral hip normal range of motion, bilateral hip no evidence of injury Legs: bilateral leg non-tender, bilateral leg normal inspection, bilateral leg normal range of motion, bilateral leg no evidence of injury Knees: bilateral knee non-tender, bilateral knee normal inspection, bilateral knee normal range of motion, bilateral knee no evidence of injury Ankles: bilateral ankle non-tender, bilateral ankle normal inspection, bilateral ankle normal range of motion, bilateral ankle no evidence of injury Feet: left foot bone tenderness (left great toe ttp, no swelling/deformity, small abrasion on top, no active bleeding) Neurologic/Psychiatric: no motor/sensory deficits, alert, normal mood/affect, oriented x 3 Skin: normal color, warm/dry Progress/Results/Core Measures Results/Orders My Orders Orders - DANYELLE NEAL DO Toe(S) (05/20/20 17:03) Dipht,Pertuss(Acell),Tet Adult (Boostrix (05/20/20 17:15) Medications Given in ED Current Medications Medications Dose Ordered Sig/Carlos Route Start Time Stop Time Status Last Admin Dose Admin Diphtheria/ Tetanus/Acell Pertussis 0.5 ml ONCE ONCE IM 05/20/20 17:15 05/20/20 17:16 DC 05/20/20 17:13 0.5 ML Vital Signs/I&O 05/20/20 17:01 Temp 36.5 Pulse 58 Resp 16 B/P (MAP) 105/34 (57) Pulse Ox 98 Progress Progress Note : Progress Note @1739 - patient updated on x-ray results which are acutely unremarkable. Advised patient to follow up with her PCP in the next 2-3 days and to return to the emergency Department immediately for new or worsening symptoms. Advised patient to take Tylenol and/or ibuprofen and to apply ice as needed. Diagnostic Imaging Diagonstic Imaging: Xray Comments [facility], [place] NAME: GIULIA MCKEON MED REC#: [id number] PT STATUS: REG ER : 1975 PHYSICIAN: DANYELLE NEAL DO ADMIT DATE: 05/20/20/ER FS Signed Date of Exam:05/20/20 TOE(S) Indication: Left great toe injury AP, oblique and lateral views of the left great toe are obtained. FINDINGS: There is mild bunion deformity. No acute fracture or dislocation is identified. No abnormal lytic or sclerotic focus is seen, and there is no radiopaque foreign body. IMPRESSION: No acute abnormality. Dictated by: Dictated on workstation # [id number] Dict: 05/20/20 1729 Trans: 05/20/20 1730 [id number] Interpreted by: AMAURY KAYE MD Electronically signed by: AMAURY KAYE MD 05/20/20 173 Departure Impression Primary Impression: Contusion of toe, left Disposition: 01 HOME, SELF-CARE Condition: Stable Departure-Patient Inst. Decision time for Depature: 17:40 Referrals: DARIUS PATEL MD (PCP/Family) Primary Care Physician Patient Instructions: Contusion (DC) Add. Discharge Instructions: Follow-up with your doctor in the next 1-2 days. Take Tylenol or ibuprofen at home for pain relief is needed. Return to the emergency department immediately for new or worsening symptoms. DANYELLE NEAL DO May 20, 2020 17:08
[2020-05-20] MEDS ORDERED: TETANUS,DIPTH,PERTUSS P/F (BOOSTRIX) 0.5 ML VIAL IM ONE (17:15)
--- NOTE | 2020-05-20 17:32 | Diagnostic Imaging Report ---
Indication: Left great toe injury AP, oblique and lateral views of the left great toe are obtained. FINDINGS: There is mild bunion deformity. No acute fracture or dislocation is identified. No abnormal lytic or sclerotic focus is seen, and there is no radiopaque foreign body. IMPRESSION: No acute abnormality. Dictated by: Dictated on workstation # [id number]
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
== END 2020-05-20 17:42 | disposition home or self-care (01) ==
LOC: EDUNIT# 16:51 → ER FS 16:52
DX: S90.112A Contusion of left great toe without damage to nail, initial encounter (principal); F41.9 Anxiety disorder, unspecified; F32.9 Major depressive disorder, single episode, unspecified; G43.909 Migraine, unspecified, not intractable, without status migrainosus; Z95.9 Presence of cardiac and vascular implant and graft, unspecified; Z88.2 Allergy status to sulfonamides; Z79.82 Long term (current) use of aspirin; Z87.891 Personal history of nicotine dependence; Z23 Encounter for immunization; W20.8XXA Other cause of strike by thrown, projected or falling object, initial encounter
CPT/HCPCS: 73660; 90715

== ENCOUNTER → 2021-01-09 | Outpatient (CLI) | payer OTHER ==
[~2021-01-09] MED LIST changes: +ASPI-1238 PO; -ASPI-983 PO
[2021-01-09 12:22] LABS: CHLORIDE 106 MMOL/L (98-107); POTASSIUM 3.4 MMOL/L (3.6-5.0); SODIUM 141 MMOL/L (135-145)
[2021-01-09 12:23] LABS: ALANINE AMINOTRANSFERASE 17 U/L (0-55); ALBUMIN 4.6 GM/DL (3.2-4.5); ALKALINE PHOSPHATASE 92 U/L (40-136); BILIRUBIN,TOTAL 0.2 MG/DL (0.1-1.0); BUN/CREATININE RATIO 20; CALCIUM 9.4 MG/DL (8.5-10.1); CARBON DIOXIDE 22 MMOL/L (21-32); GFR ESTIMATED > 60; GLUCOSE 92 MG/DL (70-105); TOTAL PROTEIN 7.3 GM/DL (6.4-8.2)
[2021-01-09 15:05] LABS: TRIGLYCERIDES 121 MG/DL (<150); VLDL CHOLESTEROL 24 MG/DL (5-40)
[2021-01-09 15:10] LABS: CHOLESTEROL 253 MG/DL (< 200)
[2021-01-09 15:11] LABS: HDL CHOLESTEROL 57 MG/DL (40-60)
== END ==
LOC: LAB FS 10:26
PROVIDERS: ATTEND Physician Assistant
DX: E78.2 Mixed hyperlipidemia (principal)
CPT/HCPCS: 36415; 80053; 80061

== ENCOUNTER 2021-05-31 22:31 | Emergency (ER) | payer OTHER ==
[~2021-05-31] VITALS: Ht 162.5 cm; Wt 88.8 kg
[~2021-05-31 22:31] MED LIST changes: -CYAN50008 PO; +CYAN50009 PO
--- OUTSIDE RECORDS SUMMARY | 2021-05-31 22:37 | XMS REPORT | Encounter Summary ---
Author Author [facility] Organization [facility] Address Unknown Phone Unavailable Care Team Providers Care Confectionery Maker Name Role Phone Kenyetta Ibarra MD PCP Vy Knight MD 21 Encounter Details Care Team Description Date Type Department 05/06/2021 Travel Social History Date Tobacco Use Types Packs/Day Years Used Former Smoker Smokeless Tobacco: Never Used Comments: quit in 2006 Comments Alcohol Use Standard Drinks/Week rare Yes 0 (1 standard drink = 0.6 o z pure alcohol) Sex Assigned at Date Recorded Female 05/08/2020 12:41 PM CDT Date Recorded COVID-19 Exposure Response 05/06/2021 9:30 AM CDT In the last month, have you been in contact with No / Unsure someone who was confirmed or suspected to have Coronavirus / COVID-19? documented as of this encounter Functional Status Date of Assessment Functional Status Response 05/06/2021 Does the patient have a hearing impairment: No 05/06/2021 Does the patient have a visual impairment: Yes 05/06/2021 Does the patient have impaired ambulation: No 05/06/2021 Does the patient have an activity of daily living No (ADL) impairment: 05/06/2021 Does the patient have an instrumental activity of No daily living (IADL) impairment: Date of Assessment Cognitive Status Response 05/06/2021 Does the patient have a cognitive impairment: No documented as of this encounter Plan of Treatment Not on filedocumented as of this encounter Visit Diagnoses Not on filedocumented in this encounter Additional Health Concerns Assessment Noted Time A fall risk assessment has been completed for the pat ient 05/06/2021 9:32 AM CDT PHQ-2 Depression Total Score: 0 05/06/2021 9:32 AM CDT documented as of this encounter
--- OUTSIDE RECORDS SUMMARY | 2021-05-31 22:37 | XMS REPORT | Encounter Summary ---
Author Author [facility] Organization [facility] Address Unknown Phone Unavailable Care Team Providers Care Briquetting Machine Operator Name Role Phone Kenyetta Ibarra MD PCP Vy Knight MD 21 Encounter Details Care Team Description Date Type Department 05/13/2021 Travel Social History Date Tobacco Use Types Packs/Day Years Used Former Smoker Smokeless Tobacco: Never Used Comments: quit in 2006 Comments Alcohol Use Standard Drinks/Week rare Yes 0 (1 standard drink = 0.6 o z pure alcohol) Sex Assigned at Date Recorded Female 05/08/2020 12:41 PM CDT Date Recorded COVID-19 Exposure Response 05/13/2021 8:43 AM CDT In the last month, have [...] has been completed for the pat ient 05/13/2021 8:45 AM CDT PHQ-2 Depression Total Score: 0 05/13/2021 8:44 AM CDT documented as of this encounter
--- OUTSIDE RECORDS SUMMARY | 2021-05-31 22:37 | XMS REPORT | Encounter Summary ---
Author Author [facility] Organization [facility] Address Unknown Phone Unavailable Care Team Providers Care People Manager Name Role Phone Kenyetta Ibarra MD PCP Vy Knight MD 21 Reason for Visit * Reason Comments Migraine * Consult, Test & Treat (Routine) Referred By Contact Referred To Contact Status Reason Specialty Diagnoses / Procedures Vy Knight MD [address] [place] [address] [place] [address] [place] [address] Authorized Specialty Services Neurology Diagnoses Required Migraine with aura and without status migrainosus, not intractable Encounter Details Care Team Description Date Type Department [place] [address] [place] [address] [phone] Chronic migraine w/o aura w/o status andre rainosus, not intractable (Primary Dx) 05/13/2021 Office Visit Neurology: [facility] [place] [phone] Social History Date Tobacco Use Types Packs/Day [...] impairment: No documented as of this encounter Patient Instructions * Patient Instructions* Salomón Mayer MD - 05/13/2021 9:00 AM CDT RECOMMENDATIONS: Start botox Prior authorization. Discussed risks/benefits. Will provide fold er at visit. Decrease topamax to 250mg once daily for 2 weeks, then 200mg once daily x 2 weeks, then 150mg once daily x 2 weeks, 100mg daily thereafter. For Acute Headache: -- For a more severe headache, take nurtec 75mg + naproxen 440/500mg + magnesiu m oxide 400-500mg +/- benadryl 25mg (depending on if you are at work/needing to drive) -- Please refrain from taking any combination of "as needed" medications more th an 8-10 times per month, as this can lead to medication overuse/rebound headache s. -- Trial of NURTEC ODT 75mg daily as needed for migraine. To be used no more th an 8 days per month. -- Most common side effects include nausea and somnolence. -- Certain medications may interact with Nurtec, so please notify your physicia ns you are on this medication. -- Please visit [facility], go to getting started, then savings and fill out the information for the [employer] card, OR text NSAVE to [phone] to obtain a [employer] card. documented in this encounter Ordered Prescriptions Start Date End Date Prescription Sig Dispensed Refills 05/13/2021 Rimegepant (NURTEC ODT) Dissolve one 8 tablet 0 75 mg tablet tablet by mouth daily as needed. 05/13/2021 topiramate (TOPAMAX) 50 Take one 30 tablet 0 mg tablet tablet by mouth at bedtime daily. documented in this encounter Progress Notes * Holly Avitia - 05/13/2021 9:00 AM CDT Obtained patient's verbal consent to treat them and their agreement to [facility] ancial policy and NPP via this telehealth visit during the Coronavirus Public He alth Emergency * Salomón Mayer MD - 05/13/2021 9:00 AM CDT Obtained patient's verbal consent to treat them and their agreement to [facility] ancial policy and NPP via this telehealth visit during the Coronavirus Public He alth Emergency Zoom Consent: Audio + Video utilized This visit was completed via Zoom due to the restrictions of the [email or web address] ic. All issues documented were discussed and addressed but no physical exam was performed unless allowed by visual confirmation on Zoom. If it was felt that the patient should be evaluated in clinic then they were directed there. Subjective: History of Present Illness Rosemarie Brown is a 45 y.o. female. Initial Visit Date: 05/13/21 Reason for Visit: migraine Physician Information PCP: Dr. Kenyetta Ibarra Referring Physician: Dr. Vy Knight ([facility]) Type of Work: [employer] Onset: Started since 15 years old (had imaging as a teenager) Location: Frontalis, or one side of the forehead, and middle of the neck- patien t reports if she provides deep palpation or pulls on her hair she can sometimes temporarily relieve some pain Quality: Throbbing, pressure Severity: 10/10 Total headache days per month/duration: 15 migraine days per month Associated symptoms: nausea, vomiting, photophobia, phonophobia Denies: lacrimation/rhinorrhea, positional changes. She reports ringing in one e ar (do not recall which ear) with her migraines Aura: Patient reports dark spots in bilateral eyes during migraines attacks not prior. They last for a long time (several hours) Triggers: If she is in a hurry or emergency, excited, stress, caffeine Sleep/snoring: Patient works evenings and nights and reports varying hours- aver aging at least 6 hours. She does not feel rested and reports sometimes waking up with headaches or prolonged sleeping can trigger headaches. Patient's r eports snoring at night. She did have a sleep study that showed mild JOSEPH. She us es positional changes. This was only 2-3 years ago. Hx of head injury: none Family hx of migraine: none Last Eye exam: Reports last year- normal She is on topamax at high doses, and she does note some memory trouble. Abortive tx: Excedrin- not effective due to taking every single day with Sumatriptan - took a long time for medication to take effect - was helpful Maxalt- 10 years ago and not effective Relpax - stopped due to cost PPx tried/length of trial: Wellbutrin 150mg daily Prozac 40mg daily Topamax 150mg BID- migraines prescribed by PCP Feverfew 380mg daily Krill oil 500mg daily Lamictal- used for depression Celexa - depression __ Medical History: Diagnosis Date Anxiety Depression Elevated liver enzymes Endometriosis hysterectomy at 25 GERD (gastroesophageal reflux disease) Hemochromatosis Hyperlipidemia Menorrhagia treated w/ progesterone in the past Migraine Multigravida Osteoarthritis Surgical History: Procedure Laterality Date APPENDECTOMY BLADDER SURGERY bx benign CARDIAC CATHERIZATION CHOLECYSTECTOMY HYSTERECTOMY LIVER BIOPSY Social History Tobacco Use Smoking status: Former Smoker Smokeless tobacco: Never Used Tobacco comment: quit in 2006 Substance Use Topics Alcohol use: Yes Comment: rare Drug use: Never Family History Problem Relation Age of Onset Diabetes Other Hemochromatosis Neg Hx Cancer Neg Hx Allergies Allergen Reactions Sulfa (Sulfonamide Antibiotics) RASH Review of Systems Eyes: Positive for photophobia. Gastrointestinal: Positive for nausea. Neurological: Positive for headaches. Objective: aspirin EC 81 mg tablet Take 81 mg by mouth daily. Take with food. bran/gum/fib/torin/psyl/kelp/pec (FIBER 6 PO) Take by mouth. brexpiprazole (REXULTI) 2 mg tablet Take 2 mg by mouth daily. bupropion HCl (WELLBUTRIN PO) Take 150 mg by mouth. cholecalciferol (vitamin D3) 10 mcg/mL (400 unit/mL) oral solution [address] (NEXIUM) 20 mg capsule Take 20 mg by mouth every morning. Ta ke on an empty stomach at least 1 hour before or 2 hours after food. FEVERFEW PO Take 380 mg by mouth daily. fluoxetine (PROZAC) 40 mg capsule 40 mg every 24 hours. KRILL OIL PO 500 mg. oxybutynin XL (DITROPAN XL) 15 mg tablet oxybutynin (DITROPAN XL) 24 hr tabl et 15 mg topiramate (TOPAMAX) 50 mg tablet 150 mg every 12 hours. vitamins, B complex tab Take 1 tablet by mouth daily. There were no vitals filed for this visit. There is no height or weight on file to calculate BMI. General: alert, oriented x 3 Speech: normal, no dysarthria ASSESSMENT/PLAN: Rosemarie Brown 45 y.o. female is here today for evaluation of: 1. Chronic migraine w/o aura w/o status migrainosus, not intractable RECOMMENDATIONS: Start botox Prior authorization. Discussed risks/benefits. Will provide fold er at visit. Decrease topamax to 250mg once daily for 2 weeks, then 200mg once daily x 2 weeks, then 150mg once daily x 2 weeks, 100mg daily thereafter. For Acute Headache: -- For a more severe headache, take nurtec 75mg + naproxen 440/500mg + magnesiu m oxide 400-500mg +/- benadryl 25mg (depending on if you are at work/needing to drive) -- Please refrain from taking any combination of "as needed" medications more th an 8-10 times per month, as this can lead to medication overuse/rebound headache s. -- Trial of NURTEC ODT 75mg daily as needed for migraine. To be used no more th an 8 days per month. -- Most common side effects include nausea and somnolence. -- Certain medications may interact with Nurtec, so please notify your physicia ns you are on this medication. -- Please visit [facility], go to getting started, then savings and fill out the information for the savings card, OR text NSAVE to [phone] to obtain a [employer] card. FOLLOWUP PLAN Return in about 6 months (around 11/13/2021) for In Person, Follow up on Headaches , Telehealth. The patient is instructed to contact me if there are any concerns with the agree d plan. Total Time Today was 45minutes in the following activities: Preparing to see the patient, Performing a medically appropriate examination and/or evaluation, Coun seling and educating the patient/family/caregiver, Ordering medications, tests, or procedures and Documenting clinical information in the electronic or other he alth record documented in this encounter Plan of Treatment Not on filedocumented as of this encounter Visit Diagnoses Diagnosis Chronic migraine w/o aura w/o status mi grainosus, not intractable - Primary Chronic migraine without aura, without mention of intractable migraine without mention of status migrainosus documented in this encounter Additional Health Concerns Assessment Noted Time A fall risk assessment has been completed for the pat ient 05/13/2021 8:45 AM CDT PHQ-2 Depression Total Score: 0 05/13/2021 8:44 AM CDT documented as of this encounter
--- OUTSIDE RECORDS SUMMARY | 2021-05-31 22:37 | XMS REPORT | Encounter Summary ---
Author Author [facility] Organization [facility] Address Unknown Phone Unavailable Care Team Providers Care Weight Loss Consultant Name Role Phone Kenyetta Ibarra MD PCP Vy Knight MD 21 Reason for Referral * Pain Authorization (Routine) Referred By Contact Referred To Contact Status Reason Specialty Diagnoses / Procedures [place] [address] [facility] [address] [place] [address] [place] [address] [facility] [address] [place] [address] Authorized Neurology Diagnoses Chronic migraine w/o aura w/o status migrainosus, not intractable P rocedures CHEMODENERVATION MUSCLE MIGRAINE IA BOTULINUM TOXIN A PER UNIT Electronically signed by Salomón Mayer MD at Encounter Details Care Team Description Date Type [place] [address] [facility] [address] [place] [address] [phone] Chronic migraine w/o aura w/o status andre rainosus, not intractable (Primary Dx) 05/13/2021 Orders Only Neurology: [facility], [address] [place] [phone] Social History Date Tobacco Use Types Packs/Day [...] as of this encounter Plan of Treatment Order Schedule Name Type Priority Associated Diag noses Ordered: 05/13/2021 CHEMODENERVATION MUSCLE Procedures Routine Chroni c migraine w/o aura MIGRAINE w/o status migrainosus, not intractable documented as of this encounter Visit Diagnoses Diagnosis [...]
--- OUTSIDE RECORDS SUMMARY | 2021-05-31 22:37 | XMS REPORT | Encounter Summary ---
Author Author [facility] Organization [facility] Address Unknown Phone Unavailable Care Team Providers Care Business Relations Manager Name Role Phone Kenyetta Ibarra MD PCP Vy Knight MD 21 Reason for Visit * Reason Comments Follow Up Encounter Details Care Team Description Date Type Department yV Knight MD [address] [place] [address] [phone] Ml Smith, BINGO CASHIER-PLANT SAFETY LEADER [address] [place], [place] [phone] Hereditary hemochromatosis (HCC) (Primar y Dx); Elevated liver enzymes 05/14/2021 Office Visit Hematology: [facility] [address] [place] [address] Social History Date Tobacco Use Types Packs/Day [...] Status Date of Assessment Functional Status Response 05/14/2021 Does the patient have a hearing impairment: No 05/14/2021 Does the patient have a visual impairment: Yes 05/14/2021 Does the patient have impaired ambulation: No 05/14/2021 Does the patient have an activity of daily living No (ADL) impairment: 05/14/2021 Does the patient have an instrumental activity of No daily living (IADL) impairment: Date of Assessment Cognitive Status Response 05/14/2021 Does the patient have a cognitive impairment: No documented as of this encounter Progress Notes * Ml Smith, BRYON-PLANT SAFETY LEADER - 05/14/2021 11:00 AM CDT Date of Service: 05/14/2021 Obtained patient's verbal consent to treat them and their agreement to [facility] policy and NPP via this telehealth visit during the Coronavirus Public He [facility] Emergency. Subjective: Reason for Visit: Follow Up HPI: Rosemarie Brown is a 45 y.o. female who presents for follow-up on her previously diagnosed hemochromatosis. She reports feeling well. She has stopped her phlebomty donation at the blood center as her most recent ferritin was 34. She denies fatigue, weakness, skin hyperpigmentation, generalized joint stiffnes s/swelling, or any s/s of recent or ongoing infection. 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 December 2019 ferritin 228, iron sat 67%, AST 151, AL T3 28, GGT 194, hemoglobin 14 .4, hematocrit 42 TSH was normal in September 2019, she does have joint pains, avoids Tylenol, and has 3 children, no known family history of hemochromatosis but there is heart di sease and diabetes in the family, Rosemarie has been seen by a poker prop player with a history of cardiac catheterization recently, they tell me only 1 vessel was abno rmal but no known coronary artery disease, though I do not have her cardiology n otes Labs December 2019 showed normal creatinine AST 151, AST 328, alk phos normal, bili milian normal, ferritin of 228, iron sat of 67%, hemoglobin 14.4 PT/INR normal AN A positive ferritin of 237 Has seen hepatology and had a liver biopsy PCP: Kenyetta Ibarra Past Medical Hx: Medical History: Diagnosis Date Anxiety Depression Elevated liver enzymes Endometriosis hysterectomy at 25 GERD (gastroesophageal reflux disease) Hemochromatosis Hyperlipidemia Menorrhagia treated w/ progesterone in the past Migraine Multigravida Osteoarthritis Past Surgical Hx: Surgical History: Procedure Laterality Date APPENDECTOMY BLADDER SURGERY bx benign CARDIAC CATHERIZATION CHOLECYSTECTOMY HYSTERECTOMY LIVER BIOPSY Fam Hx: Family History Problem Relation Age of Onset Diabetes Other Hemochromatosis Neg Hx Cancer Neg Hx Social Hx: Social History Socioeconomic History Marital status: Spouse name: Not on file Number of children: Not on file Years of education: Not on file Highest education level: Not on file Occupational History Not on file Tobacco Use Smoking status: Former Smoker Smokeless tobacco: Never Used Tobacco comment: quit in 2006 Substance and Sexual Activity Alcohol use: Yes Comment: rare Drug use: Never Sexual activity: Not on file Other Topics Concern Not on file Social History Narrative 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 topiramate (TOPAMAX) 50 mg tablet Take one tablet by mouth at bedtime daily. topiramate (TOPAMAX) 50 mg tablet 300 mg daily. vitamins, B complex tab Take 1 tablet by mouth daily. ROS Review of Systems Constitutional: Negative for activity change, appetite change, chills, diaphores is, fatigue, fever and unexpected weight change. HENT: Negative for mouth sores and nosebleeds. Eyes: Negative for visual disturbance. Respiratory: Negative for cough, chest tightness and shortness of breath. Cardiovascular: Negative for chest pain, palpitations and leg swelling. Gastrointestinal: Negative for abdominal distention, abdominal pain, blood in st ool, constipation, diarrhea, nausea and vomiting. Endocrine: Negative for cold intolerance and heat intolerance. Genitourinary: Negative for hematuria and vaginal bleeding. Musculoskeletal: Negative for arthralgias and joint swelling. Skin: Negative for pallor and rash. Allergic/Immunologic: Negative for environmental allergies and food allergies. Neurological: Negative for dizziness, weakness, light-headedness, numbness and h eadaches. Hematological: Negative for adenopathy. Does not bruise/bleed easily. Psychiatric/Behavioral: Negative for confusion, decreased concentration and slee p disturbance. The patient is not nervous/anxious. Objective: Vitals: 05/14/21 1040 PainSc: Zero There is no height or weight on file to calculate BMI. Physical Exam Constitutional: General: She is not in acute distress. Appearance: Normal appearance. She is well-groomed. She is not ill-appearing. HENT: Head: Normocephalic and atraumatic. Eyes: General: Vision grossly intact. Gaze aligned appropriately. Pulmonary: Effort: Pulmonary effort is normal. No respiratory distress. Abdominal: General: Abdomen is flat. Musculoskeletal: General: Normal range of motion. Skin: Findings: No bruising or rash. Neurological: General: No focal deficit present. Mental Status: She is alert and oriented to person, place, and time. Mental s tatus is at baseline. Motor: No weakness. Psychiatric: Attention and Perception: Attention normal. Mood and Affect: Mood normal. Behavior: Behavior normal. Behavior is cooperative. Cognition and Memory: Cognition normal. CBC w diff Lab Results Component Value Date/Time WBC 5.2 03/18/2021 12:00 AM RBC 4.12 03/18/2021 12:00 AM HGB 13.3 03/18/2021 12:00 AM HCT 39.4 03/18/2021 12:00 AM MCV 95.6 03/18/2021 12:00 AM MCH 32.3 03/18/2021 12:00 AM MCHC 33.8 03/18/2021 12:00 AM RDW 12.7 03/18/2021 12:00 AM PLTCT 215 03/18/2021 12:00 AM MPV 11.4 03/18/2021 12:00 AM Lab Results Component Value Date/Time NEUT 59 03/18/2021 12:00 AM ANC 3,068 03/18/2021 12:00 AM LYMA 30 05/09/2020 01:03 PM ALC 1,664 03/18/2021 12:00 AM JENI 5 05/09/2020 01:03 PM AMC 385 03/18/2021 12:00 AM EOSA 1 05/09/2020 01:03 PM AEC 52 03/18/2021 12:00 AM BASA 1 05/09/2020 01:03 PM ABC 31 03/18/2021 12:00 AM Assessment and Plan: Hemochromatosis Ms Brown is 44-year-old female with hemochromatosis and elevated liver enzym es, ferritin is elevated as well as iron sat. Goal ferritin 50-100 and iron sat less than 45% Continue to hold phlebotomy for ferritin of 34 03/18/21. Pt encouraged to maint ain hydration and avoid vigorous exercise within 24 hours of phlebotomy. Pt may donate blood. TSH was normal in September 2019 Discussed avoiding consumption of uncooked seafood, limiting alcohol, avoidin g iron supplements and extra vitamin c supplements. Discussed testing and counseling of first-degree relatives. She is continuing to follow-up with hepatology for her elevated LFTs. She pre fers for Dr. Fortune to manage her phlebotomies as well. Follow-up with hematology will be only be PRN if needed then. Elevated liver enzymes Resolved at this time, she will continue follow-up with the hepatology clinic . Continue follow-up with PCP for routine healthcare maintenance and age-appropria te screenings and vaccinations. Patient agreed with plan of care and verbalized understanding. Questions and con cerns were addressed to patient's satisfaction. Follow-up: RTC PRN if needed Total time 20 minutes spent on this visit including preparation time, obtaining and reviewing history, performing exam as applicable, counseling and educating p atient and family members as needed, ordering medications and tests and procedur es as needed, referring and communicating with other healthcare professionals as needed, documenting clinical information in the electronic record, interpreting lab and radiology results and care coordination with clinic staff. MDM of high complexity based on multiple diagnoses and at least 1+ chronic illness with samuel re exacerbations, progression, or side effects of treatment and or chronic illne ss that may pose a threat to life or bodily function, including reviewing dry pan feeder al notes and results of labs and radiology testing, ordering labs and radiology test as needed and obtaining history from an independent historian as applicable , with high risk of morbidity from additional testing or treatment. TOD Hearn Nurse Practitioner for Dr. Vy Knight Division of Hematology Pager 1922 or via Vo[employer] Me documented in this encounter Plan of Treatment Not on filedocumented as of this encounter Visit Diagnoses Diagnosis Hereditary hemochromatosis (HCC) - Prim rojas Hereditary hemochromatosis Elevated liver enzymes Nonspecific elevation of levels of syde saminase or lactic acid dehydrogenase (LDH) * Assessment & Plan Note - Ml Smith APRN-NP - 05/14/2021 12:18 PM CDT Associated Problem(s): Elevated liver enzymes Resolved at this time, she will continue follow-up with the hepatology clinic . * Assessment & Plan Note - Ml Smith APRN-NP - 05/14/2021 11:04 AM CDT Associated Problem(s): Hemochromatosis Ms Brown is 44-year-old female with hemochromatosis and elevated liver enzym es, ferritin is elevated as well as iron sat. Goal ferritin 50-100 and iron sat less than 45% Continue to hold phlebotomy for ferritin of 34 03/18/21. Pt encouraged to maint ain hydration and avoid vigorous exercise within 24 hours of phlebotomy. Pt may donate blood. TSH was normal in September 2019 Discussed avoiding consumption of uncooked seafood, limiting alcohol, avoidin g iron supplements and extra vitamin c supplements. Discussed testing and counseling of first-degree relatives. She is continuing to follow-up with hepatology for her elevated LFTs. She pre fers for Dr. Fortune to manage her phlebotomies as well. Follow-up with hematology will be only be PRN if needed then. documented in this encounter Additional Health Concerns Assessment Noted Time A fall risk assessment has been completed for the pat ient 05/13/2021 8:45 AM CDT PHQ-2 Depression Total Score: 0 05/13/2021 8:44 AM CDT documented as of this encounter
--- OUTSIDE RECORDS SUMMARY | 2021-05-31 22:37 | XMS REPORT | Encounter Summary ---
Author Author [facility] Organization [facility] Address Unknown Phone Unavailable Care Team Providers Care Wool Carder Name Role Phone Kenyetta Ibarra MD PCP Vy Knight MD 21 Reason for Visit * Reason Onset Date Comments Prior Authorization 05/13/2021 [facility] Encounter Details Care Team Description Date Type Department [place] [address] [facility] [address] [place] [address] [phone] Prior Authorization ([facility]) 05/13/2021 Telephone Neurology: [facility] [address] [place] [address] Social History Date Tobacco Use Types Packs/Day [...] impairment: No documented as of this encounter Miscellaneous Notes * Telephone Encounter - nAn Cabrera RN - 05/15/2021 2:20 PM CDT Fax receieved from [employer]. [facility] approved with no end date. Pharmacy updated. * Telephone Encounter - Ann Cabrera RN - 05/14/2021 11:23 AM CDT Clinical questions available on [employer]. PA submitted with clinic notes . Information to [facility] Friendly Wager App. * Telephone Encounter - Ann Cabrera RN - 05/13/2021 3:24 PM CDT PA with clinicals for [facility] initiated on [employer]. "[employer] [facility] [employer] [facility] typically responds with questions in less than 15 mi nutes, but may take up to 24 hours." documented in this encounter Plan of Treatment [...]
--- OUTSIDE RECORDS SUMMARY | 2021-05-31 22:37 | XMS REPORT | Encounter Summary ---
Author Author [facility] Organization [facility] Address Unknown Phone Unavailable Care Team Providers Care Cylinder Press Operator Apprentice Name Role Phone Kenyetta Ibarra MD PCP Vy Knight MD 21 Reason for Referral * Radiology Services (Routine) Referred By Contact Referred To Contact Status Reason Specialty Diagnoses / Procedures Day Nevarez MD [address] [place], [place] [address] [place] [address] New Request Diagnoses Hemochromatosis, unspecified hemochromatosis type P rocedures US ABDOMEN LIMITED Electronically signed by Day Nevarez MD at Reason for Visit * Reason Comments Hemochromatosis Encounter Details Care Team Description Date Type Department Day Nevarez MD [address] [place], [place] [address] [place], [place] [id number] Hemochromatosis, unspecified hemochromat osis type (Primary Dx) 05/06/2021 Office Visit Hepatology: [facility], Telehealth [address] [place] [address] Social History Date Tobacco Use Types Packs/Day [...] this encounter Patient Instructions * Patient Instructions* Elena Cabrales RN - 05/06/2021 9:40 AM CDT Schedule: 1. Return to clinic in [address] eNvarez via Patient Information: 1. Please continue to follow up with your Primary Care Physician with any gener al needs or concerns. 2. We will continue to have you hold off on getting phlebotomy right now. Your f erritin is normal at this time. Your goal is between 50-100. We will plan to rec heck your labs every 3 months and if we notice your ferritin trending up, we angle l discuss phlebotomy at that time. You are due for labs in June at Dr. Pablo see's Office. We will call you with our recommendations! 3. We will have you get annual abdominal imaging. You will be due for an ultraso und in January 2022. 4. Avoid iron supplements and high-dose vitamin C! Please let us know if you have any questions, concerns, or updates! Back office: Your Treatment Team: MD Sandie Varghese APRN Kelsie Swope BSN, RN Tmika, YARN HANDLER Thank you for allowing us to participate in your care. Please call if you have any questions- , option #2 documented in this encounter Progress Notes * Day Nevarez MD - 05/06/2021 9:40 AM CDT Obtained patient's verbal consent to treat them and their agreement to [facility] and NPP via this telehealth visit during the Coronavirus Public He alth Emergency Dictation on: 05/06/2021 9:49 AM by: DAY NEVAREZ [[email or web address]] A total of 30 minutes were spent on the same day of the visit in activities whic h include chart review in preparation to see the patient, obtaining and/or revie wing separately obtained history and outside records, counseling and educating t he patient/family/caregiver, ordering medications, tests, or procedures, referri ng and communication with other health veterinarian laboratory animal care, documenting clinical information in the electronic medical record, independently interpreting results and communicating results to the patient/family/caregiver, and ongoing care office services coordinator rdination. * Brea Canales MA - 05/06/2021 9:40 AM CDT The patient reviewed the three documents sent via [employer]aculous, agrees with the info rmation and provided verbal consent for this visit. documented in this encounter Plan of Treatment Order Schedule Name Type Priority Associated Diag noses Expected: 01/09/2022 (Approximate), Expi res: 02/04/2023 US ABDOMEN LIMITED Imaging Routine Hemochromat osis, unspecified hemochromatosis type documented as of this encounter Visit Diagnoses Diagnosis Hemochromatosis, unspecified hemochroma tosis type - Primary documented in this encounter Additional Health Concerns Assessment Noted Time A fall risk assessment has been completed for the pat ient 05/06/2021 9:32 AM CDT PHQ-2 Depression Total Score: 0 05/06/2021 9:32 AM CDT documented as of this encounter
--- OUTSIDE RECORDS SUMMARY | 2021-05-31 22:37 | XMS REPORT | Clinical Summary ---
Author Author [facility] Organization [facility] Address Unknown Phone Unavailable Care Team Providers Care Mri Assistant Name Role Phone Kenyetta Ibarra MD PCP Allergies Comments Active Allergy Reactions Severity Noted Date Sulfa Antibiotics Itching Medium 10/06/2019 Medications End Date Status Medication Sig Dispensed Refills Start Date Active Feverfew 380 MG Take 380 mg 0 CAPSIndications: Migraine by mouth daily. Indications: Migraine Headache Active VITAMIN B COMPLEX-C CAPS Take 1 tablet 0 by mouth daily. Active Cholecalciferol (VITAMIN Take by 0 D3) 1.25 MG (98653 UT) mouth. CAPS Active buPROPion (WELLBUTRIN SR) Take 150 mg 0 150 MG 12 hr by mouth tabletIndications: per daily. [facility] [place] Indications: [place] pharmacy filled per 09/27/19 [facility] in [facility] pharmacy filled 09/27/19 Active clonazePAM (KLONOPIN) 1 Take 1 mg by 0 MG tabletIndications: per mouth 2 (two) [facility] [place] times daily [place] pharmacy filled as needed for 09/27/19 Anxiety. Indications: per [facility] in [facility] pharmacy filled 09/27/19 Active oxybutynin (DITROPAN XL) Take 15 mg by 0 15 MG 24 hr mouth daily. tabletIndications: per Indications: [facility] in [facility] pharmacy filled [facility] in 09/27/19 [facility] pharmacy filled 09/27/19 Active lamoTRIgine (LAMICTAL) 25 Take 25 mg by 0 MG tabletIndications: for mouth daily. 14 days started 09/27/19 Indications: then increase to 2 tabs for 14 days thereafter started 09/27/19 then increase to 2 tabs thereafter Active topiramate (TOPAMAX) 100 Take 100 mg 0 MG tabletIndications: per by mouth [facility] [place] Daily At 5 [place] pharmacy filled pm. 09/27/19 Indications: per [facility] [place] pharmacy filled 09/27/19 Active topiramate (TOPAMAX) 100 Take 200 mg 0 MG tabletIndications: per by mouth [facility] [place] daily. [place] pharmacy filled Indications: 09/27/19 per [facility] [place] pharmacy filled 09/27/19 Active trospium (SANCTURA) 20 MG Take 20 mg by 0 tabletIndications: per mouth 2 (two) [facility] [place] times daily. [place] pharmacy filled Indications: 09/27/19 per [facility] [place] pharmacy filled 09/27/19 Active esomeprazole (NEXIUM) 20 Take 20 mg by 0 MG capsuleIndications: mouth every per [facility] in [facility] [place] pharmacy filled before 09/27/19 breakfast. Indications: per [facility] [place] pharmacy filled 09/27/19 Active FLUoxetine (PROZAC) 20 MG Take 40 mg by 0 capsuleIndications: per mouth daily. [facility] [place] Indications: [place] pharmacy filled per 09/27/19 [facility] [place] pharmacy filled 09/27/19 Active aspirin (ECOTRIN LOW Take 81 mg by 0 STRENGTH) 81 MG EC tablet mouth daily. 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, without psychotic features (HCC) Active Problems Problem Noted Date Suicide ideation 10/07/2019 Depression 10/06/2019 MDD (major depressive disorder), recurr ent severe, without psychosis SANDY (generalized anxiety disorder) Elevated liver enzymes Gastroesophageal reflux disease, esopha gitis presence not specified Other migraine without status migrainos us, not intractable Hyperlipidemia, unspecified hyperlipide winnie type Immunizations Name Administration Dates Next Due Family History Medical History Relation Name Comments Diabetes Maternal Grandmother Heart disease Mother Hypertension Paternal Grandfather Heart disease Paternal Grandmother Aneurysm Sister Relation Name Status Comments Daughter Alive Father Maternal Grandfather Maternal Grandmother Mother Paternal Grandfather Paternal Grandmother Sister Social History Date Tobacco Use Types Packs/Day Years Used Former Smoker Cigarettes 0 Smokeless Tobacco: Never Used Comments Alcohol Use Standard Drinks/Week Not Currently 0 (1 standard drink = 0.6 o z pure alcohol) Control Partners Comments Sexually Active Not Currently Sex Assigned at Date Recorded Female 10/06/2019 2:58 PM SLIP INJECTOR AND APPLICATOR Last Filed Vital Signs Reading Time Taken Comments Vital Sign 110/74 10/09/2019 8:31 AM SLIP INJECTOR AND APPLICATOR Blood Pressure 79 10/09/2019 8:31 AM SLIP INJECTOR AND APPLICATOR Pulse 36.3 C (97.4 F) 10/09/2019 8:30 AM SLIP INJECTOR AND APPLICATOR Temperature 16 10/09/2019 8:30 AM SLIP INJECTOR AND APPLICATOR Respiratory Rate 100% 10/09/2019 8:30 AM SLIP INJECTOR AND APPLICATOR Oxygen Saturation - - Inhaled Oxygen Concentration 80.3 kg (177 lb) 10/06/2019 3:42 PM SLIP INJECTOR AND APPLICATOR Weight 162.6 cm (5' 4") 10/06/2019 3:42 PM SLIP INJECTOR AND APPLICATOR Height 30.38 10/06/2019 3:42 PM SLIP INJECTOR AND APPLICATOR Body Mass Index Plan of Treatment Health Maintenance Due Date Last Done Comments Varicella Vaccines (1 of 1977 2 - 2-dose childhood series) Hepatitis C Screening 1994 DTaP,Tdap,and Td Vaccines 1995 (1 - Tdap) MMR Vaccines-Adult 1995 Cervical Cancer Screening 1997 Influenza Vaccine (#1) 2021 06/27/2020, 08/15/2019 Pneumo-Vaccine: 65+Yrs (1 2041 of 1 - PPSV23) COVID-19 Vaccine Completed 12/10/2020, 11/12/2020 HIB Vaccines Aged Out No longer eligible based on patient's age to complete this topic IPV Vaccines Aged Out No longer eligible based on patient's age to complete this topic Meningococcal Vaccine Aged Out No longer eligib le based on patient's age to complete this topic Pneumo-Vaccine: Peds (0-5 Aged Out No longer el igible based on patient's age to Yrs) & At-Risk Patients complete this topic (6-64 Yrs) Rotavirus Vaccines Aged Out No longer eligible based on patient's age to complete this topic Results Not on filefrom Last 3 Months Insurance Type Payer Benefit Subscriber ID Effective Phone Address Plan / Dates Group ADMINISTRATIVE CONCEPTS ADMIN[employer]RA [id number] 2019 [id number] -Present [employer] [address] [place] [place] [id number] PPO BCBS BCBS BLUE [id number] 2018 [address] CHOICE -Present [place] [id number] Advance Directives For more information, please contact: [phone] Sales Associate Explanation Type Date Recorded Advance Directives and Living Will Power of Irrigation Engineer Date Inactivated Comments Code Status Date Activated Full Code 10/09/2019 10:33 AM 10/09/2019 10:33 AM Full Code 10/06/2019 5:08 PM Care Teams Start Date End Date Mri Assistant Relationship Specialty 10/06/19 Kenyetta Ibarra MD PCP - General [address] [place] [address]
--- OUTSIDE RECORDS SUMMARY | 2021-05-31 22:37 | XMS REPORT | Encounter Summary ---
Author Author [facility] Organization [facility] Address Unknown Phone Unavailable Care Team Providers Care Media Planner / Buyer Name Role Phone Kenyetta Ibarra MD PCP Vy Knight MD 21 Encounter Details Care Team Description Date Type Department 04/10/2021 Travel Social History Date Tobacco Use Types Packs/Day Years Used Former Smoker Smokeless Tobacco: Never Used Comments: quit in 2006 Comments Alcohol Use Standard Drinks/Week rare Yes 0 (1 standard drink = 0.6 o z pure alcohol) Sex Assigned at Date Recorded Female 05/08/2020 12:41 PM CDT Date Recorded COVID-19 Exposure Response 04/10/2021 3:33 PM CDT In the last month, have you been in contact with No / Unsure someone who was confirmed or suspected to have Coronavirus / COVID-19? documented as of this encounter Functional Status Date of Assessment Functional Status Response 10/23/2020 Does the patient have a hearing impairment: No 10/23/2020 Does the patient have a visual impairment: Yes 10/23/2020 Does the patient have impaired ambulation: No 10/23/2020 Does the patient have an activity of daily living No (ADL) impairment: 10/23/2020 Does the patient have an instrumental activity of No daily living (IADL) impairment: Date of Assessment Cognitive Status Response 10/23/2020 Does the patient have a cognitive impairment: Yes documented as of this encounter Plan of Treatment Not on filedocumented as of this encounter Visit Diagnoses Not on filedocumented in this encounter Additional Health Concerns Assessment Noted Time A fall risk assessment has been completed for the pat ient 11/11/2020 9:07 AM PRESS LOADER PHQ-2 Depression Total Score: 0 10/23/2020 9:29 AM PRESS LOADER documented as of this encounter
--- OUTSIDE RECORDS SUMMARY | 2021-05-31 22:37 | XMS REPORT | Encounter Summary ---
Author Author [facility] Organization [facility] Address Unknown Phone Unavailable Care Team Providers Care Finisher Merchant Products Name Role Phone Kenyetta Ibarra MD PCP Vy Knight MD 21 Reason for Visit * Reason Onset Date Comments Pre-Visit Planning 04/28/2021 Encounter Details Care Team Description Date Type Department [place] [address] [facility] [address] [place] [address] Pre-Visit Planning 04/28/2021 Telephone Neurology: [facility] [place] [address] Social History Date Tobacco Use [...] Diagnoses Not on filedocumented in this encounter Historical Medications * This list may reflect changes made after this encounter. Start Date End Date Medication Sig Dispensed Refills brexpiprazole (REXULTI) 2 Take 2 mg by 0 mg tablet mouth daily. vitamins, B complex tab Take 1 tablet 0 by mouth daily. aspirin EC 81 mg tablet Take 81 mg by 0 mouth daily. Take with food. added in this encounter Additional Health Concerns Assessment Noted Time A fall risk assessment has been completed for the pat ient 11/11/2020 9:07 AM EMPLOYMENT DIRECTOR PHQ-2 Depression Total Score: 0 10/23/2020 9:29 AM EMPLOYMENT DIRECTOR documented as of this encounter
--- OUTSIDE RECORDS SUMMARY | 2021-05-31 22:37 | XMS REPORT | Clinical Summary ---
Author Author [facility] Organization [facility] Address Unknown Phone Unavailable Care Team Providers Care Foundry Hand Name Role Phone Kenyetta Ibarra MD PCP Vy Knight MD 21 Source Comments Some departments are not documenting in the electronic medical record. If you d o not see the information that you expected, contact Release of Information in [facility] Predect Information Management department at [phone] for further assistan ce in locating additional records.[facility] Allergies Comments Active Allergy Reactions Severity Noted Date Sulfa (Sulfonamide RASH Medium 05/06/2020 Antibiotics) Medications End Date Status Medication Sig Dispensed Refills Start Date Active FEVERFEW PO Take 380 mg 0 by mouth 9 daily. Active KRILL OIL PO 500 mg. 0 Active cholecalciferol (vitamin 1 tablet 0 D3) 10 mcg/mL (400 unit/mL) oral solution Active topiramate (TOPAMAX) 50 300 mg daily. 0 mg tablet [address] (NEXIUM) Take 20 mg by 0 20 mg capsule mouth every morning. Take on an empty stomach at least 1 hour before or 2 hours after food. Active oxybutynin XL (DITROPAN oxybutynin 0 XL) 15 mg tablet (DITROPAN XL) 9 24 hr tablet 15 mg Active fluoxetine (PROZAC) 40 mg 40 mg every 0 capsule 24 hours. Active bupropion HCl (WELLBUTRIN Take 150 mg 0 PO) by mouth. Active bran/gum/fib/torin/psyl/jacqui Take by 0 p/pec (FIBER 6 PO) mouth. Active aspirin EC 81 mg tablet Take 81 mg by 0 mouth daily. Take with food. Active vitamins, B complex tab Take 1 tablet 0 by mouth daily. Active brexpiprazole (REXULTI) 2 Take 2 mg by 0 mg tablet mouth daily. Active topiramate (TOPAMAX) 50 Take one 30 tablet 0 mg tablet tablet by 1 mouth at bedtime daily. Active Rimegepant (NURTEC ODT) Dissolve one 8 tablet 0 0 75 mg tablet tablet by 1 mouth daily as needed. Active Problems Problem Noted Date Migraines 11/11/2020 Last Assessment & Plan: Formatting of this note might be differ ent from the original. She has frequent headaches and migraine s and is on Topamax through primary care and takes Tylenol several times pe r week for her headaches, we discussed potential neurology consult t o assist with frequent headaches despite prophylaxis and she would like to see neurology, consult placed Elevated liver enzymes Last Assessment & Plan: Formatting of this note might be differ ent from the original. Resolved at this time, she will cont inue follow-up with the hepatology clinic. Hemochromatosis Overview: Formatting of this note might be differ ent from the original. 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 2019 ferritin 228, iron sat 67%, AST 151, AL T3 28, GGT 194, hemoglobin 14.4, hematocrit 42 TSH was normal in September 2019, she do es have joint pains, avoids Tylenol, and has 3 children, no known f amily history of hemochromatosis but there is heart disease and diabetes in the family, Rosemarie has been seen by a pie bakery laborer with a history of cardia c catheterization recently, they tell me only 1 vessel was abnormal but no known coronary artery disease, though I do not have her cardiology not es Labs December 2019 showed normal creatinin e AST 151, AST 328, alk phos normal, bilirubin normal, ferritin of 2 28, iron sat of 67%, hemoglobin 14.4 PT/INR normal OBDULIA positive ferritin of 237 Has seen hepatology and had a liver bio psy L ast Assessment & Plan: Formatting of this note might be differ ent from the original. Ms Brown is 44-year-old female with hemochromatosis and elevated liver enzymes, ferritin is elevated as well a s iron sat. Goal ferritin 50-100 and iron sat le ss than 45% Continue to hold phlebotomy for ferr itin of 34 03/18/21. Pt encouraged to maintain hydration and avoid vigorous e xercise within 24 hours of phlebotomy. Pt may donate blood. TSH was normal in September 2019 Discussed avoiding consumption of un cooked seafood, limiting alcohol, avoiding iron supplements and extra vit zhou c supplements. Discussed testing and counseling of first-degree relatives. She is continuing to follow-up with hepatology for her elevated LFTs. She prefers for Dr. Fortune to manage her phlebotomies as well. Follow-up with hematology will be only be PRN if needed then. Osteoarthritis Last Assessment & Plan: Formatting of this note might be differ ent from the original. Uses NSAIDs sparingly, uses tylenol sev eral times per week associated with headaches as well, encouraged her to mi nimize Tylenol with liver enzyme abnormality Hyperlipidemia Last Assessment & Plan: Formatting of this note might be differ ent from the original. She'll f/u w/ cardiology Encounters Care Team Description Date Type Specialty Vy Knight MD McCracken, Emily A, MAGNETO SPECIALIST-MATERIALS ANALYST Hereditary hemochromatosis (HCC) (Primar y Dx); Elevated liver enzymes 05/14/2021 Office Visit Oncology Telehealth Salomón Mayer MD Chronic migraine w/o aura w/o status andre rainosus, not intractable (Primary Dx) 05/13/2021 Office Visit Neurology Telehealth Salomón Mayer MD Prior Authorization ([facility]) 05/13/2021 Telephone Neurology Salomón Mayer MD Chronic migraine w/o aura w/o status andre rainosus, not intractable (Primary Dx) 05/13/2021 Orders Only Neurology 05/13/2021 Travel Comfort Fortune MD Hemochromatosis, unspecified hemochromat osis type (Primary Dx) 05/06/2021 Office Visit Hepatology Telehealth 05/06/2021 Travel Salomón Mayer MD Pre-Visit Planning 04/28/2021 Telephone Neurology 04/10/2021 Travel Comfort Fortune MD Hemochromatosis, unspecified hemochromat osis type (Primary Dx) 03/31/2021 Orders Only Hepatology Rod Chun Hemochromatosis, unspecified hemochromat osis type; Elevated liver enzymes 03/20/2021 Orders Only Transplant Surgery Comfort Fortune MD Labs Only 03/19/2021 Telephone Hepatology from Last 3 Months Immunizations Name Administration Dates Next Due Surgical History Surgery Date Site/Laterality Comments BLADDER SURGERY bx benign CHOLECYSTECTOMY APPENDECTOMY CARDIAC CATHERIZATION HYSTERECTOMY LIVER BIOPSY Medical History Medical History Date Comments Hemochromatosis Migraine Osteoarthritis GERD (gastroesophageal reflux disease) Multigravida Anxiety Hyperlipidemia Elevated liver enzymes Endometriosis hysterectomy at 25 Menorrhagia treated w/ progesterone in the past Depression Family History Medical History Relation Name Comments Diabetes Other Cancer Neg Hx Hemochromatosis Neg Hx Relation Name Status Comments Other Social History Date Tobacco Use Types Packs/Day [...] or suspected to have Coronavirus / COVID-19? Obstetrics History Term Pre Abrt (TAB) (SAB) (Ect) Mult Lvng Comments Grav Para 3 3 Date GA Total Labor Labor/2nd/3rd Weight Sex Delivery Anes PTL Micki A1 A5 Name Clin Outcome Para Para Para Last Filed Vital Signs Reading Time Taken Comments Vital Sign 104/66 05/29/2020 3:45 PM CDT Blood Pressure 47 05/29/2020 3:54 PM CDT Pulse 36.6 C (97.9 F) 05/29/2020 1:35 PM CDT Temperature 18 05/09/2020 1:53 PM CDT Respiratory Rate 99% 05/29/2020 3:54 PM CDT Oxygen Saturation - - Inhaled Oxygen Concentration 83.7 kg (184 lb 9.6 oz) 05/09/2020 1:53 PM CDT Weight 162.6 cm (5' 4") 05/09/2020 1:53 PM CDT Height 31.69 05/09/2020 1:53 PM CDT Body Mass Index Plan of Treatment Health Maintenance Due Date Last Done Comments HIV SCREENING 1991 DTAP/TDAP VACCINES (1 - 1994 Tdap) HEPATITIS C SCREENING 1994 PHYSICAL (COMPREHENSIVE) 1994 EXAM CERVICAL CANCER SCREENING 1997 BREAST CANCER SCREENING 2016 INFLUENZA VACCINE 07/11/2021 COVID-19 VACCINE Completed 12/10/2020, 11/12/2020 Procedures Comments Procedure Name Priority Date/Time Associated Diag nosis COMPREHENSIVE METABOLIC Routine 03/18/2021 Elevat ed liver enzymes PANEL 12:00 AM CDT FERRITIN Routine 03/18/2021 Elevated liver enzymes 12:00 AM CDT CBC AND DIFF Routine 03/18/2021 Hemochromatosis , 12:00 AM CDT unspecified hemochromatosis type from Last 3 Months Results * CBC AND DIFF (03/18/2021 12:00 AM CDT) White Blood 5.2 [facility] Cells RBC 4.12 [facility] Hemoglobin 13.3 [facility] Hematocrit 39.4 [facility] MCV 95.6 [facility] MCH 32.3 [facility] MCHC 33.8 [facility] RDW 12.7 [facility] Platelet Count 215 [facility] Neutrophils 59 [facility] Absolute 3,068 [facility] Neutrophil Count Lymphocytes 32.0 [facility] Absolute Lymph 1,664 [facility] Count Monocytes 7.4 [facility] Absolute 385 [facility] Monocyte Count Eosinophil 1.0 [facility] Absolute 52 [facility] Eosinophil Count Basophil 0.6 [facility] Absolute 31 [facility] Basophil Count MPV 11.4 [facility] Specimen Blood Narrative Performed At [facility] Outside Lab Verified by [employer] on 03/20/2021. Performing Organization Address City/State/ZIP Code P nancy Number [facility] * FERRITIN (03/18/2021 12:00 AM CDT) Ferritin 34 [facility] Specimen Blood Narrative Performed At [facility] Lab Verified by [employer] on 03/20/2021. Performing Organization Address City/State/ZIP Code P nnacy Number [facility] * COMPREHENSIVE METABOLIC PANEL (03/18/2021 12:00 AM CDT) Glucose 88 [facility] Blood Urea 16 mg/dL [facility] Nitrogen Creatinine 0.90 mg/dl [facility] eGFR Non 78 mL/min/1.73m2 [facility] eGFR 90 mL/min/1.73m2 [facility] Sudanese Sodium 142 mmol/l [facility] Potassium 3.8 [facility] Chloride 107 [facility] CO2 27 [facility] Calcium 9.4 [facility] Total Protein 7.0 [facility] Albumin 4.5 [facility] Total Bilirubin 0.4 mg/dl [facility] E Alk Phosphatase 91 [facility] AST (SGOT) 17 [facility] ALT (SGPT) 15 [facility] Specimen Blood Narrative Performed At [facility] Outside Lab Verified by [employer] [facility] on 03/20/2021. 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
--- NOTE | 2021-05-31 23:52 | ED Headache ---
General Chief Complaint: Head/Cervical Problems Stated Complaint: HEADACHE Nursing Triage Note: PT IN PER POV AFTER WORK WITH C/O MIGRAINE SINCE THIS AM. REPORTS TAKING TYLENOL AT 1999. STARTED ON NEW MEDS FOR MIGRAINE CAN'T REMEMBER WHAT THE NAME IS. Source: patient History of Present Illness Date Seen by Provider: May 31, 2021 Time Seen by Provider: 23:49 Initial Comments 45 yo female presenting with frontal migraine headache that started this morning. She states it came on about an hour after getting up to start the day. She had tried taking Tylenol as well as her new migraine medication, Nurtec ODT. She reports nothing was helping her symptoms. She had the headache all day but finished her shift at work. She denies fever, chills, neck pain, sinus congestion, vision changes, vomiting but did have nausea. She has had about 5-6 episodes of diarrhea today as well. She denies feeling dizzy or light headed. She is scheduled to start BoTox injections this WednesdayJune 03. She denies any head trauma or injury to trigger her Migraine. Severity/Quality: severe, pressure, throbbing Location: frontal Prior Headaches/Recent Trauma: frequent headaches, chronic headaches Modifying Factors: worse with exposure to light Associated Symptoms: No confusion, No fatigue, No facial pain, No fever/chills, No flushing, No loss of consciousness; nausea/vomiting (nausea but no vomiting); No nasal congestion, No nasal drainage, No numbness in legs/feet, No rash, No seizures, No sinus infection, No stiff neck, No vision changes, No weakness Allergies and Home Medications Allergies Coded Allergies: Sulfa (Sulfonamide Antibiotics) (Verified Allergy, Unknown, 05/20/20) Home Medications Aspirin 81 Mg Tablet.dr, 81 MG PO DAILY, (Reported) Aspirin/Acetaminophen/Caffeine 1 Each Tablet, 2 TAB PO DAILY, (Reported) Cephalexin 500 Mg Capsule, 500 MG PO QID Prescribed by: EDWARD RAYMOND on 08/20/18 0032 Cholecalciferol (Vitamin D3) 5,000 Unit Capsule, 5,000 UNIT PO DAILY, (Reported) Citalopram Hydrobromide 40 Mg Tablet, 40 MG PO DAILY, (Reported) Cyanocobalamin (Vitamin B-12) 5,000 Mcg Tab.rapdis, 1,500 MCG PO DAILY, (Reported) Famotidine 20 Mg Tablet, 20 MG PO DAILY, (Reported) Naproxen 500 Mg Tablet, 500 MG PO BID PRN for pain Prescribed by: EDWARD RAYMOND on 08/20/1831 Ondansetron 4 Mg Tab.rapdis, 4 MG PO Q4H PRN for NAUSEA/VOMITING Prescribed by: EDWARD RAYMOND on 08/20/1831 Oxybutynin Chloride 10 Mg Tab.er.24, 10 MG PO DAILY, (Reported) Phenazopyridine HCl 100 Mg Tablet, 100 MG PO Q8H PRN for pain Prescribed by: EDWARD ARYMOND on 08/20/1831 Topiramate 200 Mg Tablet, 200 MG PO DAILY, (Reported) Topiramate 200 Mg Tablet, 100 MG PO HS, (Reported) TAKES 1/2 (200MG) TABLET [Feverfew] , 1 CAP PO DAILY, (Reported) Patient Home Medication List Home Medication List Reviewed: Yes Review of Systems Review of Systems Constitutional: No chills, No dizziness, No fever Eyes: Photophobia Ears, Nose, Mouth, Throat: denies ear pain, denies ear discharge, denies nose pain, denies nose discharge Respiratory: No cough, No dyspnea on exertion Cardiovascular: No chest pain Gastrointestinal: No abdominal pain; diarrhea, nausea; No vomiting Genitourinary: no symptoms reported Musculoskeletal: no symptoms reported Skin: no symptoms reported Psychiatric/Neurological: Anxiety, Headache Past Hxsunrb-Dxvwht-Uicmkm Hx Patient Social History Tobacco Use?: No Use of E-Cig and/or Vaping dev: No Alcohol Use?: No Pt feels they are or have been: No Immunizations Up To Date Tetanus Booster (TDap): Unknown Influenza Vaccine Up-to-Date: Yes; Up-to-Date First/Initial COVID19 Vaccinat: NOV 2020 Second COVID19 Vaccination Alessandro: NOV 2020 COVID19 Vaccine Dag Coater: MODERNA Seasonal Allergies Seasonal Allergies: No Past Medical History Surgery/Hospitalization HX: chronic migraine headaches Surgeries: Yes Appendectomy, Gallbladder, Hysterectomy, Tonsillectomy Respiratory: No Cardiac: Yes (HX HEART CATH NO STENT) High Cholesterol Neurological: Yes 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 0oz. 75.502291ps; 33.00 BMI Method:Stated General Appearance: WD/WN, no apparent distress HEENT: PERRL/EOMI, pharynx normal Neck: non-tender, full range of motion, supple, normal inspection Cardiovascular: normal peripheral pulses, regular rate, rhythm Respiratory: chest non-tender, lungs clear, normal breath sounds, no respiratory distress, no accessory muscle use Gastrointestinal: normal bowel sounds, non tender, soft, no pulsatile mass Extremities: normal range of motion, non-tender, normal capillary refill Psychiatric: alert, oriented x 3 Crainal Nerves: normal hearing, normal speech, PERRL Coordination/Gait: normal gait Motor/Sensory: no motor deficit, no sensory deficit Skin: normal color, warm/dry Progress/Results/Core Measures Results/Orders My Orders Orders - TED CHRISTIE MD Ketorolac Injection (Toradol Injection) (06/01/21 00:03) Diphenhydramine Injection (Benadryl Inje (06/01/21 00:03) Promethazine Injection (Phenergan Injec (06/01/21 00:03) Vital Signs/I&O 05/31/21 23:14 Temp 37.1 Pulse 70 Resp 14 B/P (MAP) 130/59 (82) Pulse Ox 97 O2 Delivery Room Air Blood Pressure Mean: 82 Progress Progress Note : Progress Note With her reporting this feels like her typical migraine headache and no trauma or fever will try Toradol with promethazine and diphenhydramine. Encourage rest in a cool dark room. Continue regular medicines. Drink plenty of fluids and stay hydrated. Check back with clinic and continue to get BoTox injections as pl anned Wednesday Departure Impression Primary Impression: Migraine headache without aura Qualified Codes: G43.009 - Migraine without aura, not intractable, without status migrainosus Disposition: 01 HOME, SELF-CARE Condition: Stable Departure-Patient Inst. Decision time for Depature: 00:05 Referrals: DARIUS PATEL MD (PCP/Family) Primary Care Physician Patient Instructions: Home Headache Remedies, Migraines in Adults Add. Discharge Instructions: Rest in a cool dark room Continue on your regular medicines Follow up with clinic and get the BoTox shots started this week as scheduled. All discharge instructions reviewed with patient and/or family. 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 Work/School Note: Work Release Form Date Seen in the Emergency Department: May 31, 2021 Return to Work: Jun 02, 2021 Restrictions: No Restrictions TED CHRISTIE MD May 31, 2021 23:52
[2021-06-01] MEDS ORDERED: PROMETHAZINE INJ 25 MG/ML (PHENERGAN) AMP IM STA (00:03)
[2021-06-01] MEDS ORDERED: diphenhydrAMINE 50 MG/ML INJ (BENADRYL) IM STA (00:03)
[2021-06-01] MEDS ORDERED: KETOROLAC 60 MG/2 ML VIAL IM STA (00:03)
[2021-06-01 00:20] VITALS: BP 128/62
== END 2021-06-01 00:22 | disposition home or self-care (01) ==
LOC: EDUNIT# 22:31 → ER FS 22:33
DX: G43.009 Migraine without aura, not intractable, without status migrainosus (principal); F41.9 Anxiety disorder, unspecified; F32.9 Major depressive disorder, single episode, unspecified; Z79.82 Long term (current) use of aspirin; Z79.899 Other long term (current) drug therapy
CPT/HCPCS: 99284

== ENCOUNTER → 2022-03-16 | Outpatient (CLI) | payer OTHER ==
[~2022-03-16] MED LIST changes: -ASPI-789 PO; +ASPI1TAB23 PO; -CITA40TA11 PO; +CITA40TA13 PO
[2022-03-16 11:58] VITALS: BP 130/84
--- NOTE | 2022-03-16 11:58 | Cardiology Stress Test Report ---
Stress Test Report Date of Procedure/Referring: Date of Procedure: Mar 16, 2022 PCP Kenyetta Ibarra MD Admitting Physician Admitting Physician: Attending Physician: Ever Ivan MD Indications: HTN Baseline Heart Rate: 70 Baseline Blood Pressure: Blood Pressure Systolic: 130 Blood Pressure Diastolic: 84 Baseline EKG: Baseline EKG: NSR Summary/Conclusion: Summary: In summary, the patient started exercising with a baseline heart rate, blood pressure and EKG mentioned above Patient was able to exercise for a total of 7 minutes on Xavi protocol, METs 8.5 Maximum heart rate 149 Maximum blood pressure 231/65 Stress EKG, Minimal nondiagnostic changes Recovery EKG , Return to baseline Conclusion: 1. Good exercise tolerance for a total of 7 minutes on Xavi protocol, 8.5 METs, achieving 85 percent of maximum expected heart rate 2. Nondiagnostic EKG changes with exercise returned to baseline during recovery 3. No arrhythmia was noted Copy Copies To 1: [facility] [place] EVER IVAN MD Mar 16, 2022 11:58
== END ==
LOC: CARD 10:00
PROVIDERS: ATTEND Internal Medicine Cardiovascular Disease
DX: I11.9 Hypertensive heart disease without heart failure (principal); I25.10 Atherosclerotic heart disease of native coronary artery without angina pectoris
CPT/HCPCS: 93017; 93306

== ENCOUNTER 2022-11-24 18:50 | Emergency (ER) | payer OTHER ==
--- NOTE | 2022-11-24 20:50 | Diagnostic Imaging Report ---
INDICATION: Cough, short of breath. TECHNIQUE: Two view chest 8:48 PM CORRELATION STUDY: 02/23/2018 FINDINGS: Limited depth of inspiration. No significant infiltrate. Heart size and mediastinum are slightly accentuated by limited depth of inspiration. Cholecystectomy clip in the right upper quadrant. S-type scoliotic curvature if the thoracic spine. IMPRESSION: 1. Negative for acute abnormality of the chest. Dictated by: Dictated on workstation # [id number]
--- NOTE | 2022-11-24 21:52 | ED Cough/URI ---
General Chief Complaint: Cough/Cold/Flu Symptoms Stated Complaint: SORE THROAT,COUGH,DIZZINESS Nursing Triage Note: Pt complaining of a cough that started 2 weeks ago. Pt states she was seen at Urgent Care 2 days ago and was diagnosed with bronchitis and was prescribed an inhaler. Pt states she hasn't improved Source: patient History of Present Illness Date Seen by Provider: Nov 24, 2022 Time Seen by Provider: 21:51 Initial Comments 47-year-old female presenting with complaints of over a week of cough with sinus drainage and sore throat. She has not been running a fever or chills. She had gone to urgent care this weekend and was told that she had bronchitis. She was prescribed an inhaler and Tessalon Perles to help with the cough. She was not seeing any improvement and a come to the emergency department due to her continued symptoms. She occasionally is coughing up clear to green sputum. She is not a smoker. Timing/Duration: week Severity/Quality: severe, productive cough (Occasionally productive of clear to green sputum) Prior Episodes/Possible Cause: no prior episodes Modifying Factors: Worse With Activity, Worse With Coughing Associated Symptoms: chest pain/soreness (Chest is sore from coughing), cough, dizziness (Occasionally dizzy with movement), nasal congestion, nasal drainage, shortness of breath, sinus infection (Sinus pressure), sore throat, wheezing Allergies and Home Medications Allergies Coded Allergies: Sulfa (Sulfonamide Antibiotics) (Verified Allergy, Unknown, 05/20/20) Patient Home Medication List Home Medication List Reviewed: Yes Aspirin (Aspirin EC) 81 Mg Tablet.dr, 81 MG PO DAILY, (Reported) Entered as Reported by: WALLACE CASTANO on 02/23/18 111 Aspirin/Acetaminophen/Caffeine (Excedrin Migraine Caplet) 1 Each Tablet, 2 TAB PO DAILY, (Reported) Entered as Reported by: WALLACE CASTANO on 02/23/18 111 Azithromycin (Azithromycin) 500 Mg Tablet, 500 MG PO DAILY Prescribed by: TED CHRISTIE on 11/24/222206 Cephalexin (Keflex) 500 Mg Capsule, 500 MG PO QID Prescribed by: EDWARD RAYMOND on 08/20/18 0032 Cholecalciferol (Vitamin D3) (Vitamin D3) 5,000 Unit Capsule, 5,000 UNIT PO DAILY, (Reported) Entered as Reported by: WALLACE CASTANO on 02/23/181117 Citalopram Hydrobromide (Citalopram HBr) 40 Mg Tablet, 40 MG PO DAILY, (Reported) Entered as Reported by: WALLACE CASTANO on 02/23/181117 Cyanocobalamin (Vitamin B-12) (Vitamin B12) 5,000 Mcg Tab.rapdis, 1,500 MCG PO DAILY, (Reported) Entered as Reported by: WALLACE CASTANO on 02/23/181117 Famotidine (Acid Director Of Math (FAMOTIDINE)) 20 Mg Tablet, 20 MG PO DAILY, (Reported) Entered as Reported by: WALLACE CASTANO on 02/23/181117 Naproxen (Naproxen) 500 Mg Tablet, 500 MG PO BID PRN for pain Prescribed by: EDWARD RAYMOND on 08/20/1831 Ondansetron (Ondansetron Odt) 4 Mg Tab.rapdis, 4 MG PO Q4H PRN for NAUSEA/VOMITING Prescribed by: EDWRAD RAYMOND on 08/20/1831 Oxybutynin Chloride (Oxybutynin Chloride ER) 10 Mg Tab.er.24, 10 MG PO DAILY, (Reported) Entered as Reported by: WALLACE CASTANO on 02/23/181117 Phenazopyridine HCl (Pyridium) 100 Mg Tablet, 100 MG PO Q8H PRN for pain Prescribed by: EDWARD RAYMOND on 08/20/1831 Prednisone (Prednisone) 20 Mg Tab, 40 MG PO DAILY Prescribed by: TED CHRISTIE on 11/24/222206 Topiramate (Topamax) 200 Mg Tablet, 200 MG PO DAILY, (Reported) Entered as Reported by: WALLACE CASTANO on 02/23/181117 Topiramate (Topamax) 200 Mg Tablet, 100 MG PO HS, (Reported) Entered as Reported by: WALLACE CASTANO on 02/23/181117 [Feverfew] , 1 CAP PO DAILY, (Reported) Entered as Reported by: WALLACE CASTANO on 02/23/181117 Review of Systems Review of Systems Constitutional: see HPI; No chills, No fever EENTM: see HPI Respiratory: see HPI Cardiovascular: see HPI Gastrointestinal: no symptoms reported Genitourinary: no symptoms reported Musculoskeletal: no symptoms reported Skin: No rash Psychiatric/Neurological: Anxiety Past Kntoknr-Vekmks-Qdloxs Hx Patient Social History Tobacco Use?: No Use of E-Cig and/or Vaping dev: No Substance use?: No Alcohol Use?: No Pt feels they are or have been: No Immunizations Up To Date Tetanus Booster (TDap): Unknown Seasonal Allergies Seasonal Allergies: No Past Medical History Surgery/Hospitalization HX: chronic migraine headaches Surgeries: Yes Appendectomy, Gallbladder, Hysterectomy, Tonsillectomy Respiratory: No Cardiac: Yes (HX HEART CATH NO STENT) High Cholesterol Neurological: Yes 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 0oz. 75.224047sv; 33.00 BMI Method:Stated General Appearance: WD/WN, no apparent distress HEENT: PERRL/EOMI, pharynx normal, TM abnormal (R) (Mild erythema to the TM but it is still clear and not dull), TM abnormal (L) (Mild erythema to the TM but it is still clear and not dull) Neck: non-tender, full range of motion, supple, normal inspection Respiratory: chest non-tender, lungs clear, normal breath sounds (Other than a faint end expiratory wheezing in the lung bases.), no respiratory distress, no accessory muscle use Cardiovascular: normal peripheral pulses, regular rate, rhythm Extremities: normal range of motion, non-tender, no calf tenderness, normal capillary refill Neurologic/Psychiatric: alert, oriented x 3 Skin: normal color, warm/dry Progress/Results/Core Measures Suspected Sepsis SIRS Temperature: Pulse: 76 Respiratory Rate: 18 Blood Pressure 126 /67 Mean: 86 Results/Orders My Orders Orders - TED CHRISTIE MD Chest Pa/Lat (2 View) (11/24/22 20:29) Dexamethasone Injection (Decadron Inje (11/24/22 22:04) Azithromycin Tablet (Zithromax Tablet) (11/24/22 22:04) Nursing Communication (Order) (11/24/22 22:04) Vital Signs/I&O 11/24/22 11/24/22 20:22 22:18 Temp 36.8 36.8 Pulse 76 76 Resp 18 18 B/P (MAP) 126/67 (86) 126/67 Pulse Ox 98 98 O2 Delivery Room Air Room Air Capillary Refill : Less Than 3 Seconds Blood Pressure Mean: 86 Progress Note #1: Progress Note Potential diagnosis of sinusitis, bronchitis, pneumonia, COVID, influenza. As patient had already had symptoms for over a week will defer nasal swab to check for COVID and influenza as she would be outside of the treatment window. Obtain 2 view chest x-ray looking for signs of infiltrate, effusion, lung abnormality. Progress Note #2: Progress Note My personal interpretation of her two-view chest x-ray she had no acute infiltrate or effusion or mass. Reassured patient and counseled on using a spacer with the inhaler. Since she does have some tenderness over her maxillary sinuses and drainage will do a steroid 10 mg IM Decadron here in the ED and follow that up with oral prednisone. As I am not seeing a back material infection in the lungs but she is having over a week of symptoms for sinusitis will place patient on Zithromax for a Z-Byron. Given first dose of Zithromax here 500 mg p.o. x1. Encourage fluids and hydration. May use Mucinex to help loosen cough and congestion. Use a humidifier at the bedside. Use ibuprofen if needed for body aches. Provided the spacer to use with the inhaler she has at home. Counseled on use and encouraged to consistently use it. Advised to check back with primary care provider for continued concerns or if not improving. Diagnostic Imaging Diagonstic Imaging: Xray Plain Films/CT/US/NM/MRI: chest [facility]. [place], [place] NAME: GIULIA MCKEON Alda MED REC#: [id number] PT STATUS: DEP ER : 1975 PHYSICIAN: TED CHRISTIE MD ADMIT DATE: 11/24/22/ER FS Signed Date of Exam:11/24/22 CHEST PA/LAT (2 VIEW) INDICATION: Cough, short of breath. TECHNIQUE: Two view chest 8:48 PM CORRELATION STUDY: 02/23/2018 FINDINGS: Limited depth of inspiration. No significant infiltrate. Heart size and mediastinum are slightly accentuated by limited depth of inspiration. Cholecystectomy clip in the right upper quadrant. S-type scoliotic curvature if the thoracic spine. IMPRESSION: 1. Negative for acute abnormality of the chest. Dictated by: Dictated on workstation # [id number] Dict: 11/24/222047 Trans: 11/24/222244 [facility] [id number] Interpreted by: ANGLE ABREU DO Electronically signed by: ANGLE ABREU DO 11/24/222244 Reviewed: Reviewed by Me (I personally reviewed the radiologist report at [id number]) Departure Impression Primary Impression: Sinusitis, acute maxillary Qualified Codes: J01.00 - Acute maxillary sinusitis, unspecified Additional Impressions: Upper respiratory infection with cough and congestion Nasal drainage Disposition: HOME, SELF-CARE Condition: Stable Departure-Patient Inst. Decision time for Depature: 22:05 Referrals: DARIUS PATEL MD (PCP/Family) Primary Care Physician Patient Instructions: Cough, Adult ED, How to Use a Spacer, Sinusitis, Adult E D, Upper Respiratory Infection ED Add. Discharge Instructions: Stay well-hydrated and drink plenty of fluids. Continue to use the inhaler with spacer to help with your cough. The steroid will help with the sinus pressure and dizziness. It should also help to dry up some of the congestion. You could also try taking [id number] Mucinex to help loosen and thin out the mucus and congestion. Check back with your primary care provider if symptoms persist or worsen. All discharge instructions reviewed with patient and/or family. Voiced understanding. Scripts Prednisone (Prednisone) 20 Mg Tab 40 MG PO DAILY for Cough for 5 Days, #10 TAB 0 Refills Prov: TED CHRISTIE MD 11/24/22 Azithromycin (Azithromycin) 500 Mg Tablet 500 MG PO DAILY for sinusitis for 5 Days, #5 TAB 0 Refills Prov: TED CHRISTIE MD 11/24/22 TED CHRISTIE MD Nov 24, 2022 21:52
[2022-11-24] MEDS ORDERED: AZITHROMYCIN 250 MG TAB (ZITHROMAX) PO STA (22:04)
[2022-11-24] MEDS ORDERED: PRD20T PO (22:07)
[2022-11-24] MEDS ORDERED: AZIT500T9 PO (22:07)
[2022-11-24 22:18] VITALS: BP 126/67
== END 2022-11-24 22:22 | disposition home or self-care (01) ==
LOC: EDUNIT# 18:50 → ER FS 18:52
DX: J01.00 Acute maxillary sinusitis, unspecified (principal); J06.9 Acute upper respiratory infection, unspecified; Z28.310 Unvaccinated for COVID-19
CPT/HCPCS: 71046

== ENCOUNTER → 2023-01-15 | Outpatient (CLI) | payer OTHER ==
[~2023-01-15] MED LIST changes: +AZIT500T9 PO; +PRD20T PO
--- NOTE | 2023-01-15 11:18 | Diagnostic Imaging Report ---
INDICATION: Left shoulder pain Four views of the left shoulder show no fracture, dislocation or other acute abnormalities. The glenohumeral and acromiohumeral joint spaces are unremarkable. IMPRESSION: Negative left shoulder Dictated by: Dictated on workstation # [id number]
== END ==
LOC: RAD FS 10:15
PROVIDERS: ATTEND Nurse Practitioner
DX: M25.512 Pain in left shoulder (principal)
CPT/HCPCS: 73030